=== PATIENT | female | born 1985 | race Caucasian/White ===

== ENCOUNTER 2018-05-11 10:53 | Day surgery (SDC) | payer OTHER, SELFPAY ==
--- NOTE | 2018-05-11 | FALS_PTH ---
PATIENT: ANGELI GILBERT [place] [facility] [id number] AGE/SX: 32/F ROOM: RE05/11/[address]: Dr. Eveline Garcia MD : [id number] BED: DIS: 05/11/2018 SPEC #: [id number] RECD: 05/11/18 15:44 STATUS: KILEY ETIENNE #: [id number] OPAL: 05/11/18 00:[address]: Eveline Garcia DEPT: SURGICAL PATHOLOGY RECD BY: Stephan Draper ENTERED: 05/12/18 08:35 SP TYPE: FALL TUBES OTHR DR: Dr. Karyn Locke MD Tissues: Fallopian tube Procedures: Surgery Specimen Level II HEADER OPERATION: Laparoscopic salpingectomy PRE-OP DIAGNOSIS: Request for sterilization TISSUE SUBMITTED: Bilateral fallopian tubes MICROSCOPIC DIAGNOSIS Bilateral fallopian tubes, bilateral salpingectomy: Bilateral fallopian tubes including fimbrial ends, no pathologic diagnosis. SJ:roseanne 05/13/18 MICROSCOPIC DESCRIPTION Slides are reviewed. GROSS DESCRIPTION Received is one container labeled with the patient's name and designated bilateral fallopian tubes. The specimen consists of bilateral fallopian tubes including fimbrial ends measuring 6 cm in length and 0.7 cm in diameter and the second fallopian tube measures 6.5 cm in length and 0.8 cm in diameter. Sections do not reveal any mass lesion. The fallopian tubes are not identified as right or left. Sections reveal unremarkable cut surfaces. Returned Materials Inspector sections are submitted in two cassettes with each cassette containing one fallopian tube. / LUCY:roseanne 05/12/18 TC:4 CPT: 08021 x2
[2018-05-11 11:29] VITALS: BP 118/62; PULSE 103; RESP 103; TEMP 37.4; O2SAT 100; BMI 17.1
[2018-05-11 11:29] LABS: Internal QC Validated? YES +Cl - CLEAR BKGD
[2018-05-11 11:30] LABS: Pregnancy, Urine Negative Negative
--- NOTE | 2018-05-11 12:41 | PCM.DC.TUB ---
Discharge Diet: No Restrictions Discharge Activity: May not drive while taking narcotic pain medications., May Shower, May Take a Tub Bath May resume sexual activity in: No Restrictions - when comfortable Additional Activity Instructions:: Ambulate often the next week after surgery. Call your doctor if you observe: Fever of 101 or Higher, Inability to have a bowel movement, Using more than one pad per hour, Uncontrolled pain Change Dressing in (Days):: 4 Remove Dressing in (days):: 4 Cleanse incision/area with: Soap & Water, Keep Dressing Clean & Dry Additional Instructions: You may take two Ibuprofen (200 mg each) or two Aleve every 8 hr for milder pain. Add Percocet if more severe pain. Allergies/Adverse Reactions: Allergies moxifloxacin [From Avelox] Adverse Reaction (Verified 05/04/18 11:16) Nausea/Vom/Diarrhea Medications to take at Discharge Vits [Prenatabs FA ] 1 tablet PO DAILY@1200 tablet 10/07/16 Bacillus Coagulans [Probiotic] 1 each PO DAILY 06/10/17 Ca/D3/Mag Ox/Zinc/Emr Trainer/Junior/Bor [Calcium 600-Vit D3-Min Chew Tb] 1 each PO DAILY 06/10/17 Ibuprofen 400 mg PO PRN PRN 06/10/17 Fluticasone 0.05% [Flonase Nasal [place]] 1 spray NASAL DAILY PRN PRN 05/11/18 Loratadine [Claritin] 10 mg PO DAILY PRN PRN 05/11/18 Oxycodone HCl/Acetaminophen [Percocet 5-325] 1 - 2 tablet PO Q6H PRN PRN 2 Days #10 tablet 05/11/18 The following prescriptions were given: Oxycodone HCl/Acetaminophen [Percocet 5-325] 1 - 2 tablet PO Q6H PRN PRN 2 Days #10 tablet PRN Reason: Moderate Pain Primary Care Physician: Karyn Locke [Primary Care Provider] - Test Results: Test results from this visit will be discussed in further detail at your follow-up appointment, if applicable. Please Follow Up With: Eveline Garcia MD - [phone] When: Please call with an update in 7 days. Proposed Discharge Date: 05/11/18
--- NOTE | 2018-05-11 12:45 | DCINST_ITS ---
Discharge Diet: No Restrictions Discharge Activity: May not drive while taking narcotic pain medications., May Shower, May Take a Tub Bath May resume sexual activity in: No Restrictions - when comfortable Additional Activity Instructions:: Ambulate often the next week after surgery. Call your doctor if you observe: Fever of 101 or Higher, Inability to have a bowel movement, Using more than one pad per hour, Uncontrolled pain Change Dressing in (Days):: 4 Remove Dressing in (days):: 4 Cleanse incision/area with: Soap & Water, Keep Dressing Clean & Dry Additional Instructions: You may take two Ibuprofen (200 mg each) or two Aleve every 8 hr for milder pain. Add Percocet if more severe pain. Allergies/Adverse Reactions: Allergies moxifloxacin [From Avelox] Adverse Reaction (Verified 05/04/18 11:16) Nausea/Vom/Diarrhea Medications to take at Discharge Vits [Prenatabs FA ] 1 tablet PO DAILY@1200 tablet 10/07/16 Bacillus Coagulans [Probiotic] 1 each PO DAILY 06/10/17 Ca/D3/Mag Ox/Zinc/Dry Color Mixer/Junior/Bor [Calcium 600-Vit D3-Min Chew Tb] 1 each PO DAILY 06/10/17 Ibuprofen 400 mg PO PRN PRN 06/10/17 Fluticasone 0.05% [Flonase Nasal [place]] 1 spray NASAL DAILY PRN PRN 05/11/18 Loratadine [Claritin] 10 mg PO DAILY PRN PRN 05/11/18 Oxycodone HCl/Acetaminophen [Percocet 5-325] 1 - 2 tablet PO Q6H PRN PRN 2 Days #10 tablet 05/11/18 The following prescriptions were given: Oxycodone HCl/Acetaminophen [Percocet 5-325] 1 - 2 tablet PO Q6H PRN PRN 2 Days #10 tablet PRN Reason: Moderate Pain Primary Care Physician: Karyn Locke [Primary Care Provider] - Test Results: Test results from this visit will be discussed in further detail at your follow- up appointment, if applicable. Please Follow Up With: Eveline Garcia MD - [phone] When: Please call with an update in 7 days. Proposed Discharge Date: 05/11/18
--- NOTE | 2018-05-11 12:48 | OP.PCM_ITS ---
Operative Report Date of Procedure: 05/11/18 PROCEDURE: Laparoscopic Bilateral Salpingectomy PREOPERATIVE DIAGNOSIS: Sterilization request POSTOPERATIVE diagnosis: Sterilization request Surgeon: Eveline Garcia MD Anesthesia: general anesthesia. Dr Henson Educational Program Director: none EBL: minimal Complications: None Drains: Red Ordonez catheter used to drain the bladder prior to initiation of the case Fluids: LR replacement Findings; Normal appearing, anteverted uterus. Fallopian tubes and ovaries are WNL. Gross inspection of bowel, omentum. liver edge also WNL. photos were taken of the uterus and ovaries after Bilateral salpingectomy, and of the RUQ / liver edge Narrative account: After the risks, benefits, alternatives of procedure had been reviewed with the patient, informed consent was obtained. The patient was taken back to the Operating room with an IV running. she was positioned on the operating table in dorsal supine position, where she was given general anesthesia. Once asleep she was repositioned to the dorsal lithotomy position and prepped and draped in the usual sterile fashion. A red Ordonez catheter was used to drain the bladder prior to initiating the case. A PROCEDURE: Laparoscopic Bilateral Salpingectomy PREOPERATIVE DIAGNOSIS: Sterilization request POSTOPERATIVE diagnosis: Sterilization request Surgeon: Eveline Garcia MD Anesthesia: general anesthesia. HALINA Lowry Educational Program Director: NGOZI Lang EBL: minimal Complications: None Drains: Red Ordonez catheter used to drain the bladder prior to initiation of the case Fluids: LR replacement Findings; Normal appearing, anteverted uterus. Fallopian tubes and ovaries are WNL. Gross inspection of bowel, omentum. liver edge also WNL. photos were taken of the uterus and ovaries after Bilateral salpingectomy, and of the RUQ / liver edge Narrative account: After the risks, benefits, alternatives of procedure had been reviewed with the patient, informed consent was obtained. The patient was taken back to the Operating room with an IV running. she was positioned on the operating table in dorsal supine position, where she was given general anesthesia. Once asleep she was repositioned to the dorsal lithotomy position and prepped and draped in the usual sterile fashion. A red Ordonez catheter was used to drain the bladder prior to initiating the case. A sponge stick was placed into the vagina to allow manipulation of the uterus and cervix during the case. Attention was then turned to the anterior abdominal wall where 0.25 % Marcaine with epinephrine was instilled at the suprapubic and infraumbilical skin and at a point midway between in the midline. Skin incisions were then created in the midline at the suprapubic skin and at the infraumbilical skin and midway between the two. While maintaining upward traction of the anterior abdominal wall a Veress needle was inserted through the umbilical incision into the peritoneal cavity. There was free drop of saline, low opening pressure and free flow of CO2 noted. Once the intraabdominal pressure had reached 7 mm of mercury the Veress needle was removed and a bladeless 5 mm trocar was placed through infraumbilical skin incision into the peritoneal cavity. Correct placement was confirmed using the scope. Under direct visualization then with the patient in Trendelenburg position, a bladeless 5 mm trocar was inserted in through suprapubic skin incision into the peritoneal cavity and at a point midway between the infraumbilical and suprapubic trocars. The uterus as anteverted and both ovaries and fallopian tubes were WNL. The R fallopian tube was grasped and retracted medially and using a LigaSure device the fallopian tube was excised from the ovary and mesosalpinx. Excellent hemostasis was noted at the excision site. The R fallopian tube was brought through the suprapubic trocar and set aside for later pathology review. In a similar manner the L fallopian tube was grasped and retracted medially and the fallopian tube was excised and removed from the abdominal cavity through the suprapubic trochar. The F allopian tubes were sent to pathology. Excellent hemostasis was noted by visualization of the pelvis, ovaries, and remaining mesosalpinx. Photos were taken of the uterus and Bilateral remaining ovaries and of the RUQ and liver edge. At this point the the procedure was terminated. The pneumoperitoneum was reduced and the instruments and trocars were removed from he the anterior abdominal wall skin. The skin incisions were closed with 4-0 Monocryl in a subcuticular fashion. Dermabond and OpSites were applied to the skin. The Sponge stick was removed from the vagina. The patient was returned to dorsal supine position. She was awakened from general anesthesia. She was transferred to the recovery room bed in stable condition after tolerating the procedure well. Sponge, lap, needle and instrument counts were correct x two. Medications given preop and intraoperatively included: 10 cc of 1/2 % Marcaine with epinephrine --used as a subcutaneous block and Toradol 30 mg IV x one. For a complete listing of medications given preop and intraop , please see the anesthesia record.
[2018-05-11] MEDS: Bupiv/Epi 0.5% Mpf 30 ML Vial (13:04)
[2018-05-11 13:34] VITALS: BP 113/77; BP 118/62; PULSE 92; RESP 12; TEMP 36.6; O2SAT 98
[2018-05-11 13:45] VITALS: BP 112/79; BP 118/62; PULSE 84; RESP 16; O2SAT 100
[2018-05-11 13:53] VITALS: BP 114/84; BP 118/62; PULSE 83; RESP 16; TEMP 36.5; O2SAT 100
--- NOTE | 2018-05-11 15:01 | SUR.PHASEII ---
AT 1450, PATIENT C/O ABDOMINAL BLOATING, RIGHT SHOULDER DISCOMFORT, REPORTS DIFFICULTY TAKING A DEEP BREATH. LUNGS CLEAR. AMBULATED IN HALLWAY WITHOUT DIFFICULTY. HAS BEEN DRINKING JIGNESH BREANA, ENCOURAGED TO SWITCH TO NON-CARBONATED DRINKS. ALSO REPEATEDLY QUESTIONING IF SAFE TO BREAST FEED AFTER ANESTHESIA OR IF TAKING PERCOCET. DR MONTES DE OCA UPDATED, STOPPED IN PATIENT ROOM TO EDUCATE.
[2018-05-11 15:56] VITALS: BP 118/62; BP 118/78; PULSE 93; RESP 16; TEMP 37.2; O2SAT 100
== END 2018-05-11 15:40 | disposition home or self-care (01) ==
LOC: SDC 10:54 → AC 05-12 09:25
PROVIDERS: Anesthesiology; Family Provider Family Medicine; PCP Family Medicine; Referring Provider Obstetrics & Gynecology; Visit Provider Obstetrics & Gynecology
PROC: (CPT 58661; principal; 2018-05-11 12:15)
DX: Z30.2 Encounter for sterilization (principal); K58.9 Irritable bowel syndrome, unspecified
CPT/HCPCS: 58661; 81025; 88302; J7030; J7120; J2405

== ENCOUNTER → 2018-12-21 08:50 | Outpatient (CLI) | payer OTHER, SELFPAY | PROVIDERS: Family Provider Family Medicine; PCP Family Medicine | DX: R00.2 Palpitations (principal) | CPT/HCPCS: 93225; 93226 ==

== ENCOUNTER → 2019-04-12 13:46 | Outpatient (CLI) | payer OTHER, SELFPAY ==
--- NOTE | 2019-04-12 13:51 | BI_ITS ---
MAMMOGRAPHY - BILATERAL DIAGNOSTIC REASON FOR EXAM: Female, 33 years old. PERTINENT HISTORY: Palpable lump in the left breast TECHNIQUE: Digital examination. Mediolateral oblique (MLO) and craniocaudad (CC) views of both breasts were obtained. A true lateral right breast images also obtained. CAD: COMPARISON: None. FINDINGS: Breast Composition: Extremely dense and compressed fractures identified. There are no dominant masses identified. There are some calcifications noted in the right retroareolar portion of the breast on the MLO projection. On the true lateral projection and small degree of compression was provided and these calcifications completely disappeared indicating they represent milk of calcium.. The palpable mass in the left breast could not be visualized on these images, but because the patient has dense central breast structure was elected to use ultrasound to better visualize this region. BI/DIAG MAMM W/CAD, BILAT IMPRESSION: Palpable densities noted in the left breast in the retroareolar area and a left breast ultrasound will be performed further evaluation.. ASSESSMENT CATEGORY: BIRADS Category 0: Incomplete. Need additional imaging evaluation. A letter regarding these results will be sent to the patient by the facility within 30 days. FOLLOW UP RECOMMENDATION: Ultrasound Recommended. (I) Approximately 10% of breast cancers are not detected by mammography. A normal mammogram should not delay biopsy of a clinically suspicious abnormality. Electronically Signed: Nitin Kumar, at 17:04 EDT Tel , Service support ,
--- NOTE | 2019-04-12 14:47 | US_ITS ---
STUDY: ULTRASOUND BREAST - LEFT REASON FOR EXAM: Female, 33 years old. Palpable density in the left retroareolar area TECHNIQUE: Axial and longitudinal images of the LEFT breast were performed with a high resolution ultrasound transducer. COMPARISON: Recent mammogram obtained on 04/12/2019 FINDINGS: LEFT Breast: There is a lesion in the left retroareolar area. This density measures 1.78 x 0.77 cm in maximal anterior superior and AP dimension. Upon review of this density appears to have a similar echogenic appearance to normal breast parenchyma just to the lateral lesion and probably represents an area of focal fibrocystic change surrounded by some fatty tissue. Please is not spiculated. It is slightly lobulated and does not cast an acoustic shadow. There are no characteristics that would suggest a malignancy otherwise noted is solid. I believe in this situation a follow-up breast ultrasound in 3-6 months to check for growth would be helpful for additional evaluation. US/Breast Limited Unilateral IMPRESSION: The palpable density in the left retroareolar area probably represents focal fibrocystic change surrounded by fatty tissue giving a pseudonodular appearance. A follow-up breast ultrasound in 3-6 months would be helpful for further evaluation. ASSESSMENT CATEGORY: BIRADS Category 3: Probably Benign - Short-Interval Follow-up Suggested. A letter regarding these results will be sent to the patient by the facility within 30 days. Electronically Signed: Nitin José, at 17:10 EDT Tel , Service support ,
== END ==
PROVIDERS: Family Provider Family Medicine; PCP Family Medicine; Referring Provider Obstetrics & Gynecology; Visit Provider Obstetrics & Gynecology
DX: N60.22 Fibroadenosis of left breast (principal); Z86.018 Personal history of other benign neoplasm
CPT/HCPCS: 76642; 77062; 77066; G0279

== ENCOUNTER 2019-05-29 01:26 | Emergency (ER) | payer OTHER, SELFPAY ==
[2019-05-29 01:27] VITALS: BP 153/97; PULSE 98; RESP 18; TEMP 36.8; O2SAT 100; BMI 19.5
--- NOTE | 2019-05-29 01:35 | ED.VIS.GEN ---
History of Present Illness Chief Complaint: Eye Problem Informant: Patient Narrative: Patient scratched her eye at 6 PM today. Her daughter was holding a sauce packet and the plastic scratched her eyes she got to close. Stated she took Tylenol and Motrin. She stated her eyelid is slightly swollen and spasmed. Difficult to open her eyes secondary to the pain. She stated she did not have any visual problems afterwards however. She wears glasses as needed. - Past Medical History (1) Sinus tachycardia Status: Acute Past Medical History - Allergies and Home Meds Allergies/Adverse Reactions: Allergies moxifloxacin [From Avelox] Adverse Reaction (Verified 05/29/19 01:32) Nausea/Vom/Diarrhea Primary Care Physician: Karyn Locke [Primary Care Provider] - Prior records reviewed: Yes Past Medical History: - - See problem list Surgical History: noncontributory Lives: With Family Smoking Status: Never smoker Alcohol: None Drugs: None - Family History Maternal Family History: Reports: No pertinent history Review of Systems General: Denies: Chills, Fever, Sweats Eyes: Reports: Visual changes - right. Denies: Visual changes - bilaterally, Diplopia ENT: Denies: Rhinorrhea, Sore throat Cardiovascular: Denies: Chest pain, Palpitations Respiratory: Denies: Dyspnea, Cough, Dyspnea on exertion Gastrointestinal: Denies: Abdominal pain, Nausea, Vomiting, Diarrhea, Melena, Hematochezia Genitourinary: Denies: Dysuria, Hematuria, Frequency Musculoskeletal: Denies: Back pain, Extremity Pain Skin: Denies: Rash, Wounds Neurological: Denies: Headache, Weakness, Numbness Physical Exam Vital Signs/Narrative: Vital Signs Temp Pulse Resp BP Pulse Ox 05/29/19 01:27 98.2 F 98 18 153/97 H 100 General: Well nourished, Well developed, No Acute Distress Head: Normocephalic, Atraumatic Eyes: Perrl, EOMI, - - She has conjunctivitis with redness and bloodshot eye. Patient has mild swelling to her eyelids. Tetracaine was instilled with complete relief. Floor seen was used and there is a punctate corneal abrasion at the 6 o'clock position. ENT: Moist mucous membranes, No rhinorrhea Neck: Supple, Nontender Cardiovascular: Regular rate, Regular rhythm, No murmurs Respiratory: No distress, CTA bilaterally, Chest nontender Abdomen: Soft, Nontender, Nondistended, Normal bowel sounds Back: Nontender, Normal Inspection Extremities: Nontender, No edema Skin: Normal color, No rash Neurological: Alert, Oriented x3, Cranial nerves II-XII grossly intact, Normal Strength, Normal Sensation Psychological: Normal affect, Normal Mood Diagnostic/Tx/Re-eval - Medical Decision Making Bacitracin ophthalmic given. We will continue pain control. At this time she has a corneal abrasion. We will follow-up with ophthalmology ED Disposition - Plan for ED Patient: Disposition: Home or Assisted Living Diagnosis: Corneal abrasion Instructions: ED Corneal Abrasion Referrals: Lucía Encinas MD [STAFF PHYSICIAN] -
[2019-05-29] MEDS: Gentamicin Sulfate 1 OPTH.BTL 1 DRP RIGHT EYE (02:17)
[2019-05-29] MEDS: Fluorescein 1 MG STRIP 1 STRIP RIGHT EYE (02:17)
[2019-05-29 02:18] VITALS: BP 118/64; PULSE 67; RESP 18; O2SAT 98
== END 2019-05-29 02:19 | disposition home or self-care (01) ==
PROVIDERS: Emergency Provider Emergency Medicine; Family Provider Family Medicine; PCP Family Medicine
DX: S05.01XA Injury of conjunctiva and corneal abrasion without foreign body, right eye, initial encounter (principal); H10.9 Unspecified conjunctivitis; W22.8XXA Striking against or struck by other objects, initial encounter; Y93.9 Activity, unspecified; Y92.9 Unspecified place or not applicable; Y99.9 Unspecified external cause status; Z79.899 Other long term (current) drug therapy
CPT/HCPCS: 99282

== ENCOUNTER → 2019-09-20 10:58 | Outpatient (CLI) | payer OTHER, SELFPAY ==
[2019-07-12 10:58] VITALS: BMI 19.5
--- NOTE | 2019-09-20 11:10 | US_ITS ---
STUDY: ULTRASOUND BREAST - LEFT REASON FOR EXAM: Female, 33 years old. Palpable lump left breast. TECHNIQUE: Axial and longitudinal images of the LEFT breast were performed with a high resolution ultrasound transducer. # OF IMAGES: 11 COMPARISON: Comparison is made with prior ultrasound of the left breast dated April 12, 2019. FINDINGS: LEFT Breast: There is a 2.1 cm x 2.5 cm x 0.9 cm heterogeneous slightly irregular nodule at the 9:00 position of the breast in the retroareolar region. This has increased in size as compared to prior study. A biopsy is recommended. US/Breast Limited Unilateral IMPRESSION: The previously seen nodular density has increased in size. A biopsy is recommended. ASSESSMENT CATEGORY: BIRADS Category 4: Suspicious - Biopsy Should Be Considered. A letter regarding these results will be sent to the patient by the facility within 30 days. Electronically Signed: Salvatore Veronica, at 13:17 EDT , Service support ,
== END ==
PROVIDERS: PCP Family Medicine; Referring Provider Obstetrics & Gynecology; Visit Provider Obstetrics & Gynecology
DX: N60.22 Fibroadenosis of left breast (principal)
CPT/HCPCS: 76642

== ENCOUNTER → 2020-12-23 | Outpatient (CLI) | payer OTHER, SELFPAY ==
[2019-07-12 10:58] VITALS: BMI 19.5
[2020-12-25 22:07] LABS: HPV APTIMA, High Risk Negative (Negative)
== END | disposition home or self-care (01) ==
PROVIDERS: PCP Family Medicine; Visit Provider Student in an Organized Health Care Education/Training Program
DX: Z12.4 Encounter for screening for malignant neoplasm of cervix (principal)
CPT/HCPCS: 87624; 88175; G0145

== ENCOUNTER → 2021-04-14 08:17 | Outpatient (CLI) | payer OTHER, SELFPAY ==
--- NOTE | 2021-04-14 08:21 | BI_ITS ---
MAMMOGRAPHY - BILATERAL SCREENING REASON FOR EXAM: Female, 35 years old. Routine annual screening examination. PERTINENT HISTORY: Mother with breast cancer. Prior left ultrasound-guided breast biopsy. TECHNIQUE: Digital bilateral breast chan (3D mammographic acquisition) in the CC and MLO projections. 2-D mediolateral oblique (MLO) and craniocaudad (CC) views of both breasts were obtained. CAD: Full Field Digital Mammography with Computer Added Detection was performed. COMPARISON: Comparison is made with prior study 04/12/2019. FINDINGS: Breast Composition: The breasts are extremely dense, which lowers the sensitivity of mammography. There are no dominant masses or suspicious calcifications. No other significant abnormalities are identified. There has been no significant change since the prior study. BI/SCRN MAMM (CAD)W/CHAN BILAT IMPRESSION: Stable bilateral screening mammogram. Yearly follow-up mammogram recommended. (A) ASSESSMENT CATEGORY: BIRADS Category 1: Negative. A letter regarding these results will be sent to the patient by the facility within 30 days. Approximately 10% of breast cancers are not detected by mammography. A normal mammogram should not delay biopsy of a clinically suspicious abnormality. [id number] Electronically Signed: Salvatore Veronica MD at 9:44 EDT , Service support ,
== END ==
PROVIDERS: PCP Family Medicine
DX: Z12.31 Encounter for screening mammogram for malignant neoplasm of breast (principal); Z80.3 Family history of malignant neoplasm of breast
CPT/HCPCS: 77063; 77067

== ENCOUNTER 2024-05-25 06:09 | Day surgery (SDC) | payer OTHER, SELFPAY ==
--- NOTE | 2024-04-27 16:35 | PCM.HP.BLA ---
History and Physical Date of Admission: 05/25/24 HPI: The patient is a 38 year old female presenting for pre-operative visit. She is scheduled for Hysteroscopy D&C, possible polyp resection for mid cycle spotting and endometrial polyp on 05/25/24. Procedure discussed along with risks, benefits and complications. Other alternatives discussed for management. Consent form signed? Yes. PAST MEDICAL HISTORY PAST MEDICAL HISTORY Diagnosis Date ? Anxiety state ? POTS (postural orthostatic tachycardia syndrome) ? Tachycardia PAST SURGICAL HISTORY PAST SURGICAL HISTORY Procedure Laterality Date ? SECTION HX 01/09/2017 ? PARTIAL HYMENECTOMY 2001 ? PAST SURGICAL HISTORY OF 02/03/2020 fibroadenoma ? PAST SURGICAL HISTORY OF Right 1998 shoulder ? SALPINGECTOMY 05/11/2018 CURRENT MEDICATIONS Current Outpatient Medications Medication Sig Dispense Refill ? hydrOXYzine HCl (ATARAX) 10 mg tablet TAKE ONE TABLET BY MOUTH THREE TIMES DAILY NEEDED FOR ANXIETY FOR 30 DAYS ? multivitamin/iron/folic acid (CENTRUM WOMEN ORAL) Take 1 tablet by mouth once daily. ? cyanocobalamin 1,000 mcg/mL inject ONE ML intramuscular every TWO WEEKS ? VITAMIN E ORAL 180 mg. ? cholecalciferol, vitamin D3, (VITAMIN D3 ORAL) Take by mouth. ? propranolol (INDERAL) 20 mg tablet Take 1 tablet by mouth every 12 hours. ? busPIRone (BUSPAR) 5 mg tablet 1-2 tabs (Patient not taking: Reported on 04/20/2024) ? cetirizine (ZYRTEC) 10 mg tablet Take 10 mg by mouth. ? Magnesium Citrate 150mg (Pure Encapsulations) Take 3 capsules daily. ? ALPRAZolam (XANAX) 0.25 mg tablet ? diphenhydrAMINE (BENADRYL) 25 mg capsule Take 25 mg by mouth. ? ibuprofen (MOTRIN) 200 mg tablet Take 200 mg by mouth. No current facility-administered medications for this visit. ALLERGIES: Moxifloxacin and Flagyl [Metronidazole] PERSONAL HISTORY: SOCIAL HISTORY Social History Tobacco Use ? Smoking status: Never ? Smokeless tobacco: Never Vaping Use ? Vaping status: Never Used Substance Use Topics ? Alcohol use: Yes Comment: occ ? Drug use: Never FAMILY HISTORY: FAMILY HISTORY FAMILY HISTORY Problem Relation Age of Onset ? other (hemochromatosis) Mother ? Hypothyroidism Mother ? other (hypercholesterolemia) Mother ? Diabetes Mother ? Diabetes Father type 2 ? Hypertension Father ? Heart Attack Father 62 bypass ? Heart Attack Maternal grandparent ? Stroke Paternal grandparent REVIEW OF SYMPTOMS: GENERAL: denies fevers or chills ENDOCRINOLOGY: has not been on steroids Cardiology : denies palpitations or chest pain Respiratory: denies SOB or cough Hematology: denies history of prolonged bleeding or easy bruising or VTE Allergy: Denies history of personal or family history of allergy to anesthesia PHYSICAL EXAMINATION: VITALS: Blood pressure 114/64, pulse 96, resp. rate 16, height 163.8 cm (5' 4.5), weight 52.6 kg (116 lb), last menstrual period 04/12/2024. GENERAL: The patient is well nourished, well hydrated in no acute distress. , The patient is oriented to time, place, and person. NECK: Supple. No lynphadenopathy, normal thyroid, no thyromegaly. LUNGS: Clear to auscultation bilaterally. no wheezes, rhonchi or rales HEART: Regular rate and rhythm, Normal heart sounds, and No murmurs or gallops IMPRESSION: midcycle spotting, endometrial polyp PLAN: The risks/benefits/alternatives and personal involved for the planned hysteroscopy D&C with possibble polyp resection were reviewed with the patient. Her questions were answered to her satisfaction and she desires to proceed. Consent was signed. I reviewed with her postop instructions and expectations. I have reviewed and updated past medical and surgical history, medications and allergies Assessment & Plan Assessment/Plan (1) Abnormal uterine bleeding (AUB): (2) Endometrial polyp:
[2024-05-18 08:59] LABS: Hematocrit 41.6 % (37-47); Hemoglobin 13.5 g/dL (12.0-15.0); Mean Corp Hgb Conc 32.5 g/dL (32-36); Mean Corpuscular Hgb 29.9 pg (27.0-32.0); Mean Corpuscular Volume 92.2 fL (81-99); Mean Platelet Vol. 9.5 fl (6.2-12.0); Platelet Count 358 K/mm3 (150-450); RBC Distribution Width CV 12.2 % (11.6-14.6); RBC Distribution Width SD 41.6 fl (35.1-43.9); Red Blood Count 4.51 M/mm3 (4.2-5.4); White Blood Count 9.8 K/mm3 (4.4-11.0)
[2024-05-25] VITALS (8 sets, daily range): BP systolic 120–140; BP diastolic 79–91; PULSE 84–94; RESP 16–18; TEMP 36.6–37.2; O2SAT 97–100; BMI 20.3
--- NOTE | 2024-05-25 | EMB_PTH ---
PATIENT: ANGELI GILBERT LOC: [facility] [place] U#:[id number] AGE/SX: 38/F ROOM: RE05/25/[address]: Dr. Iva Kelly MD : 1985 BED: DIS: 05/25/2024 SPEC #: [id number] RECD: 05/25/24 10:17 STATUS: KILEY REIsreal #: [id number] OPAL: 05/25/24 00:[address]: Iva Kelly DEPT: SURGICAL PATHOLOGY RECD BY: Stephan Draper ENTERED: 05/25/24 10:17 SP TYPE: ENDOM BX/C OTHR DR: Dr. Karyn Locke MD Tissues: Endometrium, NOS Procedures: Surgery Specimen Level IV HEADER OPERATION: Hysteroscopy., visual D&C, polyp resection PRE-OP DIAGNOSIS: Abnormal uterine bleeding, endometrial polyp TISSUE SUBMITTED: Endometrial curettings and polyp MICROSCOPIC DIAGNOSIS Endometrial curettings and polyp: Secretory endometrium. Fragments of myometrium. 05/26/2024 MICROSCOPIC DESCRIPTION Slides are reviewed. GROSS DESCRIPTION Received in fixative is one container labeled with the patient's name and designated Endometrial curettings and polyp. The specimen consists of multiple irregular fragments of crews-pink soft tissue that in aggregate measure 7.5 x 3.0 x 0.2 cm. The specimen is totally submitted in three cassettes. 05/25/2024 TC:5 CPT:41756
--- NOTE | 2024-05-25 06:47 | PCM.PRE.AN2 ---
ASA Classification* ASA Classification ASA Classification: 2 Assessment & Plan Anesthesia* Anesthesia Assessment Anesthesia Assessment: Discussed sedation and/or anesthesia options, risks, benefits, and alternatives with patient/parents/legal guardian/POA. Questions invited. The patient/parents/legal guardian/POA seems to understand and agrees to proceed with anesthesia plan. Reviewed the physical assessment, medical history, allergy history and patient home medications list prior to surgery/procedure/anesthetic and documented any changes. Performed airway and anesthesia risk assessments. Anesthesia Type Anesthesia Type: MAC Anesthesia Focused Assessment* Airway Assessment Mouth opens: >3 cm Mallampati Score: II Focused Labs Anesthesia Preop lab: CBC WBC 9.8 K/mm3 (4.4-11.0) 05/18/24 08:29 RBC 4.51 M/mm3 (4.2-5.4) 05/18/24 08:29 Hgb 13.5 g/dL (12.0-15.0) 05/18/24 08:29 Hct 41.6 % (37-47) 05/18/24 08:29 Plt Count 358 K/mm3 (150-450) 05/18/24 08:29 CHEMISTRY Potassium 3.8 mmol/L (3.5-5.1) 10/12/16 13:59 Sodium 137 mmol/L (136-145) 10/12/16 13:59 BUN 6 mg/dL (7-18) L 10/12/16 13:59 Creatinine 0.47 mg/dL (0.55-1.02) L 10/12/16 13:59 Glucose 95 mg/dL (70-110) 10/12/16 13:59 POC Glucose 123 mg/dL (70-110) H 01/10/17 20:28 COAG Urine Test Negative Negative 05/11/18 11:05 Pre-Assessment Diagnosis/Proposed Procedure Planned Operative Procedure(s): Hysteroscopy,D&C Symphion, possible polyp resection, IUD insertion Anesthesia History 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 When Was Last Pacemaker Check QUESTION #4 FULL TEXT: You/Your Family Experience fever (hyperthermia) with Anesthesia Last Oral Intake Last Oral intake: Last Oral Intake NPO since Meds taken in AM with sips of water? Meds patient instructed to take am of surgery PONV PONV - sql server developer: PONV - sql server developer Female Yes 05/16/24 13:24 HX of Motion Sickness No 05/16/24 13:24 HX of N/V After Surgery No 05/16/24 13:24 Non-Smoker Yes 05/16/24 13:24 Duration of Surgery greater No 05/16/24 13:24 than 60 minutes Number of Risk Factors 2 05/16/24 13:24 PONV Score Moderate Risk 05/16/24 13:24 Respiratory Assessment Respiratory Assessment - sql server developer: Respiratory Tract Infection Hx - sql server developer Hx Respiratory Tract Infection No 05/16/24 13:24 STOP Sleep Apnea STOP Sleep Apnea - sql server developer: STOP Sleep Apnea - sql server developer Hx Hypertension No 05/16/24 13:24 Hx Sleep Apnea No 05/16/24 13:24 CPAP BIPAP Do you snore loudly (louder No 05/16/24 13:24 than talking or can be heard Do you often feel tired/ No 05/16/24 13:24 fatigued/ sleepy during daytime? Has anyone observed you stop No 05/16/24 13:24 breathing during sleep? STOP Results Negative 05/16/24 13:24 QUESTION #5 FULL TEXT : Do you snore loudly (louder than talking or can be heard through closed doors)? Tobacco Use History Tobacco Use History - sql server developer: Tobacco Use History - sql server developer Tobacco Use Smoking Status Never smoker 05/16/24 13:24 Hx Tobacco Use No 05/16/24 13:24 Years Smoking Packs Smoked per Day Smoking Cessation Date was within the last 15 years Hx Smoking Cessation Date Hx Smoking Cessation Counseling Hematologic Medial History Hematologic Hx - sql server developer: Hematologic Medical Hx - administrative assistant Hx of Blood Transfusion No 05/16/24 13:24 Hx of Transfusion in last 3 No 05/16/24 13:24 Months Date of Last Transfusion (if within last 3 months) Ever experience any problems No 05/16/24 13:24 with transfusion(s)? Specify any problems Hx of Preganancy in last 3 No 05/16/24 13:24 Months Nurse Filling Out Transfusion ANIRUDH 05/16/24 13:24 & Questions: Date: 05/16/24 05/16/24 13:24 Time: 13:37 05/16/24 13:24 Patient unable to answer at this time (ie. confused, unrespo /Reproduction History /Reproductive History - sql server developer: /Reproductive Hx- sql server developer Hx Now Gestational Age (in weeks): EDC: Hx Hx Para Hx Section SAB Active Medications Active Medications: Current Medications Generic Name Dose Route Start Last Admin Trade Name Freq PRN Reason Stop Dose Admin Acetaminophen 1,000 mg 05/25/24 07:30 Acetaminophen 500 Mg Tablet PO 05/25/24 07:31 PREOP ONE Ketorolac Tromethamine 30 mg 05/25/24 07:30 Ketorolac 30 Mg/Ml Syringe IV 05/25/24 07:31 PREOP ONE PFSH Medical History History of irregular heartbeat Wears glasses Anxiety Non-smoker History of echocardiogram Cardiology follow-up encounter Home Medications ?Medication ?Instructions ?Recorded ?Last Taken ?Type alprazolam 0.25 mg tablet 0.25 mg PO Q6H PRN PRN anxiety 05/16/24 05/25/24 History hydroxyzine HCl 10 mg tablet 10 mg PO TID PRN PRN anxiety 05/16/24 Unknown History propranolol 20 mg tablet 10 mg PO BID 05/16/24 05/25/24 History Allergy/AdvReac Type Severity Reaction Status Date / Time metronidazole (From Flagyl) Allergy Intermediate Other Verified 05/25/24 06:33 tetracycline Allergy Intermediate Other Verified 05/25/24 06:33 moxifloxacin (From Avelox) AdvReac Nausea/Vom/ Verified 05/25/24 06:33 Diarrhea Surgical History History of esophagogastroduodenoscopy (EGD) History of colonoscopy History of bilateral fallopian tube excision History of shoulder surgery History of breast surgery History of Social History Smoking Status: Never smoker Review of Systems (Anesthesia) ROS Narrative System reviewed and no additional complaints, except as documented.
[2024-05-25] MEDS: Ketorolac 30 MG/ML Syringe IV (06:48)
[2024-05-25] MEDS: Acetaminophen 500 MG Tablet 1000 MG PO (06:48)
[2024-05-25 07:19] LABS: Internal QC Validated? YES +Cl - CLEAR BKGD; Pregnancy, Urine Negative Negative
--- NOTE | 2024-05-25 07:45 | DCINST_ITS ---
Discharge Instructions Diet Discharge Diet: No restrictions Activity May resume sexual activity in: 2 weeks Lifting Restrictions: none Dressing / Incision Call your doctor if your incision/area has: Sudden Increased Bleeding and Foul Smelling Discharge Call your doctor if you observe: Fever of 101 or Higher and Using more than 1 pad per hour (for 2 hrs in a row) Follow Up Care Please Follow Up With: Iva Kelly MD When: You do not need a postop appointment, we will contact you with the pathology next week. Call [phone] or send a [employer] message to make an appointment or with any concerns. Test Results: Test results from this visit will be discussed in further detail at your follow- up appointment, if applicable. Discharge Plan Admission Primary Reason for Your Visit: Hysteroscopy D&C Attending Provider: Iva Kelly Primary Care Provider: Karyn Locke Instructions Print Language: Sammarinese Discharge Orders/Prescriptions Prescriptions: No Action alprazolam 0.25 mg tablet 0.25 mg PO Q6H PRN PRN (Reason: anxiety) propranolol 20 mg tablet 10 mg PO BID hydroxyzine HCl 10 mg tablet 10 mg PO TID PRN PRN (Reason: anxiety) Referrals / Follow Up: Karyn Locke MD [Primary Care Provider] - Disposition Disposition (needs filled in before D/C Order can be placed): Home, Self Care
[2024-05-25] MEDS: Lidocaine 1% /Epi 1:100 (20ml) 20 ML Vial (07:50)
--- NOTE | 2024-05-25 08:07 | PCM.OPRPT ---
Problems Associated Problem List Diagnoses (1) Endometrial polyp: (2) Abnormal uterine bleeding (AUB): Operative Report (Standard) Operative Information Surgery/Procedure Performed: Hysteroscopy D&C with polyp resection Surgeon: Iva Kelly Date of Procedure: 05/25/24 Procedure Start Time: 07:50 Procedure Stop Time: 08:02 Pre-Operative Diagnosis: AUB, endometrial polyp Post-Operative Diagnosis: same Select all DRAINS/GRAFTS/IMPLANTS that apply: None Type of Anesthesia: MAC/Supplemental/Local Special Medications: none Estimated Blood Loss: 10 Fluids Replaced: 400 Specimen collected: Yes Description of specimen(s) removed: endometrial curettings and polyp Description of surgery: The patient was taken to the OR where she was prepped and draped in dorsal lithotomy position. The weighted speculum was placed in the vagina and the anterior lip of the cervix was grasped with a single-tooth tenaculum. A paracervical block was administered with 1% lidocaine with 1-100,000 epinephrine solution. The cervix was dilated serially with Hegar dilators. The Symphion hysteroscope was placed into the uterine cavity and the above findings were noted. Bilateral tubal ostia were identified. The hysteroscope was removed. The Symphion resection device was readied and inserted. The device was used to resect the polypoid appearing lesion on the posterior wall of the uterus and do a visual D&C of the endometrial cavity.. The instruments were removed from the vagina. The specimen was handed off and sent to pathology. All sponge and needle counts were correct. Vaginal sweep was performed by me. The patient was awakened and taken to the recovery room in stable condition. 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
--- NOTE | 2024-05-25 09:22 | SUR.PHASEII ---
PATIENT IS A LITTLE SHAKY IN HER LEGS. SHE SAID SHE HAD THIS PREVIOUSLY WITH ANESTHESAI. WITH HER HISTORY OF POTS IT KIND OF PUTS HER IN A FIGHT OR FLIGHT MODE. HER APICAL PULSE IS 90 CURRENTLY. I TOLD HER TO TRY AND RELAX AND SEE IF SHE CAN GET THE SHAKINESS CONTROLLED. LIGHTS LOWERED AND SHE IS RESTING. DENIES ANY NEEDS AT THIS TIME.
[2024-05-25] MEDS: oxyCODONE 5 MG Tablet PO (09:52)
--- NOTE | 2024-05-25 10:04 | PCM.POST.ANE ---
Anesthesia: Postop Eval I Current Vital Signs Temperature: 98.4 F Pulse Rate: 90 Blood Pressure: 128/87 Respiratory Rate: 18 Pulse Ox: 100 Oxygen Delivery Method: Room Air Assessment Airway patent: Yes Spontaneous unlabored respirations: Yes Mental status: Asleep nausea: No Vomiting: No Anesthesia Complication: No Fluid Hydration Crystalloid volume administer (ml): 400 Total IV fluid infused: 400 Progress Note Anesthesia document: Postop Eval 1 completed: Yes
--- NOTE | 2024-05-25 12:19 | POSTOPAN2_ITS ---
Anesthesia Postop Eval I Sum Postop Eval Completion status Anesthesia document: Postop Eval 1 completed: Yes Anesthesia Postop Eval I Summary Anesthesia Postop Eval I Summary: Anesthesia Postop Eval I: Assessment Summary Airway patent Yes 05/25/24 10:05 AIR LIAISON AND SPECIAL STAFF.[email or web address] Spontaneous unlabored Yes 05/25/24 10:05 AIR LIAISON AND SPECIAL STAFF.[email or web address] respirations Mental status Asleep 05/25/24 10:05 AIR LIAISON AND SPECIAL STAFF.RAJEEVOBCipriano nausea No 05/25/24 10:05 AIR LIAISON AND SPECIAL STAFF.RAJEEVOBCipriano Vomiting No 05/25/24 10:05 AIR LIAISON AND SPECIAL STAFF.RAJEEVOBCipriano Anesthesia Postop Eval I: Fluid Summary Crystalloid volume administer 400 05/25/24 10:05 AIR LIAISON AND SPECIAL STAFF.SKOBY (ml) Colloids volume administered ( ml) Blood Product volume administered (ml) Total IV fluid infused 400 05/25/24 10:05 AIR LIAISON AND SPECIAL STAFF.SHAHEEN Anesthesia Postop Eval I: Summary Notes Anesthesia Complication No 05/25/24 10:05 AIR LIAISON AND SPECIAL STAFF.SHAHEEN Anesthesia Complication Comment: Post-operative progress note Anesthesia: Postop Eval II Evaluation Mental status: Awake and Calm Pain Level: 1 nausea: No Vomiting: No Complications Anesthesia Complication: No
--- NOTE | 2024-05-25 12:19 | PCM.POSTANE2 ---
Anesthesia Postop Eval I Sum Postop Eval Completion status Anesthesia document: Postop Eval 1 completed: Yes Anesthesia Postop Eval I Summary Anesthesia Postop Eval I Summary: Anesthesia Postop Eval I: Assessment Summary Airway patent Yes 05/25/24 10:05 HR DIRECTOR.[email or web address] Spontaneous unlabored Yes 05/25/24 10:05 HR DIRECTOR.[email or web address] respirations Mental status Asleep 05/25/24 10:05 HR DIRECTOR.[email or web address] nausea No 05/25/24 10:05 HR DIRECTOR.[email or web address] Vomiting No 05/25/24 10:05 HR DIRECTOR.[email or web address] Anesthesia Postop Eval I: Fluid Summary Crystalloid volume administer 400 05/25/24 10:05 HR DIRECTOR.[email or web address] (ml) Colloids volume administered ( ml) Blood Product volume administered (ml) Total IV fluid infused 400 05/25/24 10:05 HR DIRECTOR.SHAHEEN Anesthesia Postop Eval I: Summary Notes Anesthesia Complication No 05/25/24 10:05 HR DIRECTOR.SHAHEEN Anesthesia Complication Comment: Post-operative progress note Anesthesia: Postop Eval II Evaluation Mental status: Awake and Calm Pain Level: 1 nausea: No Vomiting: No Complications Anesthesia Complication: No
== END 2024-05-25 10:24 | disposition home or self-care (01) ==
LOC: SDC 06:10 → AC 06:10
PROVIDERS: PCP Family Medicine; Referring Provider Obstetrics & Gynecology; Visit Provider Obstetrics & Gynecology
PROC: 0UB98ZZ Excision of Uterus, Via Natural or Artificial Opening Endoscopic (ICD-10-PCS; CPT 58558; principal; 2024-05-25 07:15)
DX: N84.0 Polyp of corpus uteri (principal); N93.9 Abnormal uterine and vaginal bleeding, unspecified; Z79.899 Other long term (current) drug therapy
CPT/HCPCS: 58558; 00952; 36415; 81025; 85027; 88305; J7120; A4216; J2405

== ENCOUNTER → 2025-05-22 | Outpatient (CLI) | payer OTHER, SELFPAY ==
--- NOTE | 2025-05-22 | COLBX_PTH ---
PATIENT: ANGELI GILBERT LOC: [facility] U#:[id number] AGE/SX: 39/F ROOM: RE05/22/[address]: Dr. Shola Ricks MD : 1985 BED: DIS: 05/22/2025 SPEC #: [id number] RECD: 05/22/25 14:42 STATUS: KILEY REQ #: [id number] OPAL: 05/22/25 00:[address]: Shola Ricks DEPT: SURGICAL PATHOLOGY RECD BY: Brad Pelletier ENTERED: 05/22/25 15:16 SP TYPE: COLON BX OT DR: Dr. Karyn Locke MD Tissues: A - Ileum, NOS B - COLON BIOPSY Procedures: Surgery Specimen Level IV HEADER OPERATION: Colonoscopy PRE-OP DIAGNOSIS: Constipation, change in bowel habits TISSUE SUBMITTED: A- Terminal ileum biopsy, B- Random colon biopsy MICROSCOPIC DIAGNOSIS A. Small intestine, terminal ileum, biopsy: * Small bowel mucosa with no pathologic change B. Colon, random biopsy: * Colonic mucosa with no pathologic change MICROSCOPIC DESCRIPTION Slides are reviewed. GROSS DESCRIPTION A. Received in fixative is one container labeled with the patient's name and designated "Terminal ileum biopsy." The specimen consists of one irregular fragment of crews tissue that measures 0.8 cm. The specimen is totally submitted in one cassette. B. Received in fixative is one container labeled with the patient's name and designated "Random colon biopsy." The specimen consists of multiple irregular fragments of crews tissue that in aggregate measure 1.7 x 1 x 0.1 cm. The specimen is totally submitted in one cassette. AL 05/22/2025 CPT:29215c2
--- OUTSIDE RECORDS SUMMARY | 2025-05-22 19:12 | XMS RPT_ITS | CCD ---
Author Organization [facility] Care Team Providers Care Ditch Cleaner Name Role Phone Lopez, Mary Unavailable Unavailable Lopez, Mary Unavailable Unavailable Lopez, Mary Unavailable Unavailable DeFinis, Harumi Y Unavailable Unavailable Lopez, Mary Unavailable Unavailable Esmer Mcclellan J Unavailable Unavailable Esmer Mcclellan Unavailable Unavailable Lopez, Mary Unavailable Unavailable Ailyn Kulkarni Unavailable Unavailable LATISHA HANDY Unavailable Unaelieseri MARCUS Dodson Unavailable Unavailable NO PRIMARY CAREMD Unavailable Unavailable Jeremi LUCAI, Adri Siddiqi Unavailable Karyn Soto Primary Care Provider Karyn Soto Primary Care Provider LopezIvonnei Unavailable Unavailable Unavailable Primary Care Provider Karyn Sawyer MD Primary Care Provider DR KARYN SOTO MD Primary Care Physician Unavailable Primary Care Provider UnavailMACKENZIE Clark Attending Unavailable PROVIDER, UNKNOWN Primary Care Unavailable PROVIDER, UNKNOWN Referring Unavailable MACKENZIE MAE Attending Unavailable PROVIDER, UNKNOWN Primary Care Unavailable PROVIDER, UNKNOWN Referring Unavailable Karyn Soto MD Primary Care Provider Unavailable Primary Care Provider Karyn Sawyer MD Primary Care Provider Dr. Sosa Block Attending Unavailab Karyn Romano MD Primary Care Provider DR KARYN SOTO MD Primary Care Physician [phone] DR KARYN SOTO MD Primary Care UnavailSOSA Alicia MD Attending Unavailable BRITTANY PALMER DR KARYN Werner Primary Care UnavailSORAYA De La O Attending Unavailable BRITTANY PALMER, DR KARYN Werner Primary Care Unavailgaby BLOCK MD, SOSA Attending Unavailable BRITTANY PALMER, DR KARYN Werner Primary Care Unavailgaby BLOCK MD, SOSA Attending Unavailable Unavailable Primary Care Provider Unavailgaby SOTO MD, DR KARYN Werner Attending Unavailgaby SOTO MD, DR KARYN Werner Primary Care Unavailgaby Soto MD, Karyn Werner Primary Care Provider Satish Narayan Referring Unavailable Satish Narayan Attending Unavailable Rucki, Karyn Primary Care Unavailable MCKAYLA PALMER, SOSA Attending Unavailable BRITTANY PALMER, DR KARYN Werner Primary Care Unavailgaby SOTO MD, DR KARYN Werner Primary Care Unavailgaby TELLEZ APRN-OPTICS ENGINEER, ASH T Attending Unavail able BRITTANY PALMER, DR KARYN Werner Primary Care Unavailgaby SOTO MD, DR KARYN Werner Attending UnavailZAINAB Nieves Referring Unavailable RUCKI, KARYN ONI Primary Care Unavailable SATISH NARAYAN Referring Unavailable RUCKI, KARYN ONI Primary Care Unavailable SELF Referring Unavailable ZAINAB CASILLAS Attending Unavailable SATISH NARAYAN Attending Unavailable RUCKI, KARYN ONI Primary Care Unavailable MACKENZIE MAE Attending Unavailable MACKENZIE MAE Referring Unavailable RUCKI, KARYN Primary Care Unavailable MACKENZIE MAE Attending Unavailable VIN NICOLE Referring Unavailable RUCKI, KARYN Primary Care Unavailable RUCKI, KARYN Primary Care Unavailable MACKENZIE MAE Attending Unavailable MACKENZIE MAE Referring Unavailable RUCKI, KARYN Primary Care Unavailable MACKENZIE MAE Attending Unavailable MACKENZIE MAE Referring Unavailable RUCKI, KARYN Primary Care Unavailable MACKENZIE MAE Attending Unavailable MACKENZIE MAE Referring Unavailable RUCKI, KARYN Primary Care Unavailable PRAKASH BARRON Attending Unavailable PRAKASH BARRON Referring Unavailable RUCKI, KARYN Primary Care Unavailable PRAKASH BARRON Attending Unavailable RUCKI, KARYN Referring Unavailable RUCKI, KARYN Primary Care Unavailable Allergies Allergy Classification Reported Allergen(s) Allergy Type Date of Onset Reaction(s) Facility (20 sources) moxifloxacin; Translations: [moxifloxacin] drug allergy 7 Nausea And Vomiting, GI Upset, Vomiting, Nausea Only, Unknown [facility] Work Phone: (20 sources) metroNIDAZOLE; Translations: [METRONIDAZOLE] Drug Allergy 2 GI Upset, Vomiting, Nausea Only, Nausea And Vomiting [facility] (1 source) metroNIDAZOLE Drug Allergy 4 [facility] (3 sources) Tetracycline; Translations: [TETRACYCLINE] Drug Allergy 4 [facility] (13 sources) Tetracycline Drug Allergy 4 [facility] Medications Current Medications Medication Drug Class(es) Dates Sig (Normalized) Sig (Original) acetaminophen 325 mg / HYDROcodone bitartrate 5 mg oral tablet (1 source) Opioid Agonist Start: 02-26-2020 End: 02-29-2020 take 1 tablet by mouth every six hours as needed for pain, then take 1 tablet by mouth as needed for pain HYDROcodone-acetami nophen (NORCO) 5-325 MG per tablet Indications: Postoperative state Take 1 tablet by mouth every 6 hours as needed for Pain for up to 3 days. Intended supply: 3 days. Take lowest dose possible to manage pain 10 tablet 0 02/26/2020 02/29/2020 Active alpha tocopherol (Vitamin E) 100 units capsule (20 sources) take 1 capsule by mouth once daily alpha tocopherol (Vitamin E) 100 units capsule Take 100 Units by mouth daily. Active take 1 capsule by mouth once diann ly alpha tocopherol (Vitamin E) 100 units capsule Take 100 Units by mouth daily. 0 Active ALPRAZolam 0.25 mg oral tablet (20 sources) Benzodiazepine Start: 12-31-2021 ALPRAZolam (Xa nax) 0.25 MG tablet 05/01/2022 Active Start: 02-26-2020 ALPRAZolam (NI RAVAM) dissolvable tablet 0.25 mg amitriptyline hydrochloride 10 mg oral tablet (10 sources) Tricyclic Antidepressant Start: 09-18-2024 take 1 tablet by mouth once daily amitriptyline (Elavil) 10 MG tablet Take 10 mg by mouth Nightly. 09/18/2024 Active Start: 12-02-2021 amitriptyline 10 mg oral tablet Dose : 10 mg = 1 tab(s), Oral, qHS, 0 Refill(s) Start Date: 12/02/21 Status: Ordered ascorbic acid 125 mg chewable tablet (4 sources) Vitamin C take 125 mg by mouth once daily Ascorbic Acid 125 MG CHEW Take by mouth daily 0 Active bismuth subsalicylate 262 mg oral tablet (1 source) Bismuth Start: 12-03-19 End: 12-17-19 bismuth subsalicylate 262 mg oral tablet Dose : 524 mg = 2 tab(s), Chewed, QID, # 112 tab(s), 0 Refill(s) Start Date: 12/02/21 Stop Date: 12/16/21 Status: Ordered busPIRone hydrochloride 5 mg oral tablet (20 sources) Start: 10-15-19 End: 05-22-20 busPIRone (Buspar) 5 MG tablet 07/01/2022 Active Comment on above: 1-2 tabs calcium chloride 0.0014 meq/ml / potassium chloride 0.004 meq/ml / sodium chloride 0.103 meq/ml / sodium lactate 0.028 meq/ml injectable solution (1 source) Start: 02-26-20 lactated ringers infusion cetirizine hydrochloride 10 mg oral tablet (20 sources) Histamine-1 Receptor Antagonist Start: 11-21-19 cetirizine (ZYRTEC) 10 mg tablet Take 10 mg by mouth. 11/20/2020 Active Comment on above: Take 10 mg by mouth. Cholecalciferol (20 sources) Vitamin D Cholecalciferol (D3 2000 PO) Take by mouth. Active Cholecalciferol (D3 2000 PO) Take by mouth. 0 Active cholecalciferol, vitamin D3, (VITAMIN D3 ORAL) (13 sources) cholecalciferol, vitamin D3, (VITAMIN D3 ORAL) Take by mouth. Active cholecalciferol, vitamin D3, (VITAMIN D3 ORAL) Take by mouth. 0 Active Comment on above: Take by mouth. cyclobenzaprine hydrochloride 5 mg oral tablet (20 sources) Muscle Relaxant Start: End: cyclobenzaprine (Flexeril) 5 MG tablet 12/31/2021 Active Comment on above: Take 5 mg by mouth. dexamethasone 4 mg oral tablet (1 source) Corticosteroid Start: End: take 1 tablet by mouth once daily, then take 0.5 tablet by mouth once daily at mealtime dexAMETHasone (DECADRON) 4 mg tablet Indications: Rhus dermatitis Take 1 tablet by mouth once daily for 4 days. Thern take 1/2 tab a day for 4 days. Take with food. 6 tablet 0 03/22/2022 03/26/2022 Active Comment on above: Take 1 tablet by mesfin th once daily for 4 days. Thern take 1/2 tab a day for 4 days. Take with food. diphenhydrAMINE hydrochloride 25 mg oral capsule (20 sources) Histamine-1 Receptor Antagonist Start: diphenhydrAMINE (BENADRYL) 25 mg capsule Take 25 mg by mouth. 12/02/2021 Active Start: 02-26-2020 End: 02-26-2020 diphenhydrAMINE (BENADRYL) i njection 12.5 mg Comment on above: Take 25 mg by mouth. DME MISCellaneous (1 source) Start: DME MISCellaneous See Instructions, 25g 1 inch needles for Vitamin B12 IM injections., # 1 EA, 11 Refill(s), Pharmacy: [facility], Dizziness Orthostatic hypotension, 162.6, cm, 09/20/23 9:15:00 EDT, Height, 63.2, kg, 09/20/23 9:15:00 EDT, Dosing Weight Start Date: 09/20/23 Status: Ordered fluticasone furoate 0.0275 mg/actuat metered dose nasal spray (4 sources) Corticosteroid take 2 spray(s) nasal route once daily as needed for rhinitis fluticasone (VERAMYST) 27.5 MCG/SPRAY nasal spray 2 sprays by Each Nostril route daily as needed for Rhinitis 0 Active 1 ml hydrALAZINE hydrochloride 20 mg/ml injection (1 source) Arteriolar Vasodilator Start: hydrALAZINE (APRESOLINE) injection 5 mg 1 ml HYDROmorphone hydrochloride 1 mg/ml cartridge (4 sources) Opioid Agonist Start: HYDROmorphone (DILAUDID) injection 0.25 mg Start: 02-26-2020 HYDROmorphone (DILAUDID) injection 0.5 mg Start: 02-26-2020 HYDROmorphone (DILAUDID) injection 1 mg hyoscyamine sulfate 0.125 mg oral tablet (4 sources) take 1 tablet by mouth every four hours as needed hyoscyamine (ANASPAZ;LEVSIN) 125 MCG tablet Take 125 mcg by mouth every 4 hours as needed for Cramping 0 Active ibuprofen 200 mg oral capsule (20 sources) Nonsteroidal Anti-inflammatory Drug Start: 03-16-20 ibuprofen 200 mg oral capsule Dose : 400 mg = 2 cap(s), Oral, q4h, PRN for pain, 0 Refill(s) Start Date: 03/16/22 Status: Ordered take 1 tablet by mesfin th every eight hours as needed for pain ibuprofen 200 MG tablet Take 200 mg by mouth every 8 hours as needed for mild pain (1-3). Active ibuprofen (MOTRI N) 200 mg tablet Take 200 mg by mouth. Active Comment on above: Take 200 mg by mouth . 4 ml labetalol hydrochloride 5 mg/ml cartridge (1 source) beta-Adrenergic Ryan Start: 02-26-2020 labetalol (NORMODYNE;TRANDAT E) injection 5 mg 10 ml lidocaine hydrochloride 10 mg/ml injection (1 source) Antiarrhythmic, Amide Local Anesthetic Start: 02-26-2020 End: 02-26-2020 lidocaine PF 1 % injection 1 mL magnesium citrate (20 sources) Start: 03-22-2023 take 400 mg by mouth twice daily magnesium citrate Oral, 400mg bid, 0 Refill(s) Start Date: 03/22/23 Status: Ordered Start: 03-19-2022 Magnesium Citr ate 150mg (Pure Encapsulations) Take 3 capsules daily. 03/19/2022 Active Start: 03-19-2022 Magnesium Citr ate 150mg (Pure Encapsulations) Take 3 capsules daily. 0 03/19/2022 Active Comment on above: Take 3 capsules kerri y. MAGNESIUM GLUCONATE (20 sources) take 25 mg by mouth in the morning MAGNESIUM GLUCONATE PO Take 25 mg by mouth in the morning. Active take 25 mg by mouth in the morni ng MAGNESIUM GLUCONATE PO Take 25 mg by mouth in the morning. 0 Active 1 ml meperidine hydrochloride 25 mg/ml cartridge (1 source) Opioid Agonist Start: 02-26-2020 meperidine (DE MEROL) injection 12.5 mg Multiple Vitamins-Minerals (MULTIVITAMIN ADULT) CHEW (4 sources) Multiple Vitamins-Minerals (MULTIVITAMIN ADULT) CHEW Take by mouth daily 0 Suspended Multiple Vitamin s-Minerals (MULTIVITAMIN ADULT) CHEW Take by mouth daily 0 Active multivitamin/iron/folic acid (CENTRUM WOMEN ORAL) (6 sources) take 1 tablet by mouth once daily multivitamin/iron/folic acid (CENTRUM WOMEN ORAL) Take 1 tablet by mouth once daily. Active omeprazole 40 mg delayed release oral capsule (1 source) Proton Pump Inhibitor Start : 12-02 omeprazole 40 mg oral delayed release capsule Dose : 80 mg = 2 cap(s), Oral, BID, # 120 cap(s), 0 Refill(s) Start Date: 12/02/21 Status: Ordered 2 ml ondansetron 2 mg/ml injection (16 sources) Serotonin-3 Receptor Antagonist Start : 02-25 End: 02-25 ondansetron (ZOFRAN) injection 4 mg Start: 10-30-2016 End: 12-29-2016 ONDANSETRON HCL 4 MG TABS as needed ONDANSETRON HCL [id number] Mary Lopez 1 ml promethazine hydrochloride 25 mg/ml injection (1 source) Phenothiazine Start: 02-26-2020 End: 02-26-2020 promethazine (PHENERGAN) injection 6.25 mg propranolol hydrochloride 20 mg oral tablet (20 sources) beta-Adrenergic Ryan Start: 03-22-2023 take 1 tablet by mouth every twelve hours propranolol (INDERAL) 20 mg tablet Take 1 tablet by mouth every 12 hours. 03/22/2023 Active Start: 08-18-2021 End: 04-26-2023 propranolol (Inderal) 10 MG tablet 05/25/2022 Active Comment on above: Take 10 mg by mouth. Take 1 tablet by mesfin th every 12 hours. Take 10 mg by mouth twice daily. 3 ml sodium chloride 9 mg/ml injection (2 sources) Start: 2019 sodium chloride flush 0.9 % injection 10 mL tetracycline hydrochloride 500 mg oral capsule (1 source) Tetracycline-class Antimicrobial Start: 2021 End: 2021 tetracycline 500 mg oral capsule Dose : 500 mg = 1 cap(s), Oral, q6h, 0 Refill(s) Start Date: 12/02/21 Stop Date: 12/12/21 Status: Ordered vitamin b12 1 mg/ml injectable solution (20 sources) Vitamin B12 Start: 2023 inject 1 mL by intramuscular injection every other week cyanocobalamin 1,000 mcg/mL inject ONE ML intramuscular every TWO WEEKS 12/16/2023 Active Start: 09-20-2023 inject 1 dose by int ramuscular injection every other week cyanocobalamin 1000 mcg/mL injectable solution Dose : 1,000 mcg =, Intramuscular, q2wk, # 10 mL, 1 Refill(s), Pharmacy: [facility], Dizziness Orthostatic hypotension, 162.6, cm, 09/20/23 9:15:00 EDT, Height, kg, 09/20/23 9:15:00 EDT, Dosing Weight Start Date: 09/20/23 Status: Ordered inject 1 mL by intra muscular injection every other week cyanocobalamin (Vitamin B-12) 1000 MCG/ML injection inject ONE ML INTRAMUSCULARLY every TWO WEEKS Active vitamin e 180 mg oral capsul e (6 sources) Start: 03-22-2023 vitamin E 180 mg oral capsule Dose : 180 mg = 1 cap(s), Oral, qDay, # 100 cap(s), 0 Refill(s) Start Date: 03/22/23 Status: Ordered take 1 capsule by mouth once diann ly alpha tocopherol (Vitamin E) 100 units capsule Take 100 Units by mouth daily. 0 Active VITAMIN E ORAL (11 sources) Start: 03-22-2023 VITAMIN E ORAL 180 mg. 03/22/2023 Active Completed/Discontinued Medications Medication Drug Class(es) Dates Sig (Normalized) Sig (Original) acetaminophen 500 mg oral tablet (1 source) Start: 02-26-2020 End: 02-26-2020 acetaminophen (TYLENOL) tablet 1,000 mg Biocidin Advanced Formula ([employer]) (5 sources) Start: 06-11-2022 End: 03-02-2024 take 5 drop(s) by mouth three times daily Biocidin Advanced Formula ([employer]) Take 5 Drops by mouth three times daily. 06/11/2022 03/02/2024 Discontinued Start: 06-11-2022 take 5 drop(s) by mo uth three times daily Biocidin Advanced Formula ([employer]) Take 5 Drops by mouth three times daily. 06/11/2022 Active Start: 06-11-2022 take 5 drop(s) by mo uth three times daily Biocidin Advanced Formula ([employer]) Take 5 Drops by mouth three times daily. 0 06/11/2022 Active Comment on above: Take 5 Drops by mout h three times daily. calcium carbonate 500 mg chewable tablet (13 sources) Start: 7 End: 7 CALCIUM CARBONATE ANTACID 500 MG CHEW as directed CALCIUM CARBONATE ANTACID [id number] Mary Lopez ceFAZolin 1000 mg injection (1 source) Cephalosporin Antibacterial Start: 0 End: 0 ceFAZolin (ANCEF) 1 g in dextrose 5 % 50 mL IVPB (premix) deglycyrrhizinate licorice root extract (RHIZINATE) 75 mg chewable tablet (9 sources) Start: 2 deglycyrrhizinate licorice root extract (RHIZINATE) 75 mg chewable tablet Chew 2 tablets 20 minutes before each meal 0 03/19/2022 Active Comment on above: Chew 2 tablets 20 mi nutes before each meal dimenhyDRINATE 50 mg oral tablet (1 source) Start: 0 End: 0 dimenhyDRINATE (DRAMAMINE) tablet 100 mg Start: 02-26-2020 End: 02-26-2020 dimenhyDRINATE (DRAMAMINE) t ablet 100 mg DOXYLAMINE-PYRIDOXINE (13 sources) Start: 10-30-2016 End: 02-23-2017 take 1 tablet by mouth once daily DICLEGIS 10-10 MG TBEC One tablet by mouth daily DOXYLAMINE-PYRIDOXINE [id number] Mary Lopez Start: 10-30-2016 take 1 tablet by mesfin th once daily DICLEGIS 10-10 MG TBEC One tablet by mouth daily DOXYLAMINE-PYRIDOXINE [id number] Adri Blood RN Start: 10-30-2016 take 1 tablet by mesfin th once daily DICLEGIS 10-10 MG TBEC One tablet by mouth daily DOXYLAMINE-PYRIDOXINE [id number] Adri Blood RN famotidine 20 mg oral tablet (20 sources) Histamine-2 Receptor Antagonist Start: 02-26-2020 End: 02-26-2020 famotidine (PEPCID) tablet 20 mg Start: 10-30-2016 take 1 tablet by mesfin once daily FAMOTIDINE 10 MG TABS One tablet by mouth daily FAMOTIDINE [id number] Adri Blood RN Start: 10-30-2016 End: 02-23-2017 take 1 tablet by mouth twice daily FAMOTIDINE 20 MG TABS One tablet by mouth twice daily FAMOTIDINE [id number] Esmer Mcclellan ferrous gluconate 325 mg oral tablet (13 sources) Start: 10-30-2016 End: 02-23-2017 take 1 tablet by mouth every twenty-four hours FERROUS GLUCONATE 325 MG TABS One tablet by mouth daily FERROUS GLUCONATE Adri Blood RN gabapentin 300 mg oral capsule (1 source) Anti-epilept ic Agent Start: 02-26-2020 End: 02-26-2020 gabapentin (NEURONTIN) capsule 300 mg gadobutrol (GADAVIST) injection 5.5 mL (1 source) Start: 09-22-2021 End: 09-22-2021 gadobutrol (GADAVIST) injection 5.5 mL gadobutrol (Gadavist) injection 6 mL (2 sources) Start: 10-26-2022 End: 10-26-2022 gadobutrol (Gadavist) injection 6 mL gadobutrol (Gadavist) injection 7 mL (2 sources) Start: 10-15-2023 End: 10-15-2023 gadobutrol (Gadavist) injection 7 mL gadopiclenol (Vueway) injection 5.5 mL (2 sources) Start: 11-18-2024 End: 11-18-2024 take 5.5 mL intravenously once as needed 5.5 mL, IntraVENous, IMG once PRN, contrast, Starting on 11/18/24 at 1120, For 1 dose GI Revive powder (9 sources) Start: 03-19-2022 End: 04-26-2023 GI Revive powder Take 1 tablespoons twice daily (1 tablespoon = 1.5 grams L-glut) 0 03/19/2022 04/26/2023 Discontinued (Other) Start: 03-19-2022 GI Revive powd er Take 1 tablespoons twice daily (1 tablespoon = 1.5 grams L-glut) 0 03/19/2022 Active Comment on above: Take 1 tablespoons t wice daily (1 tablespoon = 1.5 grams L-glut) glyBURIDE 2.5 mg oral tablet (6 sources) Sulfonylurea Start: 12-30-19 End: 02-24-20 take 1 tablet by mouth once daily GLYBURIDE 2.5 MG TABS One tablet by mouth daily GLYBURIDE [id number] Mary Lopez hydrOXYzine hydrochloride 10 mg oral tablet (7 sources) Antihistamine Start: 03-20-20 End: 10-27-19 take 1 tablet by mouth three times daily as needed for anxiety hydrOXYzine HCl (Atarax) 10 MG tablet Take 10 mg by mouth 3 times daily as needed for anxiety. 05/09/2024 10/26/2024 Discontinued (Therapy completed) ivabradine 5 mg oral tablet (5 sources) Hyperpolarization-act ivated Cyclic Nucleotide-gated Channel Ryan Start: 05-22-20 take 2.5 mg by mouth twice daily ivabradine (CORLANOR) 5 mg tablet Take 2.5 mg by mouth twice daily. 90 tablet 2 05/22/2022 Active Start: 08-18-2021 ivabradine 5 m g oral tablet Dose : 2.5 mg = 0.5 tab(s), Oral, BIDM, # 30 tab(s), 0 Refill(s), Pharmacy: [facility], Hyperadrenergic postural hypotension, 162.5, cm, 08/18/21 10:08:00 EST, Height, kg, 08/18/21 10:08:00 EST, Dosing Weight Start Date: 08/18/21 Status: Ordered Comment on above: Take 2.5 mg by mouth twice daily. loratadine 10 mg oral tablet (15 sources) Start: 10-31-19 End: 12-30-19 LORATADINE 10 MG TABS as needed LORATADINE [id number] Adri Blood RN magnesium oxide 250 mg oral tablet (9 sources) Start: 12-09-19 End: 02-24-20 17 take 1 tablet by mouth once daily MAGNESIUM OXIDE 250 MG TABS One tablet by mouth daily MAGNESIUM OXIDE [id number] Mary Lopez metoprolol tartrate 25 mg oral tablet (13 sources) beta-Adrenergic Ryan Start: 10-15-19 End: 02-24-20 17 take 1 tablet by mouth twice daily METOPROLOL TARTRATE 25 MG TABS One tablet by mouth twice daily METOPROLOL TARTRATE [id number] Mary Lopez metroNIDAZOLE (1 source) Nitroimidazole Antimicrobial Start: 12-03-19 metroNIDAZOLE Dose : 250 mg =, Oral, q6hr, 0 Refill(s), 56.7 Start Date: 12/02/21 Status: Ordered [employer] EPA-DHA 2400 (High Concentrate EPA/DHA liquid) ([place] [employer]) (2 sources) Start: 06-11-20 End: 04-26-20 [employer] EPA-DHA 2400 (High Concentrate EPA/DHA liquid) ([employer] [place] [employer]) Take one teaspoon (5 ml) daily with food 0 06/11/2022 04/26/2023 Discontinued (Other) Start: 06-11-2022 [employer] EP A-DHA 2400 (High Concentrate EPA/DHA liquid) ([employer]) Take one teaspoon (5 ml) daily with food 0 06/11/2022 Active Comment on above: Take one teaspoon (5 ml) daily with food MV & MIN W/FE-FA TABS (11 sources) Start: 10-30-2016 take 1 tablet by mouth every twenty-four hours TABS One tablet by mouth daily MV & MIN W/FE-FA TABS Adri Blood RN Vitamin D [place] ([employer] [facility]) (2 sources) Start: 06-11-2022 End: 04-26-2023 take 1 capsule by mouth once daily at mealtime Vitamin D [place] (PAYMEY) Take 1 capsule by mouth daily with food. 0 06/11/2022 04/26/2023 Discontinued (Other) Start: 06-11-2022 take 1 capsule by mo uth once daily at mealtime Vitamin D [place] ([employer] [facility]) Take 1 capsule by mouth daily with food. 0 06/11/2022 Active Comment on above: Take 1 capsule by mo uth daily with food. zolpidem tartrate 10 mg oral tablet (20 sources) gamma-Aminobutyric Acid-ergic Agonist Start: 10-30-2016 End: 11-03-2016 ZOLPIDEM TARTRATE 10 MG TABS 1/2 tablet every night at bedtime as needed ZOLPIDEM TARTRATE [id number] Adri Blood RN Problems Active Problems Problem Classification Problem Date Documented Da te Episodic/Chronic Abdominal pain (2 sources) Indigestion; Translations: [Epigastric pain] Episodic Administrative/social admission (1 source) Administrative reason for encounter; Translations: [Persons encountering health services in other specified circumstances] Episodic Allergic reactions (1 source) Contact dermatitis due to Genus Toxicodendron; Translations: [Unspecified contact dermatitis due to plants, except food] Episodic Cardiac dysrhythmias (1 source) Postural orthostatic tachycardia syndrome ; Translations: [POTS (postural orthostatic tachycardia syndrome)] Chronic Cardiac dysrhythmias (20 sources) Palpitations; Translations: [Tachycardia] Onset: 10-14-2016 10-30-2016 Episodic Conditions associated with dizziness or vertigo (13 sources) Dizziness; Translations: [Postural dizziness] Onset: 02-11-2023 08-18-2021 Episodic Genitourinary symptoms and ill-defined conditions (14 sources) Female stress incontinence; Translations: [Stress incontinence (female) (male)] Onset: 06-25-2023 04-26-2023 Chronic Immunizations and screening for infectious disease (1 source) Patient encounter status; Translations: [Encounter for screening for human papillomavirus (HPV)] 04-26-2023 Episodic Intestinal infection (7 sources) Infection caused by Helicobacter pylori; Translations: [Other specified bacterial intestinal infections] Episodic Malaise and fatigue (2 sources) Malaise and fatigue; Translations: [Other malaise] Episodic Menstrual disorders (1 source) Menorrhagia; Translations: [Excessive and frequent menstruation with regular cycle] 02-24-2024 Chronic Nausea and vomiting (2 sources) Nausea; Translations: [Nausea] Episodic Nonmalignant breast conditions (3 sources) Breast lump; Translations: [Unspecified lump in the left breast, overlapping quadrants] 08-14-2024 Episodic Nonspecific chest pain (5 sources) Chest pain 03-16-2022 Episodic Nutritional deficiencies (1 source) Nutritional deficiency state; Translations: [Nutritional deficiency, unspecified] Episodic Other circulatory disease (6 sources) Raynaud's phenomenon 08-18-2021 Chronic Other circulatory disease (2 sources) Raynaud's syndrome without gangrene; Translations: [Raynaud's syndrome without gangrene] Onset: 02-11-2023 Chronic Other circulatory disease (7 sources) Orthostatic hypotension; Translations: [Orthostatic hypotension] 11-21-2020 Episodic Other circulatory disease (3 sources) Orthostatic hypotension; Translations: [Orthostatic hypotension] Onset: 02-11-2023 Episodic Other connective tissue disease (3 sources) Pain in axilla; Translations: [Pain in right upper arm] 08-14-2024 Episodic Other female genital disorders (16 sources) Abnormal uterine bleeding; Translations: [Abnormal uterine and vaginal bleeding, unspecified] Onset: 02-24-2024 02-24-2024 Chronic Other female genital disorders (2 sources) Abnormal uterine and vaginal bleeding, unspecified; Translations: [Abnormal uterine and vaginal bleeding, unspecified] Onset: 02-24-2024 Chronic Other female genital disorders (12 sources) History of atypical hyperplasia of breast; Translations: [Personal history of other diseases of the female genital tract] Episodic Other female genital disorders (2 sources) Stenosis of cervix; Translations: [Stricture and stenosis of cervix uteri] 02-24-2024 Episodic Other gastrointestinal disorders (2 sources) Abdominal bloating; Translations: [Abdominal distension (gaseous)] Episodic Other gastrointestinal disorders (2 sources) Constipation; Translations: [Constipation, unspecified] Episodic Other gastrointestinal disorders (1 source) Other functional disorders of intestine; Translations: [Intestinal dysbiosis] Episodic Other gastrointestinal disorders (1 source) Other constipation; Translations: [Chronic constipation] Onset: 04-02-2025 Episodic Other gastrointestinal disorders (1 source) Other fecal abnormalities; Translations: [Change in consistency of stool] Onset: 04-02-2025 Episodic Other gastrointestinal disorders (1 source) Heartburn; Translations: [Heartburn] Onset: 04-02-2025 Episodic Other infections; including parasitic (1 source) Personal history of other infectious and parasitic diseases; Translations: [History of Helicobacter pylori infection] Onset: 04-02-2025 Episodic Other lower respiratory disease (9 sources) Dyspnea; Translations: [Dyspnea, unspecified] 08-18-2021 Episodic Other lower respiratory disease (3 sources) Shortness of breath; Translations: [Shortness of breath] Onset: 02-11-2023 Episodic Other nervous system disorders (1 source) Disorder of autonomic nervous system; Translations: [Disorder of the autonomic nervous system, unspecified] Chronic Other nervous system disorders (2 sources) Impaired cognition; Translations: [Other symptoms and signs involving cognitive functions and awareness] Episodic Other nutritional; endocrine; and metabolic disorders (1 source) Metabolic disease; Translations: [Other symptoms and signs concerning food and fluid intake] Episodic Residual codes; unclassified (5 sources) At risk of breast cancer; Translations: [Other specified personal risk factors, not elsewhere classified] Episodic Residual codes; unclassified (9 sources) Family history of breast cancer; Translations: [Family history of malignant neoplasm of breast] Episodic Residual codes; unclassified (1 source) Contact with and (suspected) exposure to other hazardous metals; Translations: [Contact with and (suspected) exposure to other hazardous metals] Episodic Residual codes; unclassified (1 source) Contact with and (suspected) exposure to mold (toxic); Translations: [Contact with and (suspected) exposure to mold] Episodic Residual codes; unclassified (1 source) Postoperative state; Translations: [Postoperative state] Unclassified (1 source) Dense breasts, unspecified; Translations: [Dense breasts, unspecified] Onset: 11-18-2024 Unclassified (2 sources) Unspecified lump in the left breast, overlapping quadrants; Translations: [Unspecified lump in the left breast, overlapping quadrants] Onset: 08-14-2024 Past or Other Problems Problem Classification Problem Date Documented Date Episodic/Chronic Other connective tissue disease (13 sources) Muscle weakness; Translations: [Muscle weakness (generalized)] Onset: 06-25-2023 08-26-2023 Episodic Other connective tissue disease (2 sources) Pain in right upper arm; Translations: [Pain in right upper arm] Onset: 08-14-2024 Episodic Other female genital disorders (4 sources) Polyp of corpus uteri; Translations: [Polyp of corpus uteri] Onset: 05-12-2024 04-20-2024 Episodic Other female genital disorders (2 sources) Personal history of other diseases of the female genital tract; Translations: [Personal history of other diseases of the female genital tract] Onset: 11-18-2024 Episodic Other lower respiratory disease (3 sources) Other abnormalities of breathing; Translations: [Other abnormalities of breathing] Onset: 08-07-2024 Episodic Other lower respiratory disease (2 sources) Dyspnea, unspecified; Translations: [Dyspnea, unspecified] Onset: 11-09-2024 Episodic Other screening for suspected conditions (not mental disorders or infectious disease) (20 sources) Breast finding ; Translations: [Inconclusive mammogram] Onset: 09-22-2021 Episodic Other upper respiratory disease (1 source) Unspecified voice and resonance disorder; Translations: [Unspecified voice and resonance disorder] Onset: 08-07-2024 Episodic Residual codes; unclassified (4 sources) Family history of malignant neoplasm of breast; Translations: [Family history of malignant neoplasm of breast] Onset: 04-20-2022 Episodic Residual codes; unclassified (9 sources) Other specified personal risk factors, not elsewhere classified; Translations: [Other specified personal history presenting hazards to health] Onset: 09-22-2021 Episodic Unclassified (3 sources) Increased risk of breast cancer 08-14-2024 Unclassified (3 sources) Breast finding 08-14-2024 Unclassified (1 source) Dense breasts, unspecified; Translations: [Dense breasts, unspecified] Onset: 11-18-2024 Results Test Name Value Interpretation Reference Range Facility DBT Breast - bilateral scree yolette 05-10-2025 No mammographic evid ence of malignancy. ASSESSMENT: Category 2 Benign RECOMMENDATION: Routine screening mammogram in 1 year. Bilateral CANCER RISK ASSESSMENT: This risk assessment is based on patient provided information collected in a risk survey taken at the time of this examination. LIFETIME BREAST CANCER RISK: Francine 8: 49.76% - If greater than or equal to 20%, consider annual mammogram and annual screening Breast MRI or follow up in high risk clinic. Is the patient at elevated risk based on the HBOC criteria? No (Hereditary Breast and Ovarian Cancer) - If Yes, consider genetic counseling and testing with high risk follow up Is the patient at elevated risk based on the Bueno Syndrome criteria? No - If Yes, consider genetic counseling and testing with high risk follow up. Report Dictated on Electronically Signed By: Leora Farooq DO Electronically Signed Date/Time: 05/10/2025 9:18 AM EST [facility] Patient Name: KARUNA SPRINGER : 1985 Exam Date/Time: 05/10/2025 08:51 Procedure: BI MAMMOGRAM SCREENING TOMOSYNTHESIS BILATERAL Ordering Provider: MAE ELIZABETH Reason For Exam: This exam was performed at [place] [address] RISK ALERT: The Cancer Risk Assessment scores below the recommendation of this report contain an outcome above the normal risk range. PATIENT CANCER HISTORY: No Personal History of Cancer FAMILY CANCER HISTORY: Maternal Cousin Uterine Cancer age 36 Unknown Breast Cancer Paternal Cousin Breast Cancer Maternal Cousin Breast Cancer age 35 TECHNIQUE: 2D Bilateral CC and MLO 3D Bilateral CC and MLO Images reviewed with CAD Markings on images: BB's = Nipples, skin lesions Open [place] = Palpable Line = Scar COMPARISON: 04/27/2024, 04/22/2023, 04/20/2022, 08/25/2021, 04/14/2021, 10/04/2019 TISSUE DENSITY: BIRADS D - The breasts are extremely dense, which lowers the sensitivity of mammography. FINDINGS: No suspicious masses, architectural distortions or suspiciously clustered microcalcifications. No skin thickening or nipple retraction. Left breast postoperative changes. No significant change from prior studies. [facility] Leora Farooq DO - 05/10/2025 Patient Name: KARUNA GILBERT : 1985 Exam Date/Time: 05/10/2025 08:51 Procedure: BI MAMMOGRAM SCREENING TOMOSYNTHESIS BILATERAL Ordering Provider: MAE ELIZABETH Reason For Exam: This exam was performed at [facility] [address] [facility] [address] RISK ALERT: The Cancer Risk Assessment scores below the recommendation of this report contain an outcome above the normal risk range. PATIENT CANCER HISTORY: No Personal History of Cancer FAMILY CANCER HISTORY: Maternal Cousin Uterine Cancer age 36 Unknown Breast Cancer Paternal Cousin Breast Cancer Maternal Cousin Breast Cancer age 35 TECHNIQUE: 2D Bilateral CC and MLO 3D Bilateral CC and MLO Images reviewed with CAD Markings on images: BB's = Nipples, skin lesions Open [place] = Palpable Line = Scar COMPARISON: 04/27/2024, 04/22/2023, 04/20/2022, 08/25/2021, 04/14/2021, 10/04/2019 TISSUE DENSITY: BIRADS D - The breasts are extremely dense, which lowers the sensitivity of mammography. FINDINGS: No suspicious masses, architectural distortions or suspiciously clustered microcalcifications. No skin thickening or nipple retraction. Left breast postoperative changes. No significant change from prior studies. IMPRESSION: No mammographic evidence of malignancy. ASSESSMENT: Category 2 Benign RECOMMENDATION: Routine screening mammogram in 1 year. Bilateral CANCER RISK ASSESSMENT: This risk assessment is based on patient provided information collected in a risk survey taken at the time of this examination. LIFETIME BREAST CANCER RISK: Francine 8: 49.76% - If greater than or equal to 20%, consider annual mammogram and annual screening Breast MRI or follow up in high risk clinic. Is the patient at elevated risk based on the HBOC criteria? No (Hereditary Breast and Ovarian Cancer) - If Yes, consider genetic counseling and testing with high risk follow up Is the patient at elevated risk based on the Bueno Syndrome criteria? No - If Yes, consider genetic counseling and testing with high risk follow up. Report Dictated on Electronically Signed By: Leora Farooq DO Electronically Signed Date/Time: 05/10/2025 9:18 AM EST [facility] Radiology Study observation (narrative) [facility] DBT Breast - bilateral scree ningOrdered By: Leora Farooq on 05-10-2025 [facility] Work Phone: CNOVon 04-30-2025 CNOV Office Visit (OBGYWM ) KARUNA GILBERT ([id number]) 1985 F Date Time Provider Department 04/30/25 11:10 AM SATISH NARAYAN OBGYWEmma During your visit today, we recorded the following information about you: Blood pressure Weight Height Last Period 53.5 kg 1.638 m 04/11/25 Satish Narayan MD 04/30/2025 11:45 AM Signed Karuna is a 39 year old who presents for an annual gynecologic exam without complaints. Still gets pain w/ menses Menses: cycles every 28-30 days and 7 days of flow occas spotting at ovulation Menstrual flow: Moderate Bleeding amount bothersome: No Bleeding between periods: No Period symptoms: Cramps Sexually active: Yes Number of lifetime partners: tubal Contraception: Tubal Ligation Contraception frequency: Always Last pap smear: 2022 History of abnormal pap: No Colposcopy: No. Leep: No. Bothersome pelvic pain: No Last mammogram: MRI OB History Gravida1 Para1 Term0 Preterm1 AB0 Living2 SAB0 IAB0 Ectopic0 Multiple1 Live Births2 Comment: Dar [employer] History LMP: 04/11/2025 (Exact Date), Having periods Age at Menarche: Age at First : Age at Menopause: [employer] History Comments: Sexual Activity: Yes; Male Contraception: Tubal Ligation PAST MEDICAL HISTORY Diagnosis Date Anxiety state Tachycardia PAST SURGICAL HISTORY Procedure Laterality Date SECTION HX 01/09/2017 COLONOSCOPY 12/30/2021 HYSTEROSCOPY BX ENDOMETRIUMAND/POLYPC W/WO DANDC 05/25/2024 DANDC w/ polypectomy PARTIAL HYMENECTOMY 2001 PAST SURGICAL HISTORY OF 02/03/2020 fibroadenoma PAST SURGICAL HISTORY OF Right 1998 shoulder SALPINGECTOMY 05/11/2018 FAMILY HISTORY Problem Relation Age of Onset other (hemochromatosis) Mother Hypothyroidism Mother other (hypercholesterolemia) Mother Diabetes Mother Diabetes Father type 2 Hypertension Father Heart Attack Father 62 bypass Heart Attack Maternal grandparent Stroke Paternal grandparent Colon Cancer No Family History SOCIAL HISTORY Social History Tobacco Use Smoking status: Never Smokeless tobacco: Never Vaping Use Vaping status: Never Used Substance Use Topics Alcohol use: Yes Comment: occ Drug use: Never REVIEW OF SYSTEMS Abdomen: constipation, has colonoscopy scheduled Bladder: No dysuria, gross hematuria, urinary frequency, urinary urgency, or incontinence. Breast: No breast lumps, nipple d/c, overlying skin changes, redness or skin retraction. Allergies and current medication updated:Yes SENSITIVE EXAM: The sensitive examination was discussed with the Patient or Patient's Authorized Cma. As applicable, any other physician, advance practice provider, medical student, or other health professional student that will be observing or involved in the sensitive examination for educational or training purposes was discussed with the Patient or Authorized Cma. The Patient or Authorized Cma has agreed to proceed with the sensitive examination. (Sensitive examination includes inspection and/or palpation of the breasts, pelvis, prostate and anorectal regions). EXAM: BP 108/72 Ht 5' 4.5" (1.64m) Wt 118 lb (53.5kg) LMP 04/11/2025 BMI 19.95 kg/(m2). GENERAL: pleasant, female in no apparent distress HEENT: Normocephalic, atraumatic, mucus membranes moist, and no lesions NECK: Supple, full range of motion, no adenopathy, and thyroid normal DERMATOLOGY: Normal, without lesions, non-icteric, and non-hirsute BREAST: soft, non-tender, symmetric, no dominant mass, normal nipple-areolar complex, no lymphadenopathy, and no nipple discharge CHEST: Normal inspiratory effort ABDOMEN: soft, non-tender, and no masses PELVIC: external genitalia normal, normal Bartholin's glands, urethra, Pageton's glands, no vulvar lesions, no cervical lesions, good vaginal support, physiologic discharge present, normal appearing perineal body and perianal region BIMANUAL: uterus normal size, shape and consistency, no adnexal masses, and non-tender RECTOVAGINAL: deferred. NEURO: alert and oriented x3,exam grossly non-focal EXTREMITIES: normal ASSESSMENT/PLAN: 1) Health maintenance: Pap done with HPV. Mammogram up to date . 2) Contraception: tubal sterilization. Contraceptive options reviewed and information provided. 3) STD screening: Declined STI check. 4) Follow up one year or sooner as needed Satish Narayan MD Allergies As of Date: 04/30/2025 Noted Allergy Reaction MOXIFLOXACIN 02/21/2020 8 - GI Upset 11 - Vomiting Flagyl (METRONIDAZOLE) 03/22/2022 8 - GI Upset 11 - Vomiting TETRACYCLINE 05/25/2024 14 - Other: See Comments Comments: Other Reaction(s): Unknown Date Reviewed: 04/30/2025 Reviewed by: Satish Narayan MD - Fully Assessed Reason for Visit: Yearly Exam [187] Primary Visit Diagnosis:Encoun (more content not included)... Normal [facility] H pylori Ag Stl Ql IAon 10-0 H. pylori Ag IA Ql (Stl) H.PYLORI EIA RESULT: Negative for Helicobacter pylori antigen by EIA Normal [facility] Comment on above: Performed By: #### 1 [id number] #### [facility] CLIA [id number] [address] [place] [address] CNOVon 04-02-2025 CNOV Office Visit ([facility] ) KARUNA GILBERT ([id number]) 1985 F Date Time Provider Department 04/02/25 7:45 AM ZAINAB CASILLAS [facility]NOR During your visit today, we recorded the following information about you: Pulse Blood pressure Weight Height 101/minute 110/74 53.1 kg 1.638 m Zainab Casillas PA-C 04/02/2025 8:20 AM Signed CHIEF COMPLAINT: Patient presents with: Constipation: Hx of H pylori HPI: Karuna Gilbert is a 39 year old female with PMHx positive for POTS, who presents for Constipation (Hx of H pylori). She reports a several-year history of constipation, with bowel movements typically every 2-3 days when using Miralax daily. Stools are often hard and pellet-like, and she sometimes requires additional interventions such as stool softeners or magnesium citrate to induce a bowel movement. She notes that excessive use of these agents can cause nausea. She recently began experiencing stools of variable caliber, sometimes described as "pencil-thin" or "ribbon-like," a change she first noticed this past summer. She denies rectal bleeding, though she did note a single episode of blood on toilet paper that coincided with the onset of her menstrual period. 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 She reports chronic abdominal tenderness for several years, but denies any new or acute abdominal pain. She lost 20 lbs last year through intentional dietary changes, but her weight has remained stable this year. Her diet includes daily smoothies with vegetables, salads at lunch, and almonds for additional fiber. She recently purchased Benefiber to further increase her fiber intake. She reports occasional heartburn, 1-2 times per week, typically triggered by specific foods. She underwent EGD and colonoscopy in 12/2021 for belching, early satiety, and constipation. A small polyp was removed during colonoscopy, but pathology was inconclusive due to sampling error. Reports she was told to repeat next exam in 5-10 yrs. She was treated for H. pylori infection, but discontinued therapy after 5 days due to neurological side effects. A subsequent stool test in 03/2022 was negative for H. pylori. She has no family history of colon cancer, but does have a variant of uncertain significance on genetic testing related to breast cancer risk. Record Review: [facility] / Outside records reviewed. PAST MEDICAL HISTORY Diagnosis Date Anxiety state POTS (postural orthostatic tachycardia syndrome) Tachycardia PAST SURGICAL HISTORY Procedure Laterality Date SECTION HX 01/09/2017 COLONOSCOPY 12/30/2021 HYSTEROSCOPY BX ENDOMETRIUMAND/POLYPC W/WO DANDC 05/25/2024 DANDC w/ polypectomy PARTIAL HYMENECTOMY 2001 PAST SURGICAL HISTORY OF 02/03/2020 fibroadenoma PAST SURGICAL HISTORY OF Right 1998 shoulder SALPINGECTOMY 05/11/2018 Allergies: ALLERGIES Allergen Reactions Moxifloxacin GI Upset, Vomiting Flagyl [Metronidazo* GI Upset, Vomiting Tetracycline Other: See Comments Other Reaction(s): Unknown Medications: busPIRone (BUSPAR) 5 mg tablet take 1-2 tablets BY MOUTH THREE TIMES DAILY NEEDED polyethylene glycol 3350 (MIRALAX) 17 gram/dose powder Take by mouth once daily. Dissolve dose in 4 - 8 ounces of liquid and take as directed. L.acidophilus-L.rhamnosus (PROBIOTIC) 15 billion cell capsule Take 1 capsule by mouth once daily. cyanocobalamin 1,000 mcg/mL inject ONE ML intramuscular every TWO WEEKS cholecalciferol, vitamin D3, (VITAMIN D3 ORAL) Take by mouth. propranolol (INDERAL) 20 mg tablet Take 1 tablet by mouth every 12 hours. cetirizine (ZYRTEC) 10 mg tablet Take 10 mg by mouth. Magnesium Citrate 150mg (Pure Encapsulations) Take 3 capsules daily. ALPRAZolam (XANAX) 0.25 mg tablet diphenhydrAMINE (BENADRYL) 25 mg capsule Take 25 mg by mouth. ibuprofen (MOTRIN) 200 mg tablet Take 200 mg by mouth. hydrOXYzine HCl (ATARAX) 10 mg tablet TAKE ONE TABLET BY MOUTH THREE TIMES DAILY NEEDED FOR ANXIETY FOR 30 DAYS (Patient not taking: Reported on 04/02/2025) multivitamin/iron/folic acid (CENTRUM WOMEN ORAL) Take 1 tablet by mouth once daily. (Patient not taking: Reported on 04/02/2025) VITAMIN E ORAL 180 mg. 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 H (more content not included)... [facility] KARUNA GILBERT ([id number]) 1985 F Date Time Provider Department 03/26/25 ZAINAB CASILLAS During your visit today, we recorded the following information about you: Gavin Ovalle 03/26/2025 4:27 PM Signed Template change: 04/02 appointment time from 8:00 AM to 7:45 AM. Lvm to inform and [employer] message sent. Allergies As of Date: 03/26/2025 Noted Allergy Reaction MOXIFLOXACIN 02/21/2020 8 - GI Upset 11 - Vomiting Flagyl (METRONIDAZOLE) 03/22/2022 8 - GI Upset 11 - Vomiting Date Reviewed: 04/27/2024 Reviewed by: Satish Narayan MD - Fully Assessed Reason for Visit: Appointment [186] Prescriptions as of 03/26/2025 - hydrOXYzine HCl (ATARAX) 10 mg tablet TAKE ONE TABLET BY MOUTH THREE TIMES DAILY NEEDED FOR ANXIETY FOR 30 DAYS - multivitamin/iron/folic acid (CENTRUM WOMEN ORAL) Take 1 tablet by mouth once daily. - cyanocobalamin 1,000 mcg/mL inject ONE ML intramuscular every TWO WEEKS - VITAMIN E ORAL 180 mg. - cholecalciferol, vitamin D3, (VITAMIN D3 ORAL) Take by mouth. - propranolol (INDERAL) 20 mg tablet Take 1 tablet by mouth every 12 hours. - cetirizine (ZYRTEC) 10 mg tablet Take 10 mg by mouth. - Magnesium Citrate 150mg (Pure Encapsulations) Take 3 capsules daily. - ALPRAZolam (XANAX) 0.25 mg tablet - diphenhydrAMINE (BENADRYL) 25 mg capsule Take 25 mg by mouth. - ibuprofen (MOTRIN) 200 mg tablet Take 200 mg by mouth. Problem List As Of Date 03/26/2025 Noted Resolved SHIRA (stress urinary incontinence, female) [N39.*06/25/2023 Muscle weakness [M62.81] 06/25/2023 Abnormal uterine bleeding (AUB) [N93.9] 02/24/2024 Encounter Status:Closed by GAVIN OVALLE on 03/26/25 Normal [facility] CBC (INCLUDES DIFF/PLT)on Basophils (Bld) [#/Vol] 0.018 10*3/uL Normal 0-200 [facility] Comment on above: Performed By: #### 7 600, [id number], 6399, 5616 #### [facility] [place] [address] [employer]missions Systems Operator: Fabian Sunshine MD Basophils/100 WBC (Bld) 0.3 % Normal [facility] Comment on above: Performed By: #### 7 600, 15556, 63, 5616 #### [facility] [place] [address] [employer]missions Systems Operator: Fabian Sunshine MD Eosinophils (Bld) [#/Vol] 0.104 10*3/uL Normal 15-500 [facility] Comment on above: Performed By: #### 7 600, 97574, 63, 5616 #### [facility] [place] [address] [employer]missions Systems Operator: Fabian Sunshine MD Eosinophils/100 WBC (Bld) 1.7 % Normal [facility] Comment on above: Performed By: #### 7 600, 26334, 63, 5616 #### [facility] [place] [address] [employer]missions Systems Operator: Fabian Sunshine MD Erythrocyte distribution width (RBC) [Ratio] 12.7 % Normal 11.0-15.0 [facility] Comment on above: Performed By: #### 7 600, 40834, 63, 5616 #### [facility] [place] [address] [employer]missions Systems Operator: Fabian Sunshine MD Hematocrit (Bld) [Volume fraction] 39.3 % Normal 35.0-45.0 [facility] Comment on above: Performed By: #### 7 600, 91469, 63, 5616 #### [facility] [place] [address] [employer]missions Systems Operator: Fabian Sunshine MD Hemoglobin (Bld) [Mass/Vol] 13.1 g/dL Normal 11.7-15.5 [facility] Comment on above: Performed By: #### 7 600, 88611, 63, 5616 #### [facility] [place] [address] [employer]missions Systems Operator: Fabian Sunshine MD Lymphocytes (Bld) [#/Vol] 2.44 10*3/uL Normal 850-3900 [facility] Comment on above: Performed By: #### 7 600, 98744, 63, 5616 #### [facility] [place] [address] [employer]missions Systems Operator: Fabian Sunshine MD Lymphocytes/100 WBC (Bld) 40.0 % Normal [facility] Comment on above: Performed By: #### 7 600, 01674, 63, 5616 #### [facility] [place] [address] [employer]missions Systems Operator: Fabian Sunshine MD MCH (RBC) [Entitic mass] 30.8 pg Normal 27.0-33.0 [facility] Comment on above: Performed By: #### 7 600, 23284, 63, 5616 #### [facility] [place] [address] Transmissions Systems Operator: Fabian Sunshine MD MCHC (RBC) [Mass/Vol] 33.3 g/dL Normal 32.0-36.0 [facility] Comment on above: Result Comment: For adults, a slight decrease in the calculated MCHC value (in the range of 30 to 32 g/dL) is most likely not clinically significant; however, it should be interpreted with caution in correlation with other red cell parameters and the patient's clinical condition. Performed By: #### 7 600, [id number], 63, 5616 #### [facility] [place] [address] [employer] Operator: Fabian Sunshine MD MCV (RBC) [Entitic vol] 92.3 fL Normal 80.0-100.0 [facility] Comment on above: Performed By: #### 7 600, 98049, 6399, 5616 #### [facility] of [place] [address] [address] [place] [address] Transmissions Systems Operator: Fabian Sunshine MD Monocytes (Bld) [#/Vol] 0.512 10*3/uL Normal 200-950 [facility] Comment on above: Performed By: #### 7 600, 45867, 6399, 5616 #### [facility] of [address], [address] [place] [address] Transmissions Systems Operator: Fabian Sunshine MD Monocytes/100 WBC (Bld) 8.4 % Normal [facility] Comment on above: Performed By: #### 7 600, 14265, 6399, 5616 #### [facility] of [address], [address] [place] [address] Transmissions Systems Operator: Fabian Sunshine MD Neutrophils (Bld) [#/Vol] 3.026 10*3/uL Normal 2903-7700 [facility] Comment on above: Performed By: #### 7 600, 18934, 6399, 5616 #### [facility] of [address], [address] [place] [address] Transmissions Systems Operator: Fabina Sunshine MD Neutrophils/100 WBC (Bld) 49.6 % Normal [facility] Comment on above: Performed By: #### 7 600, 11864, 6399, 5616 #### [facility] of [address], [address] [place] [address] Transmissions Systems Operator: Fabian Sunshine MD Platelet mean volume (Bld) [Entitic vol] 10.3 fL Normal 7.5-12.5 [facility] Comment on above: Performed By: #### 7 600, 51751, 6399, 5616 #### [facility] of [address], [address] [place] [address] Transmissions Systems Operator: Fabian Sunshine MD Platelets (Bld) [#/Vol] 357 10*3/uL Normal 140-400 [facility] Comment on above: Performed By: #### 7 600, 28349, 6399, 5616 #### [facility] of [address], [address] [place] [address] Transmissions Systems Operator: Fabian Sunshine MD RBC (Bld) [#/Vol] 4.26 10*6/uL Normal 3.80-5.10 [facility] Comment on above: Performed By: #### 7 600, 91314, 6399, 5616 #### [facility] of [place] [address] Transmissions Systems Operator: Fabian Sunshine MD WBC (Bld) [#/Vol] 6.1 10*3/uL Normal 3.8-10.8 [facility] Comment on above: Performed By: #### 7 600, 35306, 6399, 5616 #### [facility] [place] [address] [employer]missions Systems Operator: Fabian Sunshine MD [facility] 02-27-2025 Albumin [Mass/Vol] 4.9 g/dL Normal 3.6-5.1 [facility] Comment on above: Performed By: #### 7 600, 71562, 6399, 5616 #### [facility] of [address], [address] [place] [address] Transmissions Systems Operator: Fabian Sunshine MD Albumin/Globulin [Mass ratio] 2.0 {ratio} Normal 1.0-2.5 [facility] Comment on above: Performed By: #### 7 600, 13729, 6399, 5616 #### [facility] [place] [address] Transmissions Systems Operator: Fabian Sunshine MD ALP [Catalytic activity/Vol] 45 U/L Normal 31-125 [facility] Comment on above: Performed By: #### 7 600, 24701, 6399, 5616 #### [facility] [place] [address] Transmissions Systems Operator: Fabian Sunshine MD ALT [Catalytic activity/Vol] 15 U/L Normal 6-29 [facility] Comment on above: Performed By: #### 7 600, 40645, 6399, 5616 #### [facility] of [place] [id number] Transmissions Systems Operator: Fabian Sunshine MD AST [Catalytic activity/Vol] 17 U/L Normal 10-30 [facility] Comment on above: Performed By: #### 7 600, 00208, 63, 5616 #### [facility] of [address], [address] [place] [address] Transmissions Systems Operator: Fabian Sunshine MD Bilirubin [Mass/Vol] 0.4 mg/dL Normal 0.2-1.2 [facility] Comment on above: Performed By: #### 7 600, 75097, 63, 5616 #### [facility] of [address], [address] [place] [address] Transmissions Systems Operator: Fabian Sunshine MD BUN/CREATININE RATIO SEE NOTE: Normal 6-22 [facility] Comment on above: Result Comment: Not Reported: BUN and Creatinine are within reference range. Performed By: #### 7 600, , 6398, 5616 #### [facility] of [address], [address] [place] [address] Transmissions Systems Operator: Fabian Sunshine MD Calcium [Mass/Vol] 9.6 mg/dL Normal 8.6-10.2 [facility] Comment on above: Performed By: #### 7 600, 46985, 63, 5616 #### [facility] [place] [address] Transmissions Systems Operator: Fabian Sunshine MD Chloride [Moles/Vol] 103 mmol/L Normal 98-110 [facility] Comment on above: Performed By: #### 7 600, 85504, 63, 5616 #### [facility] of [address], [address] [place] [address] Transmissions Systems Operator: Fabian Sunshine MD CO2 [Moles/Vol] 27 mmol/L Normal 20-32 [facility] Comment on above: Performed By: #### 7 600, 05630, 63, 5616 #### [facility] of [address], [address] [place] [address] Transmissions Systems Operator: Fabian Sunshine MD Creatinine [Mass/Vol] 0.69 mg/dL Normal 0.50-0.99 [facility] Comment on above: Performed By: #### 7 600, 17780, 63, 5616 #### [facility] [place] [address] Transmissions Systems Operator: Fabian Sunshine MD GFR/1.73 sq M.predicted among non-blacks MDRD (S/P/Bld) [Vol rate/Area] 112 mL/min/{1.73_m2} Normal > OR = 60 [facility] Comment on above: Performed By: #### 7 600, 75315, 63, 5616 #### [facility] [place] [address] Transmissions Systems Operator: Fabian Sunshine MD Globulin (S) [Mass/Vol] 2.4 g/dL Normal 1.9-3.7 [facility] Comment on above: Performed By: #### 7 600, 81852, 6398, 5616 #### [facility] [place] [address] Transmissions Systems Operator: Fabian Sunshine MD Glucose [Mass/Vol] 88 mg/dL Normal 65-99 [facility] Comment on above: Result Comment: Fasting reference interval Performed By: #### 7 600, 62278, 63, 5616 #### [facility] [place] [address] Transmissions Systems Operator: Fabian Sunshine MD Potassium [Moles/Vol] 4.1 mmol/L Normal 3.5-5.3 [facility] Comment on above: Performed By: #### 7 600, 29457, 6399, 5616 #### [facility] [place] [address] Transmissions Systems Operator: Fabian Sunshine MD Protein [Mass/Vol] 7.3 g/dL Normal 6.1-8.1 [facility] Comment on above: Performed By: #### 7 600, 19922, 63, 5616 #### [facility] [address] [place] [address] Transmissions Systems Operator: Fabian Sunshine MD Sodium [Moles/Vol] 141 mmol/L Normal 135-146 [facility] Comment on above: Performed By: #### 7 600, 80106, 6399, 5616 #### [facility] of [address], [address] [place] [address] Transmissions Systems Operator: Fabian Sunshine MD Urea nitrogen [Mass/Vol] 9 mg/dL Normal 7-25 [facility] Comment on above: Performed By: #### 7 600, 26988, 6399, 5616 #### [facility] of [address], [address] [place] [address] Transmissions Systems Operator: Fabian Sunshine MD IRON, [facility]IN [facility] 02-27-2025 % SATURATION 61 % (calc) High 16-45 [facility] Comment on above: Order Comment: 0 [employer]- JAMIL BY RN/KDY 0 [employer]- [employer]AM[employer] BY RN/KD Performed By: #### 7 600, 38814, 6399, 5616 #### [facility] of [address], [address] [place] [address] Transmissions Systems Operator: Fabian Sunshine MD Ferritin [Mass/Vol] 34 ng/mL Normal 16-232 [facility] Comment on above: Order Comment: 0 [employer]- JAMIL BY RN/KDY 0 [employer]- JAMIL BY RN/KD Performed By: #### 7 600, 46702, 6399, 5616 #### [facility] of [address], [address] [place] [address] Transmissions Systems Operator: Fabian Sunshine MD IRON BINDING CAPACITY 313 mcg/dL (calc) Normal 250-450 [facility] Comment on above: Order Comment: 0 [employer]- JAMIL BY RN/KDY 0 [employer]- JAMIL BY RN/KD Performed By: #### 7 600, 74886, 6399, 5616 #### [facility] [place] [address] Transmissions Systems Operator: Fabian Sunshine MD IRON, TOTAL 192 mcg/dL High 40-190 [facility] Comment on above: Order Comment: 0 [employer]- JAMIL BY RN/SWATIY 0 [employer]- JAMIL BY RN/KD Performed By: #### 7 600, 53691, 6399, 5616 #### [facility] [address], [address] [place] [address] Transmissions Systems Operator: Fabian Sunshine MD LIPID PANEL, [facility] 02-03 Cholesterol [Mass/Vol] 210 mg/dL High <200 [facility] Comment on above: Performed By: #### 7 600, 35502, 6399, 5616 #### [facility] [address], [address] [place] [address] Transmissions Systems Operator: Fabian Sunshine MD Cholesterol in HDL [Mass/Vol] 70 mg/dL Normal > OR = 50 [facility] Comment on above: Performed By: #### 7 600, 98504, 6399, 5616 #### [facility] [place] [address] Transmissions Systems Operator: Fabian Sunshine MD Cholesterol in LDL [Mass/Vol] 118 mg/dL High [facility] Comment on above: Result Comment: Refe rence range: <100 Desirable range <100 mg/dL for primary prevention; <70 mg/dL for patients with CHD or diabetic patients with > or = 2 CHD risk factors. LDL-C is now calculated using the Arsen-Armida calculation, which is a validated novel method providing better accuracy than the Friedewald equation in the estimation of LDL-C. Arsen COLIN et al. JESSIE. 2013;310(19): 4825-6982 (http://education.Grid Net.Sanaexpert/faq/GDB299) Performed By: #### 7 600, 20327, 6399, 5616 #### [facility] [place] [address] Transmissions Systems Operator: Fabian Sunshine MD Cholesterol.total/ Cholesterol in HDL [Mass ratio] 3.0 {ratio} Normal <5.0 [facility] Comment on above: Performed By: #### 7 600, 82935, 6399, 5616 #### [facility] [address], [address] [place] [address] Transmissions Systems Operator: Fabian Sunshine MD NON HDL CHOLESTEROL 140 mg/dL (calc) High <130 [facility] Comment on above: Result Comment: For patients with diabetes plus 1 major ASCVD risk factor, treating to a non-HDL-C goal of <100 mg/dL (LDL-C of <70 mg/dL) is considered a therapeutic option. Performed By: #### 7 600, 04227, 6399, 5616 #### [facility] [address], [address] [place] [address] Transmissions Systems Operator: Fabian Sunshine MD Triglyceride [Mass/Vol] 111 mg/dL Normal <150 [facility] Comment on above: Performed By: #### 7 600, 86698, 6399, 5616 #### [facility] [address], [address] [place] [address] Transmissions Systems Operator: Fabian Sunshine MD TSHon 02-27-2025 TSH Qn 0.90 m[IU]/L Normal [facility] Comment on above: Result Comment: Refe rence Range > or = 20 Years 0.40-4.50 Ranges First trimester 0.26-2.66 Second trimester 0.55-2.73 Third trimester 0.43-2.91 Performed By: #### 7 600, 84334, 6399, 5616 #### [facility] [address], [address] [place] [address] Transmissions Systems Operator: Fabian Sunshine MD 37on 10-26-2024 37 YOUR APPOINTMENT TORegina HILL WAS WITH THE [facility], COPD CLINIC, PULMONARY AND SLEEP MEDICINE OFFICE. PLEASE CALL OUR OFFICE AT [phone] for our [facility] location or [phone] for our [place] location, IF YOU HAVE NOT RECEIVED YOUR TEST RESULTS 7 DAYS AFTER TESTING IS COMPLETED. PLEASE REMEMBER TO REQUEST REFILLS AT YOUR OFFICE VISITS. PHONE/FAX REQUESTS REQUIRE 48-72 HOURS FOR RESPONSE. A FRIENDLY REMINDER COPAYS ARE DUE AT TIME OF SERVICE. THANK YOU. Our Patients Are Important! We want to improve and you can help. After your visit we want you to feel: Listened to, Respected and have your health care explained. You may receive a survey asking you about your visit. Please complete the survey. We will use your feedback to make improvements. COVID-19 VACCINATION INFORMATION: [phone] [email or web address].[email or web address]/VACCINE [facility] Central Scheduling [phone] [facility] Sleep Scheduling [phone] [facility] Office Visiton 10-26-2024 Follow-up visit [id number] Karlos Gilbert 1985 F Date Provider Department Center 10/26/2024 PRAKASH SALINAS SHMGMITPULM None Family History Problem Relation Age of Onset Diabetes Mother Hypothyroidism Mother Hyperlipidemia Mother Hemochromatosis Mother Heart attack Father Comments: CABG Diabetes Father High Blood Pressure Father Hyperlipidemia Father Kidney cancer Mother's Brother 55 Heart attack Maternal Grandmother Stroke Maternal Grandfather Alzheimer's disease Paternal Grandmother Stroke Paternal Grandmother Heart disease Paternal Grandfather Comments: CABG Uterine cancer Maternal Cousin 36 Breast cancer Maternal Cousin 30 - 39 Lung cancer Other Breast cancer Other Leukemia Paternal Great-Grandmother Breast cancer Paternal Cousin Family Status - Relation Status Age at Mother Father Mother's Brother Alive Maternal Grandmother Maternal Grandfather Paternal Grandmother Paternal Grandfather Maternal Cousin Alive Maternal Cousin Alive Other Other Alive Paternal Great-Grandmother Alive Paternal Cousin Alive Level of Service:76205 SD OFFICE/OUTPATIENT NEW LOW MDM 30 MINUTES Reason for Visit and Comments: New Patient [542] - Sob [facility] Progress Noteon 10-26-2024 Progress Note [facility]- Pulmonary and Sleep Medicine [address] [place] [id number] Prakash Barron MD NEW PATIENT VISIT-PULMONARY 10/27/2024 REFERRING PHYSICIAN: Karyn Soto MD REASON FOR REFERRAL/Chief complaint: Dyspnea History of Present Illness Karuna Gilbert is a 39 y.o. who presents to the pulmonary clinic for initial evaluation of 1.5-year history of dyspnea. Patient does not know what started the dyspnea. Sometimes she wakes up shortness of breath. She describes the symptoms more as breathlessness. She also describes an abnormal breathing pattern which she has seen speech therapy for. She does note that over the last few weeks symptoms have started to improve after adjustment in her propranolol dosing. Patient has had extensive workup previously through her primary care physician and the cardiology team including CT coronary Holter echo PFTs and cardiopulmonary exercise testing. These all sleeve turner to be essentially negative. Patient denies any history or symptoms concerning for asthma. Patient denies any specific trigger or exposure Patient denies any history or symptoms of sleep apnea PastMedical History Past Medical History: Diagnosis Date Anxiety Atypical lobular hyperplasia (ALH) of left breast 02/26/2020 found during removal of fibroadenoma Eczema Fibroadenoma of breast, left 02/26/2020 SCHEDULED FOR THE SURGERY ON 02/26/20 IBS (irritable bowel syndrome) Past Surgical History Past Surgical History: Procedure Laterality Date BREAST BIOPSY Left 07/24/2009 benign US core bx BREAST BIOPSY Left 10/23/2019 benign US core bx BREAST SURGERY Left 02/26/2020 fibroadenoma removal, atypical lobular hyperplasia SECTION (HISTORICAL) 2017 TWINS ; [facility] COLONOSCOPY DILATION AND CURETTAGE OF UTERUS 05/2024 FRACTURE SURGERY Left 1997 shoulder SALPINGECTOMY Bilateral 2018 UTERINE FIBROID SURGERY 05/2024 polyp removal WISDOM TOOTH EXTRACTION Allergies Allergies Allergen Reactions Moxifloxacin Nausea Only, Nausea And Vomiting and Unknown Metronidazole Nausea Only and Nausea And Vomiting Tetracycline Other Reaction(s): Unknown Medications Medication Documentation Review Audit Reviewed by Prakash Barron MD (Physician) on 10/26/24 at 1022 Medication Order Taking? Sig Documenting Provider Last Dose Status alpha tocopherol (Vitamin E) 100 units capsule [id number] Yes Take 100 Units by mouth daily. Historical ProviderMD Taking Active ALPRAZolam (Xanax) 0.25 MG tablet [id number] Yes Historical ProviderMD Taking Active amitriptyline (Elavil) 10 MG tablet [id number] Yes Take 10 mg by mouth Nightly. Historical ProviderMD Active busPIRone (Buspar) 5 MG tablet [id number] Yes Historical ProviderMD Taking Active cetirizine (ZyrTEC) 10 MG tablet [id number] Yes Take 10 mg by mouth daily. Historical ProviderMD Taking Active Cholecalciferol (D3 2000 PO) [id number] Yes Take by mouth. Historical ProviderMD Taking Active cyanocobalamin (Vitamin B-12) 1000 MCG/ML injection [id number] Yes inject ONE ML INTRAMUSCULARLY every TWO WEEKS Historical ProviderMD Active cyclobenzaprine (Flexeril) 5 MG tablet [id number] Yes Historical Provider, Taking Active Patient not taking: Discontinued 10/26/24 1015 ibuprofen 200 MG tablet [id number] Yes Take 200 mg by mouth every 8 hours as needed for mild pain (1-3). Historical Provider, Active MAGNESIUM GLUCONATE PO [id number] Yes Take 25 mg by mouth in the morning. Historical Provider, Taking Active propranolol (Inderal) 10 MG tablet [id number] Yes Historical Provider, Taking Active Social History Social History Tobacco Use Smoking status: Never Smokeless tobacco: Never Substance Use Topics Alcohol use: Not Currently Comment: rarely FamilyHistory Family History Problem Relation Name Age of Onset Diabetes Mother Hypothyroidism Mother Hyperlipidemia Mother Hemochromatosis Mother Heart attack Father CABG Diabetes Father High Blood Pressure Father Hyperlipidemia Father Kidney cancer Mother's Brother 55 Heart attack Maternal Grandmother Stroke Maternal Grandfather Alzheimer's disease Paternal Grandmother Stroke Paternal Grandmother Heart disease Paternal Grandfather CABG Uterine cancer Maternal Cousin 36 Breast cancer Maternal Cousin 1st cousin 30 - 39 Lung cancer Other p great aunt Breast cancer Other p great aunt Leukemia Paternal Great-Grandmother Breast cancer Paternal Cousin 1st cousin Review of Systems Physical Exam Review of Systems Negative except what is mentioned in the HPI. Physical Exam Vitals: 10/26/24 1011 BP: 138/87 Pulse: 90 SpO2: 98% Weight: 120 lb (54.4 kg) Height: 5' 4" (1.626 m) General appearance: Not ill appearing, alert, no converstional dyspnea Head: Normocephalic, without obvious abnormality, atraumatic Eyes:Pupils bilateral equal and reactive, EOM intact, conjunctiva - no icterus , no injection Lungs: (more content not included)... Normal [facility] BI US BREAST LIMITED BILATER Masha 09-25-2024 BI US BREAST LIMITED BILATERAL This is a summary report. The complete report is available in the patient's medical record. If you cannot access the medical record, please contact the sending organization for a detailed fax or copy. Patient Name: KARUNA GILBERT : 1985 Exam Date/Time: 09/25/2024 09:12 Procedure: BI US BREAST LIMITED BILATERAL Ordering Provider: MEA ELIZABETH Reason For Exam: This exam was performed at [facility] [address] [facility] [address] RISK ALERT: The Cancer Risk Assessment scores below the recommendation of this report contain an outcome above the normal risk range. PATIENT CANCER HISTORY: No Personal History of Cancer FAMILY CANCER HISTORY: Maternal Cousin Uterine Cancer age 36 Unknown Breast Cancer Paternal Cousin Breast Cancer Maternal Cousin Breast Cancer age 35 Prior study Comparisons: 2023; 2022; 2021 Findings: The patient presented with new right axillary and focal right breast pain and left breast lump and an area of previous biopsy. Right axillary and breast ultrasound in areas of pain demonstrated no suspicious findings or other abnormalities. Left breast ultrasound at the site of palpable concern demonstrated no mass or other abnormality. IMPRESSION: No sonographic abnormalities at sites of pain and palpable concern. ASSESSMENT: Category 1 Negative RECOMMENDATION: Return to normal screening Bilateral CANCER RISK ASSESSMENT: This risk assessment is based on patient provided information collected in a risk survey taken at the time of this examination. LIFETIME BREAST CANCER RISK: Dannaer-Estherck 8: 49.59% - If greater than or equal to 20%, consider annual mammogram and annual screening Breast MRI or follow up in high risk clinic. Is the patient at elevated risk based on the HBOC criteria? No (Hereditary Breast and Ovarian Cancer) - If Yes, consider genetic counseling and testing with high risk follow up Is the patient at elevated risk based on the Bueno Syndrome criteria? No - If Yes, consider genetic counseling and testing with high risk follow up. Report Dictated on Electronically Signed By: Pamela Garcia MD Electronically Signed Date/Time: 09/25/2024 10:02 AM EDT [facility] Shipping Team Leader ID: [id number] CRAREQIDCRA Request ID: [id number] Normal [facility] US Breast - bilateral limite don 09-25-2024 No sonographic abnor malities at sites of pain and palpable concern. ASSESSMENT: Category 1 Negative RECOMMENDATION: Return to normal screening Bilateral CANCER RISK ASSESSMENT: This risk assessment is based on patient provided information collected in a risk survey taken at the time of this examination. LIFETIME BREAST CANCER RISK: Tyrer-Cuzick 8: 49.59% - If greater than or equal to 20%, consider annual mammogram and annual screening Breast MRI or follow up in high risk clinic. Is the patient at elevated risk based on the HBOC criteria? No (Hereditary Breast and Ovarian Cancer) - If Yes, consider genetic counseling and testing with high risk follow up Is the patient at elevated risk based on the Bueno Syndrome criteria? No - If Yes, consider genetic counseling and testing with high risk follow up. Report Dictated on Electronically Signed By: Pamela Garcia MD Electronically Signed Date/Time: 09/25/2024 10:02 AM EDT [facility] Patient Name: KARUNA SPRINGER : 1985 Exam Date/Time: 09/25/2024 09:12 Procedure: BI US BREAST LIMITED BILATERAL Ordering Provider: MAE ELIZABETH Reason For Exam: This exam was performed at [place] [address] [address] [place] [address] RISK ALERT: The Cancer Risk Assessment scores below the recommendation of this report contain an outcome above the normal risk range. PATIENT CANCER HISTORY: No Personal History of Cancer FAMILY CANCER HISTORY: Maternal Cousin Uterine Cancer age 36 Unknown Breast Cancer Paternal Cousin Breast Cancer Maternal Cousin Breast Cancer age 35 Prior study Comparisons: 2023; 2022; 2021 Findings: The patient presented with new right axillary and focal right breast pain and left breast lump and an area of previous biopsy. Right axillary and breast ultrasound in areas of pain demonstrated no suspicious findings or other abnormalities. Left breast ultrasound at the site of palpable concern demonstrated no mass or other abnormality. [facility] Pamela Garcia MD - 09/25/2024 Patient Name: KARUNA GILBERT : 1985 Exam Date/Time: 09/25/2024 09:12 Procedure: BI US BREAST LIMITED BILATERAL Ordering Provider: MAE ELIZABETH Reason For Exam: This exam was performed at [facility] [address] [place] [address] RISK ALERT: The Cancer Risk Assessment scores below the recommendation of this report contain an outcome above the normal risk range. PATIENT CANCER HISTORY: No Personal History of Cancer FAMILY CANCER HISTORY: Maternal Cousin Uterine Cancer age 36 Unknown Breast Cancer Paternal Cousin Breast Cancer Maternal Cousin Breast Cancer age 35 Prior study Comparisons: 2023; 2022; 2021 Findings: The patient presented with new right axillary and focal right breast pain and left breast lump and an area of previous biopsy. Right axillary and breast ultrasound in areas of pain demonstrated no suspicious findings or other abnormalities. Left breast ultrasound at the site of palpable concern demonstrated no mass or other abnormality. IMPRESSION: No sonographic abnormalities at sites of pain and palpable concern. ASSESSMENT: Category 1 Negative RECOMMENDATION: Return to normal screening Bilateral CANCER RISK ASSESSMENT: This risk assessment is based on patient provided information collected in a risk survey taken at the time of this examination. LIFETIME BREAST CANCER RISK: Francine 8: 49.59% - If greater than or equal to 20%, consider annual mammogram and annual screening Breast MRI or follow up in high risk clinic. Is the patient at elevated risk based on the HBOC criteria? No (Hereditary Breast and Ovarian Cancer) - If Yes, consider genetic counseling and testing with high risk follow up Is the patient at elevated risk based on the Bueno Syndrome criteria? No - If Yes, consider genetic counseling and testing with high risk follow up. Report Dictated on Electronically Signed By: Pamela Garcia MD Electronically Signed Date/Time: 09/25/2024 10:02 AM EDT [facility] Radiology Study observation (narrative) [facility] US Breast - bilateral limite dOrdered By: Pamela Garcia on 09-25-2024 [facility] Work Phone: Office Visiton 08-14-2024 Follow-up visit [id number] Karlos Gilbert 1985 F Date Provider Department Center 08/14/2024 [id number] RODRIGUEZ [facility] BRS None Family History Problem Relation Age of Onset Diabetes Mother Hypothyroidism Mother Hyperlipidemia Mother Hemochromatosis Mother Heart attack Father Comments: CABG Diabetes Father High Blood Pressure Father Hyperlipidemia Father Kidney cancer Mother's Brother 55 Heart attack Maternal Grandmother Stroke Maternal Grandfather Alzheimer's disease Paternal Grandmother Stroke Paternal Grandmother Heart disease Paternal Grandfather Comments: CABG Uterine cancer Maternal Cousin 36 Breast cancer Maternal Cousin 30 - 39 Lung cancer Other Breast cancer Other Leukemia Paternal Great-Grandmother Breast cancer Paternal Cousin Family Status - Relation Status Age at Mother Father Mother's Brother Alive Maternal Grandmother Maternal Grandfather Paternal Grandmother Paternal Grandfather Maternal Cousin Alive Maternal Cousin Alive Other Other Alive Paternal Great-Grandmother Alive Paternal Cousin Alive Level of Service:95711 SD OFFICE/OUTPATIENT ESTABLISHED LOW MDM 20 MIN Reason for Visit and Comments: Follow-up [[id number]] - HR follow up Normal [facility] Progress Noteon 08-14-2024 Progress Note Karuna Gilbert is a [age] y.o. YO F here for follow up high risk breast cancer surveillance Breast History: 1. She was first seen in the breast center on 08/11/2021 for high risk management. Last seen 08/30/2023 for high risk follow up. Lifetime risk of breast cancer by Tyrer-Cuzick v8: 43% High Risk follow up: Last Mammogram: 04/27/2024 - BIRADS 2 Last Breast MRI: 10/15/2023 - BIRADS 1 Genetic testing: [facility] expanded panel genetic testing 08/2021 negative for deleterious mutation. VUS NTHL1 (p.A11S). Results scanned into media dated 09/02/2021. 2. She has a family history of breast cancer in her maternal first cousin once removed in her 30s, paternal first cousin once removed at an unknown age, and paternal great aunt at an unknown age. There have been no changes to her family cancer history since her last visit. 3. Breast history: -10/04/2019: LEFT breast biopsy for which pathology returned: DIAGNOSIS: BREAST, LEFT AT 9 O'CLOCK RETROAREOLAR, NEEDLE CORE BIOPSY - FIBROADENOMA AND ADJACENT BREAST TISSUE WITH USUAL DUCTAL HYPERPLASIA AND ASSOCIATED CALCIFICATIONS -02/26/2020: LEFT surgical excision per Dr. Nicole and final pathology returned: DIAGNOSIS: LEFT BREAST, EXCISION - FIBROADENOMA FOCALLY INVOLVED BY ATYPICAL LOBULAR HYPERPLASIA Comment: Immunohistochemical stains for E-cadherin highlight a population of negatively-staining cells, supportive of focal atypical lobular hyperplasia She also reports she had this area biopsied once before the biopsy 10/04/2019. These results are not available ot me today but she states this also returned benign fibroadenoma. She also reports history of bilateral cyclical breast tenderness. No additional breast history. Today, she reports an area of focal pain for the last few months in her right axilla. She describes it as nagging and different than her normal cyclical pain. She also reports a palpable area within the left breast that is new. We discussed obtaining diagnostic imaging and she is agreeable. No additional breast concerns today. She denies skin change, nipple change, nipple discharge. 4. We discussed the recommendation for high risk follow up. She is agreeable to continue annual mammogram, breast MRI clinical breast exam every 6-12 months. We again discussed chemoprevention with tamoxifen (as well as baby palmer). We reviewed side effects including potential for slight increased risk of blood clot, uterine cancer, hot flashes, joint pain, fatigue, weight gain. We reviewed benefits of risk reduction for breast cancer. She declines today but is still considering this. Risk Factors: Menarche: 11 Age of first : 31; G1, P2; she has twin 7-year-old daughters Menopause: Pre; LMP 07/24/2024. She follows annually with [facility] Dr. Vargas at [facility]. Next [employer] 03/2025 Physical Activity: She walks outside when the weather is nice and uses elliptical indoors during the winter. We discussed the [employer] recommends that adults get at least 150 minutes of moderate intensity or 75 minutes of vigorous intensity activity each week Nutrition: She follows a healthy diet. She recently started using a meal subscription service which she really likes. We discussed a plant based diet and limiting added hormones in her meat and dairy. Weight: She intentionally lost 20 lbs last year with diet and exercise. BMI 20.77 Smoking: Never ETOH: She cut out alcohol last year Breast imaging includes: Screening mammogram 04/27/2024 TISSUE DENSITY: BIRADS D - The breasts are extremely dense, which lowers the sensitivity of mammography. FINDINGS: There are post surgical changes deep to a scar marker the left breast. No suspicious masses, architectural distortions or suspiciously clustered microcalcifications are identified. There is no evidence of skin thickening or nipple retraction. There are no significant changes when compared with prior studies. IMPRESSION: No mammographic evidence of malignancy. ASSESSMENT: Category 2 Benign RECOMMENDATION: Routine screening mammogram in 1 year. Bilateral Breast MRI 10/15/2023 FINDINGS: There is mild bilateral background enhancement. Right Breast: There is no suspicious mass or non-mass enhancement in the right breast. Left Breast: There is no suspicious mass or non-mass enhancement in the left breast. Other: No axillary or internal mammary lymphadenopathy is appreciated. IMPRESSION: No MRI evidence of malignancy in either breast. ASSESSMENT: Category 1 Negative RECOMMENDATION: Breast MRI in 1 year Bilateral Family Cancer History includes: Paternal great grandmother with leukemia Maternal uncle with kidney cancer Paternal uncle with nonmelanoma skin cancer Maternal cousin with uterine cancer Paternal great aunt with breast cancer Paternal great aunt with lung cancer Maternal first cousin once removed with breast cancer in her 30s Paternal first cousin (more content not included)... [facility] CNOPon 05-25-2024 CNOP Operative Note (Enc) (OBGYWM) Encounter Status:Closed by SATISH NARAYAN on 05/26/24 [facility] Discharge Instructionon 05-06 Discharge Instruction [facility] Medical Records Department [address] [place] [id number] Instructions for Home/Discharge Instructions 05/25/24 0745 MR#: [id number] Acct: [id number] Name: KARUNA GILBERT Rep #: [id number] : 1985 38 From: Satish Narayan MD PCP: Dr. Karyn Soto MD Status:REG [facility] Discharge Instructions Diet Discharge Diet: No restrictions Activity May resume sexual activity in: 2 weeks Lifting Restrictions: none Dressing / Incision Call your doctor if your incision/area has: Sudden Increased Bleeding and Foul Smelling Discharge Call your doctor if you observe: Fever of 101 or Higher and Using more than 1 pad per hour (for 2 hrs in a row) Follow Up Care Please Follow Up With: Satish Narayan MD When: You do not need a postop appointment, we will contact you with the pathology next week. Call [phone] or send a Blurr message to make an appointment or with any concerns. Test Results: Test results from this visit will be discussed in further detail at your follow-up appointment, if applicable. Discharge Plan Admission Primary Reason for Your Visit: Hysteroscopy D C Attending Provider: Satish Narayan Primary Care Provider: Karyn Soto Instructions Print Language: Finnish Discharge Orders/Prescriptions Prescriptions: No Action alprazolam 0.25 mg tablet 0.25 mg PO Q6H PRN PRN (Reason: anxiety) propranolol 20 mg tablet 10 mg PO BID hydroxyzine HCl 10 mg tablet 10 mg PO TID PRN PRN (Reason: anxiety) Referrals / Follow Up: Karyn Soto MD [Primary Care Provider] - Disposition Disposition (needs filled in before D/C Order can be placed): Home, Self Care 05/25/24 0807 Satish Narayan MD CC: Dr. Karyn Soto MD Signed [facility] MR/POSTOP.[facility] 05-25-2024 MR/POSTOP.[facility] Medical Records Department [address] [place] [address] Anesthesia Postop Eval I 05/25/24 1004 MR#: [id number] Acct: [id number] Name: KARUNA GILBERT Rep #: [id number] : 1985 38 From: Rosa Madera CRNA PCP: Dr. Karyn Soto MD Status:REG [facility] Y Race: C Location: [place] [address] Anesthesia: Postop Eval I Current Vital Signs Temperature: 98.4 F Pulse Rate: 90 Blood Pressure: 128/87 Respiratory Rate: 18 Pulse Ox: 100 Oxygen Delivery Method: Room Air Assessment Airway patent: Yes Spontaneous unlabored respirations: Yes Mental status: Asleep nausea: No Vomiting: No Anesthesia Complication: No Fluid Hydration Crystalloid volume administer (ml): 400 Total IV fluid infused: 400 Progress Note Anesthesia document: Postop Eval 1 completed: Yes 05/25/24 1005 Date Rosa Cassy RELEASE MANAGER Cosigner Signature: Date CC: Signed Normal [facility] MR/BRLLXAWR2ms 05-25-2024 MR/POSTOPAN2 [facility] Medical Records Department [address] [place] [address] Anesthesia Postop Eval II 05/25/24 1219 MR#: [id number] Acct: [id number] Name: KARUNA GILBERT Rep #: [id number] : 1985 38 From: Luis Henson MD PCP: Dr. Karyn Soto MD Status:[facility] Y Race: C Location: [facility] Anesthesia Postop Eval I Sum Postop Eval Completion status Anesthesia document: Postop Eval 1 completed: Yes Anesthesia Postop Eval I Summary Anesthesia Postop Eval I Summary: Anesthesia Postop Eval I: Assessment Summary Airway patent Yes 05/25/24 10:05 RELEASE [email or web address] Spontaneous unlabored Yes 05/25/24 10:05 RELEASE [email or web address] respirations Mental status Asleep 05/25/24 10:05 RELEASE [email or web address] nausea No 05/25/24 10:05 RELEASE [email or web address] Vomiting No 05/25/24 10:05 RELEASE [email or web address] Anesthesia Postop Eval I: Fluid Summary Crystalloid volume administer 400 05/25/24 10:05 RELEASE MANAGER.[email or web address] (ml) Colloids volume administered ( ml) Blood Product volume administered (ml) Total IV fluid infused 400 05/25/24 10:05 RELEASE [email or web address] Anesthesia Postop Eval I: Summary Notes Anesthesia Complication No 05/25/24 10:05 RELEASE [email or web address] Anesthesia Complication Comment: Post-operative progress note Anesthesia: Postop Eval II Evaluation Mental status: Awake and Calm Pain Level: 1 nausea: No Vomiting: No Complications Anesthesia Complication: No 05/25/24 1220 Date Luis Henson MD Cosigner Signature: Date CC: Signed Normal [facility] Operative Reporton 4 Operative Report [facility] Medical Records Department [address] [place] [address] Operative Report 05/25/24 0807 MR#: [id number] Acct: [id number] Name: KARUNA GILBERT Rep #: [id number] : 1985 38 From: Satish Narayan MD PCP: Dr. Karyn Soto MD Status:[facility] Location: [place] [address] Problems Associated Problem List Diagnoses (1) Endometrial polyp: (2) Abnormal uterine bleeding (AUB): Operative Report (Standard) Operative Information Surgery/Procedure Performed: Hysteroscopy D C with polyp resection Surgeon: Satish Narayan Date of Procedure: 05/25/24 Procedure Start Time: 07:50 Procedure Stop Time: 08:02 Pre-Operative Diagnosis: AUB, endometrial polyp Post-Operative Diagnosis: same Select all DRAINS/GRAFTS/IMPLANTS that apply: None Type of Anesthesia: MAC/Supplemental/Local Special Medications: none Estimated Blood Loss: 10 Fluids Replaced: 400 Specimen collected: Yes Description of specimen(s) removed: endometrial curettings and polyp Description of surgery: The patient was taken to the OR where she was prepped and draped in dorsal lithotomy position. The weighted speculum was placed in the vagina and the anterior lip of the cervix was grasped with a single-tooth tenaculum. A paracervical block was administered with 1% lidocaine with 1-100,000 epinephrine solution. The cervix was dilated serially with Hegar dilators. The Symphion hysteroscope was placed into the uterine cavity and the above findings were noted. Bilateral tubal ostia were identified. The hysteroscope was removed. The Symphion resection device was readied and inserted. The device was used to resect the polypoid appearing lesion on the posterior wall of the uterus and do a visual D C of the endometrial cavity.. The instruments were removed from the vagina. The specimen was handed off and sent to pathology. All sponge and needle counts were correct. Vaginal sweep was performed by me. The patient was awakened and taken to the recovery room in stable condition. Calculated fluid deficit 500 cc of normal saline Surgical Findings: polypoid lesion posterior uterine wall, lush endometrium, normal cervix and vagina Rn Bariatric service technician: No Complications Complications: No Admit VTE Documentation VTE Present on Admission: No VTE Mechan Device Prophylaxis: SCD's VTE Pharm Prophylaxis ordered?: No Reason prophylaxis not ordered: Procedure Not Indicated 05/25/24 0810 Cosigner Signature (if applicable): CC: Dr. Karyn Soto MD; Dr. Satish Narayan MD Signed [facility] ,Urineon 05-25-2024 Beta HCG ( test) Ql (U) Negative [facility] Comment on above: Result Comment: Very dilute urine specimens, as indicated by a low specific gravity, may not contain player services representative levels of hCG. If is still suspected, a first morning urine specimen should be collected 48 hours later and tested. Performed By: #### L 400.7600 #### [facility] [address] [place], [address] Surgery Specimen Level Boaz 05-25-2024 Surgery Specimen Level IV -- Patient Age/Sex Location Account Attending Physician -- KARUNA GILBERT 38/F [facility] [id number] Dr. Satish Narayan MD -- Specimen: [id number] Received: 05/25/24 Status: KILEY Crane Num: [id number] Spec Type: ENDOM BX/C Subm Dr: Dr. Satish Narayan MD HEADER OPERATION: Hysteroscopy., visual D C, polyp resection PRE-OP DIAGNOSIS: Abnormal uterine bleeding, endometrial polyp TISSUE SUBMITTED: Endometrial curettings and polyp -- MICROSCOPIC DIAGNOSIS Endometrial curettings and polyp: Secretory endometrium. Fragments of myometrium. . 05/26/2024 MICROSCOPIC DESCRIPTION Slides are reviewed. GROSS DESCRIPTION Received in fixative is one container labeled with the patient's name and designated Endometrial curettings and polyp." The specimen consists of multiple irregular fragments of crews-pink soft tissue that in aggregate measure 7.5 x 3.0 x 0.2 cm. The specimen is totally submitted in three cassettes. . 05/25/2024 TC:5 CPT:57044 -- Patient Age/Sex Location Account Attending Physician -- KARUNA GILBERT 38/F [facility] [id number] Dr. Satish Narayan MD -- Signed (signature on file) Dr. Moises Cook MD 05/26/24 1206 -- Normal [facility] Comment on above: Performed By: #### P KARYNA #### [facility] [address] [place] [address], [address] Edy 05-22-2024 SEANN Telephone (OBGYWM) KARUNA GILBERT ([id number]) 1985 F Date Time Provider Department 05/22/24 SATISH NARAYAN During your visit today, we recorded the following information about you: Mary Howell RN 05/22/2024 9:22 AM Signed Patient is scheduled for surgery on . States [facility] advised that she is NPO after midnight, but with the IV shortage, RR recommended pushing fluids up to 2 hours before her arrival time. Ok to still push fluids prior? Also asking if she can take her Multivitamin and Magnesium. She worked in [employer] before and patients would sometimes be advised to stop supplements a certain number of days leading up to surgery. KHARI Holland Rebecca L, MD 05/22/2024 10:13 AM Signed No solid food after midnight. Clear liquids only after that. Take vitamins/supplements when she gets home that day. Doesn't have to hold them any other time. Can take anxiety medications as needed that am w/ a clear fluid. Can drink clear fluids up until 2 hrs before arrival. Would drink 8 oz about 2 hrs before she leaves. MD Patricia Kendall Trisha, RN 05/22/2024 10:28 AM Signed Patient notified. Lashay Ribeiro RN Allergies As of Date: 05/22/2024 Noted Allergy Reaction MOXIFLOXACIN 02/21/2020 8 - GI Upset 11 - Vomiting Flagyl (METRONIDAZOLE) 03/22/2022 8 - GI Upset 11 - Vomiting Date Reviewed: 04/27/2024 Reviewed by: Satish Narayan MD - Fully Assessed Reason for Visit: Patient Question [1477] Prescriptions as of 05/22/2024 - hydrOXYzine HCl (ATARAX) 10 mg tablet TAKE ONE TABLET BY MOUTH THREE TIMES DAILY NEEDED FOR ANXIETY FOR 30 DAYS - multivitamin/iron/folic acid (CENTRUM WOMEN ORAL) Take 1 tablet by mouth once daily. - cyanocobalamin 1,000 mcg/mL inject ONE ML intramuscular every TWO WEEKS - VITAMIN E ORAL 180 mg. - cholecalciferol, vitamin D3, (VITAMIN D3 ORAL) Take by mouth. - propranolol (INDERAL) 20 mg tablet Take 1 tablet by mouth every 12 hours. - cetirizine (ZYRTEC) 10 mg tablet Take 10 mg by mouth. - Magnesium Citrate 150mg (Pure Encapsulations) Take 3 capsules daily. - ALPRAZolam (XANAX) 0.25 mg tablet - diphenhydrAMINE (BENADRYL) 25 mg capsule Take 25 mg by mouth. - ibuprofen (MOTRIN) 200 mg tablet Take 200 mg by mouth. Problem List As Of Date 05/22/2024 Noted Resolved SHIRA (stress urinary incontinence, female) [N39.*06/25/2023 Muscle weakness [M62.81] 06/25/2023 Abnormal uterine bleeding (AUB) [N93.9] 02/24/2024 Medications Discontinued During This Encounter Prescriptions - busPIRone (BUSPAR) 5 mg tablet (Discontinued) Reported on 04/20/2024 Encounter Status:Closed by LASHAY RIBEIRO on 05/22/24 Normal [facility] CBC-Complete Blood Cnt No Di ffon 05-18-2024 Erythrocyte distribution width (RBC) [Ratio] 12.2 % Normal 11.6-14.6 [facility] Comment on above: Performed By: #### L 100.0500 #### [facility] [address] [place], [address] Hematocrit (Bld) [Volume fraction] 41.6 % Normal 37-47 [facility] Comment on above: Performed By: #### L 100.0500 #### [facility] [address] [facility] [place], [address] Hemoglobin (Bld) [Mass/Vol] 13.5 g/dL Normal 12.0-15.0 [facility] Comment on above: Performed By: #### L 100.0500 #### [facility] [address] [place], [address] MCH (RBC) [Entitic mass] 29.9 pg Normal 27.0-32.0 [facility] Comment on above: Performed By: #### L 100.0500 #### [facility] [address] [place], [address] MCHC (RBC) [Mass/Vol] 32.5 g/dL Normal 32-36 [facility] Comment on above: Performed By: #### L 100.0500 #### [facility] [address] [place], [address] MCV (RBC) [Entitic vol] 92.2 fL Normal 81-99 [facility] Comment on above: Performed By: #### L 100.0500 #### [facility] [address] [place], [address] Platelet mean volume (Bld) [Entitic vol] 9.5 fL Normal 6.2-12.0 [facility] Comment on above: Performed By: #### L 100.0500 #### [facility] [address] [place], [address] Platelets (Bld) [#/Vol] 358 10*3/uL Normal 150-450 [facility] Comment on above: Performed By: #### L 100.0500 #### [facility] [address] [place], [address] RBC (Bld) [#/Vol] 4.51 10*6/uL Normal 4.2-5.4 [facility] Comment on above: Performed By: #### L 100.0500 #### [facility] [address] [place], [address] RDW SD 41.6 fl Normal 35.1-43.9 [facility] Comment on above: Performed By: #### L 100.0500 #### [facility] [address] [place], [address] WBC (Bld) [#/Vol] 9.8 10*3/uL Normal 4.4-11.0 [facility] Comment on above: Performed By: #### L 100.0500 #### [facility] [address] [place], [address] [place] Pelvison 05-12-2024 Indication Abnormal uterine bleeding, Follow-up on uterine polyps Impression Uterus is 81 x 48 x 39 mm and anteverted Myometrium is normal without any fibroids or direct signs of adenomyosis Endometrium is 2 mm, there is a 4 x 5 x 3 mm ovoid hyperechoic lesion with small amount of blood flow on the right lateral wall, this is best seen with 3D imaging. Likely a polyp, however other pathology cannot be excluded, this appears to correlate with what was seen on prior imaging on March 02, 2024 Cervix is normal No free fluid in the pelvis Right ovary is 28 x 16 x 14 mm and is normal Left ovary is 18 x 20 x 24 mm and is also normal There is a positive sliding sign in the cul-de-sac and bilateral adnexa Recommendations Suspected endometrial polyp, consider saline infusion sonography or hysteroscopy if further confirmation or management is required History Medical History Surgery: section x 1 Surgery: Tubal ligation [facility]ICE ADMIRAL History Other: spotting between menses, recent endo bx- pt is still bleeding since bx Menstrual History LMP on 05/07/2024. Contraception: tubal sterilization Method Transvaginal, 3D ultrasound examination, Color Doppler examination. View: Adequate visualization Uterus Uterus: Visualized Uterus position: anteverted Description of uterine malformations: none Myometrium: normal Endometrium: possible polyp noted Cervix details: normal Uterus length 81 mm Uterus width 48 mm Uterus height 39 mm Uterus Vol 77.2 cm Endometrial thickness, total 1.7 mm Polyps: Polyps identified Uterine polyp D1 4 mm Uterine polyp D2 5 mm Uterine polyp D3 3 mm Uterine polyp mean 4.0 mm Uterine polyp findings: Right lateral wall Right Ovary Rt ovary: Visualized Rt ovary morphology: premenopausal normal follicular Rt ovary D1 28 mm Rt ovary D2 16 mm Rt ovary D3 14 mm Rt ovary Vol 3.2 cm Left Ovary Lt ovary: Visualized Lt ovary morphology: premenopausal normal follicular Lt ovary D1 18 mm Lt ovary D2 20 mm Lt ovary D3 24 mm Lt ovary Vol 4.4 cm Cul de Sac Visualized. no free fluid visualized Procedure To characterize the [polyp ], three dimensional imaging was created on a dedicated stand-alone 3D workstation with images created and archived, and supervised and reviewed by the interpreting physician utilizing images from an ultrasound scan performed today. Performed By: Glenis Hoffman RDMS Read By: Brianda Carroll M.D. MATERNAL MEDICINE [facility] Radiology Study observation (narrative) [facility] DBT Breast - [facility] 04-27-2024 No mammographic evid ence of malignancy. ASSESSMENT: Category 2 Benign RECOMMENDATION: Routine screening mammogram in 1 year. Bilateral CANCER RISK ASSESSMENT: This risk assessment is based on patient provided information collected in a risk survey taken at the time of this examination. LIFETIME BREAST CANCER RISK: Francine 8: 49.59% - If greater than or equal to 20%, consider annual mammogram and annual screening Breast MRI or follow up in high risk clinic. Is the patient at elevated risk based on the HBOC criteria? No (Hereditary Breast and Ovarian Cancer) - If Yes, consider genetic counseling and testing with high risk follow up Is the patient at elevated risk based on the Bueno Syndrome criteria? No - If Yes, consider genetic counseling and testing with high risk follow up. Report Dictated on Electronically Signed By: Oni Ross MD Electronically Signed Date/Time: 04/27/2024 1:25 PM [facility] Name[facility] KARUNA SPRING[facility] 1985 [id number] Exam Date/Time: 04/27/2024 12:51 Procedure: BI MAMMOGRAM SCREENING TOMOSYNTHESIS BILATERAL Ordering Provider: MAE ELIZABETH Reason For Exam: This exam was performed at: [place] [address] RISK ALERT: The Cancer Risk Assessment scores below the recommendation of this report contain an outcome above the normal risk range. PATIENT CANCER HISTORY: No Personal History of Cancer FAMILY CANCER HISTORY: Maternal Cousin Uterine Cancer age 36 Unknown Breast Cancer Paternal Cousin Breast Cancer Maternal Cousin Breast Cancer age 35 Image views: 2D Bilateral CC and MLO views were acquired. 3D Bilateral CC and MLO views were acquired. Images were reviewed with CAD. Markings on images: BB's = Nipples; skin lesions Open [place] grande = Palpable Line = Scar COMPARISON: 04/22/2023 and 04/20/2022 TISSUE DENSITY: BIRADS D - The breasts are extremely dense, which lowers the sensitivity of mammography. FINDINGS: There are post surgical changes deep to a scar marker the left breast. No suspicious masses, architectural distortions or suspiciously clustered microcalcifications are identified. There is no evidence of skin thickening or nipple retraction. There are no significant changes when compared with prior studies. [facility] Oni Ross MD - Patient Name: KARUNA GILBERT [facility] 1985 [id number] Exam Date/Time: 04/27/2024 12:51 Procedure: BI MAMMOGRAM SCREENING TOMOSYNTHESIS BILATERAL Ordering Provider: MAE ELIZABETH Reason For Exam: This exam was performed at: [place] [address] [place] [address] RISK ALERT: The Cancer Risk Assessment scores below the recommendation of this report contain an outcome above the normal risk range. PATIENT CANCER HISTORY: No Personal History of Cancer FAMILY CANCER HISTORY: Maternal Cousin Uterine Cancer age 36 Unknown Breast Cancer Paternal Cousin Breast Cancer Maternal Cousin Breast Cancer age 35 Image views: 2D Bilateral CC and MLO views were acquired. 3D Bilateral CC and MLO views were acquired. Images were reviewed with CAD. Markings on images: BB's = Nipples; skin lesions Open [place] = Palpable Line = Scar COMPARISON: 04/22/2023 and 04/20/2022 TISSUE DENSITY: BIRADS D - The breasts are extremely dense, which lowers the sensitivity of mammography. FINDINGS: There are post surgical changes deep to a scar marker the left breast. No suspicious masses, architectural distortions or suspiciously clustered microcalcifications are identified. There is no evidence of skin thickening or nipple retraction. There are no significant changes when compared with prior studies. IMPRESSION: No mammographic evidence of malignancy. ASSESSMENT: Category 2 Benign RECOMMENDATION: Routine screening mammogram in 1 year. Bilateral CANCER RISK ASSESSMENT: This risk assessment is based on patient provided information collected in a risk survey taken at the time of this examination. LIFETIME BREAST CANCER RISK: Francine 8: 49.59% - If greater than or equal to 20%, consider annual mammogram and annual screening Breast MRI or follow up in high risk clinic. Is the patient at elevated risk based on the HBOC criteria? No (Hereditary Breast and Ovarian Cancer) - If Yes, consider genetic counseling and testing with high risk follow up Is the patient at elevated risk based on the Bueno Syndrome criteria? No - If Yes, consider genetic counseling and testing with high risk follow up. Report Dictated on Electronically Signed By: Oni Ross MD Electronically Signed Date/Time: 04/27/2024 1:25 PM EDT [facility] Radiology Study observation (narrative) [facility] DBT Breast - bilateral scree ningOrdered By: Oni Ross on 04-27-2024 [facility] Work Phone: US Pelvison 03-04-2024 Indication Abnormal uterine bleeding Impression Normal appearing anteflexed uterus that measures 100 mm x 40 mm x 65 mm. Endometrium measures 3 mm and contains intracavitary fluid with low level echogenicity, outlining a hyperechoic area in the right lateral wall suggestive of a 6 x 5 x 4 mm polyp. Normal endometrial contour. Both ovaries are visualized and appear normal with follicular change. No adnexal masses were observed. There is no free fluid visualized in the peritoneal cavity. Recommendations Recommend hysteroscopic evaluation as clinically indicated. History Medical History Surgery: section x 1 Surgery: Tubal ligation VICE ADMIRAL History Other: spotting between menses, recent endo bx- pt is still bleeding since bx Menstrual History LMP on 02/13/2024. Contraception: tubal sterilization Method Transabdominal, transvaginal, 3D ultrasound examination, Color Doppler examination. View: Adequate visualization Uterus Uterus: Visualized Uterus position: anteflexed Description of uterine malformations: none Myometrium: normal Endometrium: intracavitary fluid with low level echogenicity, outlining a hyperechoic area in the right lateral wall suggestive of a 6 x 5 x 4 mm polyp Cervix details: normal Uterus length 100 mm Uterus width 65 mm Uterus height 40 mm Uterus Vol 136.3 cm Endometrial thickness single layer 1.8 mm Endom. th. single layer 1.2 mm Side: anterior Side: posterior Endometrial thickness, total 3.0 mm Right Ovary Rt ovary: Visualized Rt ovary morphology: premenopausal with dominant follicle Rt ovary D1 29 mm Rt ovary D2 19 mm Rt ovary D3 26 mm Rt ovary Vol 7.5 cm Rt ovarian follicle D1 19.9 mm Rt ovarian follicle D2 21.8 mm Rt ovarian follicle mean 20.8 mm Rt ovarian follicle vol 4.509 cm Left Ovary Lt ovary: Visualized Lt ovary morphology: premenopausal normal follicular Lt ovary D1 22 mm Lt ovary D2 18 mm Lt ovary D3 16 mm Lt ovary Vol 3.3 cm Cul de Sac Visualized. no free fluid visualized Performed By: Glenis Hoffman RDMS Read By: Krystyna Díaz M.D. MATERNAL MEDICINE [facility] US Pel[facility]ison 03-02-2024 Radiology Study observation (narrative) [facility] UA DIP,URINE HCG (POC)on Beta HCG ( test) Ql (U) Negative Negative [facility] Comment on above: Location:[facility], 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, [place], [address] [facility] POINT OF CARE [facility] MR Breast - bilateral WO and W contrast Boaz 10-15-2023 No MRI evidence of m alignancy in either breast. ASSESSMENT: Category 1 Negative RECOMMENDATION: Breast MRI in 1 year Bilateral COMMENTS: Report Dictated on Electronically Signed By: Pamela Garcia MD Electronically Signed Date/Time: 10/15/2023 10:18 AM [facility] Patient Name: KARUNA SPRINGER : 1985 [id number] Exam Date/Time: 10/15/2023 09:41 Procedure: BI MR BREAST BILATERAL W AND WO CONTRAST W CAD Ordering Provider: MAE ELIZABETH Reason For Exam: MRI TECHNIQUE: Clinical Indication: Breast MRI Screening - High-risk annual. Elevated lifetime risk. Contrast: Gadavist 7 mL IV. Bilateral breast MRI was performed with a dedicated breast coil. Fat saturated T2 weighted and T1 weighted axial images were obtained of both breasts. Dynamic pre-and post contrast axial image sets were obtained of both breasts after intravenous injection of gadolinium based contrast. Delayed post contrast sagittal images were also obtained. Subtraction images and MIP images were generated. Interpretation was made in conjunction with CAD. The patient's prior imaging was reviewed. FINDINGS: There is mild bilateral background enhancement. Right Breast: There is no suspicious mass or non-mass enhancement in the right breast. Left Breast: There is no suspicious mass or non-mass enhancement in the left breast. Other: No axillary or internal mammary lymphadenopathy is appreciated. [facility] Pamela Garcia MD - 10/15/2023 Patient Name: KARUNA GILBERT : 1985 [facility]#: [id number] Exam Date/Time: 10/15/2023 09:41 Procedure: BI MR BREAST BILATERAL W AND WO CONTRAST W CAD Ordering Provider: MAE ELIZABETH Reason For Exam: MRI TECHNIQUE: Clinical Indication: Breast MRI Screening - High-risk annual. Elevated lifetime risk. Contrast: Gadavist 7 mL IV. Bilateral breast MRI was performed with a dedicated breast coil. Fat saturated T2 weighted and T1 weighted axial images were obtained of both breasts. Dynamic pre-and post contrast axial image sets were obtained of both breasts after intravenous injection of gadolinium based contrast. Delayed post contrast sagittal images were also obtained. Subtraction images and MIP images were generated. Interpretation was made in conjunction with CAD. The patient's prior imaging was reviewed. FINDINGS: There is mild bilateral background enhancement. Right Breast: There is no suspicious mass or non-mass enhancement in the right breast. Left Breast: There is no suspicious mass or non-mass enhancement in the left breast. Other: No axillary or internal mammary lymphadenopathy is appreciated. IMPRESSION: No MRI evidence of malignancy in either breast. ASSESSMENT: Category 1 Negative RECOMMENDATION: Breast MRI in 1 year Bilateral COMMENTS: Report Dictated on Electronically Signed By: Pamela Garcia MD Electronically Signed Date/Time: 10/15/2023 10:18 AM EDT [facility] Radiology Study observation (narrative) [facility] MR Breast - bilateral WO and W contrast IVOrdered By: Pamela Garcia on 10-15-2023 [facility] Work Phone: METPon 06-26-2023 Metanephrine Lvl 45.9 pg/mL Normal 0.0-88.0 [facility] ([place]) Comment on above: Result Comment: This test was developed and its performance characteristics determined by [facility]. It has not been cleared or approved by the Food and Drug Administration. Performed At: [address] [id number] Jose Collins MD Ph:[phone] Performed By: #### 1 [id number] #### [address] [address] Normetanephrine Lvl 120.3 pg/mL Normal 0.0-210.1 [facility] ([place]) Comment on above: Result Comment: This test was developed and its performance characteristics determined by [facility]. It has not been cleared or approved by the Food and Drug Administration. Performed By: #### 1 [id number] #### [address] [address] ANAon 06-07-2023 Nuclear Ab IF (S) [Titer] 40 {titer} Normal Neg 40 [facility] ([place]) Comment on above: Result Comment: JEROME Screen and Titer methodology is an immunofluorescent technique utilizing Hep2 Substrate. Performed By: #### A NA, DIALLO, RF #### [place] [address] METPon 06-07-2023 Metanephrine Lvl Not performed Normal [facility] ([place]) Comment on above: Result Comment: Test not performed This test was developed and its performance characteristics determined by [facility]. It has not been cleared or approved by the Food and Drug Administration. Performed At: [address] [id number] Jose Collins MD Ph:[phone] Performed By: #### 1 [id number] #### [address] [address] Normetanephrine Lvl Not performed Normal [facility] ([place]) Comment on above: Result Comment: Test not performed. Specimen not received at refrigerated temperature. Contacted Albert eBcerril at your facility 06/07/2023 This test was developed and its performance characteristics determined by [facility]. It has not been cleared or approved by the Food and Drug Administration. Performed By: #### 1 [address] #### [address] [address] RFon 06-07-2023 Rheumatoid Factor <6.0 Normal <=5.9 [facility] ([place]) Comment on above: Result Comment: RF I gM Antibody by Enzyme Immunoassay: Negative < or = 6 Positive > 6 A positive result indicates the presence of RF antibodies and suggests the possibility of rheumatoid arthritis. A negative result indicates no RF IgM antibody or levels below the negative cut-off of the assay. Results of this assay should be used in conjunction with clinical findings and other serological tests. These results were obtained with the Marker[employer] QUANTA Lite RF IgM ZACHERY. RF IgM values obtained with different manufacturers' assay methods may not be used interchangeably. The magnitude of the reported IgM levels cannot be correlated to an endpoint titer. 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 ASSESSMENT: Category 1 Negative RECOMMENDATION: Routine screening mammogram in 1 year. Bilateral CANCER RISK ASSESSMENT: This risk assessment is based on patient provided information collected in a risk survey taken at the time of this examination. LIFETIME BREAST CANCER RISK: [place]: 42.97% - If greater than or equal to 20%, consider annual mammogram and annual screening Breast MRI or follow up in high risk clinic. Is the patient at elevated risk based on the HBOC criteria? NCCN HBOC Guidelines: 0% (Hereditary Breast and Ovarian Cancer) - If 100%, consider genetic counseling and testing with high risk follow up. Is the patient at elevated risk based on the Bueno Syndrome criteria? NCCN Bueno: 0% - If 100%, consider genetic counseling and testing with high risk follow up. Report Dictated on Electronically Signed By: Pamela Garcia MD Electronically Signed Date/Time: 04/22/2023 3:35 PM [facility] Patient Name: KARUNA SPRINGER : 1985 [id number] Exam Date/Time: 04/22/2023 11:31 Procedure: BI MAMMOGRAM SCREENING TOMOSYNTHESIS BILATERAL Ordering Provider: MAE ELIZABETH Reason For Exam: screening Image views: 2D Bilateral CC and MLO views were acquired. 3D Bilateral CC and MLO views were acquired. Images were reviewed with CAD. Markings on images: BB's = Nipples; skin lesions Open mesa grande = Palpable Line = Scar COMPARISON: 2021; 2019 TISSUE DENSITY: BIRADS D - The breast tissue is extremely dense, which may lower the sensitivity of mammography. FINDINGS: No suspicious masses, architectural distortions or suspiciously clustered microcalcifications are identified. There are no significant changes when compared with prior studies. [facility] Pamela Garcia MD - 04/22/2023 Patient Name: KARUNA GILBERT : 1985 Exam Date/Time: 04/22/2023 11:31 Procedure: BI MAMMOGRAM SCREENING TOMOSYNTHESIS BILATERAL Ordering Provider: MAE ELIZABETH Reason For Exam: screening Image views: 2D Bilateral CC and MLO views were acquired. 3D Bilateral CC and MLO views were acquired. Images were reviewed with CAD. Markings on images: BB's = Nipples; skin lesions Open mes[place] grande = Palpable Line = Scar COMPARISON: 2021; 2019 TISSUE DENSITY: BIRADS D - The breast tissue is extremely dense, which may lower the sensitivity of mammography. FINDINGS: No suspicious masses, architectural distortions or suspiciously clustered microcalcifications are identified. There are no significant changes when compared with prior studies. IMPRESSION: No mammographic evidence of malignancy. ASSESSMENT: Category 1 Negative RECOMMENDATION: Routine screening mammogram in 1 year. Bilateral CANCER RISK ASSESSMENT: This risk assessment is based on patient provided information collected in a risk survey taken at the time of this examination. LIFETIME BREAST CANCER RISK: Francine: 42.97% - If greater than or equal to 20%, consider annual mammogram and annual screening Breast MRI or follow up in high risk clinic. Is the patient at elevated risk based on the HBOC criteria? NCCN HBOC Guidelines: 0% (Hereditary Breast and Ovarian Cancer) - If 100%, consider genetic counseling and testing with high risk follow up. Is the patient at elevated risk based on the Bueno Syndrome criteria? NCCN Bueno: 0% - If 100%, consider genetic counseling and testing with high risk follow up. Report Dictated on Electronically Signed By: Pamela Garcia MD Electronically Signed Date/Time: 04/22/2023 3:35 PM EDT [facility] Radiology Study observation (narrative) [facility] DBT Breast - bilateral scree ningOrdered By: Pamela Garcia on 04-22-2023 [facility] Work Phone: CT CARDIAC SCORINGon 023 CT CARDIAC SCORING Patient Name: KARUNA GILBERT STUDY: CT CARDIAC SCORING; 02/11/2023 11:23 am INDICATION: Tachycardia, unspecified Dizziness and giddiness Orthostatic hypotension Shortness of breath . COMPARISON: None. ACCESSION NUMBER(S): [id number] ORDERING CLINICIAN: SOSA BLOCK TECHNIQUE: Using prospective ECG gating, limited CT scan of the coronary arteries was performed without intravenous contrast. Coronary calcium scoring was performed according to the method of Agatston. FINDINGS: The score and distribution of calcium in the coronary arteries is as follows: LM: 0. LAD: 0. LCx: 0. RCA: 0. Total: 0. The visualized segments of the lungs are normally expanded. The visualized mid/lower ascending thoracic aorta measures 2.9 cm in diameter. The heart is borderline enlarged. No significant pericardial effusion. Mild soft tissue prominence anterior mediastinum probably relating to residual thymic tissue but only partially imaged. Small hiatal hernia. IMPRESSION: 1. Coronary artery calcium score of 0 *. 2. Additional findings as above. *Coronary artery calcium scoring may be helpful in predicting the risk for future coronary heart disease events. According to the [place] [employer] Clinical Expert Consensus Task Force, such testing provides important prognostic information in patients with more than one coronary heart disease risk factor. The coronary artery calcium score correlates with the annual risk of a non-fatal myocardial infarction or coronary heart disease . Coronary artery score Annual Risk 0-99 0.4% 100-399 1.3% >400 2.4% These three "breakpoints" correspond to lower, intermediate and high risk states for future coronary events. Such information should be used, along with appropriate clinical judgment, to make decisions regarding the intensity of risk factor management strategies to treat blood lipids and to modify other non-lipid coronary risk factors. Reference: [place] P et al. Circulation. 2007; 115:402-426 Electronically signed by: DO Naomy DE LEON [facility] MR Breast - bilateral WO and W contrast Boaz 10-26-2022 No MRI evidence of m alignancy in either breast. ASSESSMENT: Category 1 Negative RECOMMENDATION: Breast MRI in 1 year Bilateral COMMENTS: The patient is due for her bilateral screening mammogram in April 2023. Report Dictated on Electronically Signed By: Oni Ross Electronically Signed Date/Time: 10/26/2022 2:29 PM EDT [facility] Patient Name: KARUNA SPRINGER : 1985 Exam Date/Time: 10/26/2022 13:46 Procedure: BI MR BREAST BILATERAL W AND WO CONTRAST W CAD Ordering Provider: MAE ELIZABETH Reason For Exam: MRI TECHNIQUE: Clinical Indication: Breast MRI Screening - High-risk annual. Clinical Indication: History of atypical hyperplasia of the breast, increased risk of breast cancer, dense breast tissue Contrast: Gadavist 6.0 mL IV. Bilateral breast MRI was performed with a dedicated breast coil. Fat saturated T2 weighted and T1 weighted axial images were obtained of both breasts. Dynamic pre-and post contrast axial image sets were obtained of both breasts after intravenous injection of gadolinium based contrast. Delayed post contrast sagittal images were also obtained. Subtraction images and MIP images were generated. Interpretation was made in conjunction with CAD. The patient's prior imaging was reviewed. FINDINGS: There is moderate bilateral background enhancement. Right Breast: There is no suspicious mass or non-mass enhancement in the right breast. Left Breast: There is no suspicious mass or non-mass enhancement in the left breast. Other: No axillary or internal mammary lymphadenopathy is appreciated. [facility] [facility] Oni Ross MD - Patient Name: KARUNA GILBERT : 1985 Exam Date/Time: 10/26/2022 13:46 Procedure: BI MR BREAST BILATERAL W AND WO CONTRAST W CAD Ordering Provider: MAE ELIZABETH Reason For Exam: MRI TECHNIQUE: Clinical Indication: Breast MRI Screening - High-risk annual. Clinical Indication: History of atypical hyperplasia of the breast, increased risk of breast cancer, dense breast tissue Contrast: Gadavist 6.0 mL IV. Bilateral breast MRI was performed with a dedicated breast coil. Fat saturated T2 weighted and T1 weighted axial images were obtained of both breasts. Dynamic pre-and post contrast axial image sets were obtained of both breasts after intravenous injection of gadolinium based contrast. Delayed post contrast sagittal images were also obtained. Subtraction images and MIP images were generated. Interpretation was made in conjunction with CAD. The patient's prior imaging was reviewed. FINDINGS: There is moderate bilateral background enhancement. Right Breast: There is no suspicious mass or non-mass enhancement in the right breast. Left Breast: There is no suspicious mass or non-mass enhancement in the left breast. Other: No axillary or internal mammary lymphadenopathy is appreciated. IMPRESSION: No MRI evidence of malignancy in either breast. ASSESSMENT: Category 1 Negative RECOMMENDATION: Breast MRI in 1 year Bilateral COMMENTS: The patient is due for her bilateral screening mammogram in April 2023. Report Dictated on Electronically Signed By: Oni Ross Electronically Signed Date/Time: 10/26/2022 2:29 PM EDT [facility] Radiology Study observation (narrative) [facility] MR Breast - bilateral WO and W contrast IVOrdered By: Oni Ross on 10-26-2022 [facility] Work Phone: MRA NECK W/O CONTRASTon 10-03 MRA NECK W/O CONTRAST ORIGINAL EXAMINATION: MRA OF THE NECK WITHOUT CONTRAST 10/15/2022 11:22 am TECHNIQUE: Multiplanar multisequence MRA of the neck was performed without the administration of intravenous contrast. Stenosis of the internal carotid arteries measured using NASCET criteria. COMPARISON: None. HISTORY: ORDERING SYSTEM PROVIDED HISTORY: Reason for Exam: R42 DIZZINESS FINDINGS: No significant stenosis at the origins of the innominate artery, bilateral common carotid arteries, bilateral subclavian arteries, or right vertebral artery. The left vertebral artery origin arises from the aortic arch in is not well seen. The There is antegrade flow in the bilateral common carotid arteries, bilateral internal carotid arteries, bilateral external carotid arteries, and bilateral vertebral arteries. There is right vertebral artery dominance. No definite significant ICA stenosis is identified. There is artifact at the carotid bifurcations which does compromise evaluation. IMPRESSION: No acute abnormality or definite significant stenosis. Interpreted by: Darcy Winslow MD Preliminary Report By: Darcy Winslow MD Electronically signed By Darcy Winslow MD Dictated Date: 10/18/2022 8:44:20 AM Prelim Date: 10/18/2022 8:49:07 AM Sign Date: 10/18/2022 8:49:07 AM Ordering Provider: SORAYA Moralez [facility] ([place]) MG Breast Tomosynthesis Scr Blon 04-20-2022 MG Breast Tomosynthesis Scr Bl Patient Name: KARUNA GILBERT Mammography ACCESSION EXAM DATE/TIME PROCEDURE ORDERING PROVIDER [id number] 04/20/2022 10:34 EDT MG Breast Tomosynthesis [id number] -CARMELITA, BI Scr MACKENZIE CPT code [id number] Reason For Exam (MG Breast Tomosynthesis BI Scr) screening Report TIME SINCE LAST MAMMOGRAM: Last mammogram was performed 1 year ago. REASON FOR EXAM: screening, asymptomatic. PHYSICAL FINDINGS: Performed by: Ivania Landers PROCEDURE: MG BREAST TOMOSYNTHESIS BL SCR: APRIL 20, 2022 - 2D/3D Procedure 3D Bilateral CC and MLO view(s) were taken. 2D Bilateral CC and MLO view(s) were taken. Prior study comparison: April 14, 2021, bilateral mammogram performed at [facility]. TISSUE DENSITY: BIRADS D - The breast tissue is extremely dense, which may lower the sensitivity of mammography. . RISK ALERT: The Cancer Risk Assessment scores below the recommendation of this report contain an outcome above the normal risk range. PATIENT CANCER HISTORY: No Personal History of Cancer FAMILY CANCER HISTORY: Maternal Uncle Kidney Cancer, Kidney or Bladder Cancer age 55 Maternal Cousin (Female) Uterine Cancer Paternal Uncle Skin Cancer (Non-Melanoma) age 60 Paternal Grandfather's Mother Leukemia Paternal Sister of paternal GF Lung Cancer Paternal Sister of paternal GF Breast Cancer Maternal Cousin Uterine Cancer age 36 FINDINGS: No suspicious masses, architectural distortions or suspiciously clustered microcalcifications are identified. There is no evidence of skin thickening or nipple retraction. There are no significant changes when compared with prior studies. No mammographic evidence of malignancy. Mammography Report Markings on images: BB's = Nipples; skin lesions Open mesa grande = Palpable Line = Scar 2D digital mammography and tomosynthesis imaging were performed and reviewed with CAD. ASSESSMENT: Category 1 Negative RECOMMENDATION: Routine screening mammogram of both breasts in 1 year. . Report Dictated on Cancer Risk Assessment: This risk assessment is based on patient provided information collected in a risk survey taken at the time of this examination. Lifetime breast cancer risk: Tyrer-Cuzick v8 43.11% - If greater than or equal to 20%, consider annual mammogram and annual screening Breast MRI or follow up in high risk clinic. A score of "Average Risk" indicates a score of less than 20%. Is the patient at elevated risk based on the HBOC criteria? No (Hereditary Breast and Ovarian Cancer) - If yes, consider genetic counseling and testing with high risk follow up. Is the patient at elevated risk based on the Bueno Syndrome criteria? No - If yes, consider genetic counseling and testing with high risk follow up. Final Signed Date and Time: 04/21/2022 10:48 am Signed by: MD ASHTYN, LEONIE Mitchell [facility] XR ACUTE ABD SERIES 3V (2V A BD/1V CXR)on 04-06-2022 [facility] CBC W Auto Differential pane l (Bld)on 03-19-2022 Abs Immature Gran <0.10 k/uL [facility] Basophils (Bld) [#/Vol] <0.11 k/uL [facility] Basophils/100 WBC (Bld) 0.2 % [facility] Differential cell count method Nom (Bld) Auto [facility] Eosinophils (Bld) [#/Vol] 0.08 10*3/uL <0.46 k/uL [facility] Eosinophils/100 WBC (Bld) 1.0 % [facility] Erythrocyte distribution width (RBC) [Ratio] 12.4 % 11.5 - 15.0 % [facility] Hematocrit (Bld) [Volume fraction] 41.6 % 36.0 - 46.0 % [facility] Hemoglobin (Bld) [Mass/Vol] 13.7 g/dL 11.5 - 15.5 g/dL [facility] Immature Gran % 0.2 % [facility] Lymphocytes (Bld) [#/Vol] 2.06 10*3/uL 1.00 - 4.00 k/uL [facility] Lymphocytes/100 WBC (Bld) 24.8 % [facility] MCH (RBC) [Entitic mass] 30.0 pg 26.0 - 34.0 pg [facility] MCHC (RBC) [Mass/Vol] 32.9 g/dL 30.5 - 36.0 g/dL [facility] MCV (RBC) [Entitic vol] 91.0 fL 80.0 - 100.0 fL [facility] Monocytes (Bld) [#/Vol] 0.83 10*3/uL <0.87 k/uL [facility] Monocytes/100 WBC (Bld) 10.0 % [facility] Neutrophils (Bld) [#/Vol] 5.30 10*3/uL 1.45 - 7.50 k/uL [facility] Neutrophils/100 WBC (Bld) 63.8 % [facility] Nucleated RBC (Bld) [#/Vol] <0.01 k/uL [facility] Nucleated RBC/100 WBC (Bld) [Ratio] 0.0 /100 WBC [facility] Platelet mean volume (Bld) [Entitic vol] 9.9 fL 9.0 - 12.7 fL [facility] Platelets (Bld) [#/Vol] 349 10*3/uL 150 - 400 k/uL [facility] RBC (Bld) [#/Vol] 4.57 10*6/uL 3.90 - 5.20 m/uL [facility] WBC (Bld) [#/Vol] 8.31 10*3/uL 3.70 - 11.00 k/uL [facility] HOMOCYSTEINEon 03-19-2022 Homocysteine [Moles/Vol] 6.4 umol/L <15.1 umol/L [facility] NM GASTRIC EMPTYING SOLIDon 01-21-2022 [facility] LABORATORYOrdered By: Bruce Hitchcock on 12-02-2021 Albumin BCP dye [Mass/Vol] 5.3 G/dL Invalid Interpretation Code 3.5 - 5.0 G/dL AO ADM SS Albumin/Globulin [Mass ratio] 1.4 {ratio} Invalid Interpretation Code 1.1 - 2.5 ratio AO ADM SS ALP [Catalytic activity/Vol] 91 U/L Invalid Interpretation Code 40 - 135 U/L AO ADM SS ALT With P-5'-P [Catalytic activity/Vol] 20 U/L Invalid Interpretation Code 14 - 59 U/L AO ADM SS AST With P-5'-P [Catalytic activity/Vol] 20 U/L Invalid Interpretation Code 10 - 40 U/L AO ADM SS Bilirubin [Mass/Vol] 0.3 mg/dL Invalid Interpretation Code 0.2 - 1.0 mg/dL AO ADM SS Calcium [Mass/Vol] 10.5 mg/dL Invalid Interpretation Code 8.4 - 10.2 mg/dL AO ADM SS Chloride [Moles/Vol] 101 mmol/L Invalid Interpretation Code 98 - 107 mmol/L AO ADM SS CO2 [Moles/Vol] 28 mmol/L Invalid Interpretation Code 22 - 29 mmol/L AO ADM SS Creatinine [Mass/Vol] 0.89 mg/dL Invalid Interpretation Code 0.55 - 1.02 mg/dL AO ADM SS Electrolyte Balance 13.0 mEq/L Invalid Interpretation Code 4.0 - 15.0 mEq/L AO ADM SS Globulin 3.7 G/dL Invalid Interpretation Code AO ADM SS Glucose [Mass/Vol] 113 mg/dL Invalid Interpretation Code 70 - 105 mg/dL AO ADM SS Potassium [Moles/Vol] 3.5 mmol/L Invalid Interpretation Code 3.5 - 5.1 mmol/L AO ADM SS Protein [Mass/Vol] 9.0 G/dL Invalid Interpretation Code 6.4 - 8.2 G/dL AO ADM SS Sodium [Moles/Vol] 142 mmol/L Invalid Interpretation Code 136 - 145 mmol/L AO ADM SS Troponin I.cardiac DL <= 0.01 ng/mL [Mass/Vol] ng/L Invalid Interpretation Code 0.0 - 51.4 ng/L AO ADM SS Urea nitrogen [Mass/Vol] 5 mg/dL Invalid Interpretation Code 7 - 18 mg/dL AO ADM SS Urea nitrogen/Creatinin e [Mass ratio] 6 ratio Invalid Interpretation Code 7 - 27 ratio AO ADM SS LABORATORYOrdered By: Chayito Stratton on 12-02-2021 Basophil, Absolute 0.0 103/mcL Invalid Interpretation Code 0.0 - 0.2 10^3/mcL AO Workflow SS Basophils/100 WBC (Bld) 0.3 % Invalid Interpretation Code 0.0 - 2.5 % AO Workflow SS Eosinophil, Absolute 0.0 103/mcL Invalid Interpretation Code 0.0 - 0.4 10^3/mcL AO Workflow SS Eosinophils/100 WBC (Bld) 0.1 % Invalid Interpretation Code 0.0 - 7.0 % AO Workflow SS Erythrocyte distribution width (RBC) [Ratio] 13.1 % Invalid Interpretation Code 11.5 - 14.5 % AO Workflow SS Hematocrit (Bld) [Volume fraction] 44.3 % Invalid Interpretation Code 37.0 - 47.0 % AO Workflow SS Hgb 15.0 G/dL Invalid Interpretation Code 12.0 - 16.0 G/dL AO Workflow SS Lymphocyte, Absolute 1.5 103/mcL Invalid Interpretation Code 0.8 - 3.9 10^3/mcL AO Workflow SS Lymphocytes/100 WBC (Bld) 13.0 % Invalid Interpretation Code 10.0 - 50.0 % AO Workflow SS MCH (RBC) [Entitic mass] 29.8 pg Invalid Interpretation Code 27.0 - 31.2 pg AO Workflow SS MCHC 33.7 G/dL Invalid Interpretation Code 33.0 - 37.0 G/dL AO Workflow SS MCV (RBC) [Entitic vol] 88.3 fL Invalid Interpretation Code 80.0 - 94.0 fL AO Workflow SS Monocyte distribution width Auto (Bld) [Entitic vol] 17.99 Invalid Interpretation Code 0.00 - 20.00 AO Workflow SS Comment on above: Result Comment: For ED adult patients suspected of sepsis, MDW<=20.0 does not rule out sepsis or risk of sepsis Monocyte, Absolute 0.5 103/mcL Invalid Interpretation Code 0.2 - 1.0 10^3/mcL AO Workflow SS Monocytes/100 WBC (Bld) 4.0 % Invalid Interpretation Code 1.7 - 13.0 % AO Workflow SS Neutrophil, Absolute 9.5 103/mcL Invalid Interpretation Code 2.9 - 6.2 10^3/mcL AO Workflow SS Neutrophils/100 WBC (Bld) 82.6 % Invalid Interpretation Code 37.0 - 80.0 % AO Workflow SS Platelet 427 103/mcL Invalid Interpretation Code 130 - 400 10^3/mcL AO Workflow SS Platelet mean volume (Bld) [Entitic vol] 7.5 fL Invalid Interpretation Code 7.4 - 10.4 fL AO Workflow SS RBC 5.02 106/mcL Invalid Interpretation Code 4.20 - 5.40 10^6/mcL AO Workflow SS WBC 11.5 103/mcL Invalid Interpretation Code 4.6 - 10.8 10^3/mcL AO Workflow SS LABORATORYOrdered By: SYSTEM SYSTEM on 12-02-2021 GFR 86 ml/min/1.73sqm Invalid Interpretation Code AO Chemistry S GFR Non- 71 ml/min/1.73sqm Invalid Interpretation Code AO Chemistry S GIon 10-30-2021 GI -- Patient: KARUNA GILBERT -- SPECIMEN: [id number] Collection Date: 10/30/21 Received: 11/06/21 Status: KILEY [place] DrKathryn: Michelle Erickson MD Ph# Othr. DrKathryn: Karyn Soto MD Material for Examination: A GASTRIC BX, R/O H. PYLORI B DUODENAL BX, R/O CELIAC PRE-OP DIAGNOSIS: BLOATING POST-OP DIAGNOSIS: NONE GIVEN SURGICAL PROCEDURE: NONE GIVEN SPECIMEN COMMENTS: RECEIVED FROM [facility], [address] [place], [place] [address] 2 Trupti SLIDES LABELED [id number] KARUNA GILBERT L1,L2 2 Trupti SLIDES LABELED [id number] KARUNA GILBERT L1,L2 DIAGNOSIS A. Gastric biopsy: - Gastric mucosal segments; chronic active Helicobacter pylori gastritis. - No intestinal metaplasia or dysplasia identified. - Microorganisms consistent with H. pylori identified on routine Trupti stained slides. B. Duodenum, biopsy: - Small bowel mucosal segments consistent with duodenum; no pathologic findings. - No evidence of malabsorption, a parasitic, dysplastic or malignant process. GROSS DESCRIPTION The specimen is grossed and processed at [facility] The following is the provided gross description: A. Received in formalin, labeled gastric bx, are multiple, irregular, soft, pink-crews fragments of tissue ranging in size from 0.1-0.3 cm. The specimen is entirely submitted in one cassette. B. Received in formalin, labeled duodenal bx, are multiple, irregular, soft, pink-crews fragments of tissue ranging in size from 0.1-0.5 cm. The specimen is entirely submitted in one cassette. MICROSCOPIC DESCRIPTION Four Trupti stained slides examined. -- [facility] NAME: KARUNA GILBERT Pathology and Laboratory Medicine UNIT#: [id number] LOC: [facility] Transmissions Systems Operator: Kika Sanchez M.D. [id number]BED: [facility] : 81 AGE/SEX: 36/F ORD.Michelle Cameron MD CONTINUED ON NEXT PAGE -- Patient: KARUNA GILBERT Unit#: [id number] (continued) SPECIMEN: [id number] COPIES TO: Karyn Soto MD, Zuo-Liang MD Signed Verified/Reviewed by DEANA CASTRO D.O. 11/06/21 This dictation was created using voice recognition software. Phonetic and/or minor grammatical errors may exist. -- [facility] NAME: KARUNA GILBERT Pathology and Laboratory Medicine UNIT#: [id number] LOC: [facility] Transmissions Systems Operator: Kika Sanchez M.D. ROOM/BED: [facility] : 81 AGE/SEX: 36/F ORD.Michelle Cameron MD END OF REPORT Normal [facility] MRI BREAST BILATERAL W WO CO NTRASTon 09-22-2021 Patient Name: KARUNA SPRINGER Magnetic Resonance Imaging ACCESSION EXAM DATE/TIME PROCEDURE ORDERING PROVIDER [id number] 09/22/2021 09:43 EDT MRI Breast w/ + w/o [id number] -CARMELITA, Contrast Bilateral MACKENZIE CPT code 94686 Reason For Exam (MRI Breast w/ + w/o Contrast Bilateral) Other specified personal risk factors, not elsewhere classified Report PROCEDURE: MR BREAST W/+ W/O CONTRAST BILATERAL: SEPTEMBER 22, 2021 - Technique: Clinical Indication: Breast MRI Diagnostic. Contrast: Gadavist 5.5 mL IV. Bilateral breast MRI was performed with a dedicated breast coil. Fat saturated T2 weighted and T1 weighted axial images were obtained of both breasts. Dynamic pre-and post contrast axial image sets were obtained of both breasts after intravenous injection of gadolinium based contrast. Delayed post contrast sagittal images were also obtained. Subtraction images and MIP images were generated. Interpretation was made in conjunction with CAD. The patient's prior imaging was reviewed. . FINDINGS: There is mild bilateral background enhancement. Right Breast: There is no suspicious mass or non-mass enhancement in the right breast. Left Breast: There is no suspicious mass or non-mass enhancement in the left breast. Other: No axillary or internal mammary lymphadenopathy is appreciated. IMPRESSION: No MRI evidence of malignancy in either breast. ASSESSMENT: Category 1 Negative RECOMMENDATION: Breast MRI of both breasts in 1 year. Magnetic Resonance Imaging Report Report Dictated on --- Final --- Signed Date and Time: 09/22/2021 10:28 am Signed by: DO VIDALES RACHEL [facility] Marilee Vidales DO - 09/22/2021 Patient Name: KARUNA GILBERT Magnetic Resonance Imaging ACCESSION EXAM DATE/TIME PROCEDURE ORDERING PROVIDER [id number] 09/22/2021 09:43 EDT MRI Breast w/ + w/o [id number] -CARMELITA, Contrast Bilateral BRADLEY CPT code 18573 Reason For Exam (MRI Breast w/ + w/o Contrast Bilateral) Other specified personal risk factors, not elsewhere classified Report PROCEDURE: MR BREAST W/+ W/O CONTRAST BILATERAL: SEPTEMBER 22, 2021 - Technique: Clinical Indication: Breast MRI Diagnostic. Contrast: Gadavist 5.5 mL IV. Bilateral breast MRI was performed with a dedicated breast coil. Fat saturated T2 weighted and T1 weighted axial images were obtained of both breasts. Dynamic pre-and post contrast axial image sets were obtained of both breasts after intravenous injection of gadolinium based contrast. Delayed post contrast sagittal images were also obtained. Subtraction images and MIP images were generated. Interpretation was made in conjunction with CAD. The patient's prior imaging was reviewed. . FINDINGS: There is mild bilateral background enhancement. Right Breast: There is no suspicious mass or non-mass enhancement in the right breast. Left Breast: There is no suspicious mass or non-mass enhancement in the left breast. Other: No axillary or internal mammary lymphadenopathy is appreciated. IMPRESSION: No MRI evidence of malignancy in either breast. ASSESSMENT: Category 1 Negative RECOMMENDATION: Breast MRI of both breasts in 1 year. Magnetic Resonance Imaging Report Report Dictated on --- Final --- Signed Date and Time: 09/22/2021 10:28 am Signed by: DO VIDALES RACHEL [employer] Work Phone: Radiology Study observation (narrative) [employer] Work Phone: MRI BREAST BILATERAL W WO CO NTRASTOrdered By: Marilee Vidales on 09-22-2021 [employer] Work Phone: MRI Breast w/ + w/o Contrast Bilateral w/ CADon 09-22-2021 MRI Breast w/ + w/o Contrast Bilateral w/ CAD Patient Name: KARUNA GILBERT Magnetic Resonance Imaging ACCESSION EXAM DATE/TIME PROCEDURE ORDERING PROVIDER [id number] 09/22/2021 09:43 EDT MRI Breast w/ + w/o [id number] -CARMELITA, Contrast Bilateral MACKENZIE CPT code 33578 Reason For Exam (MRI Breast w/ + w/o Contrast Bilateral) Other specified personal risk factors, not elsewhere classified Report PROCEDURE: MR BREAST W/+ W/O CONTRAST BILATERAL: SEPTEMBER 22, 2021 - Technique: Clinical Indication: Breast MRI Diagnostic. Contrast: Gadavist 5.5 mL IV. Bilateral breast MRI was performed with a dedicated breast coil. Fat saturated T2 weighted and T1 weighted axial images were obtained of both breasts. Dynamic pre-and post contrast axial image sets were obtained of both breasts after intravenous injection of gadolinium based contrast. Delayed post contrast sagittal images were also obtained. Subtraction images and MIP images were generated. Interpretation was made in conjunction with CAD. The patient's prior imaging was reviewed. . FINDINGS: There is mild bilateral background enhancement. Right Breast: There is no suspicious mass or non-mass enhancement in the right breast. Left Breast: There is no suspicious mass or non-mass enhancement in the left breast. Other: No axillary or internal mammary lymphadenopathy is appreciated. IMPRESSION: No MRI evidence of malignancy in either breast. ASSESSMENT: Category 1 Negative RECOMMENDATION: Breast MRI of both breasts in 1 year. Magnetic Resonance Imaging Report Report Dictated on Final Signed Date and Time: 09/22/2021 10:28 am Signed by: DO VIDALES RACHEL [facility] ABDOMEN 3 VIEWSon 08-31-2021 ABDOMEN 3 VIEWS ABDOMEN 3 VIEWS Ordering Physician: Kelby Zaman MD 08/31/2021 12:53 PM ABDOMINAL SERIES Clinical Statement: Abdominal bloating FINDINGS: Supine and upright views of the abdomen were obtained along with an accompanying view of the chest. There were no prior studies available for comparison. The bowel gas pattern is unremarkable. There are no abnormal air-fluid levels. No free air is identified. There is moderate stool in the colon. The lungs appear clear. IMPRESSION: No acute abnormalities. This report was electronically signed by Andrea Zamudio MD 08/31/2021 1:56 PM Reported By: ANDREA ZAMUDIO M.D. Signed By: ANDREA ZAMUDIO M.D. [facility] RE[facility] DATE OF SERVICE: REASON FOR VISIT: Abdominal bloating and fullness. HISTORY OF PRESENT ILLNESS: This is a 35-year-old female who presented with abdominal bloating and fullness and frequent burping, which has been going on for the last 2 months. The patient also stated that she does not have good bowel movements and is concerned of constipation problem. She used to have IBS, but those symptoms have been resolved for many years, and now it is more of the constipation problem. No vomiting. No diarrhea, but it caused her to avoid eating as much. No fever or chills. REVIEW OF SYSTEMS: Review of other systems normal. PAST MEDICAL HISTORY, FAMILY HISTORY, SOCIAL HISTORY: Reviewed. ALLERGIES: AVELOX. MEDICATIONS: 1. Propranolol. 2. MiraLAX. 3. Gas-X. 4. Famotidine. 5. Ibuprofen. [facility] PATIENT NAME: KARUNA GILBERT [place] [address] [place] MEDICAL REC #: [id number] [place] [id number] [facility] REPORT [facility] PHYSICIAN PHYSICAL EXAMINATION: She is awake, alert, not in distress. No dyspnea. Temperature 98.8, blood pressure 142/80, pulse 106, respirations 16, pulse oximetry 100% on room air. Pain score 3/10. HEENT: Unremarkable. Chest: Clear to auscultate. Heart: Regular rate and rhythm. Abdomen was soft, nontender. No guarding. Not distended. Liver and spleen were not palpable. Bowel sounds were active. No mass palpable. TESTS: I did an abdominal series x-ray, which shows nonobstructive and nonspecific bowel gas pattern, but what I noticed is that her large bowel is slightly full of fecal matter. ASSESSMENT: Constipation. PLAN: Clinical findings were discussed with the patient in detail. I explained to her that her underlying problem is most likely due to constipation. From what I see on x-ray, it appears that her large bowel is full of fecal materials. I prescribed her lactulose 20 gram/30 mL, to take 15 mL twice a day for 5 days. She should drink a lot of fluid. She may also try a Fleet's enema. I explained to her that she needs to make an appointment and follow up with her doctor to do further evaluation and care as needed for her symptoms. Eventually she may need to revisit the GI [facility] PATIENT NAME: KARUNA GILBERT [address] [place] MEDICAL REC #: [id number] [place] [address] [facility] REPORT [facility] PHYSICIAN specialist as well. She should continue fruit and vegetables and may try [id number] Metamucil as well. The patient understood and agreed. Her questions were answered to her satisfaction. Kelby Zaman MD [id number] [employer]SI File#: [id number] END OF DOCUMENT / CHANGE LOG FOLLOWS Last Edited By Elec. Signed By Kelby Zaman MD #[id number] Kelby Zaman MD #[id number] on 09/03/2021 11:50 ET on 09/03/2021 11:50 ET Revision Number - 2 Verified/Reviewed by 09/03/21 1151 KG [facility] PATIENT NAME: KARUNA GILBERT R [address] [place] MEDICAL REC #: [id number] [place] [address] [facility] REPORT [facility] PHYSICIAN Normal [facility] MG Breast Tomosynthesis Diag nostic Righton 08-25-2021 MG Breast Tomosynthesis Diagnostic Right Patient Name: KARUNA GILBERT Mammography ACCESSION EXAM DATE/TIME PROCEDURE ORDERING PROVIDER [id number] 08/25/2021 09:25 EST MG Breast Tomosynthesis [id number] -CARMELITA, Diagnostic Right MACKENZIE CPT code 10736 68716 Reason For Exam (MG Breast Tomosynthesis Diagnostic Right) N64.4 RIGHT BREAST PAIN Report TIME SINCE LAST MAMMOGRAM: Last mammogram was performed 4 months ago. REASON FOR EXAM: clinical finding. INDICATED PROBLEM: Indicated problem(s): right breast pain (local) for 8 months. PROCEDURE: MG BREAST TOMOSYNTHESIS RIGHT: AUGUST 25, 2021 - 2D/3D Procedure 3D views: CC view(s) were taken of the right breast. 2D views: CC and MLO view(s) were taken of the right breast. Prior study comparison: April 14, 2021, bilateral mammogram performed at [facility]. October 22, 2020, MR breast w/contrast bilateral performed at [facility]. October 04, 2019, left breast US breast limited left performed at [facility]. October 04, 2019, left breast ultrasound performed at [facility]. October 04, 2019, left breast MG mammogram digital diagnostic left performed at [facility]. TISSUE DENSITY: BIRADS D - The breast tissue is extremely dense, which may lower the sensitivity of mammography. . FINDINGS: Patient presents for further evaluation of right-sided breast pain extending into right axilla of eight months duration. Patient's recent screening mammogram at outside facility was interpreted as normal. Mammogram right breast: No suspicious mass, architectural distortion, or suspicious microcalcifications. No skin thickening or nipple retraction. Further evaluation will be performed with ultrasound. Ultrasound right breast: Ultrasound imaging was performed in the right upper quadrant extending to the right axilla corresponding to patient's area of pain. No discrete solid mass or cyst is detected. Normal Mammography Report fibroglandular tissue is present. Normal-appearing right axillary lymph node is also demonstrated. IMPRESSION: No mammographic or sonographic correlate to account for patient's right-sided breast pain. Further evaluation and management should be based on clinical findings. Markings on images: BB's = Nipples; skin lesions Open mesa grande = Palpable Line = Scar US BREAST LIMITED RIGHT: AUGUST 25, 2021 - 2D digital mammography and tomosynthesis imaging were performed and reviewed with CAD. ASSESSMENT: Category 1 Negative (Overall) RECOMMENDATION: Clinical correlation of the right breast. Routine screening mammogram of both breasts in 1 year. . Report Dictated on Final Signed Date and Time: 08/25/2021 10:12 am Signed by: MD LEONARD VLADIMIR Normal [facility] MG Cancer Risk Surveyon 02-2 MG Cancer Risk Survey Patient Name: KARUNA GILBERT Mammography ACCESSION EXAM DATE/TIME PROCEDURE ORDERING PROVIDER [id number] 08/25/2021 09:25 EST MG Cancer Risk Survey [id number] MACKENZIE RODRIGUEZ Reason For Exam (MG Cancer Risk Survey) RIGHT BREAST PAIN Report Cancer Risk Assessment: This risk assessment is based on patient provided information collected in a risk survey taken by the patient. PATIENT CANCER HISTORY: No Personal History of Cancer FAMILY CANCER HISTORY: Maternal Uncle Kidney Cancer, Kidney or Bladder Cancer age 55 Maternal Cousin (Female) Uterine Cancer Paternal Uncle Skin Cancer (Non-Melanoma) age 60 Paternal Grandfather's Mother Leukemia Paternal Sister of paternal GF Lung Cancer Paternal Sister of paternal GF Breast Cancer Maternal Cousin Uterine Cancer age 36 Lifetime breast cancer risk: Dannaer-Brezick v7 43.21% - If greater than or equal to 20%, consider annual mammogram and annual screening Breast MRI or follow up in high risk clinic. A score of "Average Risk" indicates a score of less than 20%. Is the patient at elevated risk based on the HBOC criteria? No (Hereditary Breast and Ovarian Cancer) - If yes, consider genetic counseling and testing with high risk follow up. Is the patient at elevated risk based on the Bueno Syndrome criteria? No - If yes, consider genetic counseling and testing with high risk follow up. Report Dictated on Workstation: [id number] Final Dictating Physician: Kalpesh [facility] Signed Date and Time: 12/09/2021 2:53 pm Signed by: [employer], [facility] US Breast Limited Righton US Breast Limited Right Patient Name: KARUNA GILBERT Ultrasound ACCESSION EXAM DATE/TIME PROCEDURE ORDERING PROVIDER [id number] 08/25/2021 10:10 EST US Breast Limited Right [id number] EzequielMACKENZIE MAE CPT code 86427 Reason For Exam (US Breast Limited Right) Mastodynia Report TIME SINCE LAST MAMMOGRAM: Last mammogram was performed 4 months ago. REASON FOR EXAM: clinical finding. INDICATED PROBLEM: Indicated problem(s): right breast pain (local) for 8 months. PROCEDURE: MG BREAST TOMOSYNTHESIS RIGHT: AUGUST 25, 2021 - 2D/3D Procedure 3D views: CC view(s) were taken of the right breast. 2D views: CC and MLO view(s) were taken of the right breast. Prior study comparison: April 14, 2021, bilateral mammogram performed at [facility]. October 22, 2020, MR breast w/contrast bilateral performed at [facility]. October 04, 2019, left breast US breast limited left performed at [facility]. October 04, 2019, left breast ultrasound performed at [facility]. October 04, 2019, left breast MG mammogram digital diagnostic left performed at [facility]. TISSUE DENSITY: BIRADS D - The breast tissue is extremely dense, which may lower the sensitivity of mammography. . FINDINGS: Patient presents for further evaluation of right-sided breast pain extending into right axilla of eight months duration. Patient's recent screening mammogram at outside facility was interpreted as normal. Mammogram right breast: No suspicious mass, architectural distortion, or suspicious microcalcifications. No skin thickening or nipple retraction. Further evaluation will be performed with ultrasound. Ultrasound right breast: Ultrasound imaging was performed in the right upper quadrant extending to the right axilla corresponding to patient's area of pain. No discrete solid mass or cyst is detected. Normal fibroglandular tissue is present. Normal-appearing right axillary lymph node is also demonstrated. Ultrasound Report IMPRESSION: No mammographic or sonographic correlate to account for patient's right-sided breast pain. Further evaluation and management should be based on clinical findings. Markings on images: BB's = Nipples; skin lesions Open [place] = Palpable Line = Scar US BREAST LIMITED RIGHT: AUGUST 25, 2021 - 2D digital mammography and tomosynthesis imaging were performed and reviewed with CAD. ASSESSMENT: Category 1 Negative (Overall) RECOMMENDATION: Clinical correlation of the right breast. Routine screening mammogram of both breasts in 1 year. . Report Dictated on Final Signed Date and Time: 08/25/2021 10:12 am Signed by: MD AISHA, IGOR Normal [facility] CBCon 08-09-2021 Erythrocyte distribution width (RBC) [Ratio] 12.6 % Normal 11-14.5 [facility] Comment on above: Order Comment: Campu s: MAS Hematocrit (Bld) [Volume fraction] 40.6 % Normal 35.0-47.0 [facility] Comment on above: Order Comment: Campu s: MAS Hemoglobin (Bld) [Mass/Vol] 13.8 g/dL Normal 11.5-15.5 [facility] Comment [facility]: Order Comment: Campu s: MAS MCHC (RBC) [Mass/Vol] 34.0 g/dL Normal 32.0-36.0 [facility] Comment on above: Order Comment: Campu s: MAS MCV (RBC) [Entitic vol] 91.4 fL Normal 80.0-99.0 [facility] Comment on above: Order Comment: Campu s: MAS PLT 392 K/CU MM Normal 150-450 [facility] Comment on above: Order Comment: Campu s: MAS RBC 4.44 M/CU MM Normal 3.9-5.30 [facility] Comment on above: Order Comment: Campu s: MAS WBC 8.8 K/CUMM Normal 4.5-11.0 [facility] Comment on above: Order Comment: Campu s: MAS CHEST PA/AP AND LATERALon CHEST PA/AP AND LATERAL PA AND LATERAL CHEST: Clinical Statement: Short of breath. Comparison: None. FINDINGS: The heart, hilar and mediastinal contours are within normal limits. Symmetric nodular opacities projecting over the lung bases on the PA view corresponding to nipple shadow. The lungs are otherwise clear. No congestion, pleural fluid or pneumothorax. The bony thorax is unremarkable. IMPRESSION: No active disease within the chest. Dictated by Service Unit Operator [employer]: Leora Farooq DO I, Prakash Werner MD, have supervised the procedure and/or image review, and agree with the above interpretation and report. This report was electronically signed by Prakash Werner MD 08/10/2021 8:34 AM Reported By: PRAKASH WERNER M.D. Signed By: PRAKASH WERNER M.D. [facility] Creatinine [Mass/Vol] 0.8 mg/dL Normal 0.6-1.3 [facility] Comment on above: Order Comment: Campu s: MAS EKGon 08-09-2021 Electrocardiogram Procedure Date and T criselda: 08/09/21 1545 Test Reason : SOB Blood Pressure : / mmHG Vent. Rate : 091 BPM Atrial Rate : 091 BPM P-R Int : 136 ms QRS Dur : 100 ms QT Int : 362 ms P-R-T Axes : 074 090 043 degrees QTc Int : 445 ms Normal sinus rhythm Normal ECG No previous ECGs available Confirmed by COLTON SHOOK A. ([id number]) on 08/10/2021 8:19:52 AM Referred By: Selma Enciso Confirmed By:Anthony SHOOK M.D.FACC Bryant DDandT: 08/09/21 1545 TDandT: [facility] PATIENT NAME: KARUNA GILBERT [address] [place] [address] Dr. Rahman MEDICAL REC #: [id number] [place] [address] ADMIT DATE: DISCHARGE DATE: 08/09/21 ATTENDING KATHLEENY: Selma Enciso DO ELECTROCARDIOGRAM REPORT CLB cc: [facility] PATIENT NAME: [facility] Dr[facility] Rahman MEDICAL REC #: [id number] [place] [address] ADMIT DATE: DISCHARGE DATE: 08/09/21 ATTENDING PHY: Selma Enciso DO ELECTROCARDIOGRAM REPORT Normal [facility] ISTAT 6on 08-09-2021 C02, W.B. 28 MMOL/L Normal 24-32 [facility] Comment on above: Order Comment: Campu s: MAS Chloride [Moles/Vol] 103 mmol/L Normal 98-109 [facility] Comment on above: Order Comment: Campu s: MAS GLU, W.B. 93 MG/DL Normal 70-115 [facility] Comment on above: Order Comment: Campu s: MAS Potassium [Moles/Vol] 3.6 mmol/L Normal 3.5-4.9 [facility] Comment on above: Order Comment: rEyn s: KEENAN Sodium [Moles/Vol] 141 mmol/L Normal 138-146 [facility] Comment on above: Order Comment: Eryn s: KEENAN Urea nitrogen [Mass/Vol] 8 mg/dL Normal 8-26 [facility] Comment on above: Order Comment: Eryn s: KEENAN HCT, ANCILLARY TNP Normal 35-47 [facility] Comment on above: Order Comment: Eryn s: MAS HGB, ANCILLARY TNP Normal 11.5-15.5 [facility] Comment on above: Order Comment: Eryn almanzar: KEENAN MSCon 08-09-2021 [facility] REPORT Normal [facility] DATE OF SERVICE: 11/2021 HISTORY OF PRESENT ILLNESS: This is a 35-year-old female that presents today complaining of some shortness of breath. Now, this has been going on for about 6 months. The patient does have a history of some autonomic problems cardiology-nolasco and she feels like she just cannot catch her breath and feels like she is bloated. She just feels miserable. She has not been to her board handler recently. She is scheduled to go see him. She does take propanolol. She has had some testing before that determined the autonomic disorder. She does not know if this is an extension of it or if something else is going on. She did have COVID in June of 2021. She does have a history of headaches, sinus tachycardia with occasional PVCs but these symptoms started off and on 6 months ago. 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 She presents here today. She says she is tired of worrying about it. ALLERGIES: AVELOX. PAST MEDICAL HISTORY: Positive for anemia, gestational diabetes, frequent headaches, anxiety, elevated heart rate, atypical lobular hyperplasia of the left breast. She has had a salpingectomy, breast fibroadenoma removed. Nonsmoker, [facility] PATIENT NAME: KARUNA GILBERT Dr. Rahman MEDICAL REC #: [id number] [place] [address] [facility]YSICIAN does drink alcohol. FAMILY HISTORY: Positive for diabetes, heart disease, high blood pressure. SOCIAL HISTORY: Unremarkable. PHYSICAL EXAMINATION: Weight 123 pounds, blood pressure 138/84, pulse 97, respiratory rate 16, temperature is 98.6, pulse oximetry is 100%. This is a 35-year-old female pleasant, cooperative, trim, does not look distressed but does look a little anxious. HEENT: Unremarkable. Heart: Regular rate and rhythm but hyperdynamic. It could be because she is trim and the heart is closer to the chest wall but it seems hyperdynamic. No S3 or S4 is noted. No rubs, thrills, or murmurs. Lungs: Clear to auscultation in the anterior and posterior gonzales bilaterally. No areas of consolidation or solid pneumonias could be appreciated. Extremities/Neurologic: Grossly intact. Abdomen: Unremarkable. We did do a chest x-ray, EKG, CBC, chem-6 with creatinine. The chest x-ray is by my read unremarkable. No acute changes. We will have the radiologist review the films. They are the x-ray experts and I am a family doctor. Should there be any discrepancy, we will notify them. The EKG is interpreted as normal sinus rhythm with no acute changes. I agree with that interpretation and her heart rate is 91. Her [facility] PATIENT NAME: KARUNA GILBERT Dr. Rahman MEDICAL REC #: [id number] [place] [address] [facility]YSICIAN laboratory testing: CBC - WBC is 8800 with a hemoglobin and hematocrit of 13.8 and 40.6, MCV of 91.4, and platelets at 392,000. Chemistries show sodium of 141, potassium of 3.6, chloride of 103, CO2 of 28, glucose of 93, BUN of 8, and creatinine is 0.8. IMPRESSION: I suspect that this is postural orthostatic tachycardic syndrome. I had the patient lie down and listened to the heart and the heart rate jumped immediately as soon as laid down. It was even more hyperdynamic and it seems to me that the autonomic dysnomia that her board handler is talking about is pretty much the umbrella term for this POTS. I think that is what is going on now. At this point, I would recommend that she have a tilt test and that she get tested for [place]'s. If she is positive for [place]'s, then she may respond very well to Florinef. We talked about this. If she is positive on the tilt test, then they can pursue this further. I think that everything is basically stable but she does some further testing. She does have an appointment scheduled with her board handler and we will have her follow through with that and see what they can recommend. In the meantime, she can always come back here if she is having any troubles or problems. Until she has further [facility] PATIENT NAME: KARUNA GILBERT [address] Rahman MEDICAL REC #: [id number] [place] [address] [facility]YSIC[facility] testing, I do not recommend any changes in her medications. Selma Enciso DO /[id number] [facility] File#: [id number] END OF DOCUMENT / CHANGE LOG FOLLOWS Last Edited By E (more content not included)... Normal [facility] , urineon 0 Beta HCG ( test) Ql (U) Negative Negative NA [place], [place] Comment on above: is the mos t common reason for HCG in urine, although choriocarcinoma, hydatidiform mole, and certain nontropho- blastic malignancies also result in detectable urinary HCG levels. Sensitivity = 20mIU/mL. Test Performed by [facility], [address] [place], [place], [place] [address] [place] CBCon 02-21-2020 Erythrocyte distribution width (RBC) [Ratio] 13.2 % 11.5 - 14.5 % [place] Hematocrit (Bld) [Volume fraction] 40.9 % 35 - 47 % [place] Hemoglobin (Bld) [Mass/Vol] 13.6 g/dL 11.7 - 16 g/dL [place] MCH (RBC) [Entitic mass] 30.1 pg 26 - 34 pg [place] MCHC (RBC) [Mass/Vol] 33.1 % 32 - 36 % [place] MCV (RBC) [Entitic vol] 90.9 fL 79 - 98 fL [place] Platelet mean volume (Bld) [Entitic vol] 7.8 fL 7.4 - 10.4 fL [place] Platelets (Bld) [#/Vol] 323 10*3/uL 140 - 440 10*3/uL [place] RBC (Bld) [#/Vol] 4.50 10*6/uL 3.8 - 5.2 10*6/uL [place] WBC (Bld) [#/Vol] 8.0 10*3/uL 3.6 - 10.7 10*3/uL [place] Test Performed by [facility], [address], [place], [place] [address] [place] Comprehensive Metabolic Pane l w/ Reflex to MGon 02-21-2020 Albumin [Mass/Vol] 4.5 g/dL 3.5 - 5 g/dL [place] ALP [Catalytic activity/Vol] 66 U/L 38 - 126 U/L [place] ALT [Catalytic activity/Vol] 11 U/L 0 - 34 U/L [place] Comment on above: The ALT test is perf ormed by an updated assay method. Please note that the reference intervals have been changed and are now sex specific. Anion gap [Moles/Vol] 7 mmol/L [place] AST [Catalytic activity/Vol] 23 U/L 15 - 46 U/L [place] Bilirubin Ql (U) 0.3 mg/dL 0.2 - 1.3 mg/dL [place] Calcium [Mass/Vol] 9.5 mg/dL 8.4 - 10. 4 mg/dL [place] Chloride [Moles/Vol] 103 mmol/L 98 - 107 mmol/L [place] CO2 [Moles/Vol] 29 mmol/L 22 - 30 mmol/L [place] Creatinine [Mass/Vol] 0.61 mg/dL 0.52 - 1.25 mg/dL [place] EGFR IF NonAfrican Egyptian >90.0 >60 mL/min [place] Comment on above: KDIGO guidelines pro vide the following GFR categories: Stage GFR(ml/min/1.73 m2) Terms G1 >=90 Normal or high G2 60-89 Mildly decreased* G3a 45-59 Mildly to moderately decreased G3b 30-44 Moderately to severely decreased G4 15-29 Severely decreased G5 <15 Kidney failure *Relative to young adult level. In the absence of evidence of kidney damage, neither GFR category G1 nor G2 fulfill the criteria for CKD. The CKD-EPI equation is validated in individuals 18 years of age and older. Currently the best equation for estimating glomerular filtration rate (GFR) from serum creatinine in children is the Bedside Moran equation. It is less accurate in patients with extremes of muscle mass, restriction of dietary protein, ingestion of creatine, extra-renal metabolism of creatinine, or treatment with medications that affect renal tubular creatinine secretion. GFR/1.73 sq M predicted among blacks MDRD (S/P/Bld) [Vol rate/Area] mL/min/{1.73_m2} >60 mL/min [place] Glucose [Mass/Vol] 109 mg/dL High 70 - 100 mg/dL [place] Interpretation and review of laboratory results Abnormal [place] Potassium [Moles/Vol] 4.0 mmol/L 3.5 - 5.1 mmol/L [facility], [place] Protein [Mass/Vol] 7.4 g/dL 6.3 - 8.2 g/dL [place] Sodium [Moles/Vol] 138 mmol/L 135 - 145 mmol/L [place] Urea nitrogen [Mass/Vol] 9 mg/dL 7 - 20 mg/dL [place] Test Performed by [facility], [address] [place], [place] [id number] [place] [address] [facility], [place] Office Visiton 02-23-2017 Documentation of current medications (procedure) Done Invalid Interpretation Code [employer] Work Phone: [phone] Fall risk assessment No Invalid Interpretation Code [employer] Work Phone: [phone] Office Visiton 12-29-2016 Documentation of current medications (procedure) Done Invalid Interpretation Code [employer] Work Phone: [phone] Fall risk assessment No Invalid Interpretation Code [employer] Work Phone: [phone] Office Visiton 12-08-2016 Dietary management education, guidance, and counseling (procedure) yes Invalid Interpretation Code [employer] Work Phone: [phone] Documentation of current medications (procedure) Done Invalid Interpretation Code [employer] Work Phone: [phone] Protein mass conc Done [employer] Work Phone: [phone] Office Visiton 11-03-2016 Dietary management education, guidance, and counseling (procedure) yes Invalid Interpretation Code [employer] Work Phone: [phone] Documentation of current medications (procedure) Done Invalid Interpretation Code [employer] Work Phone: Clinical Lists Update: [employer] 04-28-2017 Left ventricular Ejection fraction 60 % Invalid Interpretation Code [facility] Work Phone: [phone] Tobacco smoking status NHIS Never smoker [facility] Work Phone: [phone] Tobacco use CPHS Never smoker Invalid Interpretation Code [facility] Work Phone: [phone] Clinical Lists Update: [facility] 10-07-2016 BUN/Creatinine Ratio 11.1 mg/mg Invalid Interpretation Code [facility] Work Phone: [phone] Calcium 9.0 mg/dL Invalid Interpretation Code [facility] Work Phone: [phone] Chloride 106 mmol/L Invalid Interpretation Code [facility] Work Phone: [phone] CO2 26.0 mmol/L Invalid Interpretation Code [facility] Work Phone: [phone] CO2 (BldV) [Partial pressure] 26.0 mmol/L [facility] Work Phone: [phone] Creatinine 0.45 mg/dL Invalid Interpretation Code [facility] Work Phone: [phone] Glucose 94 mg/dL Invalid Interpretation Code [facility] Work Phone: [phone] Glucose [Mass/Vol] 94 mg/dL [facility] Work Phone: [phone] Hematocrit (Bld) [Volume fraction] 29.8 % [facility] Work Phone: [phone] Hematocrit (HCT) 29.8 % Invalid Interpretation Code [facility] Work Phone: [phone] Hemoglobin (HGB) 9.9 g/dL Invalid Interpretation Code [facility] Work Phone: [phone] Platelets 329 10*3/mm3 Invalid Interpretation Code [facility] Work Phone: [phone] Platelets (Bld) [#/Vol] 329 10*3/mm3 [facility] Work Phone: [phone] Potassium 3.5 mmol/L Invalid Interpretation Code [facility] Work Phone: [phone] Sodium 137 mmol/L Invalid Interpretation Code [facility] Work Phone: [phone] Urea nitrogen 5 mg/dL Invalid Interpretation Code [facility] Work Phone: [phone] WBC (Bld) [#/Vol] 18.4 10*3/uL [facility] Work Phone: [phone] WBC (Leukocytes) 18.4 10*3/uL Invalid Interpretation Code [facility] Work Phone: [phone] Vital Signs Date Time Vital Sign Value Performing Clinician Facility 05-10-2025 08:58-0500 Body height 162.6 cm Mackenzie Mae APRN [employer] Work Phone: [facility] 05-10-2025 08:58-0500 Body mass index (BMI) [Ratio] 20.25 kg/m2 Mackenzie Mae APRN [employer] Work Phone: [facility] 05-10-2025 08:58-0500 Body weight 53.52 kg Mackenzie Mae APRN [employer] Work Phone: [facility] 10-26-2024 10:11-0400 Body height 162.6 cm Prakash Barron MD Work Phone: [facility] 10-26-2024 10:11-0400 Body mass index (BMI) [Ratio] 20.6 kg/m2 Prakash Barron MD Work Phone: [facility] 10-26-2024 10:11-0400 Body weight 54.43 kg Prakash Barron MD Work Phone: [facility] 10-26-2024 10:11-0400 Diastolic blood pressure 87 mm[Hg] Prakash Barron MD Work Phone: [facility] 10-26-2024 10:11-0400 Heart rate 90 /min Prakash Barron MD Work Phone: [facility] 10-26-2024 10:11-0400 SaO2% (BldA) [Mass fraction] 98 % Prakash Barron MD Work Phone: [facility] 10-26-2024 10:11-0400 Systolic blood pressure 138 mm[Hg] Prakash Barron MD Work Phone: [facility] 08-14-2024 08:32-0500 Body height 162.6 cm Mackenzie Mae SUPERVISOR PASTE MIXING - OPTICS ENGINEER Work Phone: [facility] 08-14-2024 08:32-0500 Body mass index (BMI) [Ratio] 20.77 kg/m2 Mackenzie Mae SUPERVISOR PASTE MIXING - OPTICS ENGINEER Work Phone: [facility] 08-14-2024 08:32-0500 Body temperature 98.71 [degF] Mackenzie Mae SUPERVISOR PASTE MIXING - OPTICS ENGINEER Work Phone: [facility] 08-14-2024 08:32-0500 Body weight 54.88 kg Mackenzie Mae SUPERVISOR PASTE MIXING - OPTICS ENGINEER Work Phone: [facility] 08-14-2024 08:32-0500 Diastolic blood pressure 71 mm[Hg] Mackenzie Mae SUPERVISOR PASTE MIXING - OPTICS ENGINEER Work Phone: [facility] 08-14-2024 08:32-0500 Heart rate 82 /min Mackenzie Mae SUPERVISOR PASTE MIXING - OPTICS ENGINEER Work Phone: [facility] 08-14-2024 08:32-0500 Respiratory rate 12 /min Mackenzie Mae SUPERVISOR PASTE MIXING - OPTICS ENGINEER Work Phone: [facility] 08-14-2024 08:32-0500 Systolic blood pressure 115 mm[Hg] Mackenzie Mae SUPERVISOR PASTE MIXING - OPTICS ENGINEER Work Phone: [facility] 04-27-2024 14:38-0400 Body height 163.8 cm Satish Narayan MD Work Phone: [facility] 04-27-2024 14:38-0400 Body mass index (BMI) [Ratio] 19.6 kg/m2 Satish Narayan MD Work Phone: [facility] 04-27-2024 14:38-0400 Body weight 52.62 kg Satish Narayan MD Work Phone: [facility] 04-27-2024 14:38-0400 Diastolic blood pressure 64 mm[Hg] Satish Narayan MD Work Phone: [facility] 04-27-2024 14:38-0400 Heart rate 96 /min Satish Narayan MD Work Phone: [facility] 04-27-2024 14:38-0400 Respiratory rate 16 /min Satish Narayan MD Work Phone: [facility] 04-27-2024 14:38-0400 Systolic blood pressure 114 mm[Hg] Satish Narayan MD Work Phone: [facility] 04-27-2024 12:58-0400 Body height 162.6 cm Mackenzie Mae SUPERVISOR PASTE MIXING - OPTICS ENGINEER Work Phone: [facility] 04-27-2024 12:58-0400 Body mass index (BMI) [Ratio] 20.08 kg/m2 Mackenzie Mae SUPERVISOR PASTE MIXING - OPTICS ENGINEER Work Phone: [facility] 04-27-2024 12:58-0400 Body weight 53.07 kg Mackenzie Mae SUPERVISOR PASTE MIXING - OPTICS ENGINEER Work Phone: [facility] 04-20-2024 09:30-0400 Body mass index (BMI) [Ratio] 19.77 kg/m2 Satish Narayan MD Work Phone: [facility] 04-20-2024 09:30-0400 Body weight 53.07 kg Satish Narayan MD Work Phone: [facility] 04-20-2024 09:30-0400 Diastolic blood pressure 70 mm[Hg] Satish Narayan MD Work Phone: [facility] 04-20-2024 09:30-0400 Systolic blood pressure 110 mm[Hg] Satish Narayan MD Work Phone: [facility] 02-24-2024 11:22-0400 Body mass index (BMI) [Ratio] 19.77 kg/m2 Satish Narayan MD Work Phone: [facility] 02-24-2024 11:22-0400 Body weight 53.07 kg Satish Narayan MD Work Phone: [facility] 02-24-2024 11:22-0400 Diastolic blood pressure 70 mm[Hg] Satish Narayan MD Work Phone: [facility] 02-24-2024 11:22-0400 Systolic blood pressure 106 mm[Hg] Satish Narayan MD Work Phone: [facility] 04-26-2023 09:43-0400 Body weight 61.69 kg Satish Narayan MD Work Phone: [facility] 04-26-2023 09:43-0400 Diastolic blood pressure 64 mm[Hg] Satish Narayan MD Work Phone: [facility] 04-26-2023 09:43-0400 Systolic blood pressure 104 mm[Hg] Satish Narayan MD Work Phone: [facility] 04-22-2023 11:08-0400 Body height 163.8 cm Mackenzie Mae SUPERVISOR PASTE MIXING - OPTICS ENGINEER Work Phone: [facility] 04-22-2023 11:08-0400 Body mass index (BMI) [Ratio] 22.98 kg/m2 Mackenzie Mae SUPERVISOR PASTE MIXING - OPTICS ENGINEER Work Phone: [facility] 04-22-2023 11:08-0400 Body weight 61.69 kg Mackenzie Mae SUPERVISOR PASTE MIXING - OPTICS ENGINEER Work Phone: [facility] 03-12-2023 13:45-0400 Body height 163.8 cm Julisa Armas MD Work Phone: [facility] 03-12-2023 13:45-0400 Body mass index (BMI) [Ratio] 22.81 kg/m2 Julisa Armas MD Work Phone: [facility] 03-12-2023 13:45-0400 Body temperature 98.01 [degF] Julisa Armas MD Work Phone: [facility] 03-12-2023 13:45-0400 Body weight 61.24 kg Julisa Armas MD Work Phone: [facility] 03-12-2023 13:45-0400 Diastolic blood pressure 80 mm[Hg] Julisa Armas MD Work Phone: [facility] 03-12-2023 13:45-0400 Heart rate 85 /min Julisa Armas MD Work Phone: [facility] 03-12-2023 13:45-0400 Respiratory rate 16 /min Julisa Armas MD Work Phone: [facility] 03-12-2023 13:45-0400 Systolic blood pressure 119 mm[Hg] Julisa Armas MD Work Phone: [facility] 08-31-2022 10:31-0500 Body height 162.6 cm Mackenzie Mae SUPERVISOR PASTE MIXING - OPTICS ENGINEER Work Phone: [facility] 08-31-2022 10:31-0500 Body mass index (BMI) [Ratio] 22.31 kg/m2 Mackenzie Mae SUPERVISOR PASTE MIXING - OPTICS ENGINEER Work Phone: [facility] 08-31-2022 10:31-0500 Body temperature 98.2 [degF] Mackenzie Mae SUPERVISOR PASTE MIXING - OPTICS ENGINEER Work Phone: [facility] 08-31-2022 10:31-0500 Body weight 58.97 kg Mackenzie Mae APRN - OPTICS ENGINEER Work Phone: [facility] 08-31-2022 10:31-0500 Diastolic blood pressure 87 mm[Hg] Mackenzie Mae APRN - OPTICS ENGINEER Work Phone: [facility] 08-31-2022 10:31-0500 Heart rate 91 /min Mackenzie Mae APRN - OPTICS ENGINEER Work Phone: [facility] 08-31-2022 10:31-0500 Respiratory rate 20 /min Mackenzie Mae APRN - OPTICS ENGINEER Work Phone: [facility] 08-31-2022 10:31-0500 Systolic blood pressure 135 mm[Hg] Mackenzie Mae APRN - OPTICS ENGINEER Work Phone: [facility] 05-22-2022 11:35-0500 Body weight 55.93 kg Elpidio Leta SUPERVISOR PASTE MIXING.OPTICS ENGINEER Work Phone: [facility] 05-22-2022 11:35-0500 Diastolic blood pressure 89 mm[Hg] Elpidio Gillette SUPERVISOR PASTE MIXING.OPTICS ENGINEER Work Phone: [facility] 05-22-2022 11:35-0500 Heart rate 97 /min Elpidio Gillette SUPERVISOR PASTE MIXING.OPTICS ENGINEER Work Phone: [facility] 05-22-2022 11:35-0500 SaO2% (BldA) [Mass fraction] 100 % Elpidio Gillette SUPERVISOR PASTE MIXING.OPTICS ENGINEER Work Phone: [facility] 05-22-2022 11:35-0500 Systolic blood pressure 133 mm[Hg] Elpidio Gillette SUPERVISOR PASTE MIXING.OPTICS ENGINEER Work Phone: [facility] 03-22-2022 14:37-0400 Body temperature 98.91 [degF] Selma Enciso DO Work Phone: [facility] 03-22-2022 14:37-0400 Body weight 55.43 kg Selma Enciso DO Work Phone: [facility] 03-22-2022 14:37-0400 Diastolic blood pressure 93 mm[Hg] Selma Enciso DO Work Phone: [facility] 03-22-2022 14:37-0400 Heart rate 114 /min Selma Enciso DO Work Phone: [facility] 03-22-2022 14:37-0400 Respiratory rate 18 /min Selma Enciso DO Work Phone: [facility] 03-22-2022 14:37-0400 SaO2% (BldA) [Mass fraction] 99 % Selma Enciso DO Work Phone: [facility] 03-22-2022 14:37-0400 Systolic blood pressure 126 mm[Hg] Selma Enciso DO Work Phone: [facility] 03-19-2022 09:44-0400 Body height 163.8 cm Krystyna Bañuelos APRN.OPTICS ENGINEER Work Phone: [facility] 03-19-2022 09:44-0400 Body weight 55.7 kg Krystyna Bañuelos SUPERVISOR PASTE MIXING.OPTICS ENGINEER Work Phone: [facility] 03-19-2022 09:44-0400 Diastolic blood pressure 83 mm[Hg] Krystyna Bañuelos SUPERVISOR PASTE MIXING.OPTICS ENGINEER Work Phone: [facility] 03-19-2022 09:44-0400 Heart rate 104 /min Krystyna Bañuelos SUPERVISOR PASTE MIXING.OPTICS ENGINEER Work Phone: [facility] 03-19-2022 09:44-0400 Systolic blood pressure 120 mm[Hg] Krystyna Bañuelos SUPERVISOR PASTE MIXING.OPTICS ENGINEER Work Phone: [facility] 01-09-2022 08:06-0400 Body weight 55.2 kg Elpidio Gillette SUPERVISOR PASTE MIXING.OPTICS ENGINEER Work Phone: [facility] 01-09-2022 08:06-0400 Diastolic blood pressure 77 mm[Hg] Elpidio Gillette SUPERVISOR PASTE MIXING.OPTICS ENGINEER Work Phone: [facility] 01-09-2022 08:06-0400 Heart rate 118 /min Elpidio Gillette SUPERVISOR PASTE MIXING.OPTICS ENGINEER Work Phone: [facility] 01-09-2022 08:06-0400 SaO2% (BldA) [Mass fraction] 97 % Elpidio Gillette SUPERVISOR PASTE MIXING.OPTICS ENGINEER Work Phone: [facility] 01-09-2022 08:06-0400 Systolic blood pressure 146 mm[Hg] Elpidio Gillette SUPERVISOR PASTE MIXING.OPTICS ENGINEER Work Phone: [facility] 12-02-2021 09:34-0400 Body height 162.6 cm TIEN CEDILLO MD [facility] 12-02-2021 09:34-0400 Body temperature 97.88 [degF] TIEN CEDILLO MD [facility] 12-02-2021 09:34-0400 Body weight 55.4 kg TIEN CEDILLO MD [facility] 12-02-2021 09:34-0400 Diastolic blood pressure 97 mm[Hg] TIEN CEDILLO MD [facility] 12-02-2021 09:34-0400 Heart rate 120 /min TIEN CEDILLO MD [facility] 12-02-2021 09:34-0400 Respiratory rate 20 /min TIEN CEDILLO MD [facility] 12-02-2021 09:34-0400 Systolic blood pressure 136 mm[Hg] TIEN CEDILLO MD [facility] 02-26-2020 09:45-0400 BP Diastolic 91 mm[Hg] [facility] [place] 02-26-2020 09:45-0400 BP Systolic 133 mm[Hg] Vin [facility] , [place] 02-26-2020 09:45-0400 Pulse (Heart Rate) 88 /min [facility] [place] 02-26-2020 09:45-0400 Pulse Oximetry 100 % [facility] [place] 02-26-2020 09:45-0400 Respiratory Rate 20 /min Vin [facility] [place] 02-26-2020 09:15-0400 Body Temperature 98.2 [degF] Vin [facility] 02-26-2020 06:43-0400 Height 165.1 cm [facility] [place] 02-26-2020 06:37-0400 BMI (Body Mass Index) 18.97 kg/m2 Vin [facility] [place], [place] 02-26-2020 06:37-0400 Body weight 51.71 kg [facility] [place] 02-21-2020 09:22-0400 BMI (Body Mass Index) 19.14 kg/m2 Vin Stafford [facility], [place] 02-21-2020 09:22-0400 Body Temperature 98.49 [degF] Vin Stafford [facility] [place] 02-21-2020 09:22-0400 Body weight 52.16 kg Vin Stafford [facility] , [place] 02-21-2020 09:22-0400 BP Diastolic 99 mm[Hg] Vin Stafford [facility] , [place] 02-21-2020 09:22-0400 BP Systolic 143 mm[Hg] Vin Stafford [facility] , [place] 02-21-2020 09:22-0400 Height 165.1 cm Vin Stafford [facility] , [place] 02-21-2020 09:22-0400 Pulse (Heart Rate) 96 /min Vin Stafford [facility], [place] 02-21-2020 09:22-0400 Pulse Oximetry 100 % Vin Stafford [facility] , [place] 02-21-2020 09:22-0400 Respiratory Rate 16 /min Vin Stafford [facility] [place], [place] 02-23-2017 09:44-0400 BMI (Body Mass Index) 22.39 kg/m2 [facility] Work Phone: 02-23-2017 09:44-0400 BP Diastolic 64 mm[Hg] [facility] Work Phone: 02-23-2017 09:44-0400 BP Systolic 116 mm[Hg] [facility] Work Phone: 02-23-2017 09:44-0400 Height 170.18 cm [facility] Work Phone: 02-23-2017 09:44-0400 Pulse (Heart Rate) 74 /min [facility] Work Phone: 02-23-2017 09:44-0400 Respiratory Rate 18 /min [facility] Work Phone: 02-23-2017 09:44-0400 Weight 64.86 kg [facility] Work Phone: 12-29-2016 13:05-0400 BMI (Body Mass Index) 26.78 kg/m2 [facility] Work Phone: 12-29-2016 13:05-0400 BP Diastolic 68 mm[Hg] [facility] Work Phone: 12-29-2016 13:05-0400 BP Systolic 118 mm[Hg] [facility] Work Phone: 12-29-2016 13:05-0400 Height 170.18 cm [facility] Work Phone: 12-29-2016 13:05-0400 Pulse (Heart Rate) 110 /min [facility] Work Phone: 12-29-2016 13:05-0400 Respiratory Rate 18 /min [facility] Work Phone: 12-29-2016 13:05-0400 Weight 77.57 kg [facility] Work Phone: 12-08-2016 12:51-0400 BMI (Body Mass Index) 28.83 kg/m2 [facility] Work Phone: 12-08-2016 12:51-0400 Body weight 76.2 kg [facility] Work Phone: 12-08-2016 12:51-0400 BP Diastolic 60 mm[Hg] [facility] Work Phone: 12-08-2016 12:51-0400 BP Systolic 100 mm[Hg] [facility] Work Phone: 12-08-2016 12:51-0400 Height 162.56 cm [facility] Work Phone: 12-08-2016 12:51-0400 Pulse (Heart Rate) 106 /min [facility] Work Phone: 12-08-2016 12:51-0400 Respiratory Rate 18 /min [facility] Work Phone: 12-08-2016 12:51-0400 Weight 76.2 kg [facility] Work Phone: 11-03-2016 12:49-0400 BMI (Body Mass Index) 27.63 kg/m2 [facility] Work Phone: 11-03-2016 12:49-0400 BP Diastolic 60 mm[Hg] [facility] Work Phone: 11-03-2016 12:49-0400 BP Systolic 108 mm[Hg] [facility] Work Phone: 11-03-2016 12:49-0400 Height 162.56 cm [facility] Work Phone: 11-03-2016 12:49-0400 Pulse (Heart Rate) 118 /min [facility] Work Phone: 11-03-2016 12:49-0400 Respiratory Rate 16 /min [facility] Work Phone: 11-03-2016 12:49-0400 Weight 73.03 kg [facility] Work Phone: Encounters Encounter Date Encounter Type Care Provider Facility Start: 05-10-2025 End: 05-10-2025 Subsequent hospital visit by physician Mackenzie Nieves CNP Work Phone: [facility] Comment on above: Encounter for screen ing mammogram for breast cancer Start: 05-10-2025 End: 05-10-2025 ambulatory MACKENZIE MAE [facility] Start: 04-30-2025 End: 04-30-2025 ambulatory SATISH NARAYAN Facility:[facility] Start: 04-30-2025 Encounter for gynecological examination (general) (routine) without abnormal findings SATISH NARAYAN [facility] Start: 04-05-2025 End: 04-05-2025 ambulatory ZAINAB CASILLAS Facility:[id number] Start: 04-02-2025 End: 04-02-2025 ambulatory KARYN SOTO Facility:[facility] Start: 02-22-2025 End: 02-22-[address] KARYN SOTO MD Facility:A Start: 11-20-2024 End: 01-20-2025 Follow-up encounter Mackenzie Nieves CNP Work Phone: [facility] Comment on above: Bilateral breast MR with and without contrast Start: 11-18-2024 End: 11-18-2024 Subsequent hospital visit by physician Mackenzie Nieves CNP Work Phone: [facility] Comment on above: History of atypical hyperplasia of breast; Increased risk of breast cancer; Dense breast tissue; Family history of breast cancer Start: 11-18-2024 End: 11-18-2024 ambulatory MACKENZIE MAE [facility] Start: 11-16-2024 End: 11-16-2024 ambulatory KARYN SOTO [facility] Start: 11-09-2024 End: 02-08-2025 Subsequent hospital visit by physician Prakash Barron MD Work Phone: [facility] Comment on above: Dyspnea and respirat ory abnormalities Start: 11-09-2024 End: 11-09-2024 ambulatory [facility] Start: 10-26-2024 End: 10-26-2024 Office outpatient new 30 minutes Prakash Barron MD Work Phone: [facility] Comment on above: Dyspnea and respirat ory abnormalities (Primary Dx) Start: 10-26-2024 End: 10-26-2024 ambulatory [facility] Start: 09-25-2024 End: 09-25-2024 Orders Only Mackenzie Nieves CNP Work Phone: [facility] Comment on above: Encounter for screen ing mammogram for breast cancer (Primary Dx) Axillary pain, right ; Mass overlapping multiple quadrants of left breast Start: 09-25-2024 End: 09-25-2024 ambulatory [facility] Start: 09-07-2024 End: 09-07-2024 ambulatory SOSA BLOCK MD Facility:A Start: 08-14-2024 End: 08-14-2024 Office outpatient visit 15 minutes Mackenzie Mae SUPERVISOR PASTE MIXING - OPTICS ENGINEER Work Phone: [facility] Comment on above: History of atypical hyperplasia of breast (Primary Dx); Increased risk of breast cancer; Dense breast tissue; Encounter for screening mammogram for breast cancer; Family history of breast cancer; Axillary pain, right; Mass overlapping multiple quadrants of left breast Start: 08-14-2024 End: 08-14-2024 ambulatory [facility] Start: 08-07-2024 End: [address] KARYN SOTO MD Facility:A Start: 05-29-2024 End: 05-29-2024 ambulatory Satish Narayan MD Work Phone: OB/Gynecology Comment on above: Pathology results. Start: 05-29-2024 End: 05-29-2024 E-mail encounter from caregiver Satish Narayan MD Work Phone: OB/Gynecology Start: 05-25-2024 End: 05-26-2024 Patient encounter procedure Satish Narayan MD Work Phone: OB/Gynecology Start: 05-25-2024 End: 05-26-2024 ambulatory Satish Narayan MD Work Phone: OB/Gynecology Comment on above: Abnormal uterine ble eding (AUB) (Primary Dx); Endometrial polyp Start: 05-22-2024 End: 05-22-2024 Telephone encounter Satish Narayan MD Work Phone: OB/Gynecology Comment on above: Patient Question Start: 05-12-2024 End: 05-12-2024 ambulatory Servicing [facility] Work Phone: OB/Gynecology Start: 05-12-2024 End: 05-12-2024 Patient encounter procedure Servicing Manager [facility] Work Phone: OB/Gynecology Start: 04-27-2024 End: 04-27-2024 Patient encounter procedure Satish Narayan MD Work Phone: OB/Gynecology Comment on above: Encounter for gyneco logical examination (general) (routine) without abnormal findings (Primary Dx) Start: 04-27-2024 End: 04-27-2024 Patient encounter status Satish Narayan MD Work Phone: [facility] Start: 04-27-2024 End: 04-27-2024 Subsequent hospital visit by physician Mackenzie Mae APRN [facility] Work Phone: [facility] Comment on above: Encounter for screen ing mammogram for breast cancer Start: 04-20-2024 End: 04-20-2024 Patient encounter procedure Satish Narayan MD Work Phone: OB/Gynecology Comment on above: Abnormal uterine ble eding (AUB) (Primary Dx); Stenotic cervical os; Endometrial polyp Start: 03-30-2024 End: 03-30-2024 Admission to same day surgery center Satish Narayan MD Work Phone: OB/Gynecology Comment on above: surgery confirmation Start: 03-30-2024 End: 03-30-2024 E-mail encounter from caregiver Satish Narayan MD Work Phone: OB/Gynecology Start: 03-23-2024 End: 03-23-[address] KARYN SOTO MD Facility:[facility] Start: 03-23-2024 End: 03-23-[address] KARYN SOTO MD [facility] Start: 03-21-2024 End: 03-27-2024 Telephone encounter Satish Narayan MD Work Phone: OB/Gynecology Comment on above: Patient Question Start: 03-02-2024 End: 03-02-2024 Telephone encounter Satish Narayan MD Work Phone: OB/Gynecology Comment on above: Patient Update Start: 03-02-2024 End: 03-02-2024 ambulatory [facility] Start: 03-02-2024 End: 03-02-2024 Patient encounter procedure [employer] 1 Servicing [facility] Start: 02-24-2024 End: 02-24-2024 Patient encounter procedure Satish Narayan MD Work Phone: OB/Gynecology Comment on above: Abnormal uterine ble eding (AUB) (Primary Dx); Cervical stenosis (uterine cervix); Menorrhagia with regular cycle Start: 10-15-2023 End: 10-15-2023 Subsequent hospital visit by physician Mackenzie Nieves CNP Work Phone: [facility] Comment on above: Increased risk of br east cancer; History of atypical hyperplasia of breast; Dense breast tissue; Family history of breast cancer Start: 08-26-2023 End: 08-26-2023 ambulatory Iliana Cunningham PT Work Phone: [facility] Comment on above: SHIRA (stress urinary incontinence, female) (Primary Dx); Muscle weakness Start: 06-10-2023 End: 06-11-[address] KARYN SOTO MD Facility:B Start: 06-10-2023 End: 06-10-2023 Patient encounter procedure SOSA BLOCK MD [facility] Start: 06-07-2023 End: 06-08-[address] KARYN SOTO MD Facility:[facility] Start: 06-07-2023 End: 06-07-2023 Patient encounter procedure SOSA BLOCK MD [facility] Start: 06-05-2023 End: 06-06-[address] KARYN SOTO MD Facility:[facility] Start: 04-26-2023 End: 04-26-2023 Patient encounter procedure Satish Narayan MD Work Phone: OB/Gynecology Comment on above: Encounter for gyneco logical examination (general) (routine) without abnormal findings (Primary Dx); Screening for cervical cancer; Encounter for screening for human papillomavirus (HPV); SHIRA (stress urinary incontinence, female) Start: 04-26-2023 End: 04-26-2023 Patient encounter status Satish Narayan MD Work Phone: [facility] Start: 04-22-2023 End: 04-22-2023 Subsequent hospital visit by physician Mackenzie Mae APRN - OPTICS ENGINEER Work Phone: [facility] Comment on above: Encounter for screen ing mammogram for breast cancer Start: 03-12-2023 End: 03-12-2023 Office outpatient visit 15 minutes Julisa Armas MD Work Phone: [facility] Comment on above: Increased risk of br east cancer (Primary Dx); Dense breast tissue; History of atypical hyperplasia of breast Start: 02-11-[address] Sosa Block Facility:[id number] Start: 10-26-2022 End: 10-26-2022 Subsequent hospital visit by physician Mackenzie Mae APRN - OPTICS ENGINEER Work Phone: [facility] Comment on above: History of atypical hyperplasia of breast; Increased risk of breast cancer; Dense breast tissue Start: 10-15-2022 End: 10-16-[address] KARYN SOTO MD Facility:B Start: 10-15-2022 End: 10-15-2022 Patient encounter procedure SORAYA ST MD [facility] Start: 08-31-2022 End: 08-31-2022 Office outpatient visit 15 minutes Mackenzie Nieves OPTICS ENGINEER Work Phone: [facility] Comment on above: History of atypical hyperplasia of breast (Primary Dx); Increased risk of breast cancer; Dense breast tissue; Encounter for screening mammogram for breast cancer Start: 06-11-2022 End: 06-11-2022 Nutrition therapy Krystyna Bañuelos APRN.OPTICS ENGINEER Work Phone: Functional Medicine Comment on above: Malaise and fatigue (Primary Dx); Brain fog; Bloating; Constipation, unspecified constipation type; Alteration in metabolic function; Nutritional deficiency; Intestinal dysbiosis; Autonomic dysfunction Start: 06-11-2022 End: 06-11-2022 Telemedicine consultation with patient Krystyna Bañuelos TYRELL Work Phone: [facility] Start: 05-22-2022 End: 05-22-2022 Patient encounter procedure Elpidio Gillette APRN.CNP Work Phone: Neurology Comment on above: Inappropriate sinus tachycardia (Primary Dx); POTS (postural orthostatic tachycardia syndrome) Start: 05-15-2022 End: 05-15-[address] MADDISON ERICKSON MD [facility] Start: 05-13-2022 End: 05-13-2022 ambulatory Elpidio Gillette APRN.CNP Work Phone: Neurology Comment on above: Procedure Inappropriate sinus tachycardia (Primary Dx) Start: 05-13-2022 End: 05-13-2022 Patient encounter procedure Autonomic 2 Neur Main [facility] Start: 05-04-2022 Telephone encounter Bartolo paz DO Work Phone: Neurology Comment on above: Important Med Instru citons for Neuro Auto 05/13 Start: 04-20-2022 ambulatory MACKENZIE MAE [facility] Start: 04-20-2022 End: 04-20-2022 Subsequent hospital visit by physician Mackenzie Mae APRN - SEAN Work Phone: [facility] Comment on above: Arrived Start: 04-06-2022 End: 04-06-2022 Subsequent hospital visit by physician Sandrine Darnell Work Phone: [facility] Comment on above: Constipation, unspec ified [K59.00] Start: 03-22-2022 End: 03-22-2022 Patient encounter procedure Selma Enciso DO Work Phone: [facility] Comment on above: Rhus dermatitis (Jenny rachel Dx) Start: 03-19-2022 End: 03-19-2022 ambulatory [facility] Start: 03-19-2022 End: 03-19-2022 [facility] visit new patient [facility] Functional Medicine Comment on above: New Patient Start: 03-19-2022 End: 03-19-2022 Patient encounter procedure Krystyna Bañuelos ARTURO.OPTICS ENGINEER Work Phone: Functional Medicine Comment on above: H. pylori infection (Primary Dx); Orthostatic hypotension; Dizziness; Brain fog; Malaise and fatigue; Bloating; Constipation, unspecified constipation type; Heavy metal exposure; Mold exposure Start: 01-21-2022 End: 01-21-2022 Subsequent hospital visit by physician Austyn Lancaster [facility] Comment on above: Dyspepsia [R10.13] Start: 01-09-2022 End: 01-09-2022 Patient encounter procedure Elpidio Gillette APRN.OPTICS ENGINEER Work Phone: Neurology Comment on above: Orthostatic lighthea dedness (Primary Dx); Dyspepsia; Nausea; H. pylori infection; Orthostatic dizziness; Tachycardia Start: 12-02-2021 End: 12-02-2021 Emergency department patient visit TIEN CEDILLO MD [facility] Start: 10-30-2021 End: 10-30-2021 Subsequent hospital visit by physician Karyn Soto Work Phone: [facility] Comment on above: R94.0 BLOATING Start: 10-29-2021 Telephone encounter Prakash Robbins DO Work Phone: Gastroenterology Comment on above: Appointment Start: 09-22-2021 ambulatory MACKENZIE MAE [facility] Start: 09-22-2021 End: 09-22-2021 Subsequent hospital visit by physician Mackenzie Mae APRN - OPTICS ENGINEER Work Phone: [facility] Comment on above: Increased risk of br east cancer; Family history of breast cancer; Dense breast tissue Start: 08-09-2021 End: 08-09-2021 Subsequent hospital visit by physician Selma Enciso Work Phone: [facility] Comment on above: SOB,PT STATES CANNOT CATCH BREATH Start: 02-26-2020 End: 02-26-2020 Subsequent hospital visit by physician Vin Nicole Work Phone: [facility] Comment on above: Postoperative state (Primary Dx) Start: 02-21-2020 End: 02-21-2020 Subsequent hospital visit by physician Vin Nicole Work Phone: [facility] Comment on above: Arrived Start: 10-04-2019 End: 10-04-2019 Subsequent hospital visit by physician Vin Nicole Work Phone: [facility] Comment on above: Arrived Start: 01-07-2017 End: 01-07-2017 Ambulatory LATISHA LAZO [facility] Procedures Date Procedure Procedure Detail Performing Clinician Start: 05-10-2025 End: 05-10-2025 Screening digital breast tomosynthesis bi Mackenzie Nieves CNP Work Phone: Start: 09-25-2024 Us breast uni real time with image limited Mackenzie Nieves CNP Work Phone: Start: 05-12-2024 Us pelvic nonobstetric real-time image complete Satish Narayan MD Work Phone: Start: 04-27-2024 End: 04-27-2024 Screening digital breast tomosynthesis bi Mackenzie Nieves CNP Work Phone: Start: 03-02-2024 Us pelvic nonobstetric real-time image complete Satish Narayan MD Work Phone: Start: 02-24-2024 UA DIP,URINE HCG (POC) Satish Narayan MD Work Phone: Start: 10-15-2023 Mri breast without&with contrast w/cad bilateral Mackenzie Mae APRN - OPTICS ENGINEER Work Phone: Start: 04-26-2023 Microscopic observation [Identifier] in Cervix by Cyto stain Mackenzie Mae APRN - OPTICS ENGINEER Work Phone: Start: 04-22-2023 End: 04-22-2023 Screening digital breast tomosynthesis bi Mackenzie Mae APRN - OPTICS ENGINEER Work Phone: Start: 10-26-2022 Mri breast without&with contrast w/cad bilateral Mackenzie Mae APRN - OPTICS ENGINEER Work Phone: Start: 04-06-2022 Radiologic exam complete acute abdomen series Michelle Erickson MD Work Phone: Start: 01-21-2022 Gastric emptying imaging study Elpidio Salcedo tarsha SUPERVISOR PASTE MIXING.OPTICS ENGINEER Work Phone: Start: 01-08-2022 Adult depression screening assessment Elpidioroxana Gillette SUPERVISOR PASTE MIXING.OPTICS ENGINEER Work Phone: Start: 12-30-[address] MADDISON ERICKSON MD Start: 10-30-[address] MADDISON STRAUSS MD Start: 09-22-2021 Mri breast without&with contrast w/cad bilateral Mackenzie Mae APRN - OPTICS ENGINEER Work Phone: Start: 09-02-2021 Echocardiography TIEN CEDILLO MD Comment on above: Summary: 1. Left ventricle: The cavity size is normal. Wall thickness is normal. Systolic function is normal. The estimated ejection fraction is 55-60%. Wall motion is normal; there are no regional wall motion abnormalities. Normal diastolic function. 2. Right ventricle: The RV systolic pressure by Doppler is 13 mm Hg. Start: 08-09-2021 Ecg routine ecg w/least 12 lds i&r only Start: 02-26-2020 OPERATIVE REPORT 3m Scanning Start: 02-26-2020 Urine test visual color cmprsn meths Bartolo Peña Work Phone: Start: 02-21-2020 Blood count complete auto&auto difrntl wbc Vin Nicole Work Phone: Start: 02-21-2020 Blood count complete automated Vin Nicole Work Phone: Start: 12-21-2018 24 Hour ECG TIEN CEDILLO MD Comment on above: From [facility]: Avg HR 93bp m, minimum HR 66bpm, maximum HR 136bpm. Longest R-R interval was 1.1 sec. 175 PVC's isolated beats. One ventricular couplet. No runs noted. 1 premature supraventricular ectopic isolated beat. No runs noted, no atrial fibrillation noted. Diary with multiple symptopms of feeling palps, which at times correlated with the scan. Start: 02-23-2017 End: 02-23-2017 RAYMUNDO Ellison MD Work Phone: Start: 02-23-2017 End: 02-23-2017 Follow Up Appt Other Shola Ellison MD Work Phone: Start: 12-29-2016 End: 12-29-2016 RAYMUNDO Ellison MD Work Phone: Start: 12-29-2016 End: 12-29-2016 Follow Up Appt 2 months Shola Ellison MD Work Phone: Start: 12-08-2016 End: 12-08-2016 Dietary management education, guidance, and counseling Mary Lopez Start: 12-08-2016 End: 12-08-2016 Documentation of current medications Mary Lopez Start: 12-08-2016 End: 12-08-2016 RAYMUNDO Ellison MD Work Phone: Start: 12-08-2016 End: 12-08-2016 Follow Up Appt 1 month Shola Ellison MD Work Phone: Start: 11-03-2016 End: 11-03-2016 RAYMUNDO Ellison MD Work Phone: Start: 11-03-2016 End: 11-03-2016 Follow Up Appt 1 month Shola Ellison MD Work Phone: Start: 07-19-2008 Microscopic observation [Identifier] in Cervix by Cyto stain Mackenzie Mae SUPERVISOR PASTE MIXING - OPTICS ENGINEER Work Phone: Start: 07-05-2001 Hymenectomy TIEN CEDILLO MD Start: 07-05-1997 Arthroscopy of shoulder TIEN CEDILLO MD Comment on above: Right Breast structure (body structure) TIEN CEDILLO MD Comment on above: right breast section TIEN SOLORIO MD Excision of fallopia n tube and surgical removal of ectopic TIEN CEDILLO MD Plan of Treatment Date Care Activity Detail Author Start: 10-08-2058 RSV Immunization for Adults (1 - 1-dose 75+ series) RSV Immunization for Adults (1 - 1-dose 75+ series) [facility] Start: 2043 RSV Immunization age d 60 or older (1 - 1-dose 60+ series) RSV Immunization aged 60 or older (1 - 1-dose 60+ series) [facility] Start: 10-08-2033 Zoster Vaccines (1 of 2) Zoster Vacc rubin (1 of 2) [facility] Start: 04-26-2028 HPV Testing HPV Testing [facility] Start: 04-26-2028 Pap Testing Pap Testing [facility] Start: 04-26-2028 Screening for malign ant neoplasm of cervix [facility] Start: 05-10-2026 Screening for malign ant neoplasm of breast Mammogram [facility] Start: 04-26-2026 Screening for malign ant neoplasm of cervix [facility] Start: 12-23-2025 Pap Testing Pap Testing [facility] Start: 08-13-2025 End: 08-13-2025 Patient encounter procedure [facility] Start: 06-05-2025 DTaP/Tdap/Td vaccine (2 - Td) DTaP/Tdap/Td vaccine (2 - Td) [place] Start: 06-05-2025 DTaP/Tdap/Td vaccine (3 - Td or Tdap) DTaP/Tdap/Td vaccine (3 - Td or Tdap) [facility] Start: 06-05-2025 DTaP/Tdap/Td Vaccine s (2 - Td or Tdap) DTaP/Tdap/Td Vaccines (2 - Td or Tdap) [facility] Start: 06-05-2025 DTaP/Tdap/Td Vaccine s (3 - Td or Tdap) DTaP/Tdap/Td Vaccines (3 - Td or Tdap) [facility] Start: 06-05-2025 Urine microalbumin profile DTaP,Tdap,Td Vaccine (2 - Td or Tdap) [facility] Start: 05-10-2025 End: 05-10-2025 Patient encounter procedure [facility] Start: 05-04-2025 End: 11-25-2025 DBT Breast - bilateral screening Bilateral screening mammogram with tomosynthesis Imaging Routine Encounter for screening mammogram for breast cancer Expected: 05/04/2025 (Approximate), Expires: 11/25/2025 [facility] Work Phone: Comment on above: Expected: 05/04/2025 (Approximate), Expires: 11/25/2025 Start: 04-30-2025 End: 04-30-2025 Patient encounter procedure 04/30/2025 3:00 PM EDT Appointment [facility] [address] [place] [address] [facility] Start: 04-27-2025 Screening for malign ant neoplasm of breast [facility] Start: 03-08-2025 End: 03-08-2025 Patient encounter procedure 03/08/2025 8:40 AM EDT Office Visit OB/Gynecology [address] [place] [id number] Satish Narayan MD [address] [place] [address] annual OB/Gynecology Comment on above: annual Start: 03-05-2025 COVID-19 Vaccine ( season) COVID-19 Vaccine ( season) [facility] Start: 03-05-[address] [facility] Start: 02-19-2025 End: 02-19-2025 Patient encounter procedure 02/19/2025 1:40 PM EDT Office Visit OB/Gynecology [address] [place] [address] Satish Narayan MD [address] [place], [place] [address] annual OB/Gynecology Comment on above: annual Start: 11-15-2024 End: 11-15-2024 Patient encounter procedure 11/15/2024 11:00 AM EDT Appointment [facility] [address] [place] [id number] Mackenzie Mae SUPERVISOR PASTE MIXING - OPTICS ENGINEER [address] [facility] [place], [place] [id number] [facility] [address] Start: 11-15-2024 Subsequent hospital visit by physician 11/15/2024 11:00 AM EDT Hospital Encounter [facility] [address] [place] [id number] Mackenzie Mae SUPERVISOR PASTE MIXING - OPTICS ENGINEER [address] [facility] [place] [address] [facility] [address] Start: 10-26-2024 End: 10-26-2025 XR Chest 2 Views XR chest 2 views Imaging Routine Dyspnea and respiratory abnormalities Expected: 10/26/2024, Expires: 10/26/2025 [facility] Work Phone: Comment on above: Expected: 10/26/2024 , Expires: 10/26/2025 Start: 10-26-2024 End: 10-26-2024 Patient encounter procedure 10/26/2024 10:00 AM EDT Office Visit [facility] Pulmonary and [facility] [address] [place] [address] Prakash Barron MD [address] [address] [facility] Start: 09-25-2024 End: 09-25-2024 Patient encounter procedure [facility] Start: 08-28-2024 End: 08-28-2024 Patient encounter procedure [facility] [place] Start: 08-14-2024 End: 10-12-2025 DBT Breast - bilateral diagnostic Bilateral diagnostic mammogram with tomosynthesis Imaging Routine Axillary pain, right Mass overlapping multiple quadrants of left breast Expected: 08/14/2024 (Approximate), Expires: 10/12/2025 [facility] Comment on above: Expected: 08/14/2024 (Approximate), Expires: 10/12/2025 Start: 08-14-2024 End: 10-12-2025 MR Breast - bilateral WO and W contrast IV Bilateral breast MR with and without contrast Imaging Routine History of atypical hyperplasia of breast Increased risk of breast cancer Dense breast tissue Family history of breast cancer Expected: 08/14/2024 (Approximate), Expires: 10/12/2025 [facility] Work Phone: Comment on above: Expected: 08/14/2024 (Approximate), Expires: 10/12/2025 Start: 08-14-2024 End: 10-12-2025 US Breast - bilateral limited Bilateral breast US limited Imaging Routine Axillary pain, right Mass overlapping multiple quadrants of left breast Expected: 08/14/2024 (Approximate), Expires: 10/12/2025 [facility] Comment on above: Expected: 08/14/2024 (Approximate), Expires: 10/12/2025 Start: 06-22-2024 End: 06-22-2024 ambulatory 06/22/2024 8:30 AM EST Procedure OB/Gynecology [address] [place] [address] Abnormal uterine bleeding (AUB) [N93.9]; Endometrial polyp [N84.0] OB/Gynecology Comment on above: Abnormal uterine ble eding (AUB) [N93.9]; Endometrial polyp [N84.0] Start: 05-18-2024 End: 05-18-2024 ambulatory 05/18/2024 9:00 AM EST Procedure OB/Gynecology [address] [place] [address] [facility], Servicing [facility] [address] [place] [address] Abnormal uterine bleeding (AUB) [N93.9]; Endometrial polyp [N84.0] OB/Gynecology Comment on above: Abnormal uterine ble eding (AUB) [N93.9]; Endometrial polyp [N84.0] Start: 04-27-2024 End: 04-27-2024 Patient encounter procedure [facility] Comment on above: Annual Exam Annual Exam/ pre-op surgery 05/25 Start: 04-22-2024 Screening for malign ant neoplasm of breast [facility] Start: 04-20-2024 End: 04-20-2025 US Pelvis PELVIC US [facility] Anc Imaging Routine Abnormal uterine bleeding (AUB) Endometrial polyp Expected: 04/20/2024, Expires: 04/20/2025 [facility] Work Phone: Comment on above: Expected: 04/20/2024 , Expires: 04/20/2025 Start: 04-20-2024 End: 04-20-2024 Patient encounter procedure 04/20/2024 9:20 AM EDT Office Visit OB/Gynecology [address] [place], [place] [id number] Satish Narayan MD [address] [place] [address] dicuss results and options OB/Gynecology Comment on above: dicuss results and o ptions Start: 03-05-2024 Covid-19 Vaccine () Covid-19 Vaccine ( season) [facility] Start: 03-05-2024 Influenza vaccination Influenza Vacc ine (#1) [facility] Start: 03-02-2024 End: 03-02-2024 ambulatory 03/02/2024 8:30 AM EDT Procedure OB/Gynecology [address] [place] [id number] Abnormal uterine bleeding (AUB) [N93.9] OB/Gynecology Comment on above: Abnormal uterine ble eding (AUB) [N93.9] Start: 02-24-2024 End: 02-23-2025 US Pelvis PELVIC US [facility] Anc Imaging Routine Abnormal uterine bleeding (AUB) Expected: 02/24/2024, Expires: 02/23/2025 [facility] Work Phone: Comment on above: Expected: 02/24/2024 , Expires: 02/23/2025 Start: 08-30-2023 End: 08-30-2023 Patient encounter procedure [facility] Start: 07-05-2023 Depression Assessment Depression Ass essment [facility] Start: 04-22-2023 End: 04-22-2023 Patient encounter procedure [facility] Start: 03-19-2023 Diabetes mellitus screening Diabetes Screening [facility] Start: 03-12-2023 End: 03-12-2023 Patient encounter procedure 03/12/2023 Office Visit Breast Clinic / Breast Center Julisa Armas MD [address] [place] [address] [address] [place] [address] [facility] Start: 03-05-2023 Covid-19 Vaccine ( season) Covid-19 Vaccine () [facility] Start: 03-05-2023 Influenza vaccination Influenza Vacc ine (#1) [facility] Start: 01-08-2023 Adult depression screening assessment DEPRESSION SCREENING [facility] Start: 11-28-2022 End: 10-30-2023 MR Breast - bilateral WO and W contrast IV Bilateral breast MR with and without contrast Imaging Routine History of atypical hyperplasia of breast Increased risk of breast cancer Dense breast tissue Expected: 11/28/2022 (Approximate), Expires: 10/30/2023 [facility] Comment on above: Expected: 11/28/2022 (Approximate), Expires: 10/30/2023 Start: 10-26-2022 End: 10-26-2022 Patient encounter procedure 10/26/2022 Appointment Radiology [facility] Start: 09-28-2022 End: 10-30-2023 DBT Breast - bilateral screening Bilateral screening mammogram with tomosynthesis Imaging Routine Encounter for screening mammogram for breast cancer Expected: 09/28/2022 (Approximate), Expires: 10/30/2023 [facility] Work Phone: Comment on above: Expected: 09/28/2022 (Approximate), Expires: 10/30/2023 Start: 08-10-2022 End: 08-10-2022 Patient encounter procedure 08/10/2022 Office Visit Breast Clinic / Breast Center Mackenzie Mae, SUPERVISOR PASTE MIXING - OPTICS ENGINEER [address] [place] [address] [facility] Start: 07-05-2022 Depression Assessment Depression Ass essment [facility] Start: 03-19-2022 End: 05-19-2022 25-hydroxyvitamin D3 [Mass/volume] in Serum or Plasma [facility] Work Phone: Comment on above: Expected: 03/19/2022 , Expires: 05/19/2022 Start: 03-19-2022 End: 05-19-2022 JEROME BY IFA WITH REFLEX [facility] Work Phone: Comment on above: Expected: 03/19/2022 , Expires: 05/19/2022 Start: 03-19-2022 End: 05-19-2022 BABESIA DANNY IGG/IGM [facility] Work Phone: Comment on above: Expected: 03/19/2022 , Expires: 05/19/2022 Start: 03-19-2022 End: 05-19-2022 BARTONELLA AB PANEL [facility] Work Phone: Comment on above: Expected: 03/19/2022 , Expires: 05/19/2022 Start: 03-19-2022 End: 05-19-2022 BARTONELLA PCR [facility] Work Phone: Comment on above: Expected: 03/19/2022 , Expires: 05/19/2022 Start: 03-19-2022 End: 05-19-2022 C reactive protein [Mass/volume] in Serum or Plasma by High sensitivity method [facility] Work Phone: Comment on above: Expected: 03/19/2022 , Expires: 05/19/2022 Start: 03-19-2022 End: 05-19-2022 CELIAC ASSOC HLA-DQ GENOTYPE [facility] Work Phone: Comment on above: Expected: 03/19/2022 , Expires: 05/19/2022 Start: 03-19-2022 End: 05-19-2022 Cobalamin (Vitamin B12) [Mass/volume] in Serum or Plasma [facility] Work Phone: Comment on above: Expected: 03/19/2022 , Expires: 05/19/2022 Start: 03-19-2022 End: 03-19-2023 COMPLEMENT COMPONENT 4A [facility] Work Phone: Comment on above: Expected: 03/19/2022 , Expires: 03/19/2023 Start: 03-19-2022 End: 05-19-2022 Comprehensive metabolic 2000 panel - Serum or Plasma [facility] Work Phone: Comment on above: Expected: 03/19/2022 , Expires: 05/19/2022 Start: 03-19-2022 End: 05-19-2022 COPPER BLOOD [facility] Work Phone: Comment on above: Expected: 03/19/2022 , Expires: 05/19/2022 Start: 03-19-2022 End: 05-19-2022 EHRLICHIA CHAF ABS [facility] Work Phone: Comment on above: Expected: 03/19/2022 , Expires: 05/19/2022 Start: 03-19-2022 End: 05-19-2022 Laverne Simmons virus capsid IgG Ab [Units/volume] in Serum [facility] Work Phone: Comment on above: Expected: 03/19/2022 , Expires: 05/19/2022 Start: 03-19-2022 End: 05-19-2022 Laverne Simmons virus capsid IgM Ab [Units/volume] in Serum [facility] Work Phone: Comment on above: Expected: 03/19/2022 , Expires: 05/19/2022 Start: 03-19-2022 End: 05-19-2022 Laverne Simmons virus early Ab [Units/volume] in Serum [facility] Work Phone: Comment on above: Expected: 03/19/2022 , Expires: 05/19/2022 Start: 03-19-2022 End: 05-19-2022 Laverne Simmons virus nuclear Ab [Units/volume] in Serum [facility] Work Phone: Comment on above: Expected: 03/19/2022 , Expires: 05/19/2022 Start: 03-19-2022 End: 05-19-2022 Ferritin [Mass/volume] in Serum or Plasma [facility] Work Phone: Comment on above: Expected: 03/19/2022 , Expires: 05/19/2022 Start: 03-19-2022 End: 05-19-2022 Hemoglobin A1c in Blood [facility] Work Phone: Comment on above: Expected: 03/19/2022 , Expires: 05/19/2022 Start: 03-19-2022 End: 05-19-2022 Insulin [Units/volume] in Serum or Plasma [facility] Work Phone: Comment on above: Expected: 03/19/2022 , Expires: 05/19/2022 Start: 03-19-2022 End: 05-19-2022 Iron and Iron binding capacity panel - Serum or Plasma [facility] Work Phone: Comment on above: Expected: 03/19/2022 , Expires: 05/19/2022 Start: 03-19-2022 End: 05-19-2022 Lead [Mass/volume] in Blood [facility] Work Phone: Comment on above: Expected: 03/19/2022 , Expires: 05/19/2022 Start: 03-19-2022 End: 05-19-2022 MAGNESIUM RBC [facility] Work Phone: Comment on above: Expected: 03/19/2022 , Expires: 05/19/2022 Start: 03-19-2022 End: 05-19-2022 Mercury [Mass/volume] in Blood [facility] Work Phone: Comment on above: Expected: 03/19/2022 , Expires: 05/19/2022 Start: 03-19-2022 End: 05-19-2022 Methylmalonate [Moles/volume] in Serum or Plasma [facility] Work Phone: Comment on above: Expected: 03/19/2022 , Expires: 05/19/2022 Start: 03-19-2022 End: 05-19-2022 NMR LIPOPROTEIN PROFILE [facility] Work Phone: Comment on above: Expected: 03/19/2022 , Expires: 05/19/2022 Start: 03-19-2022 End: 05-19-2022 OMEGACHECK [facility] Work Phone: Comment on above: Expected: 03/19/2022 , Expires: 05/19/2022 Start: 03-19-2022 End: 05-19-2022 Thyrotropin [Units/volume] in Serum or Plasma [facility] Work Phone: Comment on above: Expected: 03/19/2022 , Expires: 05/19/2022 Start: 03-19-2022 End: 05-19-2022 Thyroxine (T4) free [Mass/volume] in Serum or Plasma [facility] Work Phone: Comment on above: Expected: 03/19/2022 , Expires: 05/19/2022 Start: 03-19-2022 End: 05-19-2022 Tissue transglutaminase IgA Ab [Units/volume] in Serum [facility] Work Phone: Comment on above: Expected: 03/19/2022 , Expires: 05/19/2022 Start: 03-19-2022 End: 05-19-2022 Tissue transglutaminase IgG Ab [Units/volume] in Serum [facility] Work Phone: Comment on above: Expected: 03/19/2022 , Expires: 05/19/2022 Start: 03-19-2022 End: 05-19-2022 Transferrin [Mass/volume] in Serum or Plasma [facility] Work Phone: Comment on above: Expected: 03/19/2022 , Expires: 05/19/2022 Start: 03-19-2022 End: 05-19-2022 Triiodothyronine (T3) Free [Mass/volume] in Serum or Plasma [facility] Work Phone: Comment on above: Expected: 03/19/2022 , Expires: 05/19/2022 Start: 03-19-2022 End: 05-19-2022 Zinc [Mass/volume] in Serum or Plasma [facility] Work Phone: Comment on above: Expected: 03/19/2022 , Expires: 05/19/2022 Start: 03-05-2022 Influenza vaccination INFLUENZA (#1) [facility] Start: 02-02-2022 Influenza vaccination Flu vaccine (# 1) [facility] Start: 07-10-2021 COVID-19 VACCINE (4 - Booster for Moderna series) COVID-19 VACCINE (4 - Booster for Moderna series) [facility] Start: 07-10-2021 COVID-19 Vaccine (4 - Moderna series) COVID-19 Vaccine (4 - Moderna series) [facility] Start: 07-05-2021 DEPRESSION ASSESSMENT DEPRESSION ASS ESSMENT [facility] Start: 03-05-2020 Influenza vaccination [facility], [place] Start: 02-26-2020 Hospital Encounter 02/26/2020 Hospital Encounter IP Unit Vin Nicole MD [address] [place] [id number] [phone] [facility] Dept Start: 08-16-2019 Diabetes mellitus screening Diabetes Screening [facility] Start: 02-23-2017 End: 02-23-2017 Appointment Appointment [facility] Work Phone: Start: 02-23-2017 End: 02-23-2017 RAYMUNDO FONSECA [facility] Work Phone: Start: 02-23-2017 End: 02-23-2017 Follow Up Appt Other Follow Up Appt Other [facility] Work Phone: Start: 12-29-2016 End: 12-29-2016 Appointment Appointment [facility] Work Phone: Start: 12-29-2016 End: 12-29-2016 RAYMUNDO FONSECA [facility] Work Phone: Start: 12-29-2016 End: 12-29-2016 Follow Up Appt 2 months Follow Up Appt 2 months [facility] Work Phone: Start: 12-08-2016 End: 12-08-2016 Appointment Appointment [facility] Work Phone: Start: 12-08-2016 End: 12-08-2016 Appointment Appointment [facility] Work Phone: Start: 12-08-2016 End: 12-08-2016 RAYMUNDO FONSECA [facility] Work Phone: Start: 12-08-2016 End: 12-08-2016 Follow Up Appt 1 month Follow Up Appt 1 month [facility] Work Phone: Start: 11-03-2016 End: 11-03-2016 Appointment Appointment [facility] Work Phone: Start: 11-03-2016 End: 11-03-2016 RAYMUNDO FONSECA [facility] Work Phone: Start: 11-03-2016 End: 11-03-2016 Follow Up Appt 1 month Follow Up Appt 1 month [facility] Work Phone: Start: 10-08-2013 HPV TESTING HPV TESTING [facility] Start: 10-08-2013 Screening for malign ant neoplasm of cervix [facility] Start: 07-19-2011 Screening for malign ant neoplasm of cervix Pap smear [facility] Start: 10-08-2004 Cervical cancer screen Cervical canc er screen [facility] [place], [place] Start: 10-08-2004 PAP TESTING PAP TESTING [facility] Start: 10-08-2004 Screening for malign ant neoplasm of cervix [facility] Start: 10-08-2002 DTaP/Tdap/Td vaccine (1 - Tdap) DTaP/Tdap/Td vaccine (1 - Tdap) [place], [place] Start: 10-08-2002 Hepatitis B Vaccine (1 of 3 - 19+ 3-dose series) Hepatitis B Vaccine (1 of 3 - 19+ 3-dose series) [facility] Start: 10-08-2002 Hepatitis B Vaccines (1 of 3 - 19+ 3-dose series) Hepatitis B Vaccines (1 of 3 - 19+ 3-dose series) [facility] Start: 10-08-2002 Urine microalbumin profile DTAP,TDAP,TD (1 - Tdap) [facility] Start: 10-08-2001 Anxiety Screening Anxiety Screening [facility] Start: 10-08-2001 Depression Screening Depression Scre ening [facility] Start: 10-08-2001 Diabetes mellitus screening Diabetes Screening [facility] Start: 10-08-2001 HEPATITIS C SCREENING HEPATITIS C SC REENING [facility] Start: 10-08-2001 Hepatitis C screening S [facility] Start: 10-08-2001 HIV SCREENING HIV SCREENING [facility] Start: 10-08-2001 HIV screening HIV Screening [facility] Start: 10-08-1998 HIV screen HIV screen [place], [place] Start: 10-08-1998 HIV screening HIV screen [facility] Start: 10-08-1996 Varicella vaccination Varicell a Vaccines (1 of 2 - 13+ 2-dose series) [facility] Start: 1995 Depression Screen Depression Screen [facility] Start: 1995 Depression Screening Depression Scre ening [facility] Start: 10-08-1988 COVID-19 Vaccine (1) COVID-19 Vaccin e (1) [facility] Start: 10-08-1984 MMR Vaccines (1 of 1 - Standard series) MMR Vaccines (1 of 1 - Standard series) [facility] Start: 10-08-1984 Varicella vaccination Varicell a Vaccines (1 of 2 - 2-dose childhood series) [facility] [facility] Start: 10-08-1984 Varicella vaccine (1 of 2 - 2-dose childhood series) Varicella vaccine (1 of 2 - 2-dose childhood series) [facility] Start: 04-09-1984 COVID-19 Vaccine (#1) COVID-19 Vacci ne (#1) [facility] Start: 1985 HEPATITIS B (1 of 3 - 3-dose series) HEPATITIS B (1 of 3 - 3-dose series) [facility] Start: 1983 Hepatitis B Vaccine (1 of 3 - 3-dose series) Hepatitis B Vaccine (1 of 3 - 3-dose series) [facility] Start: 1983 Hepatitis B Vaccines (1 of 3 - 3-dose series) Hepatitis B Vaccines (1 of 3 - 3-dose series) [facility] Start: 1983 Hepatitis C screening Hepatitis C sc reen [facility] Start: 1985 HIV screening HIV Screening [facility] End: 02-26-2020 Blood glucose - POCT Blood glucose - POCT Point of Care Testing STAT One Time for 1 Occurrences starting 02/26/2020 until 02/[facility]2020 [facility]: One Time for 1 Occur rences starting 02/26/2020 until 02/26/2020 End: 02-26-2020 Creatinine [Mass/Vol] Creatinine, serum Lab STAT One Time for 1 Occurrences starting 02/26/2020 until 02/26/2020 [facility]: One Time for 1 Occur rences starting 02/26/2020 until 02/26/2020 Endometrial bx w/wo endocervix bx w/o dilat spx ENDOMETRIAL BIOPSY Procedures Routine Abnormal uterine bleeding (AUB) Ordered: 02/24/2024 [facility] Comment on above: Ordered: 02/24/2024 FM GI EFFECTS, 1 STO OL SPECIMEN FM GI EFFECTS, 1 STOOL SPECIMEN Lab Routine H. pylori infection Orthostatic hypotension Dizziness Brain fog Malaise and fatigue Bloating Constipation, unspecified constipation type Heavy metal exposure Mold exposure Ordered: 03/19/2022 [facility] Work Phone: Comment on above: Ordered: 03/19/2022 End: 02-08-2023 Gastric emptying imaging study NM GASTRIC EMPTYING SOLID Radiology Routine Dyspepsia Nausea 1 Occurrences starting 01/09/2022 until 02/08/2023 [facility] Work Phone: Comment on above: 1 Occurrences starti ng 01/09/2022 until 02/08/2023 End: 02-26-2020 Intermittent pulse oximetry Pulse Oximetry Spot Check Respiratory Care Routine One Time for 1 Occurrences starting 02/26/2020 until 02/26/2020 [facility]: One Time for 1 Occur rences starting 02/26/2020 until 02/26/2020 End: 10-04-2019 BECCA DIGITAL DIAGNOSTIC W OR WO CAD LEFT BECCA DIGITAL DIAGNOSTIC W OR WO CAD LEFT Imaging Routine Once for 1 Occurrences starting 10/04/2019 until 10/04/2019 [facility]: Once for 1 Occurrenc es starting 10/04/2019 until 10/04/2019 BECCA DIGITAL DIAGNOST IC W OR WO CAD LEFT BECCA DIGITAL DIAGNOSTIC W OR WO CAD LEFT Imaging Routine 10/04/2019 11:20 AM EDT [facility]: 11-18-2024 MR Breast - bilateral WO and W contrast IV [employer] ([facility]) Work Phone: Comment on above: Once for 1 Occurrenc es starting 11/18/2024 until 11/18/2024 NEURO CARDIO AUTONOM IC REFLEX W/WO TILT NEURO CARDIO AUTONOMIC REFLEX W/WO TILT Procedures Routine Orthostatic dizziness Orthostatic lightheadedness Tachycardia Ordered: 01/09/2022 [facility] Work Phone: Comment on above: Ordered: 01/09/2022 OFFICE HYSTEROSCOPY OFFICE HYSTE ROSCOPY Procedures Routine Abnormal uterine bleeding (AUB) Ordered: 02/24/2024 [facility] Comment on above: Ordered: 02/24/2024 Oxygen therapy [[facility] Data Set] Initiate Oxygen Therapy Protocol Respiratory Care Routine Daily until discontinued starting 02/26/2020 [facility]: Daily until disconti nued starting 02/26/2020 PAP TEST PAP TEST Lab Rou moises Encounter for gynecological examination (general) (routine) without abnormal findings Screening for cervical cancer Encounter for screening for human papillomavirus (HPV) 04/26/2023 10:37 AM EDT [facility] Work Phone: Phase I & II - meter ed glucose Phase I & II - metered glucose Point of Care Testing Routine As Needed until discontinued starting 02/26/2020 [facility] on [facility]: As Needed until disc ontinued starting 02/26/2020 End: 02-26-2020 Potassium w/ Reflex to Magnesium Potassium w/ Reflex to Magnesium Lab Routine One Time for 1 Occurrences starting 02/26/2020 until 02/26/2020 [facility] Comment on above: One Time for 1 Occur rences starting 02/26/2020 until 02/26/2020 End: 02-26-2020 Protime-INR Protime-INR Lab STAT One Time for 1 Occurrences starting 02/26/2020 until 02/26/2020 [place] Comment on above: One Time for 1 Occur rences starting 02/26/2020 until 02/26/2020 End: 04-20-2022 Screening digital breast tomosynthesis bi [facility] Work Phone: Comment on above: Once for 1 Occurrenc es starting 04/20/2022 until 04/20/2022 Spirometry panel Incentive catia metry Respiratory Care Routine Q1H PRN until discontinued starting 02/26/2020 [place] Comment on above: Q1H PRN until discon tinued starting 02/26/2020 End: 10-04-2019 Surgical Pathology Surgical Pathology Lab STAT Once for 1 Occurrences starting 10/04/2019 until 10/04/2019 [place] Comment on above: Once for 1 Occurrenc es starting 10/04/2019 until 10/04/2019 Surgical Pathology Surgical Path ology Lab STAT 10/04/2019 11:01 AM EDT [place] SURGICAL PATHOLOGY SURGICAL PATH OLOGY Lab Routine Abnormal uterine bleeding (AUB) [facility] 10-04-2019 US GUIDED LEFT BREAST BIOPSY US GUIDED LEFT BREAST BIOPSY Imaging Routine Once for 1 Occurrences starting 10/04/2019 until 10/04/2019 [place] Comment on above: Once for 1 Occurrenc es starting 10/04/2019 until 10/04/2019 US GUIDED LEFT BREAS T BIOPSY US GUIDED LEFT BREAST BIOPSY Imaging Routine 10/04/2019 10:18 AM EDT [place] End: 11-09-2024 XR Chest 2 Views [facility] Work Phone: Comment on above: Once for 1 Occurrenc es starting 11/09/2024 until 11/09/2024 [facility] Immunizations Immunization Date Immunization Notes Care Provider Fa cili 04-22-2022 influenza, injectabl e, quadrivalent, preservative free Satish Narayan MD Work Phone: [facility] Work Phone: 04-22-2022 influenza virus vaccine, unspecified formulation Julisa Armas MD Work Phone: [facility] 04-29-2021 influenza, injectabl e, quadrivalent, preservative free Satish Narayan MD Work Phone: [facility] Work Phone: 04-15-2020 influenza, injectabl e, quadrivalent, preservative free Satish Narayan MD Work Phone: [facility] Work Phone: 05-02-2019 influenza, injectabl e, quadrivalent, preservative free Satish Narayan MD Work Phone: [facility] Work Phone: 05-11-2017 influenza, injectabl e, quadrivalent, preservative free Satish Narayan MD Work Phone: [facility] Work Phone: 04-25-2016 influenza, injectabl e, quadrivalent, preservative free Satish Narayan MD Work Phone: [facility] Work Phone: 06-05-2015 tetanus toxoid, redu patrizia diphtheria toxoid, and acellular pertussis vaccine, adsorbed Satish Narayan MD Work Phone: [facility] Work Phone: 04-17-2015 influenza, injectabl e, quadrivalent, preservative free Satish Narayan MD Work Phone: [facility] Work Phone: 04-25-2014 influenza, injectabl e, quadrivalent, preservative free Satish Narayan MD Work Phone: [facility] Work Phone: Payers Date Payer Category Payer Self-pay 2022 [employer] [facility] - O [id number] 2021 Unknown [employer] [place] [employer] [id number] 2021-Present [phone] [address] [place] [address] O [id number] 2021 Unknown [id number] 2021 Unknown [id number] 1983 Unknown [id number] [id number] 1983 Unknown [id number] [id number] 1983 Unknown [id number]. [id number] 1983 Unknown [id number]. [id number] 1983 Unknown [id number]. [id number] 1983 Unknown [id number]. [id number] 1983 Unknown [id number]. [id number] 1983 Unknown [id number]. [id number] 1983 Unknown [id number] [id number] 1983 Unknown [id number] [id number] 1983 Unknown [id number] [id number] Unknown [id number] Unknown [id number] [id number] Social History Date Type Detail Facility Tobacco smoking status NHIS Unknown if ever smoked [facility] Start: 1985 Sex Assigned At [facility] [place] [place] Start: 02-21-2020 End: 05-10-2025 Tobacco smoking status NHIS Never smoker [place] Start: 02-21-2020 End: 05-10-2025 Tobacco use and exposure Never used [place] Start: 02-21-2020 End: 08-31-2022 Alcohol intake Current drinker of alcohol (finding) [place] Start: 02-21-2020 Alcohol Comment wine once weekly [place] Start: 11-25-2021 End: 10-26-2022 Exposure to SARS-CoV-2 (event) Not sure [place] Tobacco smoking status PAIS Tobacco smoking consumption unknown [facility] Sex Assigned At Sex [facility] Start: 03-22-2022 End: 05-22-2022 Alcohol intake Lifetime non-drinker (finding) [facility] Start: 08-31-2022 End: 05-10-2025 History of Social function [facility] Start: 08-31-2022 End: 05-10-2025 Tobacco use panel [facility] Start: 03-12-2023 Alcohol Comment social [facility] Adult Depression Screening Assessment 0 [facility] Start: 04-26-2023 Alcohol Comment occ [facility] Start: 02-02-2022 Sex Female (finding) [facility] Start: 08-14-2024 End: 05-10-2025 Alcoholic beverage intake Ex-drinker (finding) [facility] Start: 08-14-2024 Alcohol Comment [facility] NEGATED: Highlighted rowStart: NINF History of tobacco use Passive smoker [facility] Functional Status Date Assessment Result Facility 12-02-2021 Functional Status Independent [facility] 12-02-2021 Functional Status Resting Gideon Man[facility] sa[facility] Mental Status Date Assessment Result Facility 12-02-2021 Mental Status Orientation Oriented x 4 [facility] 12-02-2021 Mental Status [facility] Clinical Notes 12-02-2021 to 04-30-2025 Prakash Barron MD - 10/26/2024 10:00 AM EDTPatient InstructionsMackenzie Mae APRN - SEAN - 08/14/2024 8:00 AM Satish Albarado MD - 05/26/2024 1:02 PM ESTPatient InstructionsLaboratory Note Date & Type Note Facility 04-30-2025 Note HNO ID: [id number] Author: SATISH NARAYAN MD Service: ? Author Type: Physician Type: Progress Notes Filed: 04/30/2025 11:45 Note Text: Karuna is a 39 year old who presents for an annual gynecologic exam without complaints. Still gets pain w/ menses Menses: cycles every 28-30 days and 7 days of flow occas spotting at ovulation Menstrual flow: Moderate Bleeding amount bothersome: No Bleeding between periods: No Period symptoms: Cramps Sexually active: Yes Number of lifetime partners: tubal Contraception: Tubal Ligation Contraception frequency: Always Last pap smear: 2022 History of abnormal pap: No Colposcopy: No. Leep: No. Bothersome pelvic pain: No Last mammogram: MRI OB History Gravida1 Para1 Term0 Preterm1 AB0 Living2 SAB0 IAB0 Ectopic0 Multiple1 Live Births2 Comment: Dar [employer] History LMP: 04/11/2025 (Exact Date), Having periods Age at Menarche: Age at First : Age at Menopause: [employer] History Comments: Sexual Activity: Yes; Male Contraception: Tubal Ligation PAST MEDICAL HISTORY Diagnosis Date Anxiety state Tachycardia PAST SURGICAL HISTORY Procedure Laterality Date SECTION HX 01/09/2017 COLONOSCOPY 12/30/2021 HYSTEROSCOPY BX ENDOMETRIUMAND/POLYPC W/WO DANDC 05/25/2024 DANDC w/ polypectomy PARTIAL HYMENECTOMY 2002 PAST SURGICAL HISTORY OF 02/03/2020 fibroadenoma PAST SURGICAL HISTORY OF Right 1998 shoulder SALPINGECTOMY 05/11/2018 FAMILY HISTORY Problem Relation Age of Onset other (hemochromatosis) Mother Hypothyroidism Mother other (hypercholesterolemia) Mother Diabetes Mother Diabetes Father type 2 Hypertension Father Heart Attack Father 62 bypass Heart Attack Maternal grandparent Stroke Paternal grandparent Colon Cancer No Family History SOCIAL HISTORY Social History Tobacco Use Smoking status: Never Smokeless tobacco: Never Vaping Use Vaping status: Never Used Substance Use Topics Alcohol use: Yes Comment: occ Drug use: Never REVIEW OF SYSTEMS Abdomen: constipation, has colonoscopy scheduled Bladder: No dysuria, gross hematuria, urinary frequency, urinary urgency, or incontinence. Breast: No breast lumps, nipple d/c, overlying skin changes, redness or skin retraction. Allergies and current medication updated:Yes SENSITIVE EXAM: The sensitive examination was discussed with the Patient or Patient's Authorized Cma. As applicable, any other physician, advance practice provider, medical student, or other health professional student that will be observing or involved in the sensitive examination for educational or training purposes was discussed with the Patient or Authorized Cma. The Patient or Authorized Cma has agreed to proceed with the sensitive examination. (Sensitive examination includes inspection and/or palpation of the breasts, pelvis, prostate and anorectal regions). EXAM: BP 108/72 Ht 5' 4.5" (1.64m) Wt 118 lb (53.5kg) LMP 04/11/2025 BMI 19.95 kg/(m2). GENERAL: pleasant, female in no apparent distress HEENT: Normocephalic, atraumatic, mucus membranes moist, and no lesions NECK: Supple, full range of motion, no adenopathy, and thyroid normal DERMATOLOGY: Normal, without lesions, non-icteric, and non-hirsute BREAST: soft, non-tender, symmetric, no dominant mass, normal nipple-areolar complex, no lymphadenopathy, and no nipple discharge CHEST: Normal inspiratory effort ABDOMEN: soft, non-tender, and no masses PELVIC: external genitalia normal, normal Bartholin's glands, urethra, Pageton's glands, no vulvar lesions, no cervical lesions, good vaginal support, physiologic discharge present, normal appearing perineal body and perianal region BIMANUAL: uterus normal size, shape and consistency, no adnexal masses, and non-tender RECTOVAGINAL: deferred. NEURO: alert and oriented x3,exam grossly non-focal EXTREMITIES: normal ASSESSMENT/PLAN: 1) Health maintenance: Pap done with HPV. Mammogram up to date . 2) Contraception: tubal sterilization. Contraceptive options reviewed and information provided. 3) STD screening: Declined STI check. 4) Follow up one year or sooner as needed Satish Narayan MD [facility] 04-02-2025 Note HNO ID: [id number] Author: ZAINAB CASILLAS PA-C Service: ? Author Type: Physician Assistant Pressman Type: Progress Notes Filed: 04/02/2025 08:20 Note Text: CHIEF COMPLAINT: Patient presents with: Constipation: Hx of H pylori HPI: Karuna Gilbert is a 39 year old female with PMHx positive for POTS, who presents for Constipation (Hx of H pylori). She reports a several-year history of constipation, with bowel movements typically every 2-3 days when using Miralax daily. Stools are often hard and pellet-like, and she sometimes requires additional interventions such as stool softeners or magnesium citrate to induce a bowel movement. She notes that excessive use of these agents can cause nausea. She recently began experiencing stools of variable caliber, sometimes described as "pencil-thin" or "ribbon-like," a change she first noticed this past summer. She denies rectal bleeding, though she did note a single episode of blood on toilet paper that coincided with the onset of her menstrual period. 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 She reports chronic abdominal tenderness for several years, but denies any new or acute abdominal pain. She lost 20 lbs last year through intentional dietary changes, but her weight has remained stable this year. Her diet includes daily smoothies with vegetables, salads at lunch, and almonds for additional fiber. She recently purchased Benefiber to further increase her fiber intake. She reports occasional heartburn, 1-2 times per week, typically triggered by specific foods. She underwent EGD and colonoscopy in 12/2021 for belching, early satiety, and constipation. A small polyp was removed during colonoscopy, but pathology was inconclusive due to sampling error. Reports she was told to repeat next exam in 5-10 yrs. She was treated for H. pylori infection, but discontinued therapy after 5 days due to neurological side effects. A subsequent stool test in 03/2022 was negative for H. pylori. She has no family history of colon cancer, but does have a variant of uncertain significance on genetic testing related to breast cancer risk. Record Review: [facility] / Outside records reviewed. PAST MEDICAL HISTORY Diagnosis Date Anxiety state POTS (postural orthostatic tachycardia syndrome) Tachycardia PAST SURGICAL HISTORY Procedure Laterality Date SECTION HX 01/09/2017 COLONOSCOPY 12/30/2021 HYSTEROSCOPY BX ENDOMETRIUMAND/POLYPC W/WO DANDC 05/25/2024 DANDC w/ polypectomy PARTIAL HYMENECTOMY 2002 PAST SURGICAL HISTORY OF 02/03/2020 fibroadenoma PAST SURGICAL HISTORY OF Right 1998 shoulder SALPINGECTOMY 05/11/2018 Allergies: ALLERGIES Allergen Reactions Moxifloxacin GI Upset, Vomiting Flagyl [Metronidazo* GI Upset, Vomiting Tetracycline Other: See Comments Other Reaction(s): Unknown Medications: busPIRone (BUSPAR) 5 mg tablet take 1-2 tablets BY MOUTH THREE TIMES DAILY NEEDED polyethylene glycol 3350 (MIRALAX) 17 gram/dose powder Take by mouth once daily. Dissolve dose in 4 - 8 ounces of liquid and take as directed. L.acidophilus-L.rhamnosus (PROBIOTIC) 15 billion cell capsule Take 1 capsule by mouth once daily. cyanocobalamin 1,000 mcg/mL inject ONE ML intramuscular every TWO WEEKS cholecalciferol, vitamin D3, (VITAMIN D3 ORAL) Take by mouth. propranolol (INDERAL) 20 mg tablet Take 1 tablet by mouth every 12 hours. cetirizine (ZYRTEC) 10 mg tablet Take 10 mg by mouth. Magnesium Citrate 150mg (Pure Encapsulations) Take 3 capsules daily. ALPRAZolam (XANAX) 0.25 mg tablet diphenhydrAMINE (BENADRYL) 25 mg capsule Take 25 mg by mouth. ibuprofen (MOTRIN) 200 mg tablet Take 200 mg by mouth. hydrOXYzine HCl (ATARAX) 10 mg tablet TAKE ONE TABLET BY MOUTH THREE TIMES DAILY NEEDED FOR ANXIETY FOR 30 DAYS (Patient not taking: Reported on 04/02/2025) multivitamin/iron/folic acid (CENTRUM WOMEN ORAL) Take 1 tablet by mouth once daily. (Patient not taking: Reported on 04/02/2025) VITAMIN E ORAL 180 mg. 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 Heartburn All other systems reviewed and are negative. Are you taking any blood thinners? No Physical Examination: BP 110/74 Pulse 101 Ht 5' 4.5" (1.64m) Wt 117 lb (53.1kg) SpO2 98% LMP 04/12/2024 BMI 19.78 kg/(m2). Physical Exam Co (more content not included)... [facility] 10-26-2024 History of Present illness Narrative [facility] Pulmonary and Sleep Medicine [address] [place] [address] Prakash Barron MD NEW PATIENT VISIT-PULMONARY 10/27/2024 REFERRING PHYSICIAN: Karyn Soto MD REASON FOR REFERRAL/Chief complaint: Dyspnea History of Present Illness Karuna Gilbert is a 39 y.o. who presents to the pulmonary clinic for initial evaluation of 1.5-year history of dyspnea. Patient does not know what started the dyspnea. Sometimes she wakes up shortness of breath. She describes the symptoms more as breathlessness. She also describes an abnormal breathing pattern which she has seen speech therapy for. She does note that over the last few weeks symptoms have started to improve after adjustment in her propranolol dosing. Patient has had extensive workup previously through her primary care physician and the cardiology team including CT coronary Holter echo PFTs and cardiopulmonary exercise testing. These all sleeve turner to be essentially negative. Patient denies any history or symptoms concerning for asthma. Patient denies any specific trigger or exposure Patient denies any history or symptoms of sleep apnea PastMedical History Past Medical History: Diagnosis Date Anxiety Atypical lobular hyperplasia (ALH) of left breast 02/26/2020 found during removal of fibroadenoma Eczema Fibroadenoma of breast, left 02/26/2020 SCHEDULED FOR THE SURGERY ON 02/26/20 IBS (irritable bowel syndrome) Past Surgical History Past Surgical History: Procedure Laterality Date BREAST BIOPSY Left 07/24/2009 benign US core bx BREAST BIOPSY Left 10/23/2019 benign US core bx BREAST SURGERY Left 02/26/2020 fibroadenoma removal, atypical lobular hyperplasia SECTION (HISTORICAL) 2017 TWINS ; [facility] COLONOSCOPY DILATION AND CURETTAGE OF UTERUS 05/2024 FRACTURE SURGERY Left 1997 shoulder SALPINGECTOMY Bilateral 2018 UTERINE FIBROID SURGERY 05/2024 polyp removal WISDOM TOOTH EXTRACTION Allergies Allergies Allergen Reactions Moxifloxacin Nausea Only, Nausea And Vomiting and Unknown Metronidazole Nausea Only and Nausea And Vomiting Tetracycline Other Reaction(s): Unknown Medications Medication Documentation Review Audit Reviewed by Prakash Barron MD (Physician) on 10/26/24 at 1022 Medication Order Taking? Sig Documenting Provider Last Dose Status alpha tocopherol (Vitamin E) 100 units capsule [id number] Yes Take 100 Units by mouth daily. Historical Provider, Taking Active ALPRAZolam (Xanax) 0.25 MG tablet [id number] Yes Historical Provider, Taking Active amitriptyline (Elavil) 10 MG tablet [id number] Yes Take 10 mg by mouth Nightly. Historical ProviderMD Active busPIRone (Buspar) 5 MG tablet [id number] Yes Historical ProviderMD Taking Active cetirizine (ZyrTEC) 10 MG tablet [id number] Yes Take 10 mg by mouth daily. Historical Provider, Taking Active Cholecalciferol (D3 2000 PO) [id number] Yes Take by mouth. Historical ProviderMD Taking Active cyanocobalamin (Vitamin B-12) 1000 MCG/ML injection [id number] Yes inject ONE ML INTRAMUSCULARLY every TWO WEEKS Historical ProviderMD Active cyclobenzaprine (Flexeril) 5 MG tablet [id number] Yes Historical Provider, Taking Active Patient not taking: Discontinued 10/26/24 1015 ibuprofen 200 MG tablet [id number] Yes Take 200 mg by mouth every 8 hours as needed for mild pain (1-3). Historical Provider, Active MAGNESIUM GLUCONATE PO [id number] Yes Take 25 mg by mouth in the morning. Historical Provider, Taking Active propranolol (Inderal) 10 MG tablet [id number] Yes Historical Provider, Taking Active Social History Social History Tobacco Use Smoking status: Never Smokeless tobacco: Never Substance Use Topics Alcohol use: Not Currently Comment: rarely FamilyHistory Family History Problem Relation Name Age of Onset Diabetes Mother Hypothyroidism Mother Hyperlipidemia Mother Hemochromatosis Mother Heart attack Father CABG Diabetes Father High Blood Pressure Father Hyperlipidemia Father Kidney cancer Mother's Brother 55 Heart attack Maternal Grandmother Stroke Maternal Grandfather Alzheimer's disease Paternal Grandmother Stroke Paternal Grandmother Heart disease Paternal Grandfather CABG Uterine cancer Maternal Cousin 36 Breast cancer Maternal Cousin 1st cousin 30 - 39 Lung cancer Other p great aunt Breast cancer Other p great aunt Leukemia Paternal Great-Grandmother Breast cancer Paternal Cousin 1st cousin Review of Systems Physical Exam Review of Systems Negative except what is mentioned in the HPI. Physical Exam Vitals: 10/26/24 1011 BP: 138/87 Pulse: 90 SpO2: 98% Weight: 120 lb (54.4 kg) Height: 5' 4" (1.626 m) General appearance: Not ill appearing, alert, no converstional dyspnea Head: Normocephalic, without obvious abnormality, atraumatic Eyes:Pupils bilateral equal and reactive, EOM intact, conjunctiva - no icterus , no injection Lungs: CTA BL Heart: RRR, S1, S2 normal, no murmur, click, rub or gallop Extremities: extremities normal, atraumatic, no cyanosis, edema Musculoskeletal - No deformities Skin: Skin color, texture, turgor normal. No rashes or lesions Neurological: No focal deficits, cranial nerves grossly intact, sensations intact Psychiatric : Mood and effect normal , alert and oriented times 4 LABS and Studies: Available studies were reviewed and summarized below. ECHO-normal Cardiopulmonary exercise testing reviewed-normal VO2 max normal respiratory parameters Radiology: CT coronary negative PFT's Personally Reviewed and interpreted by me from 2024 show normal spirometry diffusion and lung volumes with a small bronchodilator response Assessment- Dyspnea and respiratory abnormalities-extensive workup has been negative for any concerning etiology suspect may be related to her autonomic dysfunction symptoms. Improvement noted with adjustment in propranolol dosing. PFTs with bronchodilator response of unclear significance, doubt asthma Plan- Get a chest x-ray Testing was reviewed with patient. Recommend no further testing other than that. Low yield for CT scan of the chest. Discussed with her her PFT findings nonspecific finding of bronchodilator response low suspicion for asthma and not symptoms classic for asthma. Deferred trial of inhaler at this time. Thank you for allowing me to care for your patient, please reach with any questions, concerns or if I can be of any further assistance. Prakash Barron MD 8:31 AM 10/27/24 Pulmonary and Critical Care Medicine Attending documented in this encounter [facility] 10-26-2024 Instructions Chayito Lind MA - 10/26/2024 10:00 AM EDT YOUR APPOINTMENT TODAY WAS WITH THE [facility] LUNG NODULE CLINIC, COPD CLINIC, PULMONARY AND SLEEP MEDICINE OFFICE. PLEASE CALL OUR OFFICE AT [phone] for our [place] office location or [phone] for our [place] location, IF YOU HAVE NOT RECEIVED YOUR TEST RESULTS 7 DAYS AFTER TESTING IS COMPLETED. PLEASE REMEMBER TO REQUEST REFILLS AT YOUR OFFICE VISITS. PHONE/FAX REQUESTS REQUIRE 48-72 HOURS FOR RESPONSE. A FRIENDLY REMINDER COPAYS ARE DUE AT TIME OF SERVICE. THANK YOU. Our Patients Are Important! We want to improve and you can help. After your visit we want you to feel: Listened to, Respected and have your health care explained. You may receive a survey asking you about your visit. Please complete the survey. We will use your feedback to make improvements. COVID-19 VACCINATION INFORMATION: PH. [phone] [email or web address] [facility] Central Scheduling [phone] [facility] Sleep Scheduling [phone] documented in this encounter [facility] 08-14-2024 History of Present illness Narrative Images from the original note were not included. Karuna Gilbert is a 38 y.o. YO F here for follow up high risk breast cancer surveillance Breast History: 1. She was first seen in the breast center on 08/11/2021 for high risk management. Last seen 08/30/2023 for high risk follow up. Lifetime risk of breast cancer by Tyrer-Cuzick v8: 43% High Risk follow up: Last Mammogram: 04/27/2024 - BIRADS 2 Last Breast MRI: 10/15/2023 - BIRADS 1 Genetic testing: [facility] expanded panel genetic testing 08/2021 negative for deleterious mutation. VUS NTHL1 (p.A11S). Results scanned into media dated 09/02/2021. 2. She has a family history of breast cancer in her maternal first cousin once removed in her 30s, paternal first cousin once removed at an unknown age, and paternal great aunt at an unknown age. There have been no changes to her family cancer history since her last visit. 3. Breast history: -10/04/2019: LEFT breast biopsy for which pathology returned: DIAGNOSIS: BREAST, LEFT AT 9 O'CLOCK RETROAREOLAR, NEEDLE CORE BIOPSY - FIBROADENOMA AND ADJACENT BREAST TISSUE WITH USUAL DUCTAL HYPERPLASIA AND ASSOCIATED CALCIFICATIONS -02/26/2020: LEFT surgical excision per Dr. Nicole and final pathology returned: DIAGNOSIS: LEFT BREAST, EXCISION - FIBROADENOMA FOCALLY INVOLVED BY ATYPICAL LOBULAR HYPERPLASIA Comment: Immunohistochemical stains for E-cadherin highlight a population of negatively-staining cells, supportive of focal atypical lobular hyperplasia She also reports she had this area biopsied once before the biopsy 10/04/2019. These results are not available ot me today but she states this also returned benign fibroadenoma. She also reports history of bilateral cyclical breast tenderness. No additional breast history. Today, she reports an area of focal pain for the last few months in her right axilla. She describes it as nagging and different than her normal cyclical pain. She also reports a palpable area within the left breast that is new. We discussed obtaining diagnostic imaging and she is agreeable. No additional breast concerns today. She denies skin change, nipple change, nipple discharge. 4. We discussed the recommendation for high risk follow up. She is agreeable to continue annual mammogram, breast MRI clinical breast exam every 6-12 months. We again discussed chemoprevention with tamoxifen (as well as baby palmer). We reviewed side effects including potential for slight increased risk of blood clot, uterine cancer, hot flashes, joint pain, fatigue, weight gain. We reviewed benefits of risk reduction for breast cancer. She declines today but is still considering this. Risk Factors: Menarche: 11 Age of first : 31; G1, P2; she has twin 7-year-old daughters Menopause: Pre; LMP 07/24/2024. She follows annually with [facility] Dr. Vargas at [facility]. Next [employer] 03/2025 Physical Activity: She walks outside when the weather is nice and uses elliptical indoors during the winter. We discussed the [employer] recommends that adults get at least 150 minutes of moderate intensity or 75 minutes of vigorous intensity activity each week Nutrition: She follows a healthy diet. She recently started using a meal subscription service which she really likes. We discussed a plant based diet and limiting added hormones in her meat and dairy. Weight: She intentionally lost 20 lbs last year with diet and exercise. BMI 20.77 Smoking: Never ETOH: She cut out alcohol last year Breast imaging includes: Screening mammogram 04/27/2024 TISSUE DENSITY: BIRADS D - The breasts are extremely dense, which lowers the sensitivity of mammography. FINDINGS: There are post surgical changes deep to a scar marker the left breast. No suspicious masses, architectural distortions or suspiciously clustered microcalcifications are identified. There is no evidence of skin thickening or nipple retraction. There are no significant changes when compared with prior studies. IMPRESSION: No mammographic evidence of malignancy. ASSESSMENT: Category 2 Benign RECOMMENDATION: Routine screening mammogram in 1 year. Bilateral Breast MRI 10/15/2023 FINDINGS: There is mild bilateral background enhancement. Right Breast: There is no suspicious mass or non-mass enhancement in the right breast. Left Breast: There is no suspicious mass or non-mass enhancement in the left breast. Other: No axillary or internal mammary lymphadenopathy is appreciated. IMPRESSION: No MRI evidence of malignancy in either breast. ASSESSMENT: Category 1 Negative RECOMMENDATION: Breast MRI in 1 year Bilateral Family Cancer History includes: Paternal great grandmother with leukemia Maternal uncle with kidney cancer Paternal uncle with nonmelanoma skin cancer Maternal cousin with uterine cancer Paternal great aunt with breast cancer Paternal great aunt with lung cancer Maternal first cousin once removed with breast cancer in her 30s Paternal first cousin once removed with breast cancer at an unknown age Medical History includes: has a past medical history of Anxiety, Atypical lobular hyperplasia (ALH) of left breast (02/26/2020), Eczema, Fibroadenoma of breast, left (02/26/2020), and IBS (irritable bowel syndrome). She has no past medical history of PONV (postoperative nausea and vomiting). Surgical History includes : Past Surgical History: Procedure Laterality Date BREAST BIOPSY Left 07/24/2009 benign US core bx BREAST BIOPSY Left 10/23/2019 benign US core bx BREAST SURGERY Left 02/26/2020 fibroadenoma removal, atypical lobular hyperplasia SECTION (HISTORICAL) 2017 TWINS ; [facility] COLONOSCOPY FRACTURE SURGERY Left 1997 shoulder SALPINGECTOMY Bilateral 2018 WISDOM TOOTH EXTRACTION Medications include: Current Outpatient Medications Medication Sig Dispense Refill alpha tocopherol (Vitamin E) 100 units capsule Take 100 Units by mouth daily. ALPRAZolam (Xanax) 0.25 MG tablet busPIRone (Buspar) 5 MG tablet cetirizine (ZyrTEC) 10 MG tablet Take 10 mg by mouth daily. Cholecalciferol (D3 2000 PO) Take by mouth. cyclobenzaprine (Flexeril) 5 MG tablet MAGNESIUM GLUCONATE PO Take 25 mg by mouth in the morning. propranolol (Inderal) 10 MG tablet No current facility-administered medications for this visit. Allergies include: Allergies as of 08/14/2024 - Reviewed 08/30/2023 Allergen Reaction Noted Moxifloxacin Nausea Only, Nausea And Vomiting, and Unknown 02/21/2020 Metronidazole Nausea Only and Nausea And Vomiting 03/22/2022 Review of Systems Review of Systems Constitutional: Negative. HENT: Negative. Eyes: Negative. Respiratory: Negative. Cardiovascular: Negative. Gastrointestinal: Negative. Endocrine: Negative. Genitourinary: Negative. Musculoskeletal: Negative. Skin: Negative. Allergic/Immunologic: Negative. Neurological: Negative. Hematological: Negative. Psychiatric/Behavioral: Negative. Physical Exam Constitutional: General: She is not in acute distress. Appearance: Normal appearance. She is not ill-appearing. HENT: Head: Normocephalic and atraumatic. Pulmonary: Effort: Pulmonary effort is normal. No respiratory distress. Chest: Breasts: Breasts are symmetrical. Right: Tenderness present. No inverted nipple, mass, nipple discharge or skin change. Left: Mass present. No inverted nipple, nipple discharge, skin change or tenderness. Abdominal: Palpations: Abdomen is soft. Musculoskeletal: Cervical back: Normal range of motion and neck supple. Lymphadenopathy: Cervical: No cervical adenopathy. Upper Body: Right upper body: No axillary adenopathy. Left upper body: No axillary adenopathy. Skin: General: Skin is warm and dry. Neurological: General: No focal deficit present. Mental Status: She is alert and oriented to person, place, and time. Psychiatric: Mood and Affect: Mood normal. Behavior: Behavior normal. Assessment: This is a 38 y.o. woman who has an increased risk of breast cancer estimated by the Tyrer Cuzick v8 model of 43%. Recommend continued high risk follow up. Patient is agreeable to Clinical Breast Exams every 6-12 months. She will continue annual mammograms and breast MRIs. She declines tamoxifen for now. For her right focal axillary pain and palpable area within the left breast, plan for diagnostic imaging. Today, we reviewed breast self awareness and breast cancer risk reduction including a plant based diet, daily physical activity, limiting alcohol, and maintaining a lean body mass. Plan: Bilateral diagnostic mammogram/ultrasound-Call with results Breast MRI- To be obtained a few months after mammogram/ultrasound Clinical Breast Exam every 6-12 months Follow up in 1 year Call with any questions or breast concerns ARTURO Lewis CNP documented in this encounter [facility] 05-26-2024 Note HNO ID: [id number] Author: SATISH NARAYAN MD Service: ? Author Type: Physician Type: Progress Notes Filed: 05/26/2024 13:04 Note Text: Patient underwent hysteroscopy DANDC with endometrial polyp resection at [facility] on 05/25/2024 without complication. Pathology is pending. She was discharged home with routine instructions. Follow-up as needed. Satish Narayan MD [facility] 05-26-2024 History of Present illness Narrative Patient underwent hysteroscopy D&C with endometrial polyp resection at [facility] on 05/25/2024 without complication. Pathology is pending. She was discharged home with routine instructions. Follow-up as needed. Satish Narayan MD documented in this encounter [facility] 05-22-2024 Telephone encounter Note Patient notified. Lashay Ribeiro RN [facility] 05-22-2024 Miscellaneous Notes Patient notified. Lashay Ribeiro RN No solid food after midnight. Clear liquids only after that. Take vitamins/supplements when she gets home that day. Doesn't have to hold them any other time. Can take anxiety medications as needed that am w/ a clear fluid. Can drink clear fluids up until 2 hrs before arrival. Would drink 8 oz about 2 hrs before she leaves. Satish Narayan MD Patient is scheduled for surgery on . States PAT advised that she is NPO after midnight, but with the IV shortage, RR recommended pushing fluids up to 2 hours before her arrival time. Ok to still push fluids prior? Also asking if she can take her Multivitamin and Magnesium. 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 Mary Howell RN documented in this encounter [facility] 05-22-2024 Telephone encounter Note No solid food after midnight. Clear liquids only after that. Take vitamins/supplements when she gets home that day. Doesn't have to hold them any other time. Can take anxiety medications as needed that am w/ a clear fluid. Can drink clear fluids up until 2 hrs before arrival. Would drink 8 oz about 2 hrs before she leaves. Satish Narayan MD [facility] 05-22-2024 Telephone encounter Note Patient is scheduled for surgery on . States PAT advised that she is NPO after midnight, but with the IV shortage, RR recommended pushing fluids up to 2 hours before her arrival time. Ok to still push fluids prior? Also asking if she can take her Multivitamin and Magnesium. 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 Mary Highman, RN [facility] 05-12-2024 Note HNO ID: [id number] Author: BRIANDA CARROLL MD Service: ? Author Type: Physician Type: Progress Notes Filed: 05/12/2024 10:02 Note Text: Pelvic ultrasound was performed on Karuna Gilbert. To characterize the polyp, three dimensional imaging was created on a dedicated stand-alone 3D workstation with images created and archived, and supervised and reviewed by the interpreting physician utilizing images from an ultrasound scan performed today. Please see imaging tab for documentation and results. Brianda Carroll MD OBGYN Staff Physician SIGNATURE: Brianda Carroll MD PATIENT NAME: Karuna Gilbert DATE: May 12, 2024 TIME: 10:01 AM PAGER/CONTACT #: Pager ([phone]) OBGYN Call Schedule: [facility] 05-12-2024 History of Present illness Narrative Pelvic ultrasound was performed on Karuna Gilbert. To characterize the polyp, three dimensional imaging was created on a dedicated stand-alone 3D workstation with images created and archived, and supervised and reviewed by the interpreting physician utilizing images from an ultrasound scan performed today. Please see imaging tab for documentation and results. Brianda Carroll MD OBGYN Staff Physician SIGNATURE: Brianda Carroll MD PATIENT NAME: Karuna Gilbert DATE: May 12, 2024 TIME: 10:01 AM PAGER/CONTACT #: Pager ([phone]) OBGYN Call Schedule: [facility]Genda documented in this encounter [facility] 04-27-2024 Note [facility] Medical Records Department [address] [place] [address] History Physical Exam 04/27/24 1635 MR#: [id number] Acct: [id number] Name: KARUNA GILBERT Rep #: [id number] : 1985 38 From: Satish Narayan MD PCP: Dr. Karyn Soto MD Status:[facility] Location: [place] [address] History and Physical Date of Admission: 05/25/24 HPI: The patient is a 38 year old female presenting for pre-operative visit. She is scheduled for Hysteroscopy D C, possible polyp resection for mid cycle spotting and endometrial polyp on 05/25/24. Procedure discussed along with risks, benefits and complications. Other alternatives discussed for management. Consent form signed? Yes. PAST MEDICAL HISTORY PAST MEDICAL HISTORY Diagnosis Date ??? Anxiety state ??? POTS (postural orthostatic tachycardia syndrome) ??? Tachycardia PAST SURGICAL HISTORY PAST SURGICAL HISTORY Procedure Laterality Date ??? SECTION HX 01/09/2017 ??? PARTIAL HYMENECTOMY 2001 ??? PAST SURGICAL HISTORY OF 02/03/2020 fibroadenoma ??? PAST SURGICAL HISTORY OF Right 1998 shoulder ??? SALPINGECTOMY 05/11/2018 CURRENT MEDICATIONS Current Outpatient Medications Medication Sig Dispense Refill ??? hydrOXYzine HCl (ATARAX) 10 mg tablet TAKE ONE TABLET BY MOUTH THREE TIMES DAILY NEEDED FOR ANXIETY FOR 30 DAYS ??? multivitamin/iron/folic acid (CENTRUM WOMEN ORAL) Take 1 tablet by mouth once daily. ??? cyanocobalamin 1,000 mcg/mL inject ONE ML intramuscular every TWO WEEKS ??? VITAMIN E ORAL 180 mg. ??? cholecalciferol, vitamin D3, (VITAMIN D3 ORAL) Take by mouth. ??? propranolol (INDERAL) 20 mg tablet Take 1 tablet by mouth every 12 hours. ??? busPIRone (BUSPAR) 5 mg tablet 1-2 tabs (Patient not taking: Reported on 04/20/2024) ??? cetirizine (ZYRTEC) 10 mg tablet Take 10 mg by mouth. ??? Magnesium Citrate 150mg (Pure Encapsulations) Take 3 capsules daily. ??? ALPRAZolam (XANAX) 0.25 mg tablet ??? diphenhydrAMINE (BENADRYL) 25 mg capsule Take 25 mg by mouth. ??? ibuprofen (MOTRIN) 200 mg tablet Take 200 mg by mouth. No current facility-administered medications for this visit. ALLERGIES: Moxifloxacin and Flagyl [Metronidazole] PERSONAL HISTORY: SOCIAL HISTORY Social History Tobacco Use ??? Smoking status: Never ??? Smokeless tobacco: Never Vaping Use ??? Vaping status: Never Used Substance Use Topics ??? Alcohol use: Yes Comment: occ ??? Drug use: Never FAMILY HISTORY: FAMILY HISTORY FAMILY HISTORY Problem Relation Age of Onset ??? other (hemochromatosis) Mother ??? Hypothyroidism Mother ??? other (hypercholesterolemia) Mother ??? Diabetes Mother ??? Diabetes Father type 2 ??? Hypertension Father ??? Heart Attack Father 62 bypass ??? Heart Attack Maternal grandparent ??? Stroke Paternal grandparent REVIEW OF SYMPTOMS: GENERAL: denies fevers or chills ENDOCRINOLOGY: has not been on steroids Cardiology : denies palpitations or chest pain Respiratory: denies SOB or cough Hematology: denies history of prolonged bleeding or easy bruising or VTE Allergy: Denies history of personal or family history of allergy to anesthesia PHYSICAL EXAMINATION: VITALS: Blood pressure 114/64, pulse 96, resp. rate 16, height 163.8 cm (5' 4.5"), weight 52.6 kg (116 lb), last menstrual period 04/12/2024. GENERAL: The patient is well nourished, well hydrated in no acute distress. , The patient is oriented to time, place, and person. NECK: Supple. No lynphadenopathy, normal thyroid, no thyromegaly. LUNGS: Clear to auscultation bilaterally. no wheezes, rhonchi or rales HEART: Regular rate and rhythm, Normal heart sounds, and No murmurs or gallops IMPRESSION: midcycle spotting, endometrial polyp PLAN: The risks/benefits/alternatives and personal involved for the planned hysteroscopy D C with possibble polyp resection were reviewed with the patient. Her questions were answered to her satisfaction and she desires to proceed. Consent was signed. I reviewed with her postop instructions and expectations. I have reviewed and updated past medical and surgical history, medications and allergies Assessment Plan Assessment/Plan (1) Abnormal uterine bleeding (AUB): (2) Endometrial polyp: 04/27/24 1636 Cosigner Signature (if applicable): CC: Dr. Karyn Soto MD; Dr. Satish Narayan MD Signed ADDENDUM by Dr. Satish Narayan MD on 05/25/24 at 0728 Addendum UPDATE- I have seen the patient and performed any clinically relevant updates to the history and physical exam. 05/25/2428 Cosigner Signature (if applicable): cc: Dr. Karyn Soto MD; Dr. Satish Narayan MD * Signed [facility] 04-27-2024 History of Present illness Narrative Karuna is a 38 year old who presents for an annual gynecologic exam without complaints. Menses: cycles every 28-30 days and 4 days of flow. Contraception: tubal sterilization HPV vaccine: No Last Pap: 05/04/2023 normal HPV: 04/28/2023 negative History of abnormal pap: No Last mammogram: today Sexually active: Yes OB History T0 L2 SAB0 IAB0 Ectopic0 Multiple1 Live Births2 Comment: Dar [employer] History LMP: 04/12/2024 (Exact Date), Having periods Age at Menarche: Age at First : Age at Menopause: [employer] History Comments: Sexual Activity: Yes; Male Contraception: Tubal Ligation PAST MEDICAL HISTORY Diagnosis Date Anxiety state POTS (postural orthostatic tachycardia syndrome) Tachycardia PAST SURGICAL HISTORY Procedure Laterality Date SECTION HX 01/09/2017 PARTIAL HYMENECTOMY 2002 PAST SURGICAL HISTORY OF 02/03/2020 fibroadenoma PAST SURGICAL HISTORY OF Right 1998 shoulder SALPINGECTOMY 05/11/2018 FAMILY HISTORY Problem Relation Age of Onset other (hemochromatosis) Mother Hypothyroidism Mother other (hypercholesterolemia) Mother Diabetes Mother Diabetes Father type 2 Hypertension Father Heart Attack Father 62 bypass Heart Attack Maternal grandparent Stroke Paternal grandparent SOCIAL HISTORY Social History Tobacco Use Smoking status: Never Smokeless tobacco: Never Vaping Use Vaping status: Never Used Substance Use Topics Alcohol use: Yes Comment: occ Drug use: Never REVIEW OF SYSTEMS Abdomen: No abdominal pain, nausea, vomiting, diarrhea. Some constiption, not new for her No bloating, early satiety, indigestion, or increased flatulence. Bladder: No dysuria, gross hematuria, urinary frequency, urinary urgency, or incontinence. Breast: No breast lumps, nipple d/c, overlying skin changes, redness or skin retraction. Allergies and current medication updated:Yes SENSITIVE EXAM: The sensitive examination was discussed with the Patient or Patient's Authorized Cma. As applicable, any other physician, advance practice provider, medical student, or other health professional student that will be observing or involved in the sensitive examination for educational or training purposes was discussed with the Patient or Authorized Cma. The Patient or Authorized Cma has agreed to proceed with the sensitive examination. (Sensitive examination includes inspection and/or palpation of the breasts, pelvis, prostate and anorectal regions). EXAM: BP 114/64 Pulse 96 Resp 16 Ht 5' 4.5" (1.64m) Wt 116 lb (52.6kg) LMP 04/12/2024 BMI 19.61 kg/(m^2). GENERAL: pleasant, female in no apparent distress HEENT: Normocephalic, atraumatic, mucus membranes moist, and no lesions NECK: Supple, full range of motion, no adenopathy, and thyroid normal DERMATOLOGY: Normal, without lesions, non-icteric, and non-hirsute BREAST: soft, non-tender, symmetric, no dominant mass, normal nipple-areolar complex, no lymphadenopathy, and no nipple discharge CHEST: Normal inspiratory effort ABDOMEN: soft, non-tender, and no masses PELVIC: external genitalia normal, normal Bartholin's glands, urethra, Pageton's glands, no vulvar lesions, no cervical lesions, good vaginal support, physiologic discharge present, normal appearing perineal body and perianal region BIMANUAL: uterus normal size, shape and consistency, no adnexal masses, and non-tender RECTOVAGINAL: deferred. NEURO: alert and oriented x3,exam grossly non-focal EXTREMITIES: normal ASSESSMENT/PLAN: 1) Health maintenance: Pap/HPV up to date. Mammogram up to date . 2) Contraception: tubal sterilization. Contraceptive options reviewed and information provided. 3) STD screening: Declined STD check. 4) Follow up one year or sooner as needed no midcycle spotting this cycle, will get US after this menses and if polyp still noted will get D&C, if not will monitor. Does not want mirena for now Satish Narayan MD documented in this encounter [facility] 04-27-2024 History and physical note Pre-Op History and Physical HPI: The patient is a 38 year old female presenting for pre-operative visit. She is scheduled for Hysteroscopy D&C, possible polyp resection for mid cycle spotting and endometrial polyp on 05/25/24. Procedure discussed along with risks, benefits and complications. Other alternatives discussed for management. Consent form signed? Yes. PAST MEDICAL HISTORY Diagnosis Date Anxiety state POTS (postural orthostatic tachycardia syndrome) Tachycardia PAST SURGICAL HISTORY Procedure Laterality Date SECTION HX 01/09/2017 PARTIAL HYMENECTOMY 2002 PAST SURGICAL HISTORY OF 02/03/2020 fibroadenoma PAST SURGICAL HISTORY OF Right 1998 shoulder SALPINGECTOMY 05/11/2018 Current Outpatient Medications Medication Sig Dispense Refill hydrOXYzine HCl (ATARAX) 10 mg tablet TAKE ONE TABLET BY MOUTH THREE TIMES DAILY NEEDED FOR ANXIETY FOR 30 DAYS multivitamin/iron/folic acid (CENTRUM WOMEN ORAL) Take 1 tablet by mouth once daily. cyanocobalamin 1,000 mcg/mL inject ONE ML intramuscular every TWO WEEKS VITAMIN E ORAL 180 mg. cholecalciferol, vitamin D3, (VITAMIN D3 ORAL) Take by mouth. propranolol (INDERAL) 20 mg tablet Take 1 tablet by mouth every 12 hours. busPIRone (BUSPAR) 5 mg tablet 1-2 tabs (Patient not taking: Reported on 04/20/2024) cetirizine (ZYRTEC) 10 mg tablet Take 10 mg by mouth. Magnesium Citrate 150mg (Pure Encapsulations) Take 3 capsules daily. ALPRAZolam (XANAX) 0.25 mg tablet diphenhydrAMINE (BENADRYL) 25 mg capsule Take 25 mg by mouth. ibuprofen (MOTRIN) 200 mg tablet Take 200 mg by mouth. No current facility-administered medications for this visit. ALLERGIES: Moxifloxacin and Flagyl [Metronidazole] PERSONAL HISTORY: Social History Tobacco Use Smoking status: Never Smokeless tobacco: Never Vaping Use Vaping status: Never Used Substance Use Topics Alcohol use: Yes Comment: occ Drug use: Never FAMILY HISTORY: FAMILY HISTORY Problem Relation Age of Onset other (hemochromatosis) Mother Hypothyroidism Mother other (hypercholesterolemia) Mother Diabetes Mother Diabetes Father type 2 Hypertension Father Heart Attack Father 62 bypass Heart Attack Maternal grandparent Stroke Paternal grandparent REVIEW OF SYMPTOMS: GENERAL: denies fevers or chills ENDOCRINOLOGY: has not been on steroids Cardiology : denies palpitations or chest pain Respiratory: denies SOB or cough Hematology: denies history of prolonged bleeding or easy bruising or VTE Allergy: Denies history of personal or family history of allergy to anesthesia PHYSICAL EXAMINATION: VITALS: Blood pressure 114/64, pulse 96, resp. rate 16, height 163.8 cm (5' 4.5"), weight 52.6 kg (116 lb), last menstrual period 04/12/2024. GENERAL: The patient is well nourished, well hydrated in no acute distress. , The patient is oriented to time, place, and person. NECK: Supple. No lynphadenopathy, normal thyroid, no thyromegaly. LUNGS: Clear to auscultation bilaterally. no wheezes, rhonchi or rales HEART: Regular rate and rhythm, Normal heart sounds, and No murmurs or gallops IMPRESSION: midcycle spotting, endometrial polyp PLAN: The risks/benefits/alternatives and personal involved for the planned hysteroscopy D&C with possibble polyp resection were reviewed with the patient. Her questions were answered to her satisfaction and she desires to proceed. Consent was signed. I reviewed with her postop instructions and expectations. I have reviewed and updated past medical and surgical history, medications and allergies Satish Narayan M.D. [facility] 04-27-2024 History and physical note Pre-Op History and Physical HPI: The patient is a 38 year old female presenting for pre-operative visit. She is scheduled for Hysteroscopy D&C, possible polyp resection for mid cycle spotting and endometrial polyp on 05/25/24. Procedure discussed along with risks, benefits and complications. Other alternatives discussed for management. Consent form signed? Yes. PAST MEDICAL HISTORY Diagnosis Date Anxiety state POTS (postural orthostatic tachycardia syndrome) Tachycardia PAST SURGICAL HISTORY Procedure Laterality Date SECTION HX 01/09/2017 PARTIAL HYMENECTOMY 2001 PAST SURGICAL HISTORY OF 02/03/2020 fibroadenoma PAST SURGICAL HISTORY OF Right 1998 shoulder SALPINGECTOMY 05/11/2018 Current Outpatient Medications Medication Sig Dispense Refill hydrOXYzine HCl (ATARAX) 10 mg tablet TAKE ONE TABLET BY MOUTH THREE TIMES DAILY NEEDED FOR ANXIETY FOR 30 DAYS multivitamin/iron/folic acid (CENTRUM WOMEN ORAL) Take 1 tablet by mouth once daily. cyanocobalamin 1,000 mcg/mL inject ONE ML intramuscular every TWO WEEKS VITAMIN E ORAL 180 mg. cholecalciferol, vitamin D3, (VITAMIN D3 ORAL) Take by mouth. propranolol (INDERAL) 20 mg tablet Take 1 tablet by mouth every 12 hours. busPIRone (BUSPAR) 5 mg tablet 1-2 tabs (Patient not taking: Reported on 04/20/2024) cetirizine (ZYRTEC) 10 mg tablet Take 10 mg by mouth. Magnesium Citrate 150mg (Pure Encapsulations) Take 3 capsules daily. ALPRAZolam (XANAX) 0.25 mg tablet diphenhydrAMINE (BENADRYL) 25 mg capsule Take 25 mg by mouth. ibuprofen (MOTRIN) 200 mg tablet Take 200 mg by mouth. No current facility-administered medications for this visit. ALLERGIES: Moxifloxacin and Flagyl [Metronidazole] PERSONAL HISTORY: Social History Tobacco Use Smoking status: Never Smokeless tobacco: Never Vaping Use Vaping status: Never Used Substance Use Topics Alcohol use: Yes Comment: occ Drug use: Never FAMILY HISTORY: FAMILY HISTORY Problem Relation Age of Onset other (hemochromatosis) Mother Hypothyroidism Mother other (hypercholesterolemia) Mother Diabetes Mother Diabetes Father type 2 Hypertension Father Heart Attack Father 62 bypass Heart Attack Maternal grandparent Stroke Paternal grandparent REVIEW OF SYMPTOMS: GENERAL: denies fevers or chills ENDOCRINOLOGY: has not been on steroids Cardiology : denies palpitations or chest pain Respiratory: denies SOB or cough Hematology: denies history of prolonged bleeding or easy bruising or VTE Allergy: Denies history of personal or family history of allergy to anesthesia PHYSICAL EXAMINATION: VITALS: Blood pressure 114/64, pulse 96, resp. rate 16, height 163.8 cm (5' 4.5"), weight 52.6 kg (116 lb), last menstrual period 04/12/2024. GENERAL: The patient is well nourished, well hydrated in no acute distress. , The patient is oriented to time, place, and person. NECK: Supple. No lynphadenopathy, normal thyroid, no thyromegaly. LUNGS: Clear to auscultation bilaterally. no wheezes, rhonchi or rales HEART: Regular rate and rhythm, Normal heart sounds, and No murmurs or gallops IMPRESSION: midcycle spotting, endometrial polyp PLAN: The risks/benefits/alternatives and personal involved for the planned hysteroscopy D&C with possibble polyp resection were reviewed with the patient. Her questions were answered to her satisfaction and she desires to proceed. Consent was signed. I reviewed with her postop instructions and expectations. I have reviewed and updated past medical and surgical history, medications and allergies Satish Narayan M.D. documented in this encounter [facility] 04-20-2024 History of Present illness Narrative Karuna Gilbert is a 38 year old female who presents for problem visit for f/u irregular bleeding. HPI: 38 YOF w/ h/o irregular menses and mid cycle spotting. Attempted in office Endosee and EMB and unable to penetrate cervix. Had some spotting 2 weeks after that and now menses regular. Still has cramping and discomfort. But now they are back to being regular and no bleeding in between. No pain w/ intercourse other than right around menses. Gets cramping and doesn't feel well around menses. 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 Comments: Sexual Activity: Yes; Male Contraception: Tubal Ligation PAST MEDICAL HISTORY Diagnosis Date Anxiety state POTS (postural orthostatic tachycardia syndrome) Tachycardia PAST SURGICAL HISTORY Procedure Laterality Date SECTION HX 01/09/2017 PARTIAL HYMENECTOMY 2002 PAST SURGICAL HISTORY OF 02/03/2020 fibroadenoma PAST SURGICAL HISTORY OF Right 1998 shoulder SALPINGECTOMY 05/11/2018 FAMILY HISTORY Problem Relation Age of Onset other (hemochromatosis) Mother Hypothyroidism Mother other (hypercholesterolemia) Mother Diabetes Mother Diabetes Father type 2 Hypertension Father Heart Attack Father 62 bypass Heart Attack Maternal grandparent Stroke Paternal grandparent Social History Tobacco Use Smoking status: Never Smokeless tobacco: Never Vaping Use Vaping status: Never Used Substance Use Topics Alcohol use: Yes Comment: occ Drug use: Never Current Outpatient Medications Medication Sig hydrOXYzine HCl (ATARAX) 10 mg tablet TAKE ONE TABLET BY MOUTH THREE TIMES DAILY NEEDED FOR ANXIETY FOR 30 DAYS cyanocobalamin 1,000 mcg/mL inject ONE ML intramuscular every TWO WEEKS VITAMIN E ORAL 180 mg. cholecalciferol, vitamin D3, (VITAMIN D3 ORAL) Take by mouth. propranolol (INDERAL) 20 mg tablet Take 1 tablet by mouth every 12 hours. cetirizine (ZYRTEC) 10 mg tablet Take 10 mg by mouth. Magnesium Citrate 150mg (Pure Encapsulations) Take 3 capsules daily. ALPRAZolam (XANAX) 0.25 mg tablet diphenhydrAMINE (BENADRYL) 25 mg capsule Take 25 mg by mouth. ibuprofen (MOTRIN) 200 mg tablet Take 200 mg by mouth. busPIRone (BUSPAR) 5 mg tablet 1-2 tabs (Patient not taking: Reported on 04/20/2024) No current facility-administered medications for this visit. Allergies As of Date: 04/20/2024 Allergen Noted Reaction MOXIFLOXACIN 02/21/2020 GI Upset and Vomiting FLAGYL [METRONIDAZOLE] 03/22/2022 GI Upset and Vomiting Fully Assessed 02/24/2024 Allergies and current medication updated:Yes SENSITIVE EXAM: The sensitive examination was discussed with the Patient or Patient's Authorized Cma. As applicable, any other physician, advance practice provider, medical student, or other health professional student that will be observing or involved in the sensitive examination for educational or training purposes was discussed with the Patient or Authorized Cma. The Patient or Authorized Cma has agreed to proceed with the sensitive examination. (Sensitive examination includes inspection and/or palpation of the breasts, pelvis, prostate and anorectal regions). EXAM: Wt 117 lb (53.1kg) LMP 04/10/2024 GENERAL: pleasant, female in no apparent distress ASSESSMENT AND PLAN: Assessment & Plan Abnormal uterine bleeding (AUB) Orders: PELVIC US WHI; Future Stenotic cervical os Endometrial polyp Orders: PELVIC US WHI; Future r/b/a to hysteroscopy D&C w/ or without mirena IUD, medical management or endoemtrial ablation reviewed, questions answered. She will consider. Does not really want surgery. D/w her option is repeat US In 1-2 months to reeval for polyp as risk of underllying ca is low. US can over and under dx polyps. Reviewed w/ her this. She will consider. F/u US next week. Reveiwed CBC, FE studies and TSH she brought from blood work done in January 2024. Questions answered. Satish Narayan MD documented in this encounter [facility] 03-24-2024 Telephone encounter Note Patient notified of surgery date on 05/25. Phone pat 05/16 at 11 am. [facility] 03-24-2024 Miscellaneous Notes Patient notified of surgery date on 05/25. Phone pat 11 at 11 am. Oni- see below regarding insurance question. In addition, patient states she wants 05/25 surgery date instead. Mary Howell RN Patient notified.She will keep 05/11 surgery date then. Decline medication to stop menses for now. Will forward to Emily regarding insurance to be sure. Her appointment is scheduled with RR 04/27/24. Lashay Ribeiro RN She can be on ibuprofen for this surgery, she doesn't have to stop it. Do we and the hospital take her insurance? I can give her something to slow her bleeding or help hold off her period. I don't see an appointment on the on my schedule. Satish Narayan MD Patient was offered 05/11 and 05/25 for a Hysteroscopy D&C with polyp removal. She has an annual on 04/27 to discuss surgery and wanted 05/11 surgery date. States she will be on the heaviest days of her menses on 05/11 and wants 05/25. She needs to be on Ibuprofen for the pain and concerned she would be told to discontinue taking prior to surgery. She may or may not want to keep the 05/11. Aware a message would be sent to RR and irrigation worker. Mary Howell RN documented in this encounter [facility] 03-23-2024 Telephone encounter Note Oni- see below regarding insurance question. In addition, patient states she wants 05/25 surgery date instead. Mary Howell RN [facility] 03-21-2024 Telephone encounter Note Patient notified.She will keep 05/11 surgery date then. Decline medication to stop menses for now. Will forward to Emily regarding insurance to be sure. Her appointment is scheduled with RR 04/27/24. Lashay Ribeiro RN [facility] 03-21-2024 Telephone encounter Note She can be on ibuprofen for this surgery, she doesn't have to stop it. Do we and the hospital take her insurance? I can give her something to slow her bleeding or help hold off her period. I don't see an appointment on the on my schedule. Satish Narayan MD [facility] 03-21-2024 Telephone encounter Note Patient was offered 05/11 and 05/25 for a Hysteroscopy D&C with polyp removal. She has an annual on 04/27 to discuss surgery and wanted 05/11 surgery date. States she will be on the heaviest days of her menses on 05/11 and wants 05/25. She needs to be on Ibuprofen for the pain and concerned she would be told to discontinue taking prior to surgery. She may or may not want to keep the 05/11. Aware a message would be sent to RR and irrigation worker. Mary Howell RN [facility] 03-04-2024 History of Present illness Narrative Karuna Gilbert is a 38 year old female who presented for bit sander ultrasound today. Encounter Diagnosis ICD-10-CM 1. Abnormal uterine bleeding (AUB) N93.9 Please see report under imaging tab. Krystyna Díaz MD March 04, 2024 11:43 AM documented in this encounter [facility] 03-02-2024 Telephone encounter Note Patient notified. Mary Howell RN [facility] 03-02-2024 Miscellaneous Notes Patient notified. Mary Howell RN This is normal and she may continue to have some light bleeding or spotting until her next menses. Satish Narayan MD Patient had Endosee and EMB for AUB. Pelvic US done today. Awaiting results. States that after her EMB she had some light spotting, but now it's a little heavier than a light menstrual flow. Patient asking if this is normal and how long she should expect to have bleeding. States it was a little difficult with her stenosis. Mary Howell RN documented in this encounter [facility] 03-02-2024 Telephone encounter Note This is normal and she may continue to have some light bleeding or spotting until her next menses. Satish Narayan MD [facility] 03-02-2024 Telephone encounter Note Patient had Endosee and EMB for AUB. Pelvic US done today. Awaiting results. States that after her EMB she had some light spotting, but now it's a little heavier than a light menstrual flow. Patient asking if this is normal and how long she should expect to have bleeding. States it was a little difficult with her stenosis. Mary Howell RN [facility] 02-24-2024 History of Present illness Narrative Karuna Gilbert is a 38 year old female who presents for problem visit for problems w/ menses . HPI: 38 YOF usually 26- 28 days and last about a week. However, one was 21 days and had some spotting and some pain around ovulation. Has had that intermittently. Now had some spotting between and had some spotting during sex. Somewhat more cramping w/ menses than 5 years ago but not much else as far as changes. Does pass some clots. 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 Comments: Sexual Activity: Yes; Male Contraception: Tubal Ligation PAST MEDICAL HISTORY No date: Anxiety state No date: POTS (postural orthostatic tachycardia syndrome) No date: Tachycardia PAST SURGICAL HISTORY 01/09/2017: SECTION HX 2002: PARTIAL HYMENECTOMY 02/03/2020: PAST SURGICAL HISTORY OF Comment: fibroadenoma 1998: PAST SURGICAL HISTORY OF; Right Comment: shoulder 05/11/2018: SALPINGECTOMY FAMILY HISTORY Problem Relation Age of Onset other (hemochromatosis) Mother Hypothyroidism Mother other (hypercholesterolemia) Mother Diabetes Mother Diabetes Father type 2 Hypertension Father Heart Attack Father 62 bypass Heart Attack Maternal grandparent Stroke Paternal grandparent Social History Tobacco Use Smoking status: Never Smokeless tobacco: Never Vaping Use Vaping status: Never Used Substance Use Topics Alcohol use: Yes Comment: occ Drug use: Never Current Outpatient Medications Medication Sig cyanocobalamin 1,000 mcg/mL inject ONE ML intramuscular every TWO WEEKS VITAMIN E ORAL 180 mg. cholecalciferol, vitamin D3, (VITAMIN D3 ORAL) Take by mouth. propranolol (INDERAL) 20 mg tablet Take 1 tablet by mouth every 12 hours. busPIRone (BUSPAR) 5 mg tablet 1-2 tabs cetirizine (ZYRTEC) 10 mg tablet Take 10 mg by mouth. Magnesium Citrate 150mg (Pure Encapsulations) Take 3 capsules daily. ALPRAZolam (XANAX) 0.25 mg tablet diphenhydrAMINE (BENADRYL) 25 mg capsule Take 25 mg by mouth. ibuprofen (MOTRIN) 200 mg tablet Take 200 mg by mouth. Biocidin Advanced Formula (Microlaunchers) Take 5 Drops by mouth three times daily. (Patient not taking: Reported on 02/24/2024) cyclobenzaprine (FLEXERIL) 5 mg tablet Take 5 mg by mouth. (Patient not taking: Reported on 02/24/2024) No current facility-administered medications for this visit. Allergies As of Date: 02/24/2024 Allergen Noted Reaction MOXIFLOXACIN 02/21/2020 GI Upset and Vomiting FLAGYL [METRONIDAZOLE] 03/22/2022 GI Upset and Vomiting Fully Assessed 02/24/2024 Allergies and current medication updated:Yes EXAM: BP 106/70 Wt 117 lb (53.1kg) LMP 02/13/2024 GENERAL: pleasant, female in no apparent distress external genitalia normal, normal Bartholin's glands, urethra, Pageton's glands, no vulvar lesions, no cervical lesions, good vaginal support, physiologic discharge present, normal appearing perineal body and perianal region, cervix very flush BIMANUAL: uterus normal size, shape and consistency, no adnexal masses, and non-tender ASSESSMENT AND PLAN: AUB_ had TSH and CBC recently at work and were normal so will not repeat recommend EMB pelvic US consider enodosee for eval consider mirena for treatment MD Karuna Kendall presents for hysteroscopy. Indication: Menorrhagia and Irregular Bleeding. Age: [age] year old LMP: Patient's last menstrual period was 02/13/2024 (exact date). Contraception: tubal ligation test: negative VS: BP 106/70 Wt 117 lb (53.1kg) LMP 02/13/2024 UNIVERSAL PROTOCOL / SAFETY CHECKLIST Procedure to be Performed: Endosee and EMB Sign In: A Moment of CARE was completed. Personnel directly involved with the procedure wore the appropriate PPE (Personal Protective Equipment). Patient/Surrogate Stated/Verified: PATIENT VERIFIED(optional for EMERGENT procedures): Patient name, Date of , Relevant allergies, and The intended procedure Time Out Communication: Intended patient and procedure match the source documents. Consent documented and matches the intended procedure. No implant(s) inserted. Sign Out: SIGN OUT (optional for EMERGENT procedures): All specimen containers correctly labeled. All instruments, equipment, possible retained foreign bodies accounted for. Post-procedure follow-up management communicated and Plan of Care Visit completed when applicable. Maribel Gupta [place] OBJECTIVE: Cervix cleaned with betadine. A single tooth tenaculum was used to grasp cervix. Cervix was dilated. Under sterile conditions, using 15 mL normal saline as distention, ENDOSEE hysteroscopy performed without incident. No endocervical lesions seen. Endometrial biopsy performed. Used a dilator and still unable to penetrate internal cervical os w/ endosee, dilator or emb pipelle. Attempted EmB but likely will just be endocervical PROCEDURE SUMMARY: Patient tolerated procedure well. ASSESMENT: Menorrhagia and Irregular Bleeding out visible endometrial cavity hysteroscopy. PLAN: stenotic cervix, wait for US considering mirena consider OR hysteroscopy D&C and mirena depending on results Satish Narayan MD documented in this encounter [facility] 08-26-2023 History of Present illness Narrative Program_ID:[id number] Access Code: [email or web address] URL: [email or web address] Date: 08-26-2023 Prepared By: Iliana Program Notes Exercises - Seated Pelvic Floor Contraction - 1 x daily - x weekly - 3 sets - 10 reps - Seated Pelvic Floor Contraction - 1 x daily - x weekly - 2 sets - 10 reps - Seated Hip Adduction Isometrics with Ball - 1 x daily - x weekly - 3 sets - 10 reps - Supine Bridge - 1 x daily - x weekly - 10 sets - 10 reps - Clamshell - 1 x daily - x weekly - 2 sets - 10 reps - Sidelying Hip Abduction - 1 x daily - x weekly - 2 sets - 10 reps - Standing Hip Abduction with Counter Support - 1 x daily - x weekly - 2 sets - 10 reps - Standing Hip Extension with Counter Support - 1 x daily - x weekly - 2 sets - 10 reps - Mini Squat with Counter Support - 1 x daily - x weekly - 2 sets - 10 reps Patient Education - cc Pelvic Floor - Knack Technique - cc Pelvic Floor - Bladder Adelfo - Irritants - cc Pelvic Floor - Bladder Retention and Urge Suppression - cc Pelvic Floor - Bladder Health & Emptying Techniques - cc Pelvic Floor - Bladder Emptying Ideas Episode Visit Count: 3 Therapist That Will Accept/Oversee The Plan Of Care: Ilinaa Cunningham Start of Care Date: 06/25/23 Onset Date: 12/24/21 Patient Identified by Name and Date of : Yes REHABILITATION AND SPORTS THERAPY PHYSICAL THERAPY DISCONTINUANCE OF CARE PLAN OF CARE UPDATE: Assessment: Karuna Gilbert is discontinued from Physical Therapy services due to goal achievement and maximal benefit.. Patient was seen for 3 visits from Start of Care Date: 06/25/23 to 08/26/2023 and treatment included: Therapeutic exercise and Self-retirement management. Goals for Episode of Care: created on 06/25/23 Updated on: 07/26/23, 08/26/23 Patient demonstrates independence and compliance with home exercise Program.-MET Patient to increase strength of pelvic floor to Power: at least 3/5 in order to improve bladder control.-MET Patient to increase endurance of pelvic floor to at least 6 seconds to improve bladder control-MET Patient reports at least 85% improvement in bladder leaks while coughing/sneezing compared to evaluation in order to increase bladder function in activities of daily living. -MET Patient Goals: improve bladder function SUBJECTIVE: Pt reports noticing caffeine triggers some urgency, otherwise feels good. Pt reports a couple instances of small dribbles of SHIRA, otherwise feels a lot better. Pt reports good compliance with HEP, feels comfortable continuing on her own at home. Pain: Pain Pain Level: 0 Post Treatment Pain Post Treatment Pain Level: 0 PROMIS Scales Higher is Better 06/25/2023 Phys Func - Score 53 (within normal limits) Phys Func - Percentile 62% Self-Eff Symptom - Score 49 (Average) Self-Eff Symptom - Percentile 46% T-scores: mean of general population = 50. 5 points is clinically meaningfully difference Percentiles provide an indication of how the patient's score ranks in relation to the general population. Higher percentile rankings indicate better function/quality of life. 50th percentile is the average of the general population and indicates half of respondents had a worse score. OBJECTIVE MEASURES WITH LEVEL OF FUNCTION: Pelvic Floor Stress Incontinence: No Pelvic Floor Muscle Assessment Consent for pelvic assessment/testing and treatment: Patient was educated regarding pelvic floor physical therapy assessment/treatment which may include pelvic floor and girdle muscle assessment externally or internally (vaginal or rectal approach)., Patient verbalized consent for the above treatment approaches today. Patient understands they have control of the treatment and an opportunity to stop treatment at any time. Pelvic Floor Muscle Assessment: PERFECT, Muscle Dynamics Power: 3 Endurance: 5 Fast Reps: 10 Contracton Pressure: Moderate squeeze, felt all the way around finger surface Duration of Contraction: >3 seconds Recruitment of pelvic floor muscles: Coordinated Range of Motion: Normal Ability to Lengthen pelvic floor: Yes Pelvic Floor Manual Assessment Pelvic Floor Tenderness/Hyperactivity: Tested Vaginally in Tested Vaginally in : Supine/hooklying (No tightness/tenderness noted.) TREATMENT: Therapeutic Exercise: 1: Reassessment 2: standing quick kegals, 1x10 3: *standing hip abduction with PF bracing, 2x10 4: *standing hip extension with PF bracing, 2x10 5: *mini-squats with PF bracing, 2x10 6: sit to stand with PF bracing, 2x10 7: Discussed discharge planning Skilled Intervention: Patient was educated in proper exercise technique and purpose for exercises. Reviewed and educated patient on additions/changes for home exercise program as above (*). Skilled judgment was used in selection of appropriate interventions. Provided written instruction for home exercise program to facilitate proper performance and compliance. Billing Therapeutic Exercise Treatment Minutes: 40 Skilled Treatment Time Minutes (timed and untimed codes): 40 Total Session Time (minutes): 40 Session Start Time : 1008 Session Stop Time : 1048 Iliana Cunningham PT documented in this encounter [facility] 04-26-2023 History of Present illness Narrative Karuna is a 37 year old who presents for an annual gynecologic exam without complaints. Has h/o atypical lobular hyperplasia of breast so follows / [facility] breast center and doing alternating MRI and mammograms so imaged q 6 months. Has been told she is a candidate for tamoxifen for risk reduction. Menses: cycles every 28 days and 5 days of flow. Contraception: tubal sterilization HPV vaccine: No Last Pap: normal HPV: negative History of abnormal pap: No Last mammogram: up date Sexually active: Yes OB History T0 L2 SAB0 IAB0 Ectopic0 Multiple1 Live Births2 Comment: Dar [employer] History LMP: 04/06/2023 (Approximate), Having periods Age at Menarche: Age at First : Age at Menopause: [employer] History Comments: Sexual Activity: Yes; Male Contraception: Tubal Ligation PAST MEDICAL HISTORY Diagnosis Date Anxiety state POTS (postural orthostatic tachycardia syndrome) Tachycardia PAST SURGICAL HISTORY Procedure Laterality Date SECTION HX 01/09/2017 PARTIAL HYMENECTOMY 2002 PAST SURGICAL HISTORY OF 02/03/2020 fibroadenoma PAST SURGICAL HISTORY OF Right 1998 shoulder SALPINGECTOMY 05/11/2018 FAMILY HISTORY Problem Relation Age of Onset other (hemochromatosis) Mother Hypothyroidism Mother other (hypercholesterolemia) Mother Diabetes Mother Diabetes Father type 2 Hypertension Father Heart Attack Father 62 bypass Heart Attack Maternal grandparent Stroke Paternal grandparent SOCIAL HISTORY Social History Tobacco Use Smoking status: Never Smokeless tobacco: Never Vaping Use Vaping Use: Never used Substance Use Topics Alcohol use: Yes Comment: occ Drug use: Never REVIEW OF SYSTEMS Abdomen: No abdominal pain, nausea, vomiting, diarrhea, or constipation. No bloating, early satiety, indigestion, or increased flatulence. Bladder: No dysuria, gross hematuria, urinary frequency, urinary urgency, or incontinence. Breast: No breast lumps, nipple d/c, overlying skin changes, redness or skin retraction. Allergies and current medication updated:Yes EXAM: BP 104/64 Wt 136 lb (61.7kg) LMP 04/06/2023 GENERAL: pleasant, female in no apparent distress HEENT: Normocephalic, atraumatic, mucus membranes moist, and no lesions NECK: Supple, full range of motion, no adenopathy, and thyroid normal DERMATOLOGY: Normal, without lesions, non-icteric, and non-hirsute BREAST: soft, non-tender, symmetric, no dominant mass, normal nipple-areolar complex, no lymphadenopathy, and no nipple discharge CHEST: Normal inspiratory effort ABDOMEN: soft, non-tender, and no masses PELVIC: external genitalia normal, normal Bartholin's glands, urethra, Pageton's glands, no vulvar lesions, no cervical lesions, good vaginal support, physiologic discharge present, normal appearing perineal body and perianal region BIMANUAL: uterus normal size, shape and consistency, no adnexal masses, and non-tender RECTOVAGINAL: deferred. NEURO: alert and oriented x3,exam grossly non-focal EXTREMITIES: normal ASSESSMENT/PLAN: 1) Health maintenance: Pap done with HPV. HPV vaccine: discussed, not interested 2) Contraception: tubal sterilization. Contraceptive options reviewed and information provided. 3) STD screening: Declined STD check. 4) Follow up one year or sooner as needed Satish Narayan MD documented in this encounter [facility] 03-12-2023 History of Present illness Narrative Images from the original note were not included. Chief Complaint Patient presents with Follow-up HR patient with hx of left breast ALH. Former pt of Dr. Nicole's, who removed a left breast fibroadenoma. Here to establish care with a surgeon. States she has bilateral breast pain in her outer portion of both breasts, does notice it more at the time of ovulation, says right side is usually worse and pain goes up to her axillary area History of Present Illness: Karuna Gilbert is a 37 y.o. female here for HR FU She had a fibroadenoma removed in 2019 and found to have ALH ( Dr. Nicole) She did not take tamoxifen at that time She was first seen in the breast center on 08/11/2021 for high risk management. Lifetime risk of breast cancer by Cayla-Jason v8: 43% High Risk follow up: Last Mammogram: 04/21/2022 - BIRADS 1 Last Breast MRI: 10/2022 - BIRADS 1 Genetic testing: [facility] expanded panel genetic testing 08/2021 negative for deleterious mutation. VUS NTHL1 (p.A11S) Breast density D BMI 22 She has a family history of breast cancer in her maternal first cousin once removed in her 30s, paternal first cousin once removed at an unknown age, and paternal great aunt at an unknown age. Imaging: [facility] Breast Tomosynthesis BI Scr) screening Report TIME SINCE LAST MAMMOGRAM: Last mammogram was performed 1 year ago. REASON FOR EXAM: screening, asymptomatic. PHYSICAL FINDINGS: Performed by: Ivania Landers PROCEDURE: MG BREAST TOMOSYNTHESIS BL SCR: APRIL 20, 2022 - 2D/3D Procedure 3D Bilateral CC and MLO view(s) were taken. 2D Bilateral CC and MLO view(s) were taken. Prior study comparison: April 14, 2021, bilateral mammogram performed at [facility]. TISSUE DENSITY: BIRADS D - The breast tissue is extremely dense, which may lower the sensitivity of mammography. . RISK ALERT: The Cancer Risk Assessment scores below the recommendation of this report contain an outcome above the normal risk range. PATIENT CANCER HISTORY: No Personal History of Cancer FAMILY CANCER HISTORY: Maternal Uncle Kidney Cancer, Kidney or Bladder Cancer age 55 Maternal Cousin (Female) Uterine Cancer Paternal Uncle Skin Cancer (Non-Melanoma) age 60 Paternal Grandfather's Mother Leukemia Paternal Sister of paternal GF Lung Cancer Paternal Sister of paternal GF Breast Cancer Maternal Cousin Uterine Cancer age 36 FINDINGS: No suspicious masses, architectural distortions or suspiciously clustered microcalcifications are identified. There is no evidence of skin thickening or nipple retraction. There are no significant changes when compared with prior studies. No mammographic evidence of malignancy. Mammography Report Markings on images: BB's = Nipples; skin lesions Open mesa grande = Palpable Line = Scar 2D digital mammography and tomosynthesis imaging were performed and reviewed with CAD. ASSESSMENT: Category 1 Negative RECOMMENDATION: Routine screening mammogram of both breasts in 1 year. . Report Dictated on Cancer Risk Assessment: This risk assessment is based on patient provided information collected in a risk survey taken at the time of this examination. Lifetime breast cancer risk: Tyrer-Cuzick v8 43.11% - If greater than or equal to 20%, consider annual mammogram and annual screening Breast MRI or follow up in high risk clinic. A score of "Average Risk" indicates a score of less than 20%. Is the patient at elevated risk based on the HBOC criteria? No (Hereditary Breast and Ovarian Cancer) - If yes, consider genetic counseling and testing with high risk follow up. Is the patient at elevated risk based on the Bueno Syndrome criteria? No - If yes, consider genetic counseling and testing with high risk follow up.MRI TECHNIQUE: Clinical Indication: Breast MRI Screening - High-risk annual. Clinical Indication: History of atypical hyperplasia of the breast, increased risk of breast cancer, dense breast tissue Contrast: Gadavist 6.0 mL IV. Bilateral breast MRI was performed with a dedicated breast coil. Fat saturated T2 weighted and T1 weighted axial images were obtained of both breasts. Dynamic pre-and post contrast axial image sets were obtained of both breasts after intravenous injection of gadolinium based contrast. Delayed post contrast sagittal images were also obtained. Subtraction images and MIP images were generated. Interpretation was made in conjunction with CAD. The patient's prior imaging was reviewed. FINDINGS: There is moderate bilateral background enhancement. Right Breast: There is no suspicious mass or non-mass enhancement in the right breast. Left Breast: There is no suspicious mass or non-mass enhancement in the left breast. Other: No axillary or internal mammary lymphadenopathy is appreciated. IMPRESSION: No MRI evidence of malignancy in either breast. ASSESSMENT: Category 1 Negative RECOMMENDATION: Breast MRI in 1 year Bilateral COMMENTS: The patient is due for her bilateral screening mammogram in April 2023. Review of Systems: Review of Systems Constitutional: Negative for appetite change, diaphoresis, fatigue, fever and unexpected weight change. HENT: Negative for trouble swallowing and voice change. Eyes: Negative for visual disturbance. Respiratory: Negative for apnea, cough, choking, shortness of breath and stridor. Cardiovascular: Negative for chest pain. Endocrine: Negative for cold intolerance and heat intolerance. Musculoskeletal: Negative for arthralgias, joint swelling, myalgias and neck pain. Skin: Negative for color change and rash. Allergic/Immunologic: Negative for immunocompromised state. Neurological: Negative for dizziness, tremors, weakness, numbness and headaches. Hematological: Negative for adenopathy. Psychiatric/Behavioral: Negative for decreased concentration and dysphoric mood. The patient is nervous/anxious. Past Medical History: Diagnosis Date Anxiety Atypical hyperplasia of breast Eczema Fibroadenoma of breast, left SCHEDULED FOR THE SURGERY ON 02/26/20 IBS (irritable bowel syndrome) Past Surgical History: Procedure Laterality Date BREAST SURGERY Left fibroadenoma removal SECTION (HISTORICAL) 2017 [facility] ; [facility] COLONOSCOPY FRACTURE SURGERY Left 1997 shoulder SALPINGECTOMY Bilateral 2018 WISDOM TOOTH EXTRACTION Allergies Allergen Reactions Moxifloxacin Nausea Only, Nausea And Vomiting and Unknown Metronidazole Nausea Only and Nausea And Vomiting BP 119/80 (BP Location: Left arm, Patient Position: Sitting) Pulse 85 Temp 36.7 C (98 F) (Temporal) Resp 16 Ht 5' 4.5" (1.638 m) Wt 135 lb (61.2 kg) BMI 22.81 kg/m Current Outpatient Medications on File Prior to Visit Medication Sig Dispense Refill alpha tocopherol (Vitamin E) 100 units capsule Take 100 Units by mouth daily. ALPRAZolam (Xanax) 0.25 MG tablet busPIRone (Buspar) 5 MG tablet cetirizine (ZyrTEC) 10 MG tablet Take 10 mg by mouth daily. Cholecalciferol (D3 2000 PO) Take by mouth. cyclobenzaprine (Flexeril) 5 MG tablet MAGNESIUM GLUCONATE PO Take 25 mg by mouth in the morning. propranolol (Inderal) 10 MG tablet No current facility-administered medications on file prior to visit. Physical Exam: Physical Exam Constitutional: Appearance: Normal appearance. She is normal weight. HENT: Head: Normocephalic and atraumatic. Eyes: Extraocular Movements: Extraocular movements intact. Conjunctiva/sclera: Conjunctivae normal. Pupils: Pupils are equal, round, and reactive to light. Cardiovascular: Rate and Rhythm: Normal rate and regular rhythm. Pulses: Normal pulses. Pulmonary: Effort: Pulmonary effort is normal. Breath sounds: Normal breath sounds. No stridor. Chest: Chest wall: No deformity, tenderness or edema. Breasts: Breasts are symmetrical. Right: No swelling, inverted nipple, mass, nipple discharge, skin change or tenderness. Left: No swelling, inverted nipple, mass, nipple discharge, skin change or tenderness. Musculoskeletal: General: No swelling, tenderness or deformity. Normal range of motion. Cervical back: Normal range of motion and neck supple. No rigidity or tenderness. Right lower leg: No edema. Left lower leg: No edema. Lymphadenopathy: Cervical: No cervical adenopathy. Right cervical: No superficial, deep or posterior cervical adenopathy. Left cervical: No superficial, deep or posterior cervical adenopathy. Upper Body: Right upper body: No supraclavicular, axillary or pectoral adenopathy. Left upper body: No supraclavicular, axillary or pectoral adenopathy. Skin: General: Skin is warm and dry. Coloration: Skin is not jaundiced or pale. Findings: No erythema, lesion or rash. Neurological: General: No focal deficit present. Mental Status: She is alert and oriented to person, place, and time. Motor: No weakness. Gait: Gait normal. Psychiatric: Mood and Affect: Mood normal. Behavior: Behavior normal. Thought Content: Thought content normal. Assessment: 1. Increased risk of breast cancer 2. Dense breast tissue 3. History of atypical hyperplasia of breast We discussed HR surveillance and also Tamoxifen Both 20 mg and Baby Palmer ( 10 mg every other day) Discussed that tamoxifen reduces risk of subsequent breast cancer by 50% Risks of tamoxifen include but not limited to uterine cancer, thromboembolic events, cataracts Plan: Patient is to continue yearly mammogram, physical exam and call if any questions or concerns. Maintain/ strive for healthy weight and exercise regularly. She will call if she wants to start tamoxifen HR FU 6 mos Julisa Armas MD 03/12/2023 Please disregard any typographical errors. This note was dictated using voice recognition software. documented in this encounter [facility] 08-31-2022 History of Present illness Narrative Images from the original note were not included. Karuna Gilbert is a 36 y.o. F here for follow up high risk breast cancer surveillance Breast History: 1. She was first seen in the breast center on 08/11/2021 for high risk management. Lifetime risk of breast cancer by Tyrer-Cuzick v8: 43% High Risk follow up: Last Mammogram: 04/21/2022 - BIRADS 1 Last Breast MRI: 09/22/2021 - BIRADS 1 Genetic testing: [facility] expanded panel genetic testing 08/2021 negative for deleterious mutation. VUS NTHL1 (p.A11S) 2. She has a family history of breast cancer in her maternal first cousin once removed in her 30s, paternal first cousin once removed at an unknown age, and paternal great aunt at an unknown age. 3. Breast imaging includes: Screening mammogram 04/21/2022 TISSUE DENSITY: BIRADS D - The breast tissue is extremely dense, which may lower the sensitivity of mammography. . RISK ALERT: The Cancer Risk Assessment scores below the recommendation of this report contain an outcome above the normal risk range. PATIENT CANCER HISTORY: No Personal History of Cancer FAMILY CANCER HISTORY: Maternal Uncle Kidney Cancer, Kidney or Bladder Cancer age 55 Maternal Cousin (Female) Uterine Cancer Paternal Uncle Skin Cancer (Non-Melanoma) age 60 Paternal Grandfather's Mother Leukemia Paternal Sister of paternal GF Lung Cancer Paternal Sister of paternal GF Breast Cancer Maternal Cousin Uterine Cancer age 36 FINDINGS: No suspicious masses, architectural distortions or suspiciously clustered microcalcifications are identified. There is no evidence of skin thickening or nipple retraction. There are no significant changes when compared with prior studies. No mammographic evidence of malignancy. Mammography Report Markings on images: BB's = Nipples; skin lesions Open mesa grande = Palpable Line = Scar 2D digital mammography and tomosynthesis imaging were performed and reviewed with CAD. ASSESSMENT: Category 1 Negative RECOMMENDATION: Routine screening mammogram of both breasts in 1 year. Breast MRI 09/22/2021 FINDINGS: There is mild bilateral background enhancement. Right Breast: There is no suspicious mass or non-mass enhancement in the right breast. Left Breast: There is no suspicious mass or non-mass enhancement in the left breast. Other: No axillary or internal mammary lymphadenopathy is appreciated. IMPRESSION: No MRI evidence of malignancy in either breast. ASSESSMENT: Category 1 Negative RECOMMENDATION: Breast MRI of both breasts in 1 year. 4. She has a history of a fibroadenoma in her left breast. She had two biopsies of this area in the past that returned benign fibroadenoma. However, after her most recent needle core biopsy 10/2019, she felt this area was enlarging and opted for surgical excision. She underwent left breast surgical excision with Dr. Nicole 02/26/2020 and final pathology returned fibroadenoma with atypical lobular hyperplasia. 5. She has no other breast history. At her visit one year ago, she reported intermittent right breast pain. Right breast ultrasound 08/25/2021 was negative. She did have a normal breast MRI 09/22/2021 and normal screening mammogram 04/21/2022. She has been tracking this pain and feels it does correlate with her menstrual cycles. The pain has not changed. She has no concerns today. She denies breast mass, skin change, nipple change, nipple discharge. 6. Continued high risk follow-up recommended. We discussed this and she is agreeable. We again discussed tamoxifen for chemoprevention. Risk and benefits of tamoxifen discussed including the side effects of hot flashes, night sweats, irregular bleeding, and a slightly increased risk of developing blood clots and uterine cancer. She declines at this time. She notes Dr. Nicole previously recommended she wait until age 38 to start Tamoxifen. Patient is considering starting this medication in the next few years. Risk Factors: Menarche: 11 Age of first : 31; G1, P2; she has twin 5-year-old daughters Menopause: Pre; LMP 08/10/2022. She follows annually with [facility] Dr. Vargas at [facility]. Next [employer] summer 2022. Physical Activity: She jogs outside when the weather is nice and uses elliptical indoors during the winter. We discussed the [employer] recommends that adults get at least 150 minutes of moderate intensity or 75 minutes of vigorous intensity activity each week Nutrition: She follows a healthy diet. She recently started using a meal subscription service which she really likes. We discussed a plant based diet and limiting added hormones in her meat and dairy. Weight: Stable; BMI 22.31 Smoking: Never ETOH: 2 glasses of wine per week Family Cancer History includes: Paternal great grandmother with leukemia Maternal uncle with kidney cancer Paternal uncle with nonmelanoma skin cancer Maternal cousin with uterine cancer Paternal great aunt with breast cancer Paternal great aunt with lung cancer Maternal first cousin once removed with breast cancer in her 30s Paternal first cousin once removed with breast cancer at an unknown age Medical History includes: has a past medical history of Anxiety, Atypical hyperplasia of breast, Eczema, Fibroadenoma of breast, left, and IBS (irritable bowel syndrome). She has no past medical history of PONV (postoperative nausea and vomiting). Surgical History includes : Past Surgical History: Procedure Laterality Date BREAST SURGERY Left fibroadenoma removal SECTION (HISTORICAL) 2017 [facility] ; [facility] COLONOSCOPY FRACTURE SURGERY Left 1997 shoulder SALPINGECTOMY Bilateral 2018 WISDOM TOOTH EXTRACTION Medications include: No current outpatient medications on file. No current facility-administered medications for this visit. Allergies include: Allergies as of 08/31/2022 (Not on File) Review of Systems Review of Systems Constitutional: Negative. HENT: Negative. Eyes: Negative. Respiratory: Negative. Cardiovascular: Negative. Gastrointestinal: Negative. Endocrine: Negative. Genitourinary: Negative. Musculoskeletal: Negative. Skin: Negative. Allergic/Immunologic: Negative. Neurological: Negative. Hematological: Negative. Psychiatric/Behavioral: Negative. Physical Exam Constitutional: General: She is not in acute distress. Appearance: Normal appearance. She is not ill-appearing. HENT: Head: Normocephalic and atraumatic. Pulmonary: Effort: Pulmonary effort is normal. No respiratory distress. Chest: Breasts: Breasts are symmetrical. Right: No inverted nipple, mass, nipple discharge, skin change or tenderness. Left: No inverted nipple, mass, nipple discharge, skin change or tenderness. Abdominal: Palpations: Abdomen is soft. Musculoskeletal: Cervical back: Normal range of motion and neck supple. Lymphadenopathy: Cervical: No cervical adenopathy. Upper Body: Right upper body: No axillary adenopathy. Left upper body: No axillary adenopathy. Skin: General: Skin is warm and dry. Neurological: General: No focal deficit present. Mental Status: She is alert and oriented to person, place, and time. Psychiatric: Mood and Affect: Mood normal. Behavior: Behavior normal. Assessment: This is a 36 y.o. woman who has an increased risk of breast cancer due to her personal history of atypical lobular hyperplasia. Recommend continued high risk follow up. Patient is agreeable to Clinical Breast Exams every 6-12 months. She will continue annual mammograms and breast MRIs. Today, we reviewed breast cancer risk reduction including a plant based diet, daily physical activity, limiting alcohol, and maintaining a lean body mass. Plan: Screening Becca- 04/2023 Breast MRI- 09/2022 Clinical Breast Exam every 6-12 months Follow up in 6 months Call with any questions or breast concerns ARTURO Price CNP documented in this encounter [facility] 06-11-2022 Instructions Krystyna Bañuelos APRN.SEAN - 06/11/2022 4:28 PM EST Plan and Lifestyle Prescription Plan/Instructions/Resources: Labs reviewed -Increase dietary Iron- please work closely with the Public Health Doctor -Vit D- Start 5000IU daily -Omegas- Start Omegagenics, increase dietary sources Orange 3: Can be vegan based -flaxseeds, [place], hemp seeds, walnuts, seaweed and soy-organic edamame, tofu/tempeh -Limit gluten considering genetic risk Consider LDN at follow-up- For inflammatory processes, gut motility, fatigue, central sensitization of pain, autoimmune Low Dose Naltrexone For more information please refer to: [email or web address] for more info Hold GI Revive and DGL for now For Gut Health Phase I- Do the following for two months- -Biocidin advanced herb- Biocidin is an herbal supplement designed to balance overgrowth of bacteria. Start with one drop twice daily and slowly increase one drop per day until up to total of 15 drops daily - continue this for 2 months. Take 20 minutes prior to eating a meal, can place on tongue or in water and sip. Avoid supplements 90 minutes after taking this herb. If having nausea or upset stomach with starting the herb, go slower and place in water to sip. Biocidin can be found on our site : Supplement store :https://store.[employer] om/ -Quicksilver Ultra Binder Sensitive This can help with the Herxheimer reaction ( off effect) you may experience. Mix 1 teaspoon into 8 ounces of water once daily. Take at least 30 minutes before or 2 hours after meals. https://www.Dryad/all-products/jjijw-fgxcpa-ahhs itive/ Phase II (split dosing) -Prebiotic: Biotagen 4 capsules daily (for two months) https://[employer]/products/biotagen-capsules -Probiotic: Biohm probiotic 1 capsules daily for three months - https://[employer]/products/rrxmh-xfpcofevu-yduumqb ent-1 -Gut barrier function and immune health: SBI protect- 4 capsules daily for 1 bottle- or powder form 1/2 scoop daily and increase as tolerated to 1 scoop (2.5 grams) in 4 ounces of water or the beverage of your choice 2 times daily https://[employer]/products/rbe-vrlvtlw-przzlthn Medications/Supplements Recommended: No orders of the defined types were placed in this encounter. Discussed the functional approach serves as an adjunct to patients current treatment regimen with subspecialties and PCP. Will obtain lab eval to evaluate for underlying micronutrient deficiencies, inflammation, and assess for dysbiosis. Pt aware that they will be contacted with critical results via [employer]. Additional supplement and lab interpretation to be discussed at follow up. Please continue to follow up with your PCP for preventative health maintenance and acute concerns I recommend the supplements from the [facility] [employer] Online Store as we have thoroughly evaluated the research and use only highest quality supplements. Get started by following four easy steps: Visit the following webpage: [email or web address]/ Create an account: Enter your first name, last name, email address which will be your username Create password Select a referring physician from the dropdown box. If they are not listed, select other If you are a new patient, enter the following provider code: Functional Order recommended supplementation Enter the supplement name in the search box Add all supplements to your cart and proceed to checkout. Orders of $100 or more qualify for free shipping. *Please allow 5-7 business days for delivery. For issues with your MRN please call [phone] Provider Code: Functional (not case sensitive) Future Plans: Follow up: Please schedule a follow up visit with the following Caregivers: Provider: 8weeks, Craft Coordinator: 4 weeks, and Health Change Booth Attendant: 4 weeks LIFESTYLE PRESCRIPTION Functional Nutrition: Per sap bw bi developer Sleep: Sleep goal for most adults is a minimum of 7-9 hours nightly. Exercise Prescription: Numerous studies confirm the benefits of regular moderate aerobic exercise (walking, swimming, elliptical machine, cycling, etc.) for 30 min 5 days per week (150 min goal). Stress Management: 1) Please look into this Heart Rate Variability BioFeedback Tool (www.heartmath.org). 2) A regular, daily meditation practice of at least 15-20 minutes will change your brain--as well as your genes! Behavioral Health Therapist: If I recommended counseling or individual therapy, please schedule an individual appointment with our Functional Medicine Behavioral Health Therapist after your visit today. The Behavioral Health Therapist helps patients identify and understand feelings and behaviors, experience the process of making positive change, and gain healthy coping skills. Health Coaching: Please consider scheduling with our [place] [facility] health coaches for a phone or virtual visit for accountability, goal setting and help with behavior private branch exchange operator the next 6-8 weeks to be successful with your goals. [phone]. Smart phone apps to begin a meditative practice: Headspace (free for first 10 days) Insight Meditation Timer- (Free)-Great all-around rachel to use for guided meditations of many different types and lengths or just to use as a tool to time and track your meditation practice. This is my absolute favorite! Calm- (Free) Walking Meditations-($1.99)- Get your walk AND meditation done together. A good way to start out for individuals who feel they "just can't sit still" to begin a meditative practice. During the next 6-8 weeks you'll be working on your diet plan discussed with our sap bw bi developer, allowing for gentle detoxification and decreasing inflammation - while we are gathering your lab results and combining those with your complete history to formulate a very personalized treatment plan. LAB results: Due to the complexity of the testing performed, we are not able to review labs via [employer] or over the phone, but please know, if any of your labs are critical we will contact you. Otherwise, we will review all your labs at your next visit. We will go over a lot of information during your follow up visit - so please be well-rested and you may want to bring someone with you, if possible. Also make sure to schedule with the sap bw bi developer (this will not happen automatically) as you did with your first visit so that she can review nutritional aspects of your treatment plan. By your 3rd visit, as things are improving, we will likely transition you to one of our very capable Certified Nurse Practitioners/Physician Assistants for further follow-up. Potential future labs: Any [employer] labs ordered take about 4 weeks to return. Do them as soon as possible so that we have the results before your next appointment. You can access them on the [employer] website and it can be beneficial if you review them prior to your next visit. [email or web address]. Read about NutrEval if this was ordered. *Krystyna Bañuelos APRN.OPTICS ENGINEER documented in this encounter [facility] 06-11-2022 History of Present illness Narrative Virtual Follow-up Visit Patient: Karuna Gilbert There is no height or weight on file to calculate BMI. Resting Metabolic Rate: 1234 Waist measurement: No waist measurement recorded. BP: ALLERGIES Allergen Reactions Moxifloxacin GI Upset, Vomiting Flagyl [Metronidazo* GI Upset, Vomiting Current Outpatient Medications on File Prior to Visit Medication Sig ivabradine (CORLANOR) 5 mg tablet Take 2.5 mg by mouth twice daily. busPIRone (BUSPAR) 5 mg tablet 1-2 tabs cetirizine (ZYRTEC) 10 mg tablet Take 10 mg by mouth. Magnesium Citrate 150mg (Pure Encapsulations) Take 3 capsules daily. deglycyrrhizinate licorice root extract (RHIZINATE) 75 mg chewable tablet Chew 2 tablets 20 minutes before each meal GI Revive powder Take 1 tablespoons twice daily (1 tablespoon = 1.5 grams L-glut) ALPRAZolam (XANAX) 0.25 mg tablet cyclobenzaprine (FLEXERIL) 5 mg tablet Take 5 mg by mouth. diphenhydrAMINE (BENADRYL) 25 mg capsule Take 25 mg by mouth. ibuprofen (MOTRIN) 200 mg tablet Take 200 mg by mouth. No current facility-administered medications on file prior to visit. No past medical history on file. No past surgical history on file. Social History Tobacco Use Smoking status: Never Smokeless tobacco: Never Vaping Use Vaping Use: Never used Substance Use Topics Alcohol use: Never Drug use: Never Functional Medicine Timeline MSQ: Patient Entered Questionnaire PROMIS Scale T-Scores -- HIGHER SCORES BETTER PROMIS Global Health - (T-Scores - the mean of general population = 50. Five points is a clinically meaningful difference.) 03/19/2022 03/19/2022 06/10/2022 Physical T-Score 44.9 44.9 50.8 Mental T-Score 45.8 45.8 43.5 Depression Screening: PHQ-9 01/08/2022 Score 6 PHQ-9 Self Harm 01/08/2022 Question 9 Not at all PHQ-9 Self-Harm (Item 9) response options: 0 Not at all 1 Several days 2 More than half the days 3 Nearly every day PHQ-9 Levels: 0-4 Minimal depression 5-9 Mild depression 10-14 Moderate depression 15-19 Moderately severe depression 20-27 Severe depression June 11, 2022 Krystyna Bañuelos APRN.OPTICS ENGINEER Subjective: Goal: Update Progress, Review Testing/Labs GI Effects Results Maldigestion:0 Inflammation:0 Dysbiosis:1 Metabolic Imbalance:4,elevated b glucuronidase, low scfa Infection: 7 + aeromonos caviae Labs 03/19/22 Ferritin 17.3, Iron 87 Celiac haplotype category 2 Omegas 3.5 Vitamin D 37.8 Diet: low gluten, low histamine Bowel Movement:regular on Mag citrate Sleep:normal Supplements: Vit C, Mag citrate Has not started: GI Revive, DGL Autonomic dysfunction- follows with Dr Coleman. On propanalol with HR controlled. Some fatigue. Recommended ivarbradine- has not started yet Review of Systems: some March 19, 2022 Krystyna Bañuelos APRN.OPTICS ENGINEER HPI: Karuna Gilbert is a 36 year old female with PMHx significant for Pots who presents to The Department of Functional Medicine for initial consultation. Patient Goals: To feel better again, have more energy, and resolve stomach issues When was the last time you felt well?:A couple years ago. Did something trigger your change in health?:Not sure. What makes you feel better?:Being at home and spending time with family What makes you feel worse?:Stress, anxiety How does your condition affect you?:I have an autonomic dysfunction, possibly Postural Orthostatic Tachycardia Syndrome (POTS), so I have many symptoms What do you think is happening and why?:I have H. Pylori. Also Postural Orthostatic Tachycardia Syndrome (POTS) and all the symptoms that goes along with it makes me not feel well. What do you feel needs to happen for you to get better?:To get my autonomic dysfunction/POTS under control, so I can feel better again. POTS- follows with [facility] neuro Dr Coleman, tilt table ordered Sx include postural tachycardia, , dizziness, near syncope, HARLEY, brain fog, internal vibrations, hydrohydrosis, intermittent chest pain Cardiac w/up unremarkable-placed on Ivabradine but has not started - Dr Block, Cardiology Follows with Dr Coleman, Neuromuscular Take LMNT daily GI Symptoms- GI symptoms include: constipation, abdominal bloating, early satiety, nausea EGD 11/2021 and colonoscopy 12/2021 . Tx for h pylori for day, not full week course. Intemittent symptoms persist, less severe: poor appetite, feels like food just sitting there Gastric emptying study normal 01/2022 ROS: Neck pain/ headaches- daily Elevated heart rate, palpitations, Fatigue/no energy Anxiety Stomach issues: bloating, excessive burping, early satiety, nausea Abdominal discomfort/pain Excessive sweating worse with menses Dizziness/lightheadedness, brain fog Internal vibrations : Premature VD, breast fed Elementary: Healthy throughout childhood. Occasional abx for strep Middle: HS: Adult: 20s- IBS- diarrhea- resolved with 01/09/2017, C section, gestational DM and elevated HR during salpingectomy 2018 fibroadenoma removed 2019 2019- pandemic, job changes -->POTs worsening 11/2021 - EGD with h pylori, gastritis. Did not complete full tx d/t intolerance Lifestyle and Exposure History: Diet-SAD, small portions BM-2 BM/week, constipation Sleep-& hrs, difficulty falling/staying asleep Exercise-cardio and strength Stress- Relationships- LIONEL-not completed. No hx of abuse Drugs/ETOH/tobacco- Work- PT RN, [employer] Medication Reactions- Exposures: Tick bites Unsure Silver amalgams Yes Drinking water No Fish consumption No Mold Yes, previous home. Just moved. Likely at workplace Chemical/Industrial/Pesticides No Chemical sensitivities No Foreign travel/Frequent airplane travel No Supplements: No Antecedents: Mother : Hypertension or high blood pressure, Diabetes, Thyroid problems Father : Heart disease, Hypertension or high blood pressure, Diabetes Grandfathers : Heart disease, Hypertension or high blood pressure, Stroke Grandmothers : Stroke, Dementia Objective: LMP 03/07/2022 Bioelectrical Impedance Analysis Results by [employer] Recent Results from: 06/11/22 at 16:28 PM BMI: 20.84 kg/m General Test Result Range Phase Angle (PA) Basal Metabolic Rate (BMR) Fat & Fat Free Mass Test Result Range Fat (lbs) Fat % Fat Free Mass (FFM) lbs Total Body Water Test Result Range TBW (lbs) TBW % of FFM Intracellular Water Test Result Range ICW (lbs) ICW % of FFM Extracellular Water Test Result Range ECW (lbs) ECW % of FFM Virtual Physical Exam: Objective: Constitutional: She is oriented to person, place, and time and well-developed, well-nourished, and in no distress. HENT: hearing intact Head: Normocephalic and atraumatic. Pulmonary/Chest: Effort normal. Neurological: alert and oriented to person, place, and time. Psychiatric: Mood, affect and judgment normal. CURRENT Functional Medicine Assessment/ PLAN Underlying Causes: stress, trauma, toxins, adverse reaction to food, sleep Triggers/Mediators: , diet Today's Focus: gut healing Nutritional Assessment SAD Digestive Function: Early satiety Bloating Belching Canker sores GI Effects Results 05/2022 Maldigestion:0 Inflammation:0 Dysbiosis:1 Metabolic Imbalance:4,elevated b glucuronidase, low scfa Infection: 7 + aeromonos caviae Inflammation/Immune Function: Eczema Neck pain Energy Production/Function: Fatigue Anxiety Detoxification Function: Hormonal Function: PMS- excessive sweating/bad odor, bloating, abdominal pain/discomfort, headaches Bloating, headaches, neck pain, excessive sweating, POTS symptoms seem to be worse Fibrocystic breasts Fibroids Structural Function: Neck pain Future Plans: Mycotoxin? Hormone evaluation--Turkish Assessment Assessment: R53.81, R53.83 Malaise and fatigue (primary encounter diagnosis) R41.89 Brain fog R14.0 Bloating K59.00 Constipation, unspecified constipation type R63.8 Alteration in metabolic function E63.9 Nutritional deficiency K59.89 Intestinal dysbiosis G90.9 Autonomic dysfunction Plan and Lifestyle Prescription Plan/Instructions/Resources: Labs reviewed -Increase dietary Iron- please work closely with the Public Health Doctor -Vit D- Start 5000IU daily -Omegas- Start Omegagenics, increase dietary sources Orange 3: Can be vegan based -flaxseeds, yamilka, hemp seeds, walnuts, seaweed and soy-organic edamame, tofu/tempeh -Limit gluten considering genetic risk Consider LDN at follow-up- For inflammatory processes, gut motility, fatigue, central sensitization of pain, autoimmune Low Dose Naltrexone For more information please refer to: [email or web address].org [email or web address] for more info Hold GI Revive and DGL for now For Gut Health Phase I- Do the following for two months- -Biocidin advanced herb- Biocidin is an herbal supplement designed to balance overgrowth of bacteria. Start with one drop twice daily and slowly increase one drop per day until up to total of 15 drops daily - continue this for 2 months. Take 20 minutes prior to eating a meal, can place on tongue or in water and sip. Avoid supplements 90 minutes after taking this herb. If having nausea or upset stomach with starting the herb, go slower and place in water to sip. Biocidin can be found on our site : Supplement store :https://[email or web address] [email or web address] -Quicksilver Ultra Binder Sensitive This can help with the Herxheimer reaction ( off effect) you may experience. Mix 1 teaspoon into 8 ounces of water once daily. Take at least 30 minutes before or 2 hours after meals. https://www.Dryad/all-products/jhkcm-eswzec-oezo itive/ Phase II (split dosing) -Prebiotic: Biotagen 4 capsules daily (for two months) https://[employer]/products/biotagen-capsules -Probiotic: Biohm probiotic 1 capsules daily for three months - https://[employer]/products/oqyuk-cyxdijtea-wjqljkt ent-1 -Gut barrier function and immune health: SBI protect- 4 capsules daily for 1 bottle- or powder form 1/2 scoop daily and increase as tolerated to 1 scoop (2.5 grams) in 4 ounces of water or the beverage of your choice 2 times daily https://[employer]/products/ywu-vcoocti-lpikqusd Medications/Supplements Recommended: No orders of the defined types were placed in this encounter. Discussed the functional approach serves as an adjunct to patients current treatment regimen with subspecialties and PCP. Will obtain lab eval to evaluate for underlying micronutrient deficiencies, inflammation, and assess for dysbiosis. Pt aware that they will be contacted with critical results via [employer]. Additional supplement and lab interpretation to be discussed at follow up. Please continue to follow up with your PCP for preventative health maintenance and acute concerns I recommend the supplements from the [facility] [employer] Online Store as we have thoroughly evaluated the research and use only highest quality supplements. Get started by following four easy steps: Visit the following webpage: [email or web address] Create an account: Enter your first name, last name, email address which will be your username Create password Select a referring physician from the dropdown box. If they are not listed, select other If you are a new patient, enter the following provider code: Functional Order recommended supplementation Enter the supplement name in the search box Add all supplements to your cart and proceed to checkout. Orders of $100 or more qualify for free shipping. *Please allow 5-7 business days for delivery. For issues with your MRN please call [phone] Provider Code: Functional (not case sensitive) Future Plans: Follow up: Please schedule a follow up visit with the following Caregivers: Provider: 8weeks, Craft Coordinator: 4 weeks, and Health Change Booth Attendant: 4 weeks LIFESTYLE PRESCRIPTION Functional Nutrition: Per sap bw bi developer Sleep: Sleep goal for most adults is a minimum of 7-9 hours nightly. Exercise Prescription: Numerous studies confirm the benefits of regular moderate aerobic exercise (walking, swimming, elliptical machine, cycling, etc.) for 30 min 5 days per week (150 min goal). Stress Management: 1) Please look into this Heart Rate Variability BioFeedback Tool (www.heartmath.org). 2) A regular, daily meditation practice of at least 15-20 minutes will change your brain--as well as your genes! Behavioral Health Therapist: If I recommended counseling or individual therapy, please schedule an individual appointment with our Functional Medicine Behavioral Health Therapist after your visit today. The Behavioral Health Therapist helps patients identify and understand feelings and behaviors, experience the process of making positive change, and gain healthy coping skills. Health Coaching: Please consider scheduling with our [place] [facility] health coaches for a phone or virtual visit for accountability, goal setting and help with behavior private branch exchange operator the next 6-8 weeks to be successful with your goals. [phone]. Smart phone apps to begin a meditative practice: Headspace (free for first 10 days) Insight Meditation Timer- (Free)-Great all-around rachel to use for guided meditations of many different types and lengths or just to use as a tool to time and track your meditation practice. This is my absolute favorite! Calm- (Free) Walking Meditations-($1.99)- Get your walk AND meditation done together. A good way to start out for individuals who feel they "just can't sit still" to begin a meditative practice. During the next 6-8 weeks you'll be working on your diet plan discussed with our sap bw bi developer, allowing for gentle detoxification and decreasing inflammation - while we are gathering your lab results and combining those with your complete history to formulate a very personalized treatment plan. LAB results: Due to the complexity of the testing performed, we are not able to review labs via [employer] or over the phone, but please know, if any of your labs are critical we will contact you. Otherwise, we will review all your labs at your next visit. We will go over a lot of information during your follow up visit - so please be well-rested and you may want to bring someone with you, if possible. Also make sure to schedule with the sap bw bi developer (this will not happen automatically) as you did with your first visit so that she can review nutritional aspects of your treatment plan. By your 3rd visit, as things are improving, we will likely transition you to one of our very capable Certified Nurse Practitioners/Physician Assistants for further follow-up. Potential future labs: Any [employer] labs ordered take about 4 weeks to return. Do them as soon as possible so that we have the results before your next appointment. You can access them on the [employer] website and it can be beneficial if you review them prior to your next visit. [email or web address]. Read about NutrEval if this was ordered. *Krystyna Bañuelos APRN.SEAN I spent a total of 30 minutes on the date of the service which included preparing to see the patient, [id number] patient care, completing clinical documentation, obtaining and/or reviewing separately obtained history, performing a medically appropriate examination, counseling and educating the patient/family/caregiver, and ordering medications, tests, or procedures. documented in this encounter [facility] 05-22-2022 Instructions Elpidio Gillette APRN.CNP - 05/22/2022 11:54 AM EST Stop Propranolol Start Ivabradine 2.5 mg twice daily (breakfast and dinner). In two weeks, reach out to Elpidio Gillette CNP with the following information x2 days: Please take your blood pressure as follows: Lay down for 5 minutes and then take your blood pressure and heart rate Stand up and take your blood pressure and heart rate at minutes 1, 5 and 10. Record these numbers and send to Elpidio Gillette via [employer] message. 4. Call [phone] to schedule the Shared Medical Appointment with Dr. Coleman documented in this encounter [facility] 05-22-2022 History of Present illness Narrative Karuna Gilbert is a 36 year old female. Patient presents with: Established Patient Karuna is here today for follow up. We discussed that her resting heart rate is quite high and does meet criteria for inappropriate sinus tachycardia. She has seen electrophysiology locally and workup has included ECG, Echocardiogram, and cardiac monitors. Electrophysiology felt she had an autonomic dysfunction. She presently is on propranolol 10 mg twice daily. She states that propranolol fatigued her when she first started the medication. She only takes propranolol 5 mg twice daily due to the fatigue. She previously was on metoprolol, but it exacerbated her Raynaud's. With the beta blockers, her hands will be painful and numb. Her EP prescribed Ivabradine, but she has not initiated this. We discussed discontinuing the beta ryan and starting Ivabradine 2.5 mg twice daily. We discussed potential benefits and side effects. She is agreeable to initiating it. Neuro Cardio Autonomic Reflex Test with Tilt May 13, 2022: Heart rate response to deep breathing is reduced via the mean heart rate range (MHRR) and the E:I ratio. Heart rate response to the Valsalva maneuver, as assessed by the Valsalva ratio, is normal. Blood pressure responses to phase II and phase IV of the Valsalva maneuver are normal. Patient demonstrated baseline tachycardia with an average heart rate of 111 BPM prior to tilt. During 10 minutes of 60 degree head-up tilt, her heart rate showed a maximum increase of 20 BPM at 1st minute of the tilt. Maximal systolic blood pressure reduction was 21 mmHg at the 4th minute of tilt and maximal diastolic blood pressure reduction of 7 mmHg at the 4th minute of tilt, but blood pressures improved for the rest of the test. The patient complained of lightheadedness, chest pounding, dizziness during the tilt. These symptoms resolved during latter portion of the tilt rest This is an abnormal cardiovascular autonomic test panel. There is a mild reduction in the heart rate response to deep breathing. Baseline tachycardia may be explained by anxiety, inappropriate sinus tachycardia, and other hyperadrenergic states. Medications Reviewed ivabradine (CORLANOR) 5 mg tablet Take 2.5 mg by mouth twice daily. busPIRone (BUSPAR) 5 mg tablet 1-2 tabs cetirizine (ZYRTEC) 10 mg tablet Take 10 mg by mouth. Magnesium Citrate 150mg (Pure Encapsulations) Take 3 capsules daily. deglycyrrhizinate licorice root extract (RHIZINATE) 75 mg chewable tablet Chew 2 tablets 20 minutes before each meal GI Revive powder Take 1 tablespoons twice daily (1 tablespoon = 1.5 grams L-glut) ALPRAZolam (XANAX) 0.25 mg tablet cyclobenzaprine (FLEXERIL) 5 mg tablet Take 5 mg by mouth. diphenhydrAMINE (BENADRYL) 25 mg capsule Take 25 mg by mouth. ibuprofen (MOTRIN) 200 mg tablet Take 200 mg by mouth. Allergies Reviewed PAST MEDICAL HISTORY: There is no problem list on file for this patient. No past surgical history on file. Social History Tobacco Use Smoking status: Never Smokeless tobacco: Never Vaping Use Vaping Use: Never used Substance Use Topics Alcohol use: Never Drug use: Never family history is not on file. 05/22/22 1135 BP: 133/89 Pulse: 97 SpO2: 100% Weight: 55.9 kg (123 lb 4.8 oz) General Appearance Patient appears well at the time of this appointment. Neurological Examination: Cognition: The patient is alert and oriented times three Lucid and organized in conversation Able to tell detailed medical hx Speech is Normal in fluency volume and clarity Content and Syntax: Normal Comprehension: Normal, able to follow several step commands IMPRESSION/PLAN: Inappropriate Sinus Tachycardia; POTS Her EP prescribed Ivabradine, but she has not initiated this. We discussed discontinuing the beta ryan and starting Ivabradine 2.5 mg twice daily. We discussed potential benefits and side effects. She is agreeable to initiating it. Conservative Measures Increased water intake (2-2.5 liters of water daily) Increased salt intake (3-5 grams daily) Compression stockings Gradually Increase Exercise Shared medical appointment with Dr. Coleman Medication Changes -stop propranolol -start Ivabradine 2.5 mg twice daily -In two weeks, reach out to Elpidio Gillette CNP with the following information x2 days: Please take your blood pressure as follows: Lay down for 5 minutes and then take your blood pressure and heart rate Stand up and take your blood pressure and heart rate at minutes 1, 5 and 10. Record these numbers and send to Elpidio Gillette via Blurr message. I spent a total of 20 minutes on the date of the service which included preparing to see the patient, [id number] patient care, completing clinical documentation, obtaining and/or reviewing separately obtained history, counseling and educating the patient/family/caregiver, and ordering medications, tests, or procedures. There is no problem list on file for this patient. Office Visit on 05/22/22 CONSULT TO SMA Elpidio Gillette MSN, SUPERVISOR PASTE MIXING, ADVERTISING ACCOUNT MANAGER-C 1. The nursing staff and medical assistants are a major part of YOUR TREATMENT TEAM and will be handling your phone calls and inquiries, if any. Unless explicitly told otherwise at the time of your office visit, your study results and ensuing treatment plans will be discussed during your follow-up appointment. If you do not have a follow-up appointment and wish to discuss any issues directly with me, please feel free to obtain one. 2. It is my practice to not fill disability or any other insurance-related forms/documention. All of the office notes, study results, and other pertinent documentation generated as part of your evaluation will be available to you and to your Primary Care Physician (PCP). Use of this material to complete such forms will be at the discretion of your PCP/referring physician documented in this encounter [facility] 05-13-2022 History of Present illness Narrative UNIVERSAL PROTOCOL / SAFETY CHECKLIST Procedure to be Performed: ANS with TILT Sign In: A Moment of CARE was completed. Personnel directly involved with the procedure wore the appropriate PPE (Personal Protective Equipment). Patient/Surrogate Stated/Verified: PATIENT VERIFIED(optional for EMERGENT procedures): Patient name, Date of , Relevant allergies, and The intended procedure Time Out Communication: Intended patient and procedure match the source documents. Sign Out: SIGN OUT (optional for EMERGENT procedures): Post-procedure follow-up management communicated and Plan of Care Visit completed when applicable. Marcus Pyle documented in this encounter [facility] 05-04-2022 Miscellaneous Notes Left a voicemail for Karuna Gilebrt to review the [employer] message with important medication instructions for her upcoming ANS with TILT 05/13.The lab can be reached at [phone] if she has nay questions.-AM 05/04/22 documented in this encounter [facility] 04-06-2022 History of Present illness Narrative Radiology Service Progress Note PATIENT NAME: Karuna Gilbert DATE OF SERVICE: April 06, 2022 TIME: 2:28 PM PATIENT IDENTITY VERIFICATION COMPLETED USING TWO (2) IDENTIFIERS: Name and Date of confirmed by patient verbally. FALL SCREENING: Has the patient had 2 falls in the last year or 1 fall with injury or currently using an Ambulatory Assistive Device (Walker, Cane, Wheelchair, Crutches, etc.)? No PATIENT GENDER DATA: Female. status: : No status: NO. PATIENT RELEVANT IMPLANT DATA REVIEWED: Not Applicable RADIOLOGY DEPARTMENT: General X-ray: Exam(s) Completed: Abdomen X-Ray: Abdomen Upright/Supine w/ PA Chest PERIPHERAL IV DATA: Not applicable SIGNED BY: RT Elisa(Tiburcio) April 06, 2022 2:28 PM documented in this encounter [facility] 03-22-2022 History and physical note The patient has a diffuse rash on the arms legs trunk and upper around the face forehead and eyes. The patient is moved into a new house and her 15-year-old cat got away ran into the oliver in the back she has been looking back there for him and has been exposed to poison presley. She wore long sleeves and long pants and try to avoid exposure however was unsuccessful. The cat has not been recovered yet. The patient will be looking again in the future. I told her whenever she goes into that area make sure when she comes out that she washes with blue Althea dish liquid. That we will get the oil from the plant off of her better than anything. She has multiple areas along the hips waist trunk arms legs and face. Patient states that she is very sensitive to medications and has a history of POTS syndrome so she does not want to overuse medication. Impression Raquel dermatitis Patient will be placed on Decadron taper dose and she is already on Zyrtec she is to continue that use a good soap and use Althea dish liquid if exposed again. documented in this encounter [facility] 03-19-2022 History of Present illness Narrative GROUP HEALTH SALON COORDINATOR COHORT Patient was part of an in-person, group health assistant golf coach session. Patient received education and participated in discussion about modifiable lifestyle factors and healthy habits, with emphasis on the role of the health assistant golf coach within the functional medicine model and the Wheel of Wellness. Other topics of discussion included Functional Medicine process and scheduling for follow-up visits and support prior to next visit. .................................. .................................. .................................. . FOLLOW UP: 30-Minute Consultation with Health Change Booth Attendant in 2-3 weeks Time Spent with Patient: 30 minutes Signed by: Chayito Wilson [facility] ED documented in this encounter [facility] 03-19-2022 [facility] 2:25 PM EDT Images from the original note were not included. [facility] HEALTH SALON COORDINATOR FOLLOW-UP Staff Health Change Booth Attendant Follow-Up: In 1-2 Weeks for Individual Assessment with a member of the Health Coaching Team. Schedule through Blurr or by calling the [facility] Functional Medicine. [phone] option #1. At the [facility] Functional Medicine, we focus on the person as a whole: Mind, Body, and Spirit. As Health Coaches, we are here to support you along this journey. Working with your Health Change Booth Attendant on a regular basis can help you prioritize your next steps and build a strong foundation for healing. The focus is on your desired outcomes, challenges and action plans for implementing lifestyle changes. Any changes you choose to integrate in the areas of stress reduction, improved sleep, incorporating movement/exercise and mindset strategies will be introduced one step at a time so that you can make changes that support a healthier lifestyle. Our goal is to ask the right questions while empowering you to discover your own solutions and determine your own path for creating the health you desire. Next Steps Schedule your initial 1:1 and/or group coaching session -[place] for the Mindfulness group coaching program at [email or web address] 2. Create a [employer] account. 3. Sign up for the Healthy Living Shop to order your supplements. Creating an account on LE [employer]OTE to access the Functional Coaching resources: To access [employer], please visit: [email or web address] to create a new account. Step 1: Create Your Account: Complete the following gonzales: username, password, email address, first name & last name. Click 'Create My New Account'. A message will display. Click continue. Step 2: Verify Your Account: Check your email for an email from [employer]. In the email, click the link provided to launch [employer] and complete registration. Step 3: Enroll in the 'Functional Health Coaching Portal'. Once you have launched [employer], hover over the Find Learning tab, and click on the drop-down option 'Courses'. Search for the course Functional Health Coaching Portal in the search field. In the search results, click the link to access the course. Step 4: Enter the Enrollment [employer] Functional Coaching (this is case sensitive). Step 5: To login after enrollment, visit [email or web address]. Login under 'Non-Employee Login' using the username and password from step #1. If you have difficulty accessing this course, please email ADDITIONAL INSTRUCTIONS: How to Contact Your Functional Medicine Team (Open M-F 8am-5pm): MyChart is the BEST form of communication to reach the Functional Medicine Team, see test results and request refills. Please allow 72 business hours for a response. Directions for signing up are included in your New Patient Folder. (Or you can go to [email or web address]) Ordering Supplements: Supplements can be ordered from the [facility]'s [facility]'s Online Store: [email or web address] New patients to the [employer] Discovery Shop will need to enter the provider code FUNCTIONAL to register their account. documented in this encounter [facility] 03-19-2022 History of Present illness Narrative FUNCTIONAL MEDICINE INITIAL ASSESSMENT Patient: Karuna Gilbert ALLERGIES No Known Allergies Current Outpatient Medications Medication Sig Dispense Refill ALPRAZolam (XANAX) 0.25 mg tablet cyclobenzaprine (FLEXERIL) 5 mg tablet Take 5 mg by mouth. diphenhydrAMINE (BENADRYL) 25 mg capsule Take 25 mg by mouth. ibuprofen (MOTRIN) 200 mg tablet Take 200 mg by mouth. propranolol (INDERAL) 10 mg tablet Take 10 mg by mouth. Magnesium Citrate 150mg (Pure Encapsulations) Take 3 capsules daily. deglycyrrhizinate licorice root extract (RHIZINATE) 75 mg chewable tablet Chew 2 tablets 20 minutes before each meal GI Revive powder Take 1 tablespoons twice daily (1 tablespoon = 1.5 grams L-glut) No current facility-administered medications for this visit. No past medical history on file. No past surgical history on file. EVALUATION MSQ:119 Patient Entered Questionnaire PROMIS Scale T-Scores -- HIGHER SCORES BETTER PROMIS Global Health - (T-Scores - the mean of general population = 50. Five points is a clinically meaningful difference.) 03/19/2022 03/19/2022 03/19/2022 Physical T-Score 44.9 44.9 44.9 Mental T-Score 45.8 45.8 45.8 Depression Screening: PHQ-9 01/08/2022 Score 6 PHQ-9 Self Harm 01/08/2022 Question 9 Not at all PHQ-9 Self-Harm (Item 9) response options: 0 Not at all 1 Several days 2 More than half the days 3 Nearly every day PHQ-9 Levels: 0-4 Minimal depression 5-9 Mild depression 10-14 Moderate depression 15-19 Moderately severe depression 20- Severe depression March 19, 2022 Krystyna Bañuelos APRN.OPTICS ENGINEER HPI: Karuna Gilbert is a 36 year old female with PMHx significant for Pots who presents to The Department of Functional Medicine for initial consultation. Patient Goals: To feel better again, have more energy, and resolve stomach issues When was the last time you felt well?:A couple years ago. Did something trigger your change in health?:Not sure. What makes you feel better?:Being at home and spending time with family What makes you feel worse?:Stress, anxiety How does your condition affect you?:I have an autonomic dysfunction, possibly Postural Orthostatic Tachycardia Syndrome (POTS), so I have many symptoms What do you think is happening and why?:I have H. Pylori. Also Postural Orthostatic Tachycardia Syndrome (POTS) and all the symptoms that goes along with it makes me not feel well. What do you feel needs to happen for you to get better?:To get my autonomic dysfunction/POTS under control, so I can feel better again. POTS- follows with [facility] neuro Dr Coleman, tilt table ordered Sx include postural tachycardia, , dizziness, near syncope, HARLEY, brain fog, internal vibrations, hydrohydrosis, intermittent chest pain Cardiac w/up unremarkable-placed on Ivabradine but has not started - Dr Block, Cardiology Follows with Dr Coleman, Neuromuscular Take LMNT daily GI Symptoms- GI symptoms include: constipation, abdominal bloating, early satiety, nausea EGD 11/2021 and colonoscopy 12/2021 . Tx for h pylori for day, not full week course. Intemittent symptoms persist, less severe: poor appetite, feels like food just sitting there Gastric emptying study normal 01/2022 ROS: Neck pain/ headaches- daily Elevated heart rate, palpitations, Fatigue/no energy Anxiety Stomach issues: bloating, excessive burping, early satiety, nausea Abdominal discomfort/pain Excessive sweating worse with menses Dizziness/lightheadedness, brain fog Internal vibrations : Premature VD, breast fed Elementary: Healthy throughout childhood. Occasional abx for strep Middle: HS: Adult: 20s- IBS- diarrhea- resolved with 01/09/2017, C section, gestational DM and elevated HR during salpingectomy 2017 fibroadenoma removed 2019 2019- pandemic, job changes -->POTs worsening 11/2021 - EGD with h pylori, gastritis. Did not complete full tx d/t intolerance Lifestyle and Exposure History: Diet-SAD, small portions BM-2 BM/week, constipation Sleep-& hrs, difficulty falling/staying asleep Exercise-cardio and strength Stress- Relationships- LIONEL-not completed. No hx of abuse Drugs/ETOH/tobacco- Work- PT RN, [employer] Medication Reactions- Exposures: Tick bites Unsure Silver amalgams Yes Drinking water No Fish consumption No Mold Yes, previous home. Just moved. Likely at workplace Chemical/Industrial/Pesticides No Chemical sensitivities No Foreign travel/Frequent airplane travel No Supplements: No Antecedents: Mother : Hypertension or high blood pressure, Diabetes, Thyroid problems Father : Heart disease, Hypertension or high blood pressure, Diabetes Grandfathers : Heart disease, Hypertension or high blood pressure, Stroke Grandmothers : Stroke, Dementia Labs: No recent Objective: BP 120/83 Pulse 104 Ht 5' 4.5" (1.64m) Wt 122 lb 12.8 oz (55.7kg) BMI 20.76 kg/(m^2). Bioelectrical Impedance Analysis Results by [employer]. Recent Results from: 03/19/22 at 10:57 AM BMI: 20.75 kg/m General Test Result Range Phase Angle (PA) Basal Metabolic Rate (BMR) Fat & Fat Free Mass Test Result Range Fat (lbs) Fat % Fat Free Mass (FFM) lbs Total Body Water Test Result Range TBW (lbs) TBW % of FFM Intracellular Water Test Result Range ICW (lbs) ICW % of FFM Extracellular Water Test Result Range ECW (lbs) ECW % of FFM PHYSICAL EXAM: Objective: General: A&Ox4, NAD Skull: Oval Hair Distribution: Normal FACE Eyebrows: Normal Lips/Chin: Normal Color: Normal Texture: Normal EYES/PERIORBITAL EXAM Eyelids: Normal Conjunctiva: Normal MOUTH Jaw Movement: Symmetric (No Pain) Lips: Normal NECK Symmetry: Symmetrical Midline Trachea: Symmetrical NEURO: Grossly normal cognition, cranial nerves III-XII grossly intact SKIN Color: Normal Periorifice: Normal Lesions: None Initial Functional Medicine Assessment Underlying Causes: stress, trauma, toxins, adverse reaction to food, sleep Triggers/Mediators: , diet Today's Focus: gut healing Nutritional Assessment SAD Digestive Function: Early satiety Bloating Belching Canker sores Inflammation/Immune Function: Eczema Neck pain Energy Production/Function: Fatigue Anxiety Detoxification Function: Hormonal Function: PMS- excessive sweating/bad odor, bloating, abdominal pain/discomfort, headaches Bloating, headaches, neck pain, excessive sweating, POTS symptoms seem to be worse Fibrocystic breasts Fibroids Structural Function: Neck pain Future Plans: Mycotoxin? Hormone evaluation--Turkish Assessment Assessment: A04.8 H. pylori infection (primary encounter diagnosis) I95.1 Orthostatic hypotension R42 Dizziness R41.89 Brain fog R53.81, R53.83 Malaise and fatigue R14.0 Bloating K59.00 Constipation, unspecified constipation type Z77.018 Heavy metal exposure Z77.120 Mold exposure Plan and Lifestyle Prescription Plan/Instructions/Resources: [facility] labs today 1. Sarah GI Effects Stool Profile: HOLD supplements until this is done - 14 days before collecting the sample, you must discontinue antibiotics, antiparasitics, antifungals, probiotic supplements (acidophilus, etc.) - 2 days before the test, discontinue aspirin and other NSAIDs (i.e. ibuprofen), rectal suppositories, enemas, castor oil, Schedule a follow up at least 5 weeks after you do the kit. You can see your results on [email or web address] 10 days after it is released, it takes 4 weeks to be released. Results will be discussed in the follow up appointment For gut healing -GI Revive -DGL before meals Dr. Jahaira Yap -effects of gluten, sugar, and carbohydrates on the brain and body Mag citrate for constipation - goal BM every day Consider LDN - Low Dose Naltrexone For inflammatory processes, gut motility, fatigue, central sensitization of pain, autoimmune, fibromyalgia For more information please refer to: [email or web address] for more info Medications/Supplements Recommended: Orders Placed This Encounter deglycyrrhizinate licorice root extract (RHIZINATE) 75 mg chewable tablet Sig: Chew 2 tablets 20 minutes before each meal GI Revive powder Sig: Take 1 tablespoons twice daily (1 tablespoon = 1.5 grams L-glut) Magnesium Citrate 150mg (Pure Encapsulations) Sig: Take 3 capsules daily. May increase by one cap daily until daily BM I recommend the supplements from the [facility] Healthy Living Online Store at [email or web address] as we have thoroughly evaluated the research and use only highest quality supplements. Please use code: functional *not case sensitive Follow up: Please schedule a follow up visit in- person or virtual with the following Caregivers: Provider: 8weeks, Craft Coordinator: 4 weeks, and Health Change Booth Attendant: 4 weeks Craft Coordinator and Health Change Booth Attendant: Please follow up with a one on one appointment with sap bw bi developer and health assistant golf coach in to help implement plan. LIFESTYLE PRESCRIPTION Functional Nutrition: CORE: Low Histamine, Gluten Free At the [place] [facility], we focus on the person as a whole. Mind, Body, and Spirit. Our Health Coaches are here to support you along this journey. Health Coaching is a valuable (& FREE) service at the [facility] [facility] which we offer to all of our patients. Their role is to help you put your functional medicine care plan into action and help you achieve your health goals. Working with your Health Change Booth Attendant on a regular basis can help you prioritize your next steps and build a strong foundation for healing. Your Health Change Booth Attendant will partner with you to develop a personalized plan for movement, sleep, and stress management. Exercise and Movement: Being consistently active helps you to live longer, have a better quality of life, improve your mental health, and improve your self-image. No matter your current activity level, there is a form of movement for you! Our Health Coaches can share valuable resources, provide accountability, help with goal setting, and offer encouragement! Sleep Health: Getting a good night s sleep is not just about quantity, but also quality. Both are critical to helping the body and mind repair and replenish from the day s activities. Among the many health benefits, a good night s sleep helps improve memory, boost the immune system, enhance mood, lower stress hormones and can even reduce pain! Learn how to protect your sleep with one of our Health Coaches. Your body and mind will thank you! Stress Resilience and Judaism: Don t let stress run the show! In a world full of stress and demands, practicing self-care through restorative activities is critical. Restorative activities, such as meditation, guided imagery, breathing techniques, gratitude journaling, and mindfulness, are proven ways to not just calm the mind, but also heal the body. During your health coaching appointment, you ll be able to build valuable skills that will help you not just manage stress, but thrive! Referrals: Health Coaching: Within the next two weeks, please schedule with your Health Change Booth Attendant in order to create an individualized lifestyle plan. You can call to schedule. Behavioral Health Therapist: If I recommended counseling or individual therapy, please schedule an individual appointment with our Functional Medicine Behavioral Health Therapist after your visit today. A Behavioral Health Therapist helps patients identify and understand feelings and behaviors, experience the process of making positive change, and gain healthy coping skills. Our Behavioral Health Therapist specializes in both traditional and holistic psychotherapy. During the next 6-8 weeks you'll be working on your diet plan discussed with our sap bw bi developer, allowing for gentle detoxification and decreasing inflammation - while we are gathering your lab results and combining those with your complete history to formulate a very personalized treatment plan. LAB results: Due to the complexity of the testing performed, we are not able to review labs via [employer]t or over the phone, but please know, if any of your labs are critical we will contact you. Otherwise, we will review all your labs at your next visit. We will go over a lot of information during your follow up visit - so please be well-rested. Also make sure to schedule with the sap bw bi developer (this will not happen automatically). Potential future labs: Any [employer] labs ordered take about 4 weeks to return. Do them as soon as possible so that we have the results before your next appointment. You can access them on the [employer] website and it can be beneficial if you review them prior to your next visit. [email or web address]. Read about NutrEval if this was ordered. Krystyna Bañuelos APRN.CNP Time spent with patient: I spent a total of 60 minutes on the date of the service which included preparing to see the patient, [id number] patient care, completing clinical documentation, obtaining and/or reviewing separately obtained history, performing a medically appropriate examination, counseling and educating the patient/family/caregiver, and ordering medications, tests, or procedures. documented in this encounter [facility] 01-21-2022 History of Present illness Narrative RADIOLOGY SERVICE PROGRESS NOTE SERVICE DATE: 01/21/2022 SERVICE TIME: 8:14 AM PATIENT IDENTITY VERIFICATION COMPLETED USING TWO (2) STANDARD IDENTIFIERS: Name and Date of confirmed by patient verbally FALL SCREENING: Has the patient had 2 falls in the last year or 1 fall with injury or currently using an Ambulatory Assistive Device (Walker, Cane, Wheelchair, Crutches, etc.)? No PATIENT GENDER DATA: .female : No ALLERGIES: Reviewed and unchanged MEDICATIONS REVIEWED: Not applicable PATIENT RELEVANT IMPLANT DATA REVIEWED: Not Applicable IV SITE: NM only - not applicable, oral or physician administered agents given to patient POST EXAM PIV STATUS: Not applicable PROCEDURE TYPE: NM GET: 1 mCi Tc99m SULFUR COLLOID was administered orally via 4 ounces of Egg Beaters,2 pieces of toast, 1 ounce of jelly with 8 ounces of water orally ADMINISTRATION TIME: 8:15 PATIENT DISCHARGED TO: Ambulatory patient, left PA department area. A Diagnostic radioactive procedure has taken place, with no further precautions necessary other than routine body substance precautions. More information regarding radiation safety can be found using this link: [email or web address] SIGNATURE: RT Reji(Tiburcio) PATIENT NAME: Karuna Gilbert DATE: January 21, 2022 TIME: 8:14 AM PAGER/CONTACT #: documented in this encounter [facility] 01-09-2022 History of Present illness Narrative Karuna Gilbert is a 36 year old female. Patient presents with: New Patient: LORRIE Beckman is a left handed female here today for evaluation. As a teenager, she recalls dealing with tachycardia and postural lightheadedness. In 2008, her symptoms of orthostatic intolerance significantly worsened. Symptoms that she would experience included orthostatic dizziness, lightheadedness, tachycardia and near syncope. In 2008, she had a tilt table test completed. The tilt table test was diagnostic for neurocardiogenic syncope. Treatment recommendations at that time included increased hydration and sodium intake. She was eventually told that she had anxiety and was placed on antidepressants. During her in 2016, she had a high heart rate of unknown cause. She was placed on metoprolol during the and it was discontinued after delivery. In 2019, many of her symptoms returned. Symptoms include: 1. Postural tachycardia 2. Dizziness/lightheadedness 3. Near syncope 4. Headaches -headaches are daily -the headaches are cervicogenic in nature. Muscle tightness is present in the trapezius region and extend up the paraspinal muscles and into the occipital region -we did discuss the concept of coat cell changer pain associated with orthostatic disorders -MRI Brain unremarkable 5. Brain fog 6. Internal vibrations -primarily in the chest region -notes it when supine -less severe with beta ryan -does note it occurs more with a higher diastolic BP 7. GI symptoms -constipation, abdominal bloating, early satiety, nausea -EGD and colonoscopy completed -positive for H. Pylori. Has been treated with antibiotics 8. Excessive sweating Her primary care physician did place her on metoprolol again, but she had an issue of significant fatigue. It was thus switched to propranolol. She does still deal with fatigue, but it is more manageable then with the metoprolol. She did see cardiology locally to her. Cardiology had a concern for autonomic dysfunction. Cardiac workup including echocardiogram and outpatient site monitor were unremarkable. She did not complete autonomic testing. She has been trying to increase her water and sodium intake. She has tried to increase her activity level, but notes this exacerbates her symptoms. Cardiology has placed her on Ivabradine OARRS reviewed data reviewed if done COMPASS 31 reviewed as 31 point autonomic review of systems questions THIS NOTE IS FOR AT FIRST FOR MY DOCUMENTATION TO PROVIDE CARE, HELP INSURANCE COMPANY AND COLLEAGUES TO HAVE NEUROLOGICAL CONTEXT OF MY , AND FOR MY PERSONAL RECORDING TO FACILITATE FUTURE CARE BY HAVING A WRITTEN DOCUMENT MEMORY OF OUR CONSULT TOGETHER . THANK YOU FOR UNDERSTANDING THIS OFFICE NOTE IS A PHYSICIAN BASED DOCUMENT FOR COMMUNICATION AND CARE. She is brought in today by her , Stephan. Medications Reviewed cyclobenzaprine (FLEXERIL) 5 mg tablet Take 5 mg by mouth. diphenhydrAMINE (BENADRYL) 25 mg capsule Take 25 mg by mouth. propranolol (INDERAL) 10 mg tablet Take 10 mg by mouth. ALPRAZolam (XANAX) 0.25 mg tablet ibuprofen (MOTRIN) 200 mg tablet Take 200 mg by mouth. Allergies Reviewed PAST MEDICAL HISTORY: There is no problem list on file for this patient. No past surgical history on file. Social History Tobacco Use Smoking status: Not on file Smokeless tobacco: Not on file Substance Use Topics Alcohol use: Not on file Drug use: Not on file family history is not on file. GENERAL:No weight loss, malaise or fevers., SEE HPI HEENT:SEE HPI NECK:Negative for lumps, goiter, pain and significant neck swelling RESPIRATORY: Negative for cough, wheezing or shortness of breath. CARDIOVASCULAR: See HPI GASTROINTESTINAL: See HPI GENITOURINARY: No history of dysuria, frequency or incontinence MUSKULOSKELETAL: muscle pain NEUROLOGIC:See HPI SKIN:Negative for lesions, rash, and itching. PSYCHIATRIC: Negative for sleep disturbance, mood disorder and recent psychosocial stressors. HEMATOLOGIC/LYMPHATIC/IMMUNOLOGIC: Negative for prolonged bleeding, bruising easily or swollen nodes. ENDOCRINE: Negative for cold or heat intolerance, polyuria, polydipsia and goiter. GLAUCOMA: No 01/09/22 0806 BP: 146/77 Pulse: 118 SpO2: 97% Weight: 55.2 kg (121 lb 11.2 oz) General Appearance Patient appears well at the time of this appointment. Neurological Examination: Cognition: The patient is alert and oriented times three Lucid and organized in conversation Able to tell detailed medical hx Speech is Normal in fluency volume and clarity Content and Syntax: Normal Comprehension: Normal, able to follow several step commands Cranial Nerves: Pupils are equal and reactive to light. Pupils normal in size Extraocular movements are grossly intact Good saccades and pursuits No nystagmus Hearing intact Good upgaze Visual gonzales are full to confrontation. Facial, motor and sensory exam is symmetric Equal v1,V2, V3 Tongue is in midline. No tongue fasciculation. Palate is upgoing bilaterally SCM and trapezius are full. Shoulder shrug intact Motor Exam: Upper extremity motor exam is 5/5 in deltoid, 5/5 triceps 5/5biceps, 5/5 wrist extension, and 5/5 hand financial coach. Finger extensor 5/5. Finger flexor 5/5. Pronation and Supination are full. Full interossei 5/5 Lower extremity is 5/5 in IP, 5/5 quadriceps, 5/5 hamstrings, 5/5 EHL, 5/5 TA and 5/5 gastrocnemius. Hip abductors and adductors are 5/5 Toe extensors and flexors are full bilaterally. Foot evertors and inversions are full bilaterally Tone and bulk is normal and preserved bilaterally of arms Tone and bulk is normal and preserved bilaterally of legs No pes cavus, hammer toes, champagne legs The patient is without significant pronator drift. Sensation: Intact to light touch and temperature /deep pain. Normal toe position. No length dependent neuropathy. Romberg's sign absent Reflexes: 2/4triceps, 2/4biceps, 2/4brachioradialis, 2/4knee jerk, 2/4ankle jerk and symmetric, toes are Down going (negative Babinski). No clonus of ankles. Coordination: Finger-to- nose-finger and osud-ay-pxvy intact bilaterally. No ataxia of arms. No limb dysmetria of arms and legs. or trunk. SUPRIYA of pronation and supination, finger and hand tapping intact. Toe tapping intact. There is no asterixis of the hands. No rigidity, cog wheeling, no bradykinesia. No tremors No extrapyramidal findings Gait: Normal station and stride. Able to tandem. Able to heel and toe walk. Good arm swing and body turn rises from chair well IMPRESSION/PLAN: Karuna notes as a teenager she began to experience orthostatic intolerance. In 2008, symptoms of orthostatic dizziness, lightheadedness, tachycardia and near syncope significantly worsened. A tilt table test was completed at that time that was indicative of neurocardiogenic syncope. She began to increase hydration and sodium intake. During her in 2016, she had to be placed on metoprolol due to persistent tachycardia. After delivery of her twins, symptoms resolved until 2019. It has been suggested to her that she may have POTS, but no formal testing has been completed. She continues to deal with tachycardia, dizziness, lightheadedness, near syncope, and is also dealing with constipation. Her neurologic exam is unremarkable. I do have a concern for an orthostatic disorder such as POTS given her symptoms. I have ordered a neuro cardio autonomic reflex test with tilt to further clarify this. In the interim, she should focus on non-pharmacologic interventions such as appropriate hydration, sodium intake, and exercise. I sent her the YouTube link to Dr. Coleman's exercise page. Given her early satiety, nausea, abdominal bloating, I do have a concern for gastroparesis. Of note, she did have the presence of H. Pylori, but her GI symptoms persist despite treatment of the H. Pylori. I have ordered a gastric emptying study for further evaluation. A functional medicine consult was placed to look at potential environmental causes of her symptoms and for dietary recommendations. During our face to face clinical encounter we discussed my concerns neurologically in terms of diagnosis, impact on health and activities of living, and addressed questions. I tried to reassure the patient and also address questions. I explained to the patient to call if any questions, to review results, and I want to see them return for neurological follow up as mychart as next steps of communication is agreed upon Patient verbalizes understanding and I have addressed concerns and questions at this visit Patient has my contacts, educational material provided, and my chart sign up. After visit summary discussed. I spent a total of 60 minutes on the date of the service which included preparing to see the patient, [id number] patient care, completing clinical documentation, obtaining and/or reviewing separately obtained history, performing a medically appropriate examination, counseling and educating the patient/family/caregiver and ordering medications, tests, or procedures. There is no problem list on file for this patient. Office Visit on 01/09/22 NEURO CARDIO AUTONOMIC REFLEX W/WO TILT NM GASTRIC EMPTYING SOLID CONSULT TO FUNCTIONAL MEDICINE Elpidio Gillette MSN, SUPERVISOR PASTE MIXING, ADVERTISING ACCOUNT MANAGER-C 1. This office note has been dictated and may contain minor typographic errors that escaped review 2. The nursing staff and medical assistants are a major part of YOUR TREATMENT TEAM and will be handling your phone calls and inquiries, if any. Unless explicitly told otherwise at the time of your office visit, your study results and ensuing treatment plans will be discussed during your follow-up appointment. If you do not have a follow-up appointment and wish to discuss any issues directly with me, please feel free to obtain one. 3. It is my practice to not fill disability or any other insurance-related forms/documention. All of the office notes, study results, and other pertinent documentation generated as part of your evaluation will be available to you and to your Primary Care Physician (PCP). Use of this material to complete such forms will be at the discretion of your PCP/referring physician documented in this encounter [facility] 12-18-2021 Miscellaneous Notes I have spoke to patient and she will be having some GI testing done in [place] and will have records faxed to our office prior to scheduling. Patient has no testing will need to be seen by Diana Jacobs or General GI for further testing. Summary: PSR Questionnaire Referring Physician: self Has the patient had a Gastric Emptying Study? No Which facility or hospital was the Gastric Emptying Study done at (please list full name of hospital or facility)? n/a If the patient had a gastric emptying study were the results abnormally delayed? n/a Has the patient had a Smart Pill? No Has the patient had Gastric Bypass? No Has the patient had a Gastric Sleeve? No Has the patient had a Rj/Hiatal Hernia/Repair? No Has the patient had POP/Pyloroplasty? No Is the patient currently on TPN? No Does the patient have a G/J Tube?No Preferred phone number for contact: [phone] documented in this encounter [facility] 12-02-2021 Hospital Discharge instructions Patient Education 12/02/2021 11:11:33 Understanding Tachycardia Understanding Tachycardia The heart has an electrical system that sends signals to control the heartbeat. Any abnormal change in the speed or pattern of the heartbeat is called an arrhythmia. If you have an arrhythmia that causes the heart to beat faster than normal, this is known as tachycardia. There are many types of tachycardia. They can affect the heart s upper chambers (atria), the heart s lower chambers (ventricles), or both. What causes tachycardia? Many things can cause tachycardia, including: Damage to heart tissue from heart disease, past heart attack, or heart surgery Abnormal electrical pathways in the heart Problems with the heart s structure that you are born with High blood pressure Overactive thyroid Use of certain medicines Severe blood loss or anemia Dehydration Severe stress, fear, or anxiety Smoking Too much alcohol or caffeine Abuse of certain street drugs, such as cocaine Infections Certain inflammatory conditions Chronic pain syndromes What are the symptoms of tachycardia? Tachycardia can cause a fast, pounding, or irregular heartbeat. It can also make it harder for the heart to pump blood efficiently to the body. This may cause symptoms such as: Shortness of breath Tiredness Dizziness or fainting Chest pain Some people with tachycardia may have no symptoms at all. How is tachycardiatreated? Treatment for tachycardia depends on the cause. It also depends on the type you have and how severe your symptoms are. Tachycardia in the ventricles is often more serious than in the atria. For this reason, it may need to be treated right away. Possible treatments include: Treating the underlying cause. For instance, if a medicine is causing your tachycardia, changing the dosage or stopping the medicine with your doctor s guidance may correct the problem. Lifestyle changes. These include getting enough sleep and reducing stress. They also include avoiding caffeine, alcohol, tobacco, and street drugs. Vagal maneuvers.These are techniques that may help interrupt a fast heartbeat and slow it down. One example is to take a deep breath and bear down hard while holding your breath. Medicines. These may be used to help slow down a fast heartbeat. They may also be used to regulate the pattern of the heartbeat. Electrical cardioversion. Special pads or paddles are used to send one or more brief electrical shocks to the heart. This can help restore the heartbeat to normal. Ablation. A long thin tube called a catheter is inserted into a blood vessel and threaded to the heart. The catheter sends out hot or cold energy to the areas causing abnormal signals. This destroys the problem tissue or cells. This may stop certain types of tachycardia. Pacemaker. This is a device that is placed just under the skin in the chest. It sends paced signals to make the heart beat at a more normal rate and rhythm. You may need this when certain medicines that treat tachycardia also result in a slow heart rate. Implantable cardioverter defibrillator (ICD). This is a device that is placed just under the skin in the chest or armpit. The ICD monitors your heart rate. When needed, it sends controlled burst of signals to the heart to overdrive a tachycardia. It can also send a single stronger shock to the heart to stop a life-threatening type of tachycardia, if needed. Surgery. During surgery, different techniques may be used to create scar tissue in the areas of the heart causing abnormal signals. This may help stop certain types of tachycardia. What are the complications of tachycardia? These can include: Blood clots or stroke Heart failure. With this problem, the heart muscle is so weak it no longer pumps blood well. Fainting Sudden cardiac arrest. This is when the heart suddenly stops beating. When should I call my healthcare provider? Call your healthcare provider right away if you have any of these: Symptoms that don t get better with treatment, or get worse New symptoms [id number] [employer]. [address] [place] [address]. All rights reserved. This information is not intended as a substitute for professional medical care. Always follow your healthcare professional's instructions. Follow Up Care 12/02/2021 09:21:20 With:KARYN SOTO MD, Surgery Address: [address] [place] [id number] When:2-4 days With:Go to emergency room if symptoms worsen Address:Unknown When:2-[address] [facility] Evaluation + Plan note Future Appointments Appointment Date:03/23/2022 09:15:00 AM Scheduled Provider: Location:[facility] Appointment Type:CV OV Future Scheduled TestsCortisol Drawn in AM 08/18/21 [facility] Evaluation + Plan note Future Appointments Appointment Date:06/01/2022 09:00:00 AM Scheduled Provider: Location:[facility] Appointment Type:XR Upper GI Appointment Date:03/22/2023 09:15:00 AM Scheduled Provider: Location:[facility] Appointment Type:CV OV Future Scheduled TestsCortisol Drawn in AM 08/18/21XR Upper GI 06/01/22CT Coronary Calcium Score w/o Contrast 03/16/22 [facility] Evaluation + Plan note Future Appointments Appointment Date:03/22/2023 09:15:00 AM Scheduled Provider: Location:[facility] Appointment Type:CV OV Future Scheduled TestsXR Upper GI 06/01/22CT Coronary Calcium Score w/o Contrast 03/16/22 [facility] Evaluation + Plan note Future Appointments Appointment Date:09/20/2023 09:15:00 AM Scheduled Provider: Location:[facility] Appointment Type:CV OV [facility] Evaluation + Plan note Future Appointments Appointment Date:09/20/2023 09:15:00 AM Scheduled Provider: Location:[facility] Appointment Type:CV OV Diagnostic Tests PendingMetanephrines, Frac., Pl. Free 06/10/23 [facility] Evaluation + Plan note Future Appointments Appointment Date:06/12/2024 09:15:00 AM Scheduled Provider: Location:[facility] Appointment Type:CV OV [facility] Evaluation note Diagnosis Increased risk of breast cancer Other specified personal history presenting hazards to health Family history of breast cancer Family history of malignant neoplasm of breast Dense breast tissue documented in this encounter [facility] Work Phone: Evaluation note* Diagnosis Orthostatic lightheadedness- Primary Dizziness and giddiness Dyspepsia Dyspepsia and other specified disorders of function of stomach Nausea Nausea alone H. pylori infection Helicobacter pylori (H. pylori) Orthostatic dizziness Tachycardia Tachycardia, unspecified [facility] H. pylori infection- Primary Helicobacter pylori (H. pylori) Orthostatic hypotension Dizziness Dizziness and giddiness Brain fog Malaise and fatigue Other malaise and fatigue Bloating Flatulence, eructation, and gas pain Constipation, unspecified constipation type Heavy metal exposure Contact with and (suspected) exposure to other hazardous metals Mold exposure Contact with and (suspected) exposure to mold documented in this encounter [facility]* Diagnosis Encounter for person encountering health services- Primary [facility] Diagnosis Rhus dermatitis- Primary Contact dermatitis and other eczema due to plants (except food) documented in this encounter [facility]* Diagnosis Orthostatic lightheadedness- Primary Dizziness and giddiness [facility]* Diagnosis Inappropriate sinus tachycardia- Primary Other specified cardiac dysrhythmias documented in this encounter [facility]* Diagnosis Inappropriate sinus tachycardia- Primary Other specified cardiac dysrhythmias POTS (postural orthostatic tachycardia syndrome) Tachycardia, unspecified documented in this encounter [facility]* Diagnosis Malaise and fatigue- Primary Other malaise and fatigue Brain fog Bloating Flatulence, eructation, and gas pain Constipation, unspecified constipation type Alteration in metabolic function Nutritional deficiency Unspecified nutritional deficiency Intestinal dysbiosis Autonomic dysfunction Unspecified disorder of autonomic nervous system documented in this encounter [facility]* Diagnosis History of atypical hyperplasia of breast Increased risk of breast cancer Dense breast tissue documented in this encounter [facility] note* Diagnosis Increased risk of breast cancer- Primary Dense breast tissue History of atypical hyperplasia of breast documented in this encounter [facility] note* Diagnosis Encounter for screening mammogram for breast cancer documented in this encounter [facility] note* Diagnosis Encounter for gynecological examination (general) (routine) without abnormal findings- Primary Screening for cervical cancer Screening for malignant neoplasm of the cervix Encounter for screening for human papillomavirus (HPV) Special screening examination for human papillomavirus (HPV) SHIRA (stress urinary incontinence, female) Female stress incontinence documented in this encounter [facility] note* Diagnosis Dyspepsia Dyspepsia and other specified disorders of function of stomach Nausea Nausea alone documented in this encounter [facility] note* Diagnosis SHIRA (stress urinary incontinence, female)- Primary Female stress incontinence Muscle weakness Muscle weakness (generalized) documented in this encounter [facility] note* Diagnosis Increased risk of breast cancer History of atypical hyperplasia of breast Dense breast tissue Family history of breast cancer Family history of malignant neoplasm of breast documented in this encounter [facility] note* Diagnosis Abnormal uterine bleeding (AUB)- Primary Cervical stenosis (uterine cervix) Stricture and stenosis of cervix Menorrhagia with regular cycle Excessive or frequent menstruation documented in this encounter [facility]* Diagnosis Abnormal uterine bleeding (AUB) documented in this encounter [facility]* Diagnosis Abnormal uterine bleeding (AUB)- Primary Stenotic cervical os Stricture and stenosis of cervix Endometrial polyp Polyp of corpus uteri * Assessment & Plan Note - Satsih Narayan MD - 04/20/2024 10:29 AM EDT Associated Problem(s): Abnormal uterine bleeding (AUB) Orders: PELVIC [facility]; Future documented in this encounter [facility] note* Diagnosis Abnormal uterine bleeding (AUB)- Primary Stenotic cervical os Stricture and stenosis of cervix Endometrial polyp Polyp of corpus uteri Encounter for gynecological examination (general) (routine) without abnormal findings- Primary documented in this encounter [facility] note* Diagnosis Encounter for screening mammogram for breast cancer documented in this encounter [facility] note* Diagnosis Abnormal uterine bleeding (AUB)- Primary Stenotic cervical os Stricture and stenosis of cervix Endometrial polyp Polyp of corpus uteri Abnormal uterine bleeding (AUB) Endometrial polyp Polyp of corpus uteri documented in this encounter [facility] note* Diagnosis Abnormal uterine bleeding (AUB)- Primary Stenotic cervical os Stricture and stenosis of cervix Endometrial polyp Polyp of corpus uteri Abnormal uterine bleeding (AUB)- Primary Endometrial polyp Polyp of corpus uteri [facility]* Diagnosis History of atypical hyperplasia of breast- Primary Increased risk of breast cancer Dense breast tissue Encounter for screening mammogram for breast cancer documented in this encounter [facility] note* Diagnosis History of atypical hyperplasia of breast- Primary Increased risk of breast cancer Dense breast tissue Encounter for screening mammogram for breast cancer Family history of breast cancer Family history of malignant neoplasm of breast Axillary pain, right Mass overlapping multiple quadrants of left breast documented in this encounter [facility] note* Diagnosis Encounter for screening mammogram for breast cancer- Primary documented in this encounter [facility] note* Diagnosis Axillary pain, right Mass overlapping multiple quadrants of left breast documented in this encounter [facility] note* Diagnosis Dyspnea and respiratory abnormalities- Primary documented in this encounter [facility] note* Diagnosis Dyspnea and respiratory abnormalities documented in this encounter [facility] note* Diagnosis History of atypical hyperplasia of breast Increased risk of breast cancer Dense breast tissue Family history of breast cancer Family history of malignant neoplasm of breast documented in this encounter [facility] note* Diagnosis Encounter for screening mammogram for breast cancer documented in this encounter [facility] course Narrative No data available for this section [facility] Discharge instructions No data available for this section [facility] Progress note No data available for this section [facility] Reason for referral (narrative)* Diagnostic Procedure Only (Routine) - Closed Specialty Diagnoses / Procedures Referred By Swapnil boyd Referred To Contact MOLECULAR & FUNCTIONAL IMAGING Diagnoses Dyspepsia Nausea Procedures NM GASTRIC EMPTYING SOLID GASTRIC EMPTYING STUDY Elpidio Gillette APRN.CNP [address] [facility] [id number] [place] [id number] Molecular & Functional Imaging [address] [place] [address] Referral ID Status Reason Start Date Expiration Date V isits Requested Visits Authorized [id number] Closed Auto-Generate d Referral 01/09/2022 03/10/2022 1 1 [facility] for referral (narrative)* Outpatient Procedure (Routine) - New Request Specialty Diagnoses / Procedures Referred By Swapnil boyd Referred To Contact [facility] Diagnoses Abnormal uterine bleeding (AUB) Procedures OFFICE HYSTEROSCOPY HYSTEROSCOPY BX ENDOMETRIUM&/POLYPC W/WO D&C Satish Narayan MD [address] [place] [address] [address] Referral ID Status Reason Start Date Expiration Date Visits Requested Visits Authorized [id number] New Request Auto-Generat ed Referral 02/24/2024 02/23/2025 1 1 * Outpatient Procedure (Routine) - New Request Specialty Diagnoses / Procedures Referred By Contac t Referred To Contact [facility] Diagnoses Abnormal uterine bleeding (AUB) Procedures ENDOMETRIAL BIOPSY ENDOMETRIAL BX W/WO ENDOCERVIX BX W/O DILAT SPX Satish Narayan MD [address] [place] [address] [address] Referral ID Status Reason Start Date Expiration Date Visits Requested Visits Authorized [id number] New Request Auto-Generat ed Referral 02/24/2024 02/23/2025 1 1 * Diagnostic Procedure Only (Routine) - Authorized Specialty Diagnoses / Procedures Referred By Contac t Referred To Contact [facility] Diagnoses Abnormal uterine bleeding (AUB) Procedures PELVIC US I US PELVIC NONOBSTETRIC REAL-TIME IMAGE COMPLETE Satish Narayan MD [address] [place] [address] [address] Referral ID Status Reason Start Date Expiration Date Visits Requested Visits Authorized [id number] Authorized Auto-Generat ed Referral 02/24/2024 02/23/2025 1 1 [facility] for referral (narrative)* Diagnostic Procedure Only (Routine) - Authorized Specialty Diagnoses / Procedures Referred By Contac t Referred To Contact [facility] Diagnoses Abnormal uterine bleeding (AUB) Endometrial polyp Procedures PELVIC US I US PELVIC NONOBSTETRIC REAL-TIME IMAGE COMPLETE Satish Narayan MD [address] [place] [address] [address] Referral ID Status Reason Start Date Expiration Date Visits Requested Visits Authorized [id number] Authorized Auto-Generat ed Referral 04/20/2025 1 1 [facility] for visit Narrative* Diagnostic Procedure Only (Routine) - Closed Specialty Diagnoses / Procedures [facility] To [facility] Diagnoses Abnormal uterine bleeding (AUB) Procedures PELVIC US [facility] US PELVIC NONOBSTETRIC REAL-TIME IMAGE COMPLETE Satish Narayan MD [address] [place] [address] [address] Referral ID Status Reason Start Date Expiration Date V isits Requested Visits Authorized [id number] Closed Auto-Generate d Referral 02/24/2024 02/23/2025 1 1 [facility] for visit Narrative* Diagnostic Procedure Only (Routine) - Closed Specialty Diagnoses / Procedures Referred By Contac t Referred To Contact [facility] Diagnoses Abnormal uterine bleeding (AUB) Endometrial polyp Procedures PELVIC US [facility] US PELVIC NONOBSTETRIC REAL-TIME IMAGE COMPLETE Satish Narayan MD [address] [place] [address] [address] Referral ID Status Reason Start Date Expiration Date V isits Requested Visits Authorized [id number] Closed Auto-Generate d Referral 04/20/2024 04/20/2025 1 1 [facility] for visit Narrative* Imaging (Routine) - Closed Specialty Diagnoses / Procedures Referred By Contac t Referred To Contact Radiology Diagnoses History of atypical hyperplasia of breast Increased risk of breast cancer Dense breast tissue Family history of breast cancer Procedures Bilateral breast MR with and without contrast Mackenzie Mae, SUPERVISOR PASTE MIXING - OPTICS ENGINEER [address] [place] [address] Phone: tel: fax: Referral ID Status Reason Start Date Expiration Date Visits Re quested Visits Authorized [id number] Closed 08/14/2024 08/14/2025 1 1 [facility] Purpose Family History No Family History Records FoundNo Family History Records FoundNo Family History Records FoundNo Family History Records FoundNo Family History Records Found No data available for this section No data available for this section No Family History Records Found No data available for this section No Family History Records FoundNo Family History Records FoundNo Family History Records FoundNo Family History Records FoundNo Family History Records FoundNo Family History Records FoundNo Family History Records FoundNo Family History Records Found Advance Directives No Advanced Directives Records FoundDocuments on File Type Date Recorded Patient Cma Expl anation Advance Directives and Living Will Power of Franchise Sales Representative Documents on File Type Date Recorded Patient Cma Expl anation ACP-Advance Directive ACP-Power of Franchise Sales Representative Latest Code Status on File Code Status Date Activated Date Inactivated Comments Full Code 02/26/2020 6:27 AM Documents on File Type Date Recorded Patient Cma Expl anation ACP-Advance Directive ACP-Power of Franchise Sales Representative Latest Code Status on File Code Status Date Activated Date Inactivated Comments Full Code 02/26/2020 6:27 AM 02/26/2020 12:47 PM Latest Code Status on File Code Status Date Activated Date Inactivated Comments Full Code 02/26/2020 6:27 AM 02/26/2020 12:47 PM Discharge Instructions * Discharge Instr - TORSTEN* Mary Barrios RN - 02/21/2020 8:30 AM EDT Continuity of Care Form Patient Name: Karuna iGlbert : 1985 Admit date: 02/21/2020 Discharge date: Code Status Order: No Order Advance Directives: Advance Care Flowsheet Documentation Date/Time Healthcare Directive Type of Healthcare Directive Copy in Chart Healthcare Agent Appointed Healthcare Agent's Name Healthcare Agent's Phone Number 02/21/20 0848 No, patient does not have an advance directive for healthcare treatment -- -- -- -- -- Admitting Physician: No admitting provider for patient encounter. PCP: Karyn Soto MD Discharging Nurse: Discharging Hospital Unit/Room#: No information available for this encounter. Discharging Unit Phone Number: Emergency Contact: No emergency contact information on file. Past Surgical History: Past Surgical History: Procedure Laterality Date SECTION 2017 COLONOSCOPY FRACTURE SURGERY Left 1998 shoulder SALPINGECTOMY Bilateral 2018 WISDOM TOOTH EXTRACTION Immunization History: There is no immunization history on file for this patient. Active Problems: There is no problem list on file for this patient. Isolation/Infection: Isolation No Isolation Patient Infection Status None to display Nurse Assessment: Last Vital Signs: LMP 02/02/2020 (Exact Date) Last documented pain score (0-10 scale): Last Weight: Wt Readings from Last 1 Encounters: No data found for Wt Mental Status: {IP PT MENTAL STATUS:} IV Access: { TORSTEN IV ACCESS:720467717} Nursing Mobility/ADLs: Walking {CHP DME ADLs:754597127} Transfer {CHP DME ADLs:211058946} Bathing {CHP DME ADLs:082057335} Dressing {CHP DME ADLs:024382204} Toileting {CHP DME ADLs:853529415} Feeding {CHP DME ADLs:599284729} Per Diem Physical Therapist {CHP DME ADLs:896412845} Med Delivery { TORSTEN MED Delivery:153655650} Wound Care Documentation and Therapy: Elimination: Continence: Bowel: {YES / NO:} Bladder: {YES / NO:} Urinary Catheter: {Urinary Catheter:500567284} Colostomy/Ileostomy/Ileal Conduit: {YES / NO:} Date of Last BM: No intake or output data in the 24 hours ending 02/21/20 0851 No intake/output data recorded. Safety Concerns: { TORSTEN Safety Concerns:155884669} Impairments/Disabilities: { TORSTEN Impairments/Disabilities:822257916} Nutrition Therapy: Current Nutrition Therapy: { TORSTEN Diet List:120555331} Routes of Feeding: {CHP DME Other Feedings:837528719} Liquids: {Carpenter Streetcar liquid thickness:49039} Daily Fluid Restriction: {CHP DME Yes amt example:254043504} Last Modified Barium Swallow with Video (Video Swallowing Test): {Done Not Done Date:685026010} Treatments at the Time of Hospital Discharge: Respiratory Treatments: Oxygen Therapy: {Therapy; copd oxygen:55640} Ventilator: {[facility] Vent List:668477480} Rehab Therapies: {THERAPEUTIC INTERVENTION:1288821173} Weight Bearing Status/Restrictions: { CC Weight Bearin} Other Medical Equipment (for information only, NOT a DME order): {EQUIPMENT:540801885} Other Treatments: Patient's personal belongings (please select all that are sent with patient): {[facility] DME Belongings:179068917} RN SIGNATURE: {Esignature:718360025} CASE MANAGEMENT/SOCIAL WORK SECTION Inpatient Status Date: Readmission Risk Assessment Score: Readmission Risk Risk of Unplanned Readmission: 0 Discharging to Facility/ Agency Name: Address: Phone: Fax: Dialysis Facility (if applicable) Name: Address: Dialysis Schedule: Phone: Fax: Security Installation Sales Technician/Signal System Testing Maintainer signature: {Esignature:007218335} PHYSICIAN SECTION Prognosis: {Prognosis:8147536973} Condition at Discharge: { Patient Condition:985856475} Rehab Potential (if transferring to Rehab): {Prognosis:5615702773} Recommended Labs or Other Treatments After Discharge: Physician Certification: I certify the above information and transfer of Karuna Gilbert is necessaryfor the continuing treatment of the diagnosis listed and that she requires {Admit to Appropriate Level of Care:50639} for {GREATER/LESS:962961566} 30 days. Update Admission H&P: {CHP DME Changes in HandP:930557926} PHYSICIAN SIGNATURE: {Esignature:649708268} * Additional Instructions* Mary Barrios RN - 02/21/2020 ..PLEASE BE AWARE THAT VISITORS UNDER THE AGE OF 12 AND FOOD/DRINKS ARE NO LONGER PERMITTED IN THE SAME DAY SURGERY DEPARTMENT. IF YOU USE A CPAP MACHINE OR RESCUE INHALER AT HOME PLEASE BRING THESE ITEMS WITH YOU THE DAY OF SURGERY. MEDICATION INSTRUCTIONS PRIOR TO SURGERY PLEASE BRING PROVIDED LIST BACK WITH YOU THE DAY OF SURGERY WITH DATE/TIME LAST DOSE OF MEDICATIONSTAKEN. MEDICATIONS TO HOLD STARTING NOW- vitamins, supplements, aspirin, stop nsaids 24 hours before surgery MEDICATIONS THAT YOU SHOULD NOT TAKE THE MORNING OF SURGERY- as above MEDICATIONS THAT YOU SHOULD TAKE THE MORNING OF SURGERY- zyrtec, flexeril, flonase, hyoscyamine documented in this encounter* Instructions* Vin Nicole MD - 02/26/2020 Diet - no restrictions Activity - No heavy lifting, straining, pushing, pulling for one week Medication - [place] 5/325mg - one or two every 4 hours as needed for severe pain. Otherwise use tylenol or advil Wound Care - Remove bra and gauze 2 days after surgery. Then you may shower. Leave paper tape on incision(s) until loose. Wear a good support bra day and night for one week. Anesthesia precautions - Do not operate any vehicle (car, bicycle, motorcycle) or power tools for 24 hours. Do not drink alcoholic beverages for 24 hours. Start with light diet at home and progress as tolerated documented in this encounter History of Present Illness * Ileana Mack RN - 02/26/2020 10:17 AM EDT Patient given discharge instructions with at bedside. Prescription filled using meds to beds * Ileana Mack RN - 02/26/2020 8:35 AM EDT Oral airway removed. Dhruv blood noted. Informed anesthesia * Danae Richter RN - 02/26/2020 7:02 AM EDT SCD's applied documented in this encounter Assessments Diagnosis Postoperative state Other postprocedural status Reason for Referral Specialty Diagnoses / Procedures Referred By Swapnil boyd Referred To Contact Radiology Diagnoses Increased risk of breast cancer Family history of breast cancer Dense breast tissue Procedures MRI BREAST BILATERAL W WO CONTRAST Mackenzie Mae APRN - OPTICS ENGINEER [address] [place] [address] Referral ID Status Reason Start Date Expiration Date Visits Re quested Visits Authorized [id number] Closed 09/17/2021 11/16/2021 1 1 Specialty Diagnoses / Procedures Referred By Contac t Referred To Contact Diagnoses H. pylori infection Procedures CONSULT TO FUNCTIONAL MEDICINE OFFICE/OUTPATIENT [facility] 60-74 MINUTES Elpidio Gillette APRN.OPTICS ENGINEER [id number] [place] [address] Referral ID Status Reason Start Date Expiration Date Visits Requested Visits Authorized [id number] Authorized PCP Requested Referral 01/09/2022 01/09/2023 1 1 Specialty Diagnoses / Procedures Referred By Contac t Referred To Contact MOLECULAR & FUNCTIONAL IMAGING Diagnoses Dyspepsia Nausea Procedures NM GASTRIC EMPTYING SOLID GASTRIC EMPTYING STUDY Elpidio Gillette APRN.OPTICS ENGINEER [id number] [place] [address] Molecular & Functional Imaging [address] [place] [address] Referral ID Status Reason Start Date Expiration Date Visits Requested Visits Authorized [id number] Authorized Auto-Generat ed Referral 01/09/2022 03/10/2022 1 1 Specialty Diagnoses / Procedures Referred By Contac t Referred To Contact Cardiology Diagnoses Inappropriate sinus tachycardia Procedures CONSULT TO CARDIOLOGY OFFICE/OUTPATIENT [facility] 60-74 MINUTES Elpidio Gillette APRN.OPTICS ENGINEER [id number] [place] [address] Referral ID Status Reason Start Date Expiration Date Visits Requested Visits Authorized [id number] Authorized PCP Requested Referral 05/13/2022 05/13/2023 1 1 Specialty Diagnoses / Procedures Referred By Contac t Referred To Contact Radiology Diagnoses History of atypical hyperplasia of breast Increased risk of breast cancer Dense breast tissue Procedures Bilateral breast MR with and without contrast Mackenzie Mae, SUPERVISOR PASTE MIXING - OPTICS ENGINEER [address] [place] [address] [facility] [address] [place] [address] Referral ID Status Reason Start Date Expiration Date Visits Re quested Visits Authorized [id number] Closed 08/31/2022 02/27/2023 1 1 Specialty Diagnoses / Procedures Referred By Contac t Referred To Contact [facility] Diagnoses SHIRA (stress urinary incontinence, female) Procedures CONSULT TO PHYSICAL THERAPY PHYSICAL THERAPY EVALUATION HIGH COMPLEX 45 MINS Satish Narayan MD [address] [place] [address] [facility] [place] [address] [place] [address] Referral ID Status Reason Start Date Expiration Date Visits Requested Visits Authorized [id number] Pending Review Auto-Generat ed Referral 04/25/2024 1 1 Specialty Diagnoses / Procedures Referred By Contac t Referred To Contact Radiology Diagnoses Increased risk of breast cancer History of atypical hyperplasia of breast Dense breast tissue Family history of breast cancer Procedures Bilateral breast MR with and without contrast Mackenzie Mae APRN - CNP [address] [place] [address] Referral ID Status Reason Start Date Expiration Date Visits Re quested Visits Authorized [id number] Closed 08/30/2023 08/29/2024 1 1 Specialty Diagnoses / Procedures Referred By Contac t Referred To Contact Radiology Diagnoses History of atypical hyperplasia of breast Increased risk of breast cancer Dense breast tissue Procedures Bilateral breast MR with and without contrast Mackenzie Mae APRN - CNP [address] [place] [address] Referral ID Status Reason Start Date Expiration Date V isits Requested Visits Authorized [id number] Pending Review 08/31/2022 02/27/2023 1 1 Additional Source Comments INFORMATION SOURCE (unrecogn ized section and content) DATE CREATED AUTHOR 12/29/2017 [facility] DATE CREATED AUTHOR AUTHOR'S ORGANIZ ATION 11/07/2021 [facility] Terri Castillo DATE CREATED AUTHOR AUTHOR'S ORGANIZ ATION 12/10/2021 [facility] DATE CREATED AUTHOR AUTHOR'S ORGANIZ ATION 04/25/2022 [facility] DATE CREATED AUTHOR AUTHOR'S ORGANIZ ATION 02/13/2023 [facility] DATE CREATED AUTHOR AUTHOR'S ORGANIZ ATION 06/27/2023 [facility] ([place]) DATE CREATED AUTHOR AUTHOR'S ORGANIZ ATION 03/30/2024 [facility] DATE CREATED AUTHOR AUTHOR'S ORGANIZ ATION 06/27/2024 [facility] DATE CREATED AUTHOR AUTHOR'S ORGANIZ ATION 09/30/2024 [facility] DATE CREATED AUTHOR AUTHOR'S ORGANIZ ATION 02/28/2025 [facility] DATE CREATED AUTHOR AUTHOR'S ORGANIZ ATION 03/01/2025 [facility] DATE CREATED AUTHOR AUTHOR'S ORGANIZ ATION 04/10/2025 [facility] DATE CREATED AUTHOR AUTHOR'S ORGANIZ ATION 05/01/2025 [facility] DATE CREATED AUTHOR AUTHOR'S ORGANIZ ATION 05/11/2025 [facility] Source Comments (unrecognize d section and content) In the event this informatio n is protected by the Federal Confidentiality of Alcohol and Drug Abuse Patient Records regulations: The Federal rules restrict any use of the information to criminally investigate or prosecute any alcohol or drug abuse patient.[facility] System[facility] the event this information is protected by the Federal Confidentiality of Alcohol and Drug Abuse Patient Records regulations: The Federal rules restrict any use of the information to criminally investigate or prosecute any alcohol or drug abuse patient.[facility] System[facility] the event this information is protected by the Federal Confidentiality of Alcohol and Drug Abuse Patient Records regulations: The Federal rules restrict any use of the information to criminally investigate or prosecute any alcohol or drug abuse patient.[facility] System[facility] the event this information is protected by the Federal Confidentiality of Alcohol and Drug Abuse Patient Records regulations: The Federal rules restrict any use of the information to criminally investigate or prosecute any alcohol or drug abuse patient.[facility] System[facility] the event this information is protected by the Federal Confidentiality of Alcohol and Drug Abuse Patient Records regulations: The Federal rules restrict any use of the information to criminally investigate or prosecute any alcohol or drug abuse patient.[facility] System[facility] the event this information is protected by the Federal Confidentiality of Alcohol and Drug Abuse Patient Records regulations: The Federal rules restrict any use of the information to criminally investigate or prosecute any alcohol or drug abuse patient.[facility] System[facility] the event this information is protected by the Federal Confidentiality of Alcohol and Drug Abuse Patient Records regulations: The Federal rules restrict any use of the information to criminally investigate or prosecute any alcohol or drug abuse patient.[facility] System[facility] the event this information is protected by the Federal Confidentiality of Alcohol and Drug Abuse Patient Records regulations: The Federal rules restrict any use of the information to criminally investigate or prosecute any alcohol or drug abuse patient.[facility] System[facility] the event this information is protected by the Federal Confidentiality of Alcohol and Drug Abuse Patient Records regulations: The Federal rules restrict any use of the information to criminally investigate or prosecute any alcohol or drug abuse patient.[facility] System[facility] the event this information is protected by the Federal Confidentiality of Alcohol and Drug Abuse Patient Records regulations: The Federal rules restrict any use of the information to criminally investigate or prosecute any alcohol or drug abuse patient.[facility] System[facility] the event this information is protected by the Federal Confidentiality of Alcohol and Drug Abuse Patient Records regulations: The Federal rules restrict any use of the information to criminally investigate or prosecute any alcohol or drug abuse patient.[facility] System[facility] the event this information is protected by the Federal Confidentiality of Alcohol and Drug Abuse Patient Records regulations: The Federal rules restrict any use of the information to criminally investigate or prosecute any alcohol or drug abuse patient.[facility] System[facility] the event this information is protected by the Federal Confidentiality of Alcohol and Drug Abuse Patient Records regulations: The Federal rules restrict any use of the information to criminally investigate or prosecute any alcohol or drug abuse patient.[facility] System[facility] the event this information is protected by the Federal Confidentiality of Alcohol and Drug Abuse Patient Records regulations: The Federal rules restrict any use of the information to criminally investigate or prosecute any alcohol or drug abuse patient.[facility] System[facility] the event this information is protected by the Federal Confidentiality of Alcohol and Drug Abuse Patient Records regulations: The Federal rules restrict any use of the information to criminally investigate or prosecute any alcohol or drug abuse patient.[facility] SystemIn the event this information is protected by the Federal Confidentiality of Alcohol and Drug Abuse Patient Records regulations: The Federal rules restrict any use of the information to criminally investigate or prosecute any alcohol or drug abuse patient.[facility] SystemIn the event this information is protected by the Federal Confidentiality of Alcohol and Drug Abuse Patient Records regulations: The Federal rules restrict any use of the information to criminally investigate or prosecute any alcohol or drug abuse patient.[facility] SystemIn the event this information is protected by the Federal Confidentiality of Alcohol and Drug Abuse Patient Records regulations: The Federal rules restrict any use of the information to criminally investigate or prosecute any alcohol or drug abuse patient.[facility] SystemIn the event this information is protected by the Federal Confidentiality of Alcohol and Drug Abuse Patient Records regulations: The Federal rules restrict any use of the information to criminally investigate or prosecute any alcohol or drug abuse patient.[facility] SystemIn the event this information is protected by the Federal Confidentiality of Alcohol and Drug Abuse Patient Records regulations: The Federal rules restrict any use of the information to criminally investigate or prosecute any alcohol or drug abuse patient.[facility] SystemIn the event this information is protected by the Federal Confidentiality of Alcohol and Drug Abuse Patient Records regulations: The Federal rules restrict any use of the information to criminally investigate or prosecute any alcohol or drug abuse patient.[facility] SystemIn the event this information is protected by the Federal Confidentiality of Alcohol and Drug Abuse Patient Records regulations: The Federal rules restrict any use of the information to criminally investigate or prosecute any alcohol or drug abuse patient.[facility] SystemIn the event this information is protected by the Federal Confidentiality of Alcohol and Drug Abuse Patient Records regulations: The Federal rules restrict any use of the information to criminally investigate or prosecute any alcohol or drug abuse patient.[facility] SystemIn the event this information is protected by the Federal Confidentiality of Alcohol and Drug Abuse Patient Records regulations: The Federal rules restrict any use of the information to criminally investigate or prosecute any alcohol or drug abuse patient.[facility] SystemIn the event this information is protected by the Federal Confidentiality of Alcohol and Drug Abuse Patient Records regulations: The Federal rules restrict any use of the information to criminally investigate or prosecute any alcohol or drug abuse patient.[facility] SystemIn the event this information is protected by the Federal Confidentiality of Alcohol and Drug Abuse Patient Records regulations: The Federal rules restrict any use of the information to criminally investigate or prosecute any alcohol or drug abuse patient.[facility] SystemIn the event this information is protected by the Federal Confidentiality of Alcohol and Drug Abuse Patient Records regulations: The Federal rules restrict any use of the information to criminally investigate or prosecute any alcohol or drug abuse patient.[facility] Care Teams (unrecognized sec tion and content) Ditch Cleaner Relationship Specialty Start Date End Date Karyn Soto MD [address] [place] [address] [phone] PCP - General 05/13/16 Ditch Cleaner Relationship Specialty Start Date End Date Karyn Soto MD [address] [place] [address] [phone] PCP - General 05/13/16 Ditch Cleaner Relationship Specialty Start Date End Date Karyn Soto MD [address] [place] [address] [phone] PCP - General 05/13/16 Ditch Cleaner Relationship Specialty Start Date End Date Karyn Soto MD [address] [place] [address] [phone] PCP - General 05/13/16 Ditch Cleaner Relationship Specialty Start Date End Date Karyn Soto MD [address] [place], [place] [address], [place] [phone] PCP - General 05/13/16 Ditch Cleaner Relationship Specialty Start Date End Date Karyn Soto MD [address] [place] [phone] PCP - General 05/13/16 Ditch Cleaner Relationship Specialty Start Date End Date Karyn Soto MD [address] [place] [phone] PCP - General 05/13/16 Ditch Cleaner Relationship Specialty Start Date End Date Karyn Soto MD [address] [place], [place] [address] [place] [phone] PCP - General 05/13/16 Ditch Cleaner Relationship Specialty Start Date End Date Karyn Soto MD [address] [place] [phone] PCP - General 05/13/16 Ditch Cleaner Relationship Specialty Start Date End Date Karyn Soto MD [address] [place] [phone] PCP - General 05/13/16 Ditch Cleaner Relationship Specialty Start Date End Date Karyn Soto MD [address] [place] [phone] PCP - General 05/13/16 Ditch Cleaner Relationship Specialty Start Date End Date Karyn Soto MD [address] [place] [phone] PCP - General 05/13/16 Ditch Cleaner Relationship Specialty Start Date End Date Karyn Soto MD [address] [place] [phone] PCP - General 05/13/16 Ditch Cleaner Relationship Specialty Start Date End Date Karyn Soto MD [address] [place] [phone] PCP - General 05/13/16 Reason for Visit (unrecogniz ed section and content) Reason Comments New Patient POTS Specialty Diagnoses / Procedures Referred By Contac t Referred To Contact Neurology / ADULT NEUROLOGY Diagnoses [place] Procedures Karyn Waller [address] [place] [phone] Elpidio Gillette, SUPERVISOR PASTE MIXING.OPTICS ENGINEER [id number] [place] [address] Referral ID Status Reason Start Date Expiration Date V isits Requested Visits Authorized [id number] Closed OON/Self Pay Override Financial Clearance Not Required 12/04/2021 03/04/2022 1 1 Reason Comments Appointment Reason Comments New Patient Specialty Diagnoses / Procedures Referred By Contac t Referred To Contact FUNCTIONAL MEDICINE Diagnoses H. pylori infection Procedures CONSULT TO FUNCTIONAL MEDICINE OFFICE/OUTPATIENT [facility] 60-74 MINUTES Elpidio Gillette, SUPERVISOR PASTE MIXING.OPTICS ENGINEER [id number] [place] [address] [facility] [address] [place] [address] Referral ID Status Reason Start Date Expiration Date V isits Requested Visits Authorized [id number] Closed PCP Requested Referral 01/09/2022 01/09/2023 1 1 Reason Comments Rash Patient states it st arted last night, Patient states she was in the wood recently Edema eyes Reason Comments Important Med Instrucitons for Neuro Aut o 05/13 Reason Comments Procedure Reason Comments Established Patient Specialty Diagnoses / Procedures Referred By Swapnil t Referred To Contact Radiology Diagnoses History of atypical hyperplasia of breast Increased risk of breast cancer Dense breast tissue Procedures Bilateral breast MR with and without contrast Mackenzie Mae APRN - OPTICS ENGINEER [address] [place] [address] [facility] [address] [place] [address] Referral ID Status Reason Start Date Expiration Date Visits Re quested Visits Authorized [id number] Closed 08/31/2022 02/27/2023 1 1 Reason Comments Follow-up HR patient with hx o f left breast ALH. Former pt of Dr. Nicole'jenelle, who removed a left breast fibroadenoma. Here to establish care with a surgeon. States she has bilateral breast pain in her outer portion of both breasts, does notice it more at the time of ovulation, says right side is usually worse and pain goes up to her axillary area Reason Comments Yearly Exam Reason Comments Radiology NM Specialty Diagnoses / Procedures Referred By Swapnil t Referred To Contact MOLECULAR & FUNCTIONAL IMAGING Diagnoses Dyspepsia Nausea Procedures NM GASTRIC EMPTYING SOLID GASTRIC EMPTYING STUDY Elpidio Gillette APRN.OPTICS ENGINEER [address] [facility] [address] [place] [id number] [facility] [address] [place] [address] Referral ID Status Reason Start Date Expiration Date V isits Requested Visits Authorized [id number] Closed Auto-Generate d Referral 01/09/2022 03/10/2022 1 1 Reason Comments PT Discharge Specialty Diagnoses / Procedures Referred By Swapnil t Referred To Contact PHYSICAL THERAPY Diagnoses N39.3 (ICD-10-CM) - SHIRA (stress urinary incontinence, female) Procedures N39.3 (ICD-10-CM) - SHIRA (stress urinary incontinence, female) Satish Narayan MD [address] [place] [address] [facility] [address] [place] [address] Referral ID Status Reason Start Date Expiration Date V isits Requested Visits Authorized [id number] Authorized 07/05/2023 07/04/2024 99 99 Specialty Diagnoses / Procedures Referred By Contac t Referred To Contact Radiology Diagnoses Increased risk of breast cancer History of atypical hyperplasia of breast Dense breast tissue Family history of breast cancer Procedures Bilateral breast MR with and without contrast Mackenzie Mae, SUPERVISOR PASTE MIXING - OPTICS ENGINEER [address] [place] [address] Referral ID Status Reason Start Date Expiration Date Visits Re quested Visits Authorized [id number] Closed 08/30/2023 08/29/2024 1 1 Reason Comments Discussion Irregular menses Reason Comments Patient Update Reason Comments Patient Question Reason Comments discuss results Reason Comments Yearly Exam Pre-Op Visit Reason Comments 1 Year Follow-up Breast - High Risk Right breast pain, n o other concerns Reason Comments Follow-up HR follow up Reason Comments New Patient Sob Specialty Diagnoses / Procedures Referred By Contac t Referred To Contact Pulmonology Diagnoses Shortness of breath Procedures SD OFFICE/OUTPATIENT NEW MODERATE MDM 45 MINUTES Leading Reach Referral Karyn Soto MD [address] [place] [phone] Phone: tel: fax: [facility] [address] [place] [address] Phone: tel: fax: Referral ID Status Reason Start Date Expiration Date Visits Re quested Visits Authorized [id number] Closed 09/25/2024 09/25/2025 1 1 Care Team (unrecognized sect ion and content) Care Team Personnel Name: KARYN SOTO MD Member Role: Primary Care Physician Address: Address: [address] [place] [address] Care Team Related Persons Name: STEPHAN GILBERT Address: Home [address] [place] [phone] FOR RECORDS PERTAINING TO PATIENTS WHO ARE OR HAVE BEEN ENROLLED IN A CHEMICAL DEPENDENCY/SUBSTANCEABUSE PROGRAM, SOME INFORMATION MAY BE OMITTED. This clinical summary was aggregated from multiple sources. Caution should be exercised in using it in the provision of clinical care. This summary normalizes information from multiple sources, and as a consequence, information in this document may materially change the coding, format and clinical context of patient data. In addition, data may be omitted in some cases. CLINICAL DECISIONS SHOULD BE BASED ON THE PRIMARY CLINICAL RECORDS. [facility] [employer] [facility]. provides no warranty or guarantee of the accuracy or completeness of information in this document.
== END | disposition home or self-care (01) ==
LOC: LABSPEC 14:58
PROVIDERS: PCP Family Medicine; Referring Provider Surgery; Visit Provider Surgery
DX: K59.00 Constipation, unspecified (principal)
CPT/HCPCS: 88305